=== PATIENT | male | born 1985 | race Caucasian/White ===

== ENCOUNTER 2020-09-27 18:47 | Inpatient (IN) | payer SELFPAY ==
[2020-09-27 20:27] LABS: Basophils % 1.1 % (0-1.3); Hematocrit 35.6 % (39.6-49.0); Lymphocytes % 20.5 % (15.3-44.8); MPV 8.9 fL (7.6-11.3); RBC Red Blood Cell Count 3.31 M/uL (4.33-5.43)
[2020-09-27] MEDS ORDERED: FAMOTIDINE 20 MG/2 ML VIAL IV ONE (20:37)
[2020-09-27] MEDS ORDERED: ONDANSETRON 4 MG/2 ML VIAL ONE (20:37)
[2020-09-27] MEDS ORDERED: MORPHINE 4 MG/ML SYR ONE ×2 (20:37→23:11)
[2020-09-27 20:45] LABS: Barbiturates NEGATIVE (NEGATIVE); Benzodiazepines NEGATIVE (NEGATIVE); Cocaine NEGATIVE (NEGATIVE); METHAMPHETAM NEGATIVE (NEGATIVE); Methadone NEGATIVE (NEGATIVE); Opiates NEGATIVE (NEGATIVE); Phencyclidine NEGATIVE (NEGATIVE); THC Cannibis NEGATIVE (NEGATIVE)
[2020-09-27 20:46] LABS: ALT/SGPT 56 U/L (12-78); AST/SGOT 255 U/L (15-37); Albumin 2.8 g/dL (3.4-5.0); Alkaline Phosphatase 163 U/L (45-117); BUN Blood Urea Nitrogen 3 mg/dL (7-18); Bicarbonate 25 mmol/L (21-32); Bilirubin Direct 1.2 mg/dL (0-0.2); Bilirubin Total 1.9 mg/dL (0.2-1.0); Glucose Level 93 mg/dL (74-106); Lipase 1320 U/L (73-393); Potassium 3.7 mmol/L (3.5-5.1); Protein, Total 8.4 g/dL (6.4-8.2); Sodium Level 136 mmol/L (136-145)
[2020-09-27 20:48] LABS: Urine Glucose NEGATIVE (NEG); Urine Specific Gravity 1.015 (1.005-1.030)
[2020-09-27 20:49] LABS: Urine Blood NEGATIVE (NEG); Urine Protein NEGATIVE (NEG)
[2020-09-27 21:00] LABS: Protime INR 1.17
[2020-09-27 22:44] LABS: Blood Morphology Comment NOTED (NOT SEEN); Macrocytosis 1+; Platelet Estimate DECR; Target Cells 2+; White Blood Cell Scan OK (OK)
--- NOTE | 2020-09-27 23:15 | EDPHYS ---
Physician Documentation [facility] Name: Jean Kamara Age: 35 yrs Sex: Male : 1985 Arrival Date: 09/27/2020 Time: 18:50 Bed 18 Private MD: ED Physician Darren Watkins HPI: 09/27 20:25 This 35 yrs old Male presents to ER via Ambulatory with complaints of mh7 Abdominal Pain, Back Pain. 20:25 The patient presents with abdominal distention that is diffuse. Onset: The mh7 symptoms/episode began/occurred 1 month(s) ago. The symptoms do not radiate. Associated signs and symptoms: Pertinent positives: nausea, vomiting, and diarrhea, Pertinent negatives: anorexia, blood in stools, chest pain, constipation, dysuria, fever, headache, hematuria, palpitations, shortness of breath, testicular pain, vomiting blood. The symptoms are described as intermittent, sharp, waxing/waning. Modifying factors: The symptoms are alleviated by nothing, the symptoms are aggravated by nothing. Severity of pain: At its worst the pain was moderate 21 day(s) ago, in the emergency department the pain has improved moderately. Historical: - Allergies: 19:04 No Known Allergies; ca1 - Home Meds: 19:04 None [Active]; ca1 - PMHx: 19:04 None; ca1 - PSHx: 19:04 None; ca1 - Immunization history:: Flu vaccine is not up to date. - Social history:: Smoking status: Patient reports the use of cigarette tobacco products, smokes one pack cigarettes per day. Patient uses alcohol, everyday, all day", pt states. ROS: 20:25 Constitutional: Negative for fever, chills, and weight loss, Eyes: Negative for injury, mh7 pain, redness, and discharge, ENT: Negative for injury, pain, and discharge, Neck: Negative for injury, pain, and swelling, Cardiovascular: Negative for chest pain, palpitations, and edema, Respiratory: Negative for shortness of breath, cough, wheezing, and pleuritic chest pain, : Negative for injury, bleeding, discharge, and swelling, MS/Extremity: Negative for injury and deformity, Skin: Negative for injury, rash, and discoloration, Neuro: Negative for headache, weakness, numbness, tingling, and seizure, Psych: Negative for depression, anxiety, suicide ideation, homicidal ideation, and hallucinations, Allergy/Immunology: Negative for hives, rash, and allergies, Endocrine: Negative for neck swelling, polydipsia, polyuria, polyphagia, and marked weight changes, Hematologic/Lymphatic: Negative for swollen nodes, abnormal bleeding, and unusual bruising. Exam: 20:25 Constitutional: This is a well developed, well nourished patient who is awake, alert, mh7 and in no acute distress. Head/Face: Normocephalic, atraumatic. Eyes: Pupils equal round and reactive to light, extra-ocular motions intact. Lids and lashes normal. Conjunctiva and sclera are non-icteric and not injected. Cornea within normal limits. Periorbital areas with no swelling, redness, or edema. Neck: Trachea midline, no thyromegaly or masses palpated, and no cervical lymphadenopathy. Supple, full range of motion without nuchal rigidity, or vertebral point tenderness. No Meningismus. Chest/axilla: Normal chest wall appearance and motion. Nontender with no deformity. No lesions are appreciated. 20:25 Respiratory: Lungs have equal breath sounds bilaterally, clear to auscultation and percussion. No rales, rhonchi or wheezes noted. No increased work of breathing, no retractions or nasal flaring. 20:25 Back: No spinal tenderness. No costovertebral tenderness. Full range of motion. Skin: Warm, dry with normal turgor. Normal color with no rashes, no lesions, and no evidence of cellulitis. MS/ Extremity: Pulses equal, no cyanosis. Neurovascular intact. Full, normal range of motion. Neuro: Awake and alert, GCS 15, oriented to person, place, time, and situation. Cranial nerves II-XII grossly intact. Motor strength 5/5 in all extremities. Sensory grossly intact. Cerebellar exam normal. Normal gait. Psych: Awake, alert, with orientation to person, place and time. Behavior, mood, and affect are within normal limits. 20:25 Cardiovascular: Rate: tachycardic, Rhythm: regular, Pulses: no pulse deficits are appreciated, Heart sounds: normal, normal S1and S2, Edema: is not appreciated, JVD: is not appreciated. 20:25 Abdomen/GI: Inspection: distension, that is moderate, Bowel sounds: normal, in all quadrants, Palpation: mild abdominal tenderness, in the epigastric area, right upper quadrant and left upper quadrant, Rectal exam: the exam is deferred, because of patient request, Indicators: McBurney's point is not tender, Mckeon's sign is negative, Rovsing's sign is negative, Obturator sign is negative, Psoas sign is negative, Liver: is enlarged, Hernia: not appreciated. Vital Signs: 18:58 BP 149 / 110; Pulse 113; Resp 17 S; Temp 98.6(TE); Pulse Ox 100% on R/A; Weight 63.5 kg ca1 (R); Height 5 ft. 8 in. (172.72 cm) (R); Pain 10/; 21:15 BP 131 / 84; Pulse 103; Resp 16; Pulse Ox 99% ; rv 22:00 BP 142 / 90; Pulse 101; Resp 18; Pulse Ox 96% on R/A; rv 23:00 BP 128 / 90; Pulse 104; Resp 15; Pulse Ox 95% on R/A; rv 09/28 00:00 BP 119 / 86; Pulse 101; Resp 20; Temp 98.4(O); Pulse Ox 95% ; rv 09/27 18:58 Body Mass Index 21.29 (63.50 kg, 172.72 cm) ca1 MDM: 09/27 23:11 Differential diagnosis: appendicitis, bowel obstruction, cholecystitis, Cholelithiasis, 7 diverticulitis, gastritis, gastroesophageal reflux disease, Hepatitis, non-specific abd pain, pancreatitis, Peptic Ulcer Disease, Perf. Duodenal Ulcer, Pyelonephritis, urinary tract infection. Data reviewed: vital signs, nurses notes, lab test result(s), CBC, electrolytes, urinalysis, urine drug screen, EKG, radiologic studies, CT scan. Data interpreted: Pulse oximetry: on room air is 99 %. Interpretation: normal. Counseling: I had a detailed discussion with the patient and/or guardian regarding: the historical points, exam findings, and any diagnostic results supporting the discharge/admit diagnosis, lab results, radiology results, the need for further work-up and treatment in the hospital. Response to treatment: the patient's symptoms have mildly improved after treatment. 23:14 Patient medically screened. [facility] 09/27 20:05 Order name: Basic Metabolic Panel; Complete Time: 20:51 [facility] 09/27 20:05 Order name: CBC with Diff; Complete Time: 23:11 [facility] 09/27 20:05 Order name: Hepatic Function; Complete Time: 20:51 [facility] 09/27 20:05 Order name: Lipase; Complete Time: 20:51 [facility] 09/27 20:05 Order name: UDS; Complete Time: 20:51 [facility] 09/27 20:05 Order name: ETOH Level; Complete Time: 20:51 [facility] 09/27 20:05 Order name: Protime (+inr); Complete Time: 21:05 [facility] 09/27 20:05 Order name: Ptt, Activated; Complete Time: 21:05 [facility] 09/27 20:31 Order name: Urine Dipstick--Ancillary (enter results); Complete Time: 20:[address] [facility] 09/27 20:33 Order name: CBC Smear Scan; Complete Time: 23:11 [facility] 09/27 22:14 Order name: Lipid Profile; Complete Time: 22:37 [facility] 09/28 00:03 Order name: SARS-COV-2 RT PCR [facility] 09/28 05:31 Order name: CBC with Automated Diff [facility] 09/27 20:05 Order name: IV Saline Lock; Complete Time: 20:20 [facility] 09/27 20:05 Order name: Labs collected and sent; Complete Time: 20:20 [facility] 09/27 20:05 Order name: Urine Dipstick-Ancillary (obtain specimen); Complete Time: 20:20 [facility] 09/27 20:15 Order name: CT Abd/Pelvis - IV Contrast Only [facility] 09/28 05:49 Order name: Protime (+INR) [facility] 09/28 06:01 Order name: Comprehensive Metabolic Panel [facility] 09/28 06:01 Order name: Phosphorus [facility] 09/28 06:01 Order name: Magnesium [facility] 09/28 08:49 Order name: US [facility] 09/28 09:41 Order name: RAD [facility] 09/27 20:05 Order name: EKG - Nurse/Tech; Complete Time: 20:41 [facility] 09/27 23:28 Order name: NPO; Complete Time: 23:34 la1 Administered Medications: 20:30 Drug: Zofran (Ondansetron) 4 mg Route: IVP; Site: right forearm; rv 09/28 01:07 Follow up: Response: No adverse reaction rv 09/27 20:30 Drug: Pepcid 20 mg Route: IVP; Site: right forearm; rv 09/28 01:07 Follow up: Response: No adverse reaction rv 09/27 20:30 Drug: morphine 4 mg Route: IVP; Site: right forearm; rv 09/28 01:07 Follow up: Response: No adverse reaction rv 09/27 22:59 Drug: morphine 4 mg Route: IVP; Site: right forearm; rv 09/28 01:07 Follow up: Response: No adverse reaction; Marked relief of symptoms; Pain is decreased; rv RASS: Alert and Calm (0) 09/27 23:33 Drug: Ativan 1 mg Route: IVP; Site: right forearm; ea 09/28 01:07 Follow up: Response: No adverse reaction rv 09/27 23:33 Drug: NS 0.9% 1000 ml Route: IV; Rate: 150 ml/hr; Site: right forearm; ea 09/28 01:07 Follow up: IV Status: Infusion continued upon admission rv Disposition: 09/27/20 23:14 Hospitalization ordered by Rajeev Tolbert for Inpatient Admission. Preliminary diagnosis are Acute pancreatitis, Hepatitis. - Bed requested for Telemetry/MedSurg (Inpatient). - Status is Inpatient Admission. ph - Condition is Stable. - Problem is new. - Symptoms have improved. Signatures: Dispatcher [employer] EDMS Nilesh Dang, RECEIVING LEAD-C RECEIVING LEAD-Cla1 Brisa Cano RN RN ph Garcia, Cindy, RN RN Macy Khoury RN RN ea Aguilar, Jose, RN RN Bryan Timmons RN Farzana Anna RN Darren Garcia MD MD 7 Corrections: (The following items were deleted from the chart) 09/27 23:06 22:44 CORONAVIRUS+MR.LAB.BRZ ordered. [facility] EDCT 23:56 23:14 Hospitalization Ordered by Rajeev Tolbert MD for Inpatient Admission. Preliminary cg diagnosis is Acute pancreatitis; Hepatitis. Bed requested for Telemetry/MedSurg (Inpatient). Status is Inpatient Admission. Condition is Stable. Problem is new. Symptoms have improved. mh7 09/28 10:06 09/27 23:56 09/27/2020 23:14 Hospitalization Ordered by Rajeev Tolbert MD for Inpatient ja1 Admission. Preliminary diagnosis is Acute pancreatitis; Hepatitis. Bed requested for [facility] ER HOLD. Status is Inpatient Admission. Condition is Stable. Problem is new. Symptoms have improved. cg 09/28 10:37 10:06 09/27/2020 23:14 Hospitalization Ordered by Rajeev Tolbert MD for Inpatient ph Admission. Preliminary diagnosis is Acute pancreatitis; Hepatitis. Bed requested for Telemetry/MedSurg (Inpatient). Status is Inpatient Admission. Condition is Stable. Problem is new. Symptoms have improved. ja1
--- NOTE | 2020-09-27 23:15 | ER ---
Nurse's Notes [facility] Name: Jean Kamara Age: 35 yrs Sex: Male : 1985 Arrival Date: 09/27/2020 Time: 18:50 Bed 18 Private MD: Diagnosis: Acute pancreatitis;Hepatitis Presentation: 09/27 18:58 Chief complaint: Patient states: Abdominal distention and bloating since 3 weeks ago. I ca1 am an alcoholic and I have pain all over my belly, sometimes it goes to the back, sometimes on the R side, sometimes on the L. Reports N/V/D. Denies fever. Coronavirus screen: Client denies travel out of the [place] in the last 14 days. diarrhea, nausea, vomiting. Client presents with at least one sign or symptom that may indicate coronavirus-19. Standard/surgical mask placed on the client. Provider contacted for isolation considerations. Ebola Screen: Patient negative for fever greater than or equal to 101.5 degrees Fahrenheit, and additional compatible Ebola Virus Disease symptoms Patient denies exposure to infectious person. Patient denies travel to an Ebola-affected area in the 21 days before illness onset. No symptoms or risks identified at this time. Initial Sepsis Screen: Does the patient meet any 2 criteria? No. Patient's initial sepsis screen is negative. Does the patient have a suspected source of infection? No. Patient's initial sepsis screen is negative. Risk Assessment: Do you want to hurt yourself or someone else? Patient reports no desire to harm self or others. Onset of symptoms was September 27, 2020. 18:58 Method Of Arrival: Ambulatory ca1 18:58 Acuity: GREGORY 3 ca1 Historical: - Allergies: 19:04 No Known Allergies; ca1 - Home Meds: 19:04 None [Active]; ca1 - PMHx: 19:04 None; ca1 - PSHx: 19:04 None; ca1 - Immunization history:: Flu vaccine is not up to date. - Social history:: Smoking status: Patient reports the use of cigarette tobacco products, smokes one pack cigarettes per day. Patient uses alcohol, everyday, all day", pt states. Screenin:00 Abuse screen: Denies threats or abuse. Denies injuries from another. rv 20:00 Nutritional screening: No deficits noted. Tuberculosis screening: No symptoms or risk rv factors identified. Fall Risk None identified. Assessment: 20:00 General: Appears comfortable, Behavior is calm, cooperative. rv 20:00 Pain: Complains of pain in abdomen. Neuro: Level of Consciousness is awake, alert, rv obeys commands, Oriented to person, place, time, situation. Cardiovascular: Patient's skin is warm and dry. Cardiovascular: Rhythm is sinus tachycardia. Respiratory: Airway is patent Respiratory effort is even, unlabored. GI: Abdomen is round distended, Bowel sounds present X 4 quads. Derm: Skin is jaundiced. 21:25 Reassessment: contact number: Silviano [phone], Gissell [phone], Jasmin [phone]. rv Vital Signs: 18:58 BP 149 / 110; Pulse 113; Resp 17 S; Temp 98.6(TE); Pulse Ox 100% on R/A; Weight 63.5 kg ca1 (R); Height 5 ft. 8 in. (172.72 cm) (R); Pain 10/10; 21:15 BP 131 / 84; Pulse 103; Resp 16; Pulse Ox 99% ; rv 22:00 BP 142 / 90; Pulse 101; Resp 18; Pulse Ox 96% on R/A; rv 23:00 BP 128 / 90; Pulse 104; Resp 15; Pulse Ox 95% on R/A; rv 09/28 00:00 BP 119 / 86; Pulse 101; Resp 20; Temp 98.4(O); Pulse Ox 95% ; rv 09/27 18:58 Body Mass Index 21.29 (63.50 kg, 172.72 cm) ca1 ED Course: 09/27 18:50 Patient arrived in ED. ag5 19:02 Triage completed. ca1 19:04 Arm band placed on right wrist. ca1 19:44 Darren Watkins MD is Attending Physician. mh7 20:00 Patient has correct armband on for positive identification. quality assurance monitor chassis on. Pulse rv ox on. NIBP on. 20:19 Bryan Marrero, YENNIFER is Primary Nurse. rv 20:29 Initial lab(s) drawn, by ok, sent to lab. Inserted saline lock: 20 gauge in right rv forearm, using aseptic technique. Blood collected. 22:08 CT Abd/Pelvis - IV Contrast Only In Process Unspecified. EDMS 23:12 Rajeev Tolbert MD is Hospitalizing Provider. [facility] 09/28 01:06 No provider procedures requiring assistance completed. IV is patent, with fluids rv infusing freely, Patient admitted, IV remains in place. Administered Medications: 09/27 20:30 Drug: Zofran (Ondansetron) 4 mg Route: IVP; Site: right forearm; rv 09/28 01:07 Follow up: Response: No adverse reaction rv 09/27 20:30 Drug: Pepcid 20 mg Route: IVP; Site: right forearm; rv 09/28 01:07 Follow up: Response: No adverse reaction rv 09/27 20:30 Drug: morphine 4 mg Route: IVP; Site: right forearm; rv 09/28 01:07 Follow up: Response: No adverse reaction rv 09/27 22:59 Drug: morphine 4 mg Route: IVP; Site: right forearm; rv 09/28 01:07 Follow up: Response: No adverse reaction; Marked relief of symptoms; Pain is decreased; rv RASS: Alert and Calm (0) 09/27 23:33 Drug: Ativan 1 mg Route: IVP; Site: right forearm; ea 09/28 01:07 Follow up: Response: No adverse reaction rv 09/27 23:33 Drug: NS 0.9% 1000 ml Route: IV; Rate: 150 ml/hr; Site: right forearm; ea 09/28 01:07 Follow up: IV Status: Infusion continued upon admission rv Outcome: 09/27 23:14 Decision to Hospitalize by Provider. [facility] 09/28 01:06 Admitted to ER Hold. Please see [facility] for further documentation. rv Condition: good Instructed on the need for admit. 10:37 Patient left the ED. ph Signatures: Dispatcher [employer] EDID Brisa Cano RN RN ph Antunez, Elena, RN RN ea Vicente, Ronaldo, RN RN rv Acob, Cheryl RN Yariel [facility] Darren Watkins MD MD [facility]
[2020-09-27] MEDS ORDERED: NA CHLORIDE 0.9% 1,000 ML ONE (23:42)
[2020-09-27] MEDS ORDERED: LORazepam 2 MG/ML VIAL ONE (23:42)
--- NOTE | 2020-09-27 23:49 | P.HP ---
Certification for Inpatient Patient admitted to: Inpatient With expected LOS: >2 Midnights Patient will require the following post-hospital care: None Practitioner: I am a practitioner with admitting privileges, knowledge of patient current condition, hospital course, and medical plan of care. Services: Services provided to patient in accordance with Admission requirements found in Title 42 Section 412.3 of the Code of Federal Regulations Patient History Date of Service: 09/27/20 Primary Care Provider: none Reason for admission: Alcoholic pancreatitis History of Present Illness: 35-year-old male with history of alcoholic liver disease presents to the emergency department for abdominal pain. Patient reports that he has been having the pain for the last few days epigastric, radiating to the back in addition to some generalized abdominal pain. Patient had been noted to be swollen, reports that his belly has been swollen for around 2-3 months. Patient admits to drinking From when he wakes up to when he goes to sleep. Patient prefers beer, reports he has been drinking since he was 17 years old, father p assed away from cirrhosis of the liver. Patient's workup in the emergency department significant for T bili 1.9 d bili 1.2, AST 255 alk-phos 163 lipase 1320, triglycerides 172 hemoglobin 12.2 hematocrit 35.6 MCV 107.4. Platelet count 88, INR 1.17. CT demonstrates fatty liver infiltration with hepatitis pattern in addition to a mild ileus and small amount of ascites. Patient reports his last drink was 1900 on 09/27/2020 and he is already developing some tremors. Patient reports that he attempted to stop drinking 1 time previously and may but did not last long. - Past Medical/Surgical History -: Alcohol abuse and dependence -: Alcoholic Cirrhosis of the liver -: none Psychosocial/ Personal History: Patient is unemployed and currently lives alone - Family History Father -: Liver disease - Social History Smoking Status: Current every day smoker Counseled patient to stop smoking for: less than 10 minutes Smoking therapy provided: Yes Alcohol use: Yes CD- Drugs: Yes Caffeine use: Yes Place of Residence: Home Review of Systems General: Weakness, Malaise Gastrointestinal: Nausea, Abdominal Pain, Distention Physical Examination - Physical Exam General: Alert, In no apparent distress, Oriented x3, Other (Mildly tremulous) HEENT: Atraumatic, Normocephalic Neck: Supple Respiratory: Clear to auscultation bilaterally, Normal air movement Cardiovascular: No edema, Irregular heart rate/rhythm (Sinus tachycardia rate 110) Capillary refill: <2 Seconds Gastrointestinal: Normal bowel sounds, No rebound, No guarding, Tenderness (Mild diffuse abdominal tenderness) Musculoskeletal: No contractures, No erythema, No tenderness Integumentary: No significant lesion, No tenderness/swelling, No erythema Neurological: Normal speech, Normal strength at 5/5 x4 extr, Normal tone, Sensation intact - Studies Laboratory Data (last 24 hrs) 09/27/20 20:15: Triglycerides 172 H, Cholesterol 143, HDL Cholesterol 15 L, Cholesterol/HDL Ratio 9.53 09/27/20 20:15: PT 13.8 H, INR 1.17, APTT 31.3 09/27/20 20:15: WBC 10.0, Hgb 12.2 L, Hct 35.6 L, Plt Count 88 L 09/27/20 20:15: Sodium 136, Potassium 3.7, BUN 3 L, Creatinine 0.67, Glucose 93, Total Bilirubin 1.9 H, AST 255 H, ALT 56, Alkaline Phosphatase 163 H, Lipase 1320 H Assessment and Plan - Plan Assessment Acute pancreatitis complicated with mild ileus Suspected cirrhosis of the liver related to alcohol abuse Alcohol abuse and dependence Thrombocytopenia Plan Acute pancreatitis complicated with mild ileus: NPO, p.r.n. pain and nausea medications, IV fluids overnight. Abdominal x-ray in the morning. Monitor on telemetry. DVT prophylaxis with SCDs due to low platelet count.. Suspected cirrhosis of the liver related to alcohol abuse: Hepatitis panel and liver ultrasound ordered, patient reports drinking daily since 17 years old, father from cirrhosis of the liver. Patient's alcohol level on admission around 300. Alcohol abuse and dependence: Last drink 1900 on 09/27/2020, patient high risk for withdrawal and DTs, DT prophylaxis medications ordered. Will need to monitor patient closely. Thrombocytopenia: Likely related to liver function, continue to monitor. Continue SCDs. Discharge Plan: Home Plan to discharge in: Greater than 2 days - Advance Directives Does patient have a Living Will: No Does patient have a Durable POA for Healthcare: No - Code Status/Comfort Care Code Status Assessed: Yes (Full code) Critical Care: No Time Spent Managing Pts Care (In Minutes): 55
[2020-09-28 00:57] VITALS: BMI 23.8
[2020-09-28] MEDS ORDERED: ONDANSETRON 4 MG/2 ML VIAL IV PRN (02:44)
[2020-09-28] MEDS ORDERED: FLUMAZENIL 0.1 MG/ML (5 mL VIAL) IV PRN (02:44)
[2020-09-28] MEDS: MORPHINE 2 MG/ML SYR IV PRN ×5 (03:00→22:13)
[2020-09-28] MEDS: LORazepam 2 MG/ML VIAL IV SCH ×6 (03:00→22:37)
[2020-09-28] MEDS: NICOTINE 21 MG/PAT TD SCH (03:00)
[2020-09-28] MEDS ORDERED: NICOTINE 21 MG/PAT TD ONE (03:25)
[2020-09-28] MEDS ORDERED: MORPHINE 2 MG/ML SYR ONE ×2 (03:27→09:20)
[2020-09-28] MEDS ORDERED: LORazepam 2 MG/ML VIAL ONE ×4 (03:29→09:20)
[2020-09-28] MEDS ORDERED: ACETAMINOPHEN 650MG/RECT SUPP PR PRN (04:45)
[2020-09-28] MEDS: LORazepam 2 MG/ML VIAL IV PRN ×2 (05:15→09:30)
[2020-09-28 05:20] LABS: Absolute Lymphocytes (CBC) 1.8 K/uL (0.7-4.9); Basophils % 1.4 % (0-1.3); Hematocrit 33.7 % (39.6-49.0); Lymphocytes % 27.5 % (15.3-44.8); MPV 9.2 fL (7.6-11.3); RBC Red Blood Cell Count 3.08 M/uL (4.33-5.43)
[2020-09-28 05:31] LABS: Protime INR 1.2
[2020-09-28 05:47] LABS: ALT/SGPT 53 U/L (12-78); Albumin 2.6 g/dL (3.4-5.0); Alkaline Phosphatase 144 U/L (45-117); BUN Blood Urea Nitrogen 4 mg/dL (7-18); Bicarbonate 26 mmol/L (21-32); Bilirubin Total 1.5 mg/dL (0.2-1.0); Glucose Level 70 mg/dL (74-106); Protein, Total 7.5 g/dL (6.4-8.2); Sodium Level 137 mmol/L (136-145)
[2020-09-28 06:00] LABS: AST/SGOT 229 U/L (15-37); Magnesium 2.1 mg/dL (1.8-2.4); Potassium 4.5 mmol/L (3.5-5.1)
--- NOTE | 2020-09-28 08:48 | RAD REPORT ---
EXAM DESCRIPTION: US - Liver Only - 09/28/2020 7:43 am CLINICAL HISTORY: Abdominal pain COMPARISON: CT abdomen September 27, 2020 FINDINGS: The liver has an increased and heterogeneous echotexture. Hepatopetal flow. A lesion is no t visualized. The liver is enlarged. Suboptimal evaluation of portal vein. Multiple small gallstones. Gallbladder is mildly distended. Gallbladder wall is not thickened. Biliary tree is normal caliber Small amount of ascites IMPRESSION: Increased hepatic echotexture consistent with fatty infiltration. Hepatomegaly Cholelithiasis. Mild gallbladder distention
[2020-09-28] MEDS: FOLIC ACID 1 MG, MULTIVITAMINS INJ 10 ML, THIAMINE HCL 100 MG in NA CHLORIDE 0.9% 1,000 ML IV SCH (09:00)
--- NOTE | 2020-09-28 09:39 | RAD REPORT ---
EXAM DESCRIPTION: RAD - Abdomen 1 View (KUB) - 09/28/2020 8:28 am CLINICAL HISTORY: Abdomen pain. FINDINGS: Mildly dilated loops of jejunum unchanged from September 27, 2020 cat scan. Air is present w ithin nondilated ileum. This has the appearance of a mild ileus Contrast is present within the bladder
--- NOTE | 2020-09-28 11:28 | EKG ---
Test Date: 2020-09-27 Test Time: 20:36:45 Lap Grinder: JUMA MEASUREMENT RESULTS: Intervals: Rate: 93 NV: 126 QRSD: 102 QT: 388 QTc: 482 Hardin: P: 66 NV: 126 QRS: 29 T: 39 INTERPRETIVE STATEMENTS: Normal sinus rhythm Prolonged QT Abnormal ECG No previous ECG available for comparison Electronically Signed On 09-28-20 11:27:15 [employer] by Vaughn Baird
--- NOTE | 2020-09-28 12:36 | RAD REPORT ---
EXAM DESCRIPTION: CT - Abdomen Pelvis W Contrast - 09/28/2020 8:58 am CLINICAL HISTORY: 35 years Male ABDOMINAL DISTENTION TECHNIQUE: Contiguous axial images obtained through the abdomen and pelvis following intravenous con trast administration. Coronal and sagittal reformatted images provided. This CT exam was performed according to our departmental dose-optimization program, which includes on e or more of the following dose reduction techniques: automated exposure control, adjustment of the m A and/or kV according to patient size, and/or use of iterative reconstruction technique. COMPARISON: No prior exams provided for comparison. FINDINGS: The lung bases are clear. There is diffuse fatty infiltration of the liver, which is moderately enlarged without focal lesion. There is a small amount of upper abdominal ascites, right greater than left. There are mildly enlarge d periportal lymph nodes. The biliary tree, gallbladder, pancreas, spleen, adrenal glands, kidneys, and urinary bladder are nor mal. Mild ileus without transition point. The appearance of mild distal duodenal and distal colonic wall t hickening are nonspecific in the setting of ascites. There is no bowel obstruction, pneumatosis, or f ree intraperitoneal air. Sigmoid diverticulosis without diverticulitis. Duplicated IVC. No abdominal aortic aneurysm. No acute osseous abnormality. IMPRESSION: Diffuse fatty infiltration of the liver, which is moderately enlarged. Small amount of a bdominal ascites, particularly adjacent to the liver. Enlarged periportal lymph nodes. Acute hepatiti s should be excluded clinically. Mild ileus without transition point. The appearance of mild distal duodenal and distal colonic wall t hickening are nonspecific in the setting of ascites. Correlate clinically for bowel inflammation. No bowel obstruction or perforation. Electronically signed by: Marya Mc MD 09/27/2020 10:48 PM C 13 CATAPULT OPERATOR Due to temporary technical issues with the PACS/Fluency reporting system, reports are being signed by the in house radiologists without review as a courtesy to insure prompt reporting. The interpreting radiologist is fully responsible for the content of the report.
[2020-09-28] MEDS ORDERED: NA CHLORIDE 0.9% 500 ML IV ONE (14:27)
[2020-09-28] MEDS: METOPROLOL TARTRATE 5 MG/5 ML INJ IV SCH ×3 (14:38→14:56)
[2020-09-28] MEDS ORDERED: NA CHLORIDE 0.9% 1,000 ML ONE (14:49)
[2020-09-28] MEDS ORDERED: METOPROLOL TAR 50 MG TAB PO ONE (18:56)
[2020-09-28] MEDS: chlordiazePOXIDE HCl 5 MG CAP PO SCH (22:51)
[2020-09-29] MEDS: NICOTINE 21 MG/PAT TD SCH (00:07)
[2020-09-29] MEDS: LORazepam 2 MG/ML VIAL IV SCH ×7 (02:32→23:10)
[2020-09-29 05:45] LABS: Absolute Lymphocytes (CBC) 1.4 K/uL (0.7-4.9); Basophils % 1.1 % (0-1.3); Hematocrit 32.1 % (39.6-49.0); MPV 9.1 fL (7.6-11.3); RBC Red Blood Cell Count 2.96 M/uL (4.33-5.43)
[2020-09-29] MEDS: METOPROLOL TAR 25 MG TAB PO SCH ×2 (05:46→17:23)
[2020-09-29] MEDS: chlordiazePOXIDE HCl 5 MG CAP PO SCH (05:46)
[2020-09-29 05:56] LABS: ALT/SGPT 42 U/L (12-78); AST/SGOT 162 U/L (15-37); Albumin 2.7 g/dL (3.4-5.0); Alkaline Phosphatase 135 U/L (45-117); BUN Blood Urea Nitrogen 9 mg/dL (7-18); Bicarbonate 26 mmol/L (21-32); Bilirubin Total 3.3 mg/dL (0.2-1.0); Glucose Level 75 mg/dL (74-106); Lipase 475 U/L (73-393); Magnesium 1.9 mg/dL (1.8-2.4); NT PRO-BNP 550 pg/mL (<125); Phosphorus 3.8 mg/dL (2.5-4.9); Potassium 3.7 mmol/L (3.5-5.1); Protein, Total 7.6 g/dL (6.4-8.2); Sodium Level 136 mmol/L (136-145)
[2020-09-29 06:16] LABS: Protime INR 1.23
[2020-09-29] MEDS ORDERED: POTASSIUM CL SA 10 MEQ TAB PO ONE (08:00)
[2020-09-29 08:38] LABS: Blood Morphology Comment NOTED (NOT SEEN); Macrocytosis 1+; Platelet Estimate DECR; Target Cells 1+
[2020-09-29] MEDS: LORazepam 2 MG/ML VIAL IV PRN ×2 (09:15→11:32)
[2020-09-29] MEDS: MORPHINE 2 MG/ML SYR IV PRN (09:19)
--- NOTE | 2020-09-29 09:56 | P.PN ---
Subjective Date of Service: 09/28/20 Patient still having some pain. Patient went into an SVT rhythm and converted back with a beta-kemar therapy. Continue oral beta-kemar therapy. Start him on clear liquids in the morning. Physical Examination - Vital Signs Temperature: 98.9 F Blood Pressure: 161/88 Pulse: 87 Respirations: 20 Pulse Ox (%): 96 Assessment & Plan - Advance Directives Does patient have a Living Will: No Does patient have a Durable POA for Healthcare: No
[2020-09-29] MEDS: FOLIC ACID 1 MG, MULTIVITAMINS INJ 10 ML, THIAMINE HCL 100 MG in NA CHLORIDE 0.9% 1,000 ML IV SCH (10:07)
[2020-09-29] MEDS: chlordiazePOXIDE HCl 25 MG CAP PO SCH ×3 (11:42→23:10)
[2020-09-29 15:50] LABS: ALT/SGPT 42 U/L (12-78); AST/SGOT 152 U/L (15-37); Albumin 2.6 g/dL (3.4-5.0); Alkaline Phosphatase 125 U/L (45-117); BUN Blood Urea Nitrogen 11 mg/dL (7-18); Bicarbonate 27 mmol/L (21-32); Bilirubin Total 3.6 mg/dL (0.2-1.0); Glucose Level 71 mg/dL (74-106); Lipase 472 U/L (73-393); Potassium 3.9 mmol/L (3.5-5.1); Protein, Total 7.5 g/dL (6.4-8.2); Sodium Level 138 mmol/L (136-145)
[2020-09-29] MEDS ORDERED: HYDROMORPHONE HCL 1 MG/ML INJ IV ONE (16:00)
[2020-09-29] MEDS ORDERED: chlordiazePOXIDE HCl 5 MG CAP PO SCH (19:30)
[2020-09-30] MEDS: NICOTINE 21 MG/PAT TD SCH (00:04)
[2020-09-30 04:51] LABS: Absolute Lymphocytes (CBC) 1.3 K/uL (0.7-4.9); Hematocrit 33.1 % (39.6-49.0); Lymphocytes % 21.7 % (15.3-44.8); Phosphorus 4.2 mg/dL (2.5-4.9); RBC Red Blood Cell Count 2.97 M/uL (4.33-5.43)
[2020-09-30 05:21] LABS: Protime INR 1.23
[2020-09-30] MEDS: LORazepam 2 MG/ML VIAL IV SCH ×5 (06:00→23:12)
[2020-09-30] MEDS: METOPROLOL TAR 25 MG TAB PO SCH ×2 (06:00→17:24)
[2020-09-30] MEDS: chlordiazePOXIDE HCl 25 MG CAP PO SCH ×4 (06:00→23:11)
--- NOTE | 2020-09-30 06:13 | EKG ---
Test Date: 2020-09-28 Test Time: 15:02:48 Drafter Electronic: JAIMIE MEASUREMENT RESULTS: Intervals: Rate: 100 SC: 124 QRSD: 98 QT: 362 QTc: 466 [place]: P: 51 SC: 124 QRS: 26 T: 9 INTERPRETIVE STATEMENTS: Normal sinus rhythm Normal ECG Compared to ECG 09/27/2020 20:36:45 Prolonged QT interval no longer present Electronically Signed On 09-30-20 06:09:20 LABORATORY DEVELOPMENT TECHNICIAN by Vaughn Baird
--- NOTE | 2020-09-30 08:35 | ECHO ---
HEIGHT: 5 ft 8 in WEIGHT: 156 lb 15.506 oz DATE OF STUDY: 09/29/[address]: Rajeev Tolbert MD 2-DIMENSIONAL: YES M.MODE: YES DOPPLER: YES COLOR FLOW: YES TDS: NO PORTABLE: NO DEFINITY: NO BUBBLE STUDY: NO DIAGNOSIS: SUPRAVENTRICULAR TACHYCARDIA CARDIAC HISTORY: CATHERIZATION: NO SURGERY: NO PROSTHETIC VALVE: NO PACEMAKER: NO MEASUREMENTS (cm) DIASTOLIC (NORMALS) SYSTOLIC (NORMALS) IVSd 1.0 (0.6-1.2) LA Diam 3.0 (1.9-4.0) LVEF 74% LVIDd 4.1 (3.5-5.7) LVIDs 2.4 (2.0-3.5) %FS 42% LVPWd 1.1 (0.6-1.2) Ao Diam 2.8 (2.0-3.7) 2 DIMENSIONAL ASSESSMENT: RIGHT ATRIUM: NORMAL LEFT ATRIUM: NORMAL RIGHT VENTRICLE: NORMAL LEFT VENTRICLE: NORMAL TRICUSPID VALVE: NORMAL MITRAL VALVE: NORMAL PULMONIC VALVE: NORMAL AORTIC VALVE: NORMAL PERICARDIAL EFFUSION: NONE AORTIC ROOT: NORMAL LEFT VENTRICULAR WALL MOTION: NORMAL DOPPLER/COLOR FLOW: NORMAL COMMENTS: NORMAL 2D ECHOCARDIOGRAM WITH DOPPLER. NO WALL MOTION ABNORMALITY. NO MITRAL VALVE PROLAPSE. TECHNOLOGIST: Jim MACARIO
[2020-09-30] MEDS: LORazepam 2 MG/ML VIAL IV PRN (09:15)
--- NOTE | 2020-09-30 09:43 | P.PN ---
Subjective Date of Service: 09/29/20 Delirium tremens worsening. Heart rate stable. Patient more confused and agitated. Increase Librium dosing. Continue with Ativan per protocol. Continue with hydration. Review of Systems 10-point ROS is otherwise unremarkable Physical Examination - Vital Signs Temperature: 97.3 F Blood Pressure: 138/84 Pulse: 81 Respirations: 20 Pulse Ox (%): 96 - Physical Exam General: Alert, In no apparent distress, Oriented x3 Respiratory: Clear to auscultation bilaterally, Normal air movement Cardiovascular: Regular rate/rhythm, Normal S1 S2, No murmurs Gastrointestinal: Normal bowel sounds, Soft and benign, Non-distended, No tenderness Musculoskeletal: No clubbing, No swelling, No tenderness Neurological: Sensation intact, Cranial nerves 3-12 intact - Studies Medications List Reviewed: Yes Assessment & Plan - Problems (Diagnosis) (1) Alcoholic pancreatitis Current Visit: Yes Status: Acute (2) Delirium tremens Current Visit: Yes Status: Acute - Plan Plan: 1. Continue with IV fluids 2. Pain control 3. Delirium tremens prevention 4. Monitor labs 5. GI and DVT prophylaxis - Advance Directives Does patient have a Living Will: No Does patient have a Durable POA for Healthcare: No
[2020-09-30] MEDS: FOLIC ACID 1 MG, MULTIVITAMINS INJ 10 ML, THIAMINE HCL 100 MG in NA CHLORIDE 0.9% 1,000 ML IV SCH (11:00)
[2020-09-30 11:12] LABS: Absolute Lymphocytes (CBC) 1.1 K/uL (0.7-4.9); Basophils % 1.1 % (0-1.3); Hematocrit 33.8 % (39.6-49.0); Lymphocytes % 21.7 % (15.3-44.8); MPV 9.5 fL (7.6-11.3); RBC Red Blood Cell Count 3.04 M/uL (4.33-5.43)
[2020-09-30 11:35] LABS: ALT/SGPT 38 U/L (12-78); AST/SGOT 137 U/L (15-37); Albumin 2.4 g/dL (3.4-5.0); Alkaline Phosphatase 118 U/L (45-117); BUN Blood Urea Nitrogen 11 mg/dL (7-18); Bicarbonate 27 mmol/L (21-32); Bilirubin Total 3.4 mg/dL (0.2-1.0); Glucose Level 84 mg/dL (74-106); Lipase 696 U/L (73-393); Magnesium 1.9 mg/dL (1.8-2.4); Phosphorus 3.7 mg/dL (2.5-4.9); Potassium 3.4 mmol/L (3.5-5.1); Protein, Total 7.3 g/dL (6.4-8.2); Sodium Level 136 mmol/L (136-145)
[2020-09-30] MEDS ORDERED: POTASSIUM CL SA 10 MEQ TAB PO ONE (12:00)
[2020-09-30] MEDS ORDERED: NA CHLORIDE 0.9% 500 ML IV ONE (12:01)
[2020-09-30] MEDS: MORPHINE 2 MG/ML SYR IV PRN ×2 (13:13→20:31)
[2020-09-30 14:59] LABS: Folic Acid, (Folate) 13.4 ng/mL (3.1-17.5)
[2020-10-01] MEDS: chlordiazePOXIDE HCl 25 MG CAP PO SCH ×2 (05:26→12:52)
[2020-10-01] MEDS: LORazepam 2 MG/ML VIAL IV SCH (05:26)
[2020-10-01] MEDS: METOPROLOL TAR 25 MG TAB PO SCH (05:26)
[2020-10-01 05:58] LABS: BUN Blood Urea Nitrogen 8 mg/dL (7-18); Bicarbonate 28 mmol/L (21-32); Glucose Level 80 mg/dL (74-106); Potassium 3.6 mmol/L (3.5-5.1); Sodium Level 136 mmol/L (136-145)
[2020-10-01] MEDS: NICOTINE 21 MG/PAT TD SCH (08:45)
[2020-10-01] MEDS ORDERED: POTASSIUM CL SA 10 MEQ TAB PO ONE (09:00)
[2020-10-01 09:54] VITALS: O2SAT 94
[2020-10-01] MEDS: FOLIC ACID 1 MG, MULTIVITAMINS INJ 10 ML, THIAMINE HCL 100 MG in NA CHLORIDE 0.9% 1,000 ML IV SCH (09:59)
[2020-10-01 11:24] LABS: Basophils % 0.5 % (0-1.3); Hematocrit 32.6 % (39.6-49.0); Lymphocytes % 13.6 % (15.3-44.8); MPV 9.4 fL (7.6-11.3); RBC Red Blood Cell Count 2.95 M/uL (4.33-5.43)
[2020-10-01 11:43] LABS: ALT/SGPT 41 U/L (12-78); AST/SGOT 157 U/L (15-37); Albumin 2.4 g/dL (3.4-5.0); Alkaline Phosphatase 121 U/L (45-117); BUN Blood Urea Nitrogen 8 mg/dL (7-18); Bicarbonate 28 mmol/L (21-32); Bilirubin Total 2.4 mg/dL (0.2-1.0); Glucose Level 85 mg/dL (74-106); Lipase 1627 U/L (73-393); Magnesium 1.9 mg/dL (1.8-2.4); Potassium 3.8 mmol/L (3.5-5.1); Protein, Total 7.2 g/dL (6.4-8.2); Sodium Level 138 mmol/L (136-145)
[2020-10-01 12:25] VITALS: BP 127/67; TEMP 98.5
--- NOTE | 2020-10-01 13:50 | P.PN ---
Subjective Date of Service: 09/30/20 PATIENT STATES HE IS FEELING BETTER. HE LOOKS MUCH MORE RELAXED. HE DOES NOT SEEM AGITATED. HE IS FOLLOWING COMMANDS AND HE IS TOLERATING HIS DIET. HE SAYS HIS PAIN IS VERY MINIMAL. HE IS WILLING TO GO HOME. I WANT TO MONITOR HIM AND MAKE SURE HE IS CONTINUING TO IMPROVE PRIOR TO DISCHARGE. Review of Systems 10-point ROS is otherwise unremarkable Physical Examination - Vital Signs Temperature: 98.5 F Blood Pressure: 127/67 Pulse: 84 Respirations: 17 Pulse Ox (%): 97 - Physical Exam General: Alert, In no apparent distress, Oriented x3 Respiratory: Clear to auscultation bilaterally, Normal air movement Cardiovascular: Regular rate/rhythm, Normal S1 S2, No murmurs Gastrointestinal: Normal bowel sounds, Soft and benign, Non-distended, No tenderness, No rebound, No guarding Musculoskeletal: No clubbing, No swelling, No tenderness Integumentary: No rashes Neurological: Sensation intact, Cranial nerves 3-12 intact - Studies Medications List Reviewed: Yes Assessment & Plan - Problems (Diagnosis) (1) Alcoholic pancreatitis Current Visit: Yes Status: Acute (2) Delirium tremens Current Visit: Yes Status: Acute - Plan Plan: 1. Continue with IV fluids 2. Pain control 3. Delirium tremens prevention 4. Monitor labs 5. GI and DVT prophylaxis Discharge Plan: Home Plan to discharge in: Greater than 2 days - Advance Directives Does patient have a Living Will: No Does patient have a Durable POA for Healthcare: No - Code Status/Comfort Care Code Status Assessed: Yes Code Status: Full Code Critical Care: No Time Spent Managing PTS Care (In Minutes): 35
--- NOTE | 2020-10-01 13:51 | P.DS ---
Discharge Date: 10/01/20 Primary Care Provider: ronnell Disposition: ROUTINE DISCHARGE Discharge Condition: GOOD Reason for Admission: Alcoholic pancreatitis - Problems (1) Alcoholic pancreatitis Status: Acute (2) Delirium tremens Status: Acute Brief History of Present Illness: Patient is a 35-year-old gentleman who came into the hospital with shortness of breath. Patient has had abdominal and pain in the pubic region for the last 3 weeks. Patient's symptoms are gradually worsening so patient came into the hospital for further evaluation. Hospital Course: Patient was diuresed effectively. Clinically patient is doing much better. At this time, patient is stable for discharge home. Vital Signs/Physical Exam: Temp Pulse Resp BP Pulse Ox 98.5 F 84 17 127/67 97 10/01/20 13:50 10/01/20 13:50 10/01/20 13:50 10/01/20 13:50 10/01/20 13:50 General: Alert, In no apparent distress, Oriented x3, Oriented x2 HEENT: Atraumatic, Normocephalic Neck: Supple, 2+ carotid pulse no bruit, JVD not distended Laboratory Data at Discharge: WBC 7.3 K/uL (4.3-10.9) D 10/01/20 11:00 Hgb 11.2 g/dL (13.6-17.9) L 10/01/20 11:00 Hct 32.6 % (39.6-49.0) L 10/01/20 11:00 Plt Count 101 K/uL (152-406) L D 10/01/20 11:00 PT 14.5 SECONDS (9.5-12.5) H 09/30/20 03:54 INR 1.23 09/30/20 03:54 APTT 31.3 SECONDS (24.3-36.9) 09/27/20 20:15 Sodium 138 mmol/L (136-145) 10/01/20 11:00 Potassium 3.8 mmol/L (3.5-5.1) 10/01/20 11:00 BUN 8 mg/dL (7-18) 10/01/20 11:00 Creatinine 0.78 mg/dL (0.55-1.3) 10/01/20 11:00 Glucose 85 mg/dL (74-106) 10/01/20 11:00 Phosphorus 3.7 mg/dL (2.5-4.9) 09/30/20 11:03 Magnesium 1.9 mg/dL (1.8-2.4) 10/01/20 11:00 Total Bilirubin 2.4 mg/dL (0.2-1.0) H 10/01/20 11:00 AST 157 U/L (15-37) H 10/01/20 11:00 ALT 41 U/L (12-78) 10/01/20 11:00 Alkaline Phosphatase 121 U/L (45-117) H 10/01/20 11:00 Triglycerides 172 mg/dL (<150) H 09/27/20 20:15 Cholesterol 143 mg/dL (<200) 09/27/20 20:15 HDL Cholesterol 15 mg/dL (40-60) L 09/27/20 20:15 Cholesterol/HDL Ratio 9.53 09/27/20 20:15 Lipase 1627 U/L (73-393) H 10/01/20 11:00 Home Medications: Chlordiazepoxide HCl [Librium] 10 mg PO DAILY PRN #10 capsule 10/01/20 Metoprolol Tartrate [Lopressor*] 25 mg PO BID 6AM 6PM #60 tab 10/01/20 Ondansetron HCl [Zofran] 4 mg PO Q6HP PRN #30 tablet 10/01/20 chlordiazePOXIDE HCl [Librium] 25 mg PO Q8HP PRN #50 cap 10/01/20 New Medications: Chlordiazepoxide HCl [Librium] 10 mg PO DAILY PRN #10 capsule PRN Reason: WITHDRAWALS/TREMORS chlordiazePOXIDE HCl [Librium] 25 mg PO Q8HP PRN #50 cap PRN Reason: Agitation Metoprolol Tartrate [Lopressor*] 25 mg PO BID 6AM 6PM #60 tab Ondansetron HCl [Zofran] 4 mg PO Q6HP PRN #30 tablet PRN Reason: NAUSEA AND VOMITING Diet: Low-fat di Activity: Fall precautions Followup: Unknown,U [Primary Care Provider] -
[2020-10-02 20:09] LABS: HBsAG Nonreactive (Nonreactive)
[2020-10-04 11:33] LABS: Hep C Virus RNA (PCR)log 5.88 log IU/mL
== END 2020-10-01 14:17 | disposition home or self-care (01) | DRG 439 ==
LOC: ER 18:47 → ERHOLD 23:23 → 2ND 09-28 10:31
PROVIDERS: ADMIT Hospitalist; ATTEND Hospitalist
DX: K85.20 Alcohol induced acute pancreatitis without necrosis or infection (principal); R18.8 Other ascites; K56.7 Ileus, unspecified; F10.231 Alcohol dependence with withdrawal delirium; D69.6 Thrombocytopenia, unspecified; F17.210 Nicotine dependence, cigarettes, uncomplicated; K70.0 Alcoholic fatty liver; Z56.0 Unemployment, unspecified; Z79.899 Other long term (current) drug therapy; Z20.822 Contact with and (suspected) exposure to COVID-19
CPT/HCPCS: 36415; 74018; 74177; 76705; 80048; 80053; 80061; 80074; 80076; 80307; 80320; 81003; 82607; 82746; 83690; 83735; 83880; 84100; 85025; 85610; 85730; 87522; 93005; 93306; 96361; 96374; 96375; 99285; J1170; J2270; J2405; J3411; J7030; J7040; Q9967; U0003

== ENCOUNTER 2020-10-12 05:43 | Emergency (ER) | payer SELFPAY ==
[2020-10-12 06:30] LABS: Absolute Lymphocytes (CBC) 1.9 K/uL (0.7-4.9); Basophils % 2.1 % (0-1.3); Hematocrit 41.3 % (39.6-49.0); Lymphocytes % 22.5 % (15.3-44.8); RBC Red Blood Cell Count 3.68 M/uL (4.33-5.43)
[2020-10-12] MEDS ORDERED: MORPHINE 4 MG/ML SYR ONE (06:54)
[2020-10-12] MEDS ORDERED: NA CHLORIDE 0.9% 500 ML ONE (06:54)
[2020-10-12] MEDS ORDERED: ONDANSETRON 4 MG/2 ML VIAL ONE (06:54)
[2020-10-12 06:58] LABS: Blood Morphology Comment NOTED (NOT SEEN); Macrocytosis 2+; Platelet Estimate ADEQ; Platelets, Giant FEW
[2020-10-12 07:12] LABS: Barbiturates NEGATIVE (NEGATIVE); Benzodiazepines POSITIVE (NEGATIVE); Cocaine NEGATIVE (NEGATIVE); METHAMPHETAM NEGATIVE (NEGATIVE); Methadone NEGATIVE (NEGATIVE); Opiates NEGATIVE (NEGATIVE); Phencyclidine NEGATIVE (NEGATIVE); THC Cannibis POSITIVE (NEGATIVE)
[2020-10-12 07:38] LABS: Urine Blood NEGATIVE (NEG); Urine Glucose NEGATIVE (NEG); Urine Protein NEGATIVE (NEG); Urine Specific Gravity 1.025 (1.005-1.030)
[2020-10-12 07:41] LABS: ALT/SGPT 58 U/L (12-78); AST/SGOT 117 U/L (15-37); Albumin 2.8 g/dL (3.4-5.0); Alkaline Phosphatase 91 U/L (45-117); Bicarbonate 29 mmol/L (21-32); Bilirubin Direct 0.4 mg/dL (0-0.2); Bilirubin Total 0.6 mg/dL (0.2-1.0); Lipase 1256 U/L (73-393); Potassium 4.2 mmol/L (3.5-5.1); Protein, Total 7.7 g/dL (6.4-8.2); Sodium Level 140 mmol/L (136-145)
[2020-10-12 07:45] LABS: BUN Blood Urea Nitrogen 8 mg/dL (7-18); Glucose Level 82 mg/dL (74-106)
--- NOTE | 2020-10-12 08:25 | RAD REPORT ---
EXAM DESCRIPTION: CTAbdomen Pelvis W Contrast - 10/12/2020 8:16 am CLINICAL HISTORY: Abdominal pain. ABD PAIN COMPARISON: Abdomen Pelvis W Contrast dated 09/27/2020 TECHNIQUE: Biphasic CT imaging of the abdomen and pelvis was performed with 100 ml non-ionic IV cont rast. All CT scans are performed using dose optimization technique as appropriate and may include automated exposure control or mA/KV adjustment according to patient size. FINDINGS: Mild linear subsegmental atelectasis is seen in both lung bases posteriorly. The liver is enlarged with diffuse fatty infiltration. Small amount of fluid is seen along the right hepatic edge. The spleen, pancreas, adrenal glands kidneys are within normal limits. No bowel obstruction, free air or abscess. Moderate stool is present throughout the colon. The append ix is normal. Moderate fat containing umbilical hernia is seen. Sigmoid diverticulosis without divert iculitis. No evidence of significant lymphadenopathy. No suspicious bony findings. IMPRESSION: The liver appears enlarged with diffuse fatty liver infiltration. Small amount of fluid along the hepatic edge is present. Underlying hepatic chronic inflammation may be present. Moderate fat containing umbilical hernia.
--- NOTE | 2020-10-12 09:05 | EDPHYS ---
[facility] Name: Jean Kamara Age: 35 yrs Sex: Male : 1985 Arrival Date: 10/12/2020 Time: 05:52 Bed 4 Private MD: BRIAN BROWN ED Physician Gunner Lee HPI: 10/12 07:06 This 35 yrs old Male presents to ER via Ambulatory with complaints of mh7 Abdominal Pain. 07:06 The patient presents with abdominal pain in the upper abdomen. Onset: The mh7 symptoms/episode began/occurred last night. The symptoms do not radiate. Associated signs and symptoms: Pertinent negatives: nausea, vomiting, and diarrhea, nausea and vomiting, anorexia, blood in stools, chest pain, constipation, diarrhea, dysuria, fever, headache, hematuria, palpitations, shortness of breath, testicular pain, vomiting, vomiting blood. The symptoms are described as intermittent, vague, waxing/waning. Modifying factors: The symptoms are alleviated by nothing, the symptoms are aggravated by nothing. Severity of pain: At its worst the pain was moderate last night, in the emergency department the pain is unchanged. Historical: - Allergies: 06:04 No Known Allergies; rr5 - Home Meds: 06:04 None [Active]; rr5 - PMHx: 06:04 Pancreatitis; rr5 - PSHx: 06:04 None; rr5 - Immunization history:: Adult Immunizations up to date. - Social history:: Smoking status: Patient reports the use of cigarette tobacco products, smokes one pack cigarettes per day. Patient uses alcohol, on a daily basis. street drugs, marijuana. ROS: 07:06 Constitutional: Negative for fever, chills, and weight loss, Eyes: Negative for injury, mh7 pain, redness, and discharge, ENT: Negative for injury, pain, and discharge, Neck: Negative for injury, pain, and swelling, Cardiovascular: Negative for chest pain, palpitations, and edema, Respiratory: Negative for shortness of breath, cough, wheezing, and pleuritic chest pain, Back: Negative for injury and pain, : Negative for injury, bleeding, discharge, and swelling, MS/Extremity: Negative for injury and deformity, Skin: Negative for injury, rash, and discoloration, Neuro: Negative for headache, weakness, numbness, tingling, and seizure, Psych: Negative for depression, anxiety, suicide ideation, homicidal ideation, and hallucinations, Allergy/Immunology: Negative for hives, rash, and allergies, Endocrine: Negative for neck swelling, polydipsia, polyuria, polyphagia, and marked weight changes, Hematologic/Lymphatic: Negative for swollen nodes, abnormal bleeding, and unusual bruising. Exam: 07:06 Constitutional: This is a well developed, well nourished patient who is awake, alert, mh7 and in no acute distress. Head/Face: Normocephalic, atraumatic. Eyes: Pupils equal round and reactive to light, extra-ocular motions intact. Lids and lashes normal. Conjunctiva and sclera are non-icteric and not injected. Cornea within normal limits. Periorbital areas with no swelling, redness, or edema. Neck: Trachea midline, no thyromegaly or masses palpated, and no cervical lymphadenopathy. Supple, full range of motion without nuchal rigidity, or vertebral point tenderness. No Meningismus. Chest/axilla: Normal chest wall appearance and motion. Nontender with no deformity. No lesions are appreciated. Cardiovascular: Regular rate and rhythm with a normal S1 and S2. No gallops, murmurs, or rubs. Normal PMI, no JVD. No pulse deficits. Respiratory: Lungs have equal breath sounds bilaterally, clear to auscultation and percussion. No rales, rhonchi or wheezes noted. No increased work of breathing, no retractions or nasal flaring. 07:06 Back: No spinal tenderness. No costovertebral tenderness. Full range of motion. Skin: Warm, dry with normal turgor. Normal color with no rashes, no lesions, and no evidence of cellulitis. MS/ Extremity: Pulses equal, no cyanosis. Neurovascular intact. Full, normal range of motion. Neuro: Awake and alert, GCS 15, oriented to person, place, time, and situation. Cranial nerves II-XII grossly intact. Motor strength 5/5 in all extremities. Sensory grossly intact. Cerebellar exam normal. Normal gait. Psych: Awake, alert, with orientation to person, place and time. Behavior, mood, and affect are within normal limits. 07:06 Abdomen/GI: Inspection: distension, that is mild, Bowel sounds: normal, in all quadrants, Palpation: moderate abdominal tenderness, in the epigastric area, right upper quadrant and left upper quadrant, Rectal exam: the exam is deferred, because of patient request, Indicators: McBurney's point is not tender, Mckeon's sign is negative, Rovsing's sign is negative, Obturator sign is negative, Psoas sign is negative, Liver: no appreciated palpable abnormalities, Hernia: not appreciated. Vital Signs: 06:01 BP 142 / 95; Pulse 84; Resp 17; Temp 98.2; Pulse Ox 99% ; Weight 63.5 kg; Height 5 ft. rr5 8 in. (172.72 cm); Pain 10/10; 06:56 BP 140 / 84; Pulse 77; Resp 19; Pulse Ox 99% ; rr5 07:30 BP 138 / 84; Pulse 70; Resp 16; Pulse Ox 100% on R/A; sv 08:23 BP 146 / 92; Pulse 70; Resp 21; Pulse Ox 100% on R/A; sv 09:19 BP 140 / 91; Pulse 72; Resp 16; Pulse Ox 99% ; sv 06:01 Body Mass Index 21.29 (63.50 kg, 172.72 cm) rr5 MDM: 07:08 Patient medically screened. rn 07:09 Transition of care:. [facility] 09:02 Differential diagnosis: gastritis, gastroesophageal reflux disease, non-specific abd rn pain, pancreatitis, Peptic Ulcer Disease. Data reviewed: vital signs, nurses notes, old medical records, lab test result(s), radiologic studies, CT scan, and as a result, I will discharge patient. Counseling: I had a detailed discussion with the patient and/or guardian regarding: the historical points, exam findings, and any diagnostic results supporting the discharge/admit diagnosis, lab results, radiology results, the need for outpatient follow up, to return to the emergency department if symptoms worsen or persist or if there are any questions or concerns that arise at home. Response to treatment: the patient's symptoms have markedly improved after treatment, and as a result, I will discharge patient. Special discussion: Based on the patient's Hx, exam, and Dx evaluation, there is no indication for emergent surgery or inpatient Tx. It is understood by the patient/guardian that if the Sx's persist or worsen they need to return immediately for re-evaluation. I discussed with the patient/guardian in detail that at this point there is no indication for admission to the hospital. It is understood, however, that if the symptoms persist or worsen the patient needs to return immediately for re-evaluation. Based on the history and exam findings, there is no indication for further emergent testing or inpatient evaluation. I discussed with the patient/guardian the need to see the etl informatica developer for further evaluation of the symptoms. ED course: Pt still with mild pancreatitis, feels much better, wasn't sent home on pain meds from recent hospitalization for pancreatitis, will dc home with pain meds, prn zofran, and return precautions. States stopped drinking since last admission and doing well without signs of withdrawal. . 10/12 06:07 Order name: Basic Metabolic Panel [facility] 10/12 06:07 Order name: CBC with Diff [facility] 10/12 06:07 Order name: Hepatic Function 10/12 06:07 Order name: Lipase [facility] 10/12 06:29 Order name: UDS [facility] 10/12 06:31 Order name: ETOH Level [facility] 10/12 06:33 Order name: CBC with Automated Diff; Complete Time: 07:18 [facility] 10/12 06:54 Order name: Urine Dipstick--Ancillary (enter results) 3 10/12 06:58 Order name: Manual Differential; Complete Time: 07:18 [facility] 10/12 07:12 Order name: Urine Drug Screen; Complete Time: 07:18 [facility] 10/12 07:39 Order name: Urine Dipstick-Ancillary; Complete Time: 08:58 [facility] 10/12 07:45 Order name: Alcohol Serum/Plasma; Complete Time: 08:58 [facility] 10/12 07:46 Order name: Basic Metabolic Panel; Complete Time: 08:58 10/12 07:46 Order name: Liver (Hepatic) Function; Complete Time: 08:58 [facility] 10/12 06:07 Order name: IV Saline Lock; Complete Time: 06:17 [facility] 10/12 06:07 Order name: Labs collected and sent; Complete Time: 06:17 10/12 06:29 Order name: Urine Dipstick-Ancillary (obtain specimen); Complete Time: 06:55 [facility] 10/12 06:31 Order name: EKG - Nurse/Tech; Complete Time: 06:55 [facility] 10/12 06:48 Order name: CT Abd/Pelvis - IV Contrast Only [facility] 10/12 07:46 Order name: Lipase; Complete Time: 08:58 [facility] 10/12 08:26 Order name: CT; Complete Time: 08:58 EDMS Administered Medications: 06:45 Drug: NS 0.9% 500 ml Route: IV; Rate: bolus; Site: left forearm; rr5 07:30 Follow up: Response: No adverse reaction; IV Status: Completed infusion; IV Intake: sv 500ml 06:45 Drug: Zofran (Ondansetron) 4 mg Route: IVP; Site: left forearm; rr5 07:20 Follow up: Response: No adverse reaction sv 06:47 Drug: morphine 4 mg {Note: rass 0.} Route: IVP; Site: left forearm; rr5 07:20 Follow up: Response: No adverse reaction; Pain is decreased; RASS: Restless (+1) sv 09:15 Drug: [place] 10 mg-325 mg 1 tabs {Note: rass1.} Route: PO; sv 09:19 Follow up: Response: No adverse reaction; Medication administered at discharge.; RASS: sv Alert and Calm (0) Disposition: 10/12/20 09:04 Discharged to Home. Impression: Acute pancreatitis, unspecified. - Condition is Stable. - Discharge Instructions: Acute Pancreatitis. - Prescriptions for Zofran ODT 4 mg Oral tablet,disintegrating - place 1 tablet by TRANSLINGUAL route every 8 hours As needed; 20 tablet. Tramadol 50 mg Oral Tablet - take 1 tablet by ORAL route every 8 hours as needed; 20 tablet. - Medication Reconciliation Form, Thank You Letter, Antibiotic Education, Prescription Opioid Use form. - Follow up: Private Physician; When: As needed; Reason: Recheck today's complaints, Re-evaluation by your physician. - Problem is an ongoing problem. - Symptoms have improved. Signatures: Dispatcher [employer] EDMS Saritha Almodovar RN RN Gunner Street MD MD rn Leal, Jahala, RN RN [id number] Cody Eubanks RN RN rr5 Darren Watkins MD MD 7 Corrections: (The following items were deleted from the chart) 09:35 09:04 10/12/2020 09:04 Discharged to Home. Impression: Acute pancreatitis, unspecified. jl7 Condition is Stable. Forms are Medication Reconciliation Form, Thank You Letter, Antibiotic Education, Prescription Opioid Use. Follow up: Private Physician; When: As needed; Reason: Recheck today's complaints, Re-evaluation by your physician. Problem is an ongoing problem. Symptoms have improved. rn
--- NOTE | 2020-10-12 09:05 | ER ---
Nurse's Notes [facility] Name: Jean Kamara Age: 35 yrs Sex: Male : 1985 Arrival Date: 10/12/2020 Time: 05:52 Bed 4 Private MD: BRIAN BROWN Diagnosis: Acute pancreatitis, unspecified Presentation: 10/12 06:01 Chief complaint: Patient states: I woke up today around 0430H with severe abdominal rr5 pain. no nausea , vomiting or fever. last Monday i went here got admitted anddiagnosed with pancreatitis. Coronavirus screen: Client denies travel out of the [place] in the last 14 days. At this time, the client does not indicate any symptoms associated with coronavirus-19. The client reports previous COVID testing was negative. results are located within the EHR/EMR. Ebola Screen: Patient negative for fever greater than or equal to 101.5 degrees Fahrenheit, and additional compatible Ebola Virus Disease symptoms Patient denies exposure to infectious person. Patient denies travel to an Ebola-affected area in the 21 days before illness onset. Initial Sepsis Screen: Does the patient meet any 2 criteria? No. Patient's initial sepsis screen is negative. Does the patient have a suspected source of infection? No. Patient's initial sepsis screen is negative. Risk Assessment: Do you want to hurt yourself or someone else? Patient reports no desire to harm self or others. Onset of symptoms was October 12, 2020. 06:01 Method Of Arrival: Ambulatory rr5 06:01 Acuity: GREGORY 3 rr5 Historical: - Allergies: 06:04 No Known Allergies; rr5 - Home Meds: 06:04 None [Active]; rr5 - PMHx: 06:04 Pancreatitis; rr5 - PSHx: 06:04 None; rr5 - Immunization history:: Adult Immunizations up to date. - Social history:: Smoking status: Patient reports the use of cigarette tobacco products, smokes one pack cigarettes per day. Patient uses alcohol, on a daily basis. street drugs, marijuana. Screenin:06 Abuse screen: Denies threats or abuse. Denies injuries from another. Nutritional rr5 screening: No deficits noted. Tuberculosis screening: No symptoms or risk factors identified. Fall Risk IV access (20 points). Mental Status- Oriented to own ability (0 pts). Total Madrid Fall Scale indicates No Risk (0-24 pts). Assessment: 06:04 General: Appears in no apparent distress. uncomfortable, Behavior is calm, cooperative, rr5 appropriate for age, mild tremors noted. Pain: Complains of pain in abdomen Pain radiates to back Pain currently is 10 out of 10 on a pain scale. Quality of pain is described as aching, Pain began suddenly, Is intermittent. Neuro: Level of Consciousness is awake, alert, obeys commands, Oriented to person, place, time, situation. Cardiovascular: Capillary refill < 3 seconds Patient's skin is warm and dry. Respiratory: Airway is patent Respiratory effort is even, unlabored, Respiratory pattern is regular, symmetrical. GI: Abdomen is round distended, Abdomen is tender to palpation X 4 quads. Reports lower abdominal pain, upper abdominal pain. : Reports burning with urination. EENT: No signs and/or symptoms were reported regarding the EENT system. Derm: Skin is intact, is healthy with good turgor, Skin temperature is warm. Musculoskeletal: Circulation, motion, and sensation intact. Capillary refill < 3 seconds. 06:50 Reassessment: blood hemolyze laboratory staff informed. rr5 07:30 Reassessment: Patient appears in no apparent distress at this time. Patient and/or sv family updated on plan of care and expected duration. Pain level reassessed. Patient is alert, oriented x 3, equal unlabored respirations, skin warm/dry/pink. 08:26 Reassessment: Patient appears in no apparent distress at this time. Patient and/or sv family updated on plan of care and expected duration. Pain level reassessed. Patient is alert, oriented x 3, equal unlabored respirations, skin warm/dry/pink. 09:18 Reassessment: Patient appears in no apparent distress at this time. Patient and/or sv family updated on plan of care and expected duration. Pain level reassessed. Patient is alert, oriented x 3, equal unlabored respirations, skin warm/dry/pink. Vital Signs: 06:01 BP 142 / 95; Pulse 84; Resp 17; Temp 98.2; Pulse Ox 99% ; Weight 63.5 kg; Height 5 ft. rr5 8 in. (172.72 cm); Pain 10/10; 06:56 BP 140 / 84; Pulse 77; Resp 19; Pulse Ox 99% ; rr5 07:30 BP 138 / 84; Pulse 70; Resp 16; Pulse Ox 100% on R/A; sv 08:23 BP 146 / 92; Pulse 70; Resp 21; Pulse Ox 100% on R/A; sv 09:19 BP 140 / 91; Pulse 72; Resp 16; Pulse Ox 99% ; sv 06:01 Body Mass Index 21.29 (63.50 kg, 172.72 cm) rr5 ED Course: 05:52 Patient arrived in ED. am2 05:53 Cody Eubanks, RN is Primary Nurse. rr5 05:53 BRIAN BROWN is Private Physician. am2 06:02 Darren Watkins MD is Attending Physician. 7 06:04 Triage completed. rr5 06:04 Arm band placed on right wrist. rr5 06:18 Patient has correct armband on for positive identification. Placed in gown. Bed in low rr5 position. Call light in reach. Pulse ox on. NIBP on. 06:18 Inserted saline lock: 20 gauge in left forearm, using aseptic technique. Blood rr5 collected. 06:50 EKG done, by ED staff, reviewed by Darren Watkins MD. rr5 06:55 Urine collected: clean catch specimen, clear. rr5 07:00 Lab(s) recollected, by rn labor delivery, sent to lab. rr5 07:08 Attending Physician role handed off by Darren Watkins MD rn 07:08 Gunner Lee MD is Attending Physician. rn 08:17 Urine Dipstick--Ancillary (enter results) Sent. sv 08:17 ETOH Level Sent. sv 08:17 Basic Metabolic Panel Sent. sv 08:17 CBC with Diff Sent. sv 08:17 Hepatic Function Sent. sv 08:17 Lipase Sent. sv 08:17 UDS Sent. sv 08:18 Primary Nurse role handed off by Cody Eubanks RN sv 08:18 Saritha Almodovar RN is Primary Nurse. sv 08:23 CT Abd/Pelvis - IV Contrast Only Sent. sv 09:18 No provider procedures requiring assistance completed. IV discontinued, intact, sv bleeding controlled, No redness/swelling at site. Pressure dressing applied. Administered Medications: 06:45 Drug: NS 0.9% 500 ml Route: IV; Rate: bolus; Site: left forearm; rr5 07:30 Follow up: Response: No adverse reaction; IV Status: Completed infusion; IV Intake: sv 500ml 06:45 Drug: Zofran (Ondansetron) 4 mg Route: IVP; Site: left forearm; rr5 07:20 Follow up: Response: No adverse reaction sv 06:47 Drug: morphine 4 mg {Note: rass 0.} Route: IVP; Site: left forearm; rr5 07:20 Follow up: Response: No adverse reaction; Pain is decreased; RASS: Restless (+1) sv 09:15 Drug: [place] 10 mg-325 mg 1 tabs {Note: rass1.} Route: PO; sv 09:19 Follow up: Response: No adverse reaction; Medication administered at discharge.; RASS: sv Alert and Calm (0) Intake: 07:30 IV: 500ml; Total: 500ml. sv Outcome: 09:04 Discharge ordered by . rn 09:19 Discharged to home ambulatory, pt has someone coming to get him sv 09:19 Condition: stable 09:19 Discharge instructions given to patient, Instructed on discharge instructions, follow up and referral plans. no drinking with medication, no driving heavy equipment, medication usage, Demonstrated understanding of instructions, follow-up care, medications, Prescriptions given X 2. 09:35 Patient left the ED. jl7 Signatures: Saritha Almodovar, RN Gunner Nevarez MD MD rn Leal, Jahala, RN RN jl7 Alejandra Eric Raymond, RN RN rr5 Darren Watkins MD MD 7 Corrections: (The following items were deleted from the chart) 07:02 06:04 General: Appears in no apparent distress. uncomfortable, Behavior is calm, rr5 cooperative, appropriate for age, rr5
[2020-10-12] MEDS ORDERED: HYDROCODONE/APAP 10/325 TAB ONE (09:24)
[2020-10-12 09:39] VITALS: TEMP 98.2
[2020-10-12 09:44] VITALS: BP 140/91; O2SAT 99
== END 2020-10-12 09:35 | disposition home or self-care (01) ==
LOC: ER 05:43
DX: K85.90 Acute pancreatitis without necrosis or infection, unspecified (principal); F17.210 Nicotine dependence, cigarettes, uncomplicated
CPT/HCPCS: 36415; 74177; 80048; 80076; 80307; 80320; 81003; 83690; 85025; 93005; 96361; 96374; 96375; 99284; J2405; J7040; Q9967

== ENCOUNTER 2021-03-17 02:49 | Emergency (ER) | payer SELFPAY ==
--- OUTSIDE RECORDS SUMMARY | 2021-03-17 02:52 | XMS REPORT | Continuity of Care Document ---
:1985 Author Organization [facility] t Address [address] [place] [address] Care Team Providers Name Role Phone Gretel Cardenas Attending Clinician Problems This patient has no known problems. Allergies, Adverse Reactions, Alerts This patient has no known allergies or adverse reactions. Medications This patient has no known medications. Procedures This patient has no known procedures. Encounters Start End Encounter Admission Attending Care Care Encounter Source Date/Time Date/Time Type Type Clinicians Facility Department ID 2021-03-13 2021-03-14 Emergency SATHYA Ivey [id number] 23:10:00 00:39:00 Jam Lindsay [id number] [place] [id number] [place] [id number] Results This patient has no known results.
[2021-03-17] MEDS ORDERED: NA CHLORIDE 0.9% 1,000 ML ONE (03:33)
[2021-03-17] MEDS ORDERED: ONDANSETRON 4 MG/2 ML VIAL ONE (03:33)
[2021-03-17] MEDS ORDERED: FAMOTIDINE 20 MG/2 ML VIAL IV ONE (03:34)
[2021-03-17 04:06] LABS: Absolute Lymphocytes (CBC) 1.9 K/uL (0.7-4.9); Basophils % 0.8 % (0-1.3); Hematocrit 32.2 % (39.6-49.0); Lymphocytes % 21.5 % (15.3-44.8); MPV 9.3 fL (7.6-11.3); RBC Red Blood Cell Count 2.94 M/uL (4.33-5.43)
[2021-03-17 04:17] LABS: ALT/SGPT 74 U/L (12-78); AST/SGOT 188 U/L (15-37); Albumin 2.5 g/dL (3.4-5.0); Alkaline Phosphatase 109 U/L (45-117); BUN Blood Urea Nitrogen 3 mg/dL (7-18); Bicarbonate 25 mmol/L (21-32); Bilirubin Direct 2.5 mg/dL (0-0.2); Bilirubin Total 3.5 mg/dL (0.2-1.0); Glucose Level 107 mg/dL (74-106); Lipase 1132 U/L (73-393); Potassium 3.4 mmol/L (3.5-5.1); Protein, Total 8.4 g/dL (6.4-8.2); Sodium Level 138 mmol/L (136-145)
[2021-03-17 04:53] LABS: Blood Morphology Comment NOTED (NOT SEEN); Macrocytosis 1+; Platelet Estimate DECR; Target Cells 2+
[2021-03-17] MEDS ORDERED: HYDROMORPHONE HCL 0.5 MG/0.5 ML INJ ONE (05:38)
[2021-03-17] MEDS ORDERED: CEFTRIAXONE/SWI 1gm 1 GM/10 ML SYR ONE (06:11)
[2021-03-17] MEDS ORDERED: METRONIDAZOLE 500mg IVPB 500 MG/100 ML BAG IV ONE (06:11)
--- NOTE | 2021-03-17 07:02 | ER ---
Nurse's Notes [facility] Name: Jean Kamara Age: 35 yrs Sex: Male : 1985 Arrival Date: 03/17/2021 Time: 02:54 Bed 15 Private MD: Diagnosis: Other chronic pancreatitis Presentation: 03/17 03:03 Chief complaint: Patient states: Pt reports generalized abd pain, n/v. States daily ad5 ETOH, "four 25 oz beers a day". Also reports darby ear pain and pain with swallowing. Last BM yesterday. Denies urinary c/o. Coronavirus screen: Client presents with at least one sign or symptom that may indicate coronavirus-19. Standard/surgical mask placed on the client. Ebola Screen: No symptoms or risks identified at this time. Initial Sepsis Screen: Does the patient meet any 2 criteria? HR > 90 bpm. Does the patient have a suspected source of infection? No. Patient's initial sepsis screen is negative. Risk Assessment: Do you want to hurt yourself or someone else? Patient reports no desire to harm self or others. Onset of symptoms is unknown. 03:03 Method Of Arrival: Ambulatory ad5 03:03 Acuity: GREGORY 3 ad5 Triage Assessment: 03:06 General: Appears uncomfortable, Behavior is cooperative, appropriate for age, anxious. ad5 Pain: Complains of pain in abdomen, darby ear, throat. EENT: Reports pain in darby ear and throat. Cardiovascular: No deficits noted. Heart tones present Capillary refill < 3 seconds Patient's skin is warm and dry. Rhythm is regular. Respiratory: No deficits noted. Airway is patent Respiratory effort is even, unlabored, Respiratory pattern is regular, symmetrical, Breath sounds are clear bilaterally. GI: Abdomen is round Bowel sounds present X 4 quads. Reports lower abdominal pain, upper abdominal pain, bloating, nausea, vomiting. : No deficits noted. No signs and/or symptoms were reported regarding the genitourinary system. Derm: Skin is pink, warm \\T\\ dry. Historical: - Allergies: 03:05 No Known Allergies; ad5 - PMHx: 03:05 Pancreatitis; ad5 - Immunization history:: Adult Immunizations unknown. - Social history:: Smoking status: Patient reports the use of cigarette tobacco products, smokes one-half pack cigarettes per day, Patient uses alcohol. - Family history:: not pertinent. Screenin:10 Abuse screen: Denies threats or abuse. Denies injuries from another. Nutritional ad5 screening: No deficits noted. Tuberculosis screening: No symptoms or risk factors identified. Fall Risk None identified. Assessment: 03:10 Reassessment: See title agentshank turner for initial assessment. ad5 05:02 Reassessment: Pt reports continued pain, provider aware. Awaiting further orders. ad5 05:15 Reassessment: Dr. Manley notified of pt pain, received VO for 1 mg dilaudid IVP x 1. em 06:01 Reassessment: Patient appears in no apparent distress at this time. Patient is alert, ad5 oriented x 3, equal unlabored respirations, skin warm/dry/pink. Patient states feeling better. 06:43 Reassessment: Patient appears in no apparent distress at this time. No changes from ad5 previously documented assessment. Patient and/or family updated on plan of care and expected duration. Pain level reassessed. Vital Signs: 03:03 BP 149 / 94; Pulse 114; Resp 18; Temp 98.7(O); Pulse Ox 99% on R/A; Weight 63.5 kg; ad5 Height 5 ft. 8 in. (172.72 cm); Pain 6/10; 05:01 BP 123 / 73; Pulse 99; Resp 18 S; Pulse Ox 98% on R/A; ad5 06:01 BP 124 / 71; Pulse 92; Resp 16 S; Pulse Ox 96% on R/A; ad5 06:43 BP 122 / 68; Pulse 104; Resp 18 S; Pulse Ox 94% on R/A; ad5 03:03 Body Mass Index 21.29 (63.50 kg, 172.72 cm) ad5 ED Course: 02:54 Patient arrived in ED. es 03:00 Rajeev Manley MD is Attending Physician. ma2 03:03 Alexander Giron is Primary Nurse. ad5 03:05 Triage completed. ad5 03:10 Arm band placed on. ad5 03:10 Patient has correct armband on for positive identification. Bed in low position. Call ad5 light in reach. Side rails up X 1. nurse monitoring on. Pulse ox on. NIBP on. Door closed. Noise minimized. Warm blanket given. Head of bed lowered. 03:33 Initial lab(s) drawn, by me, sent to lab. Inserted saline lock: 20 gauge in left tt3 antecubital area, using aseptic technique. Blood collected. Missed attempt(s): 20 gauge in right antecubital area. 03:58 Inserted saline lock: 22 gauge in right antecubital area, using aseptic technique. IV ad5 discontinued, intact, bleeding controlled, No redness/swelling at site. Pressure dressing applied, pt reports pain to L AC IV site, removed at this time. 03:59 Lab(s) recollected, by me, sent to lab. ad5 04:39 CT Abd/Pelvis - IV Contrast Only In Process Unspecified. EDMS 04:54 COVID swab sent to lab. em 07:02 Ricci Manzanares MD is Referral Physician. ma2 07:15 No provider procedures requiring assistance completed. IV discontinued, intact, ad5 bleeding controlled, No redness/swelling at site. Pressure dressing applied. Administered Medications: 03:58 Drug: NS 0.9% 1000 ml Route: IV; Rate: 1 bolus; Site: right antecubital; ad5 06:43 Follow up: IV Status: Completed infusion; IV Intake: 1000ml ad5 03:58 Drug: Zofran (Ondansetron) 4 mg Route: IVP; Site: right antecubital; ad5 05:00 Follow up: Response: No adverse reaction ad5 03:58 Drug: Pepcid (famotidine) 20 mg Route: IVP; Site: right antecubital; ad5 04:59 Follow up: Response: No adverse reaction ad5 05:22 Drug: Dilaudid (HYDROmorphone) 0.5 mg Route: IVP; Site: right antecubital; em 05:57 Follow up: Response: No adverse reaction; Pain is decreased; RASS: Alert and Calm (0) ad5 05:57 Drug: Rocephin (cefTRIAXone) 1 grams Route: IV; Rate: calculated rate; Site: right ad5 antecubital; 06:18 Follow up: Response: No adverse reaction; IV Status: Completed infusion ad5 05:57 Drug: Flagyl (metroNIDAZOLE) 500 mg Volume: 100 ml; Route: IVPB; Rate: 200 ml/hr; ad5 Infused Over: 30 mins; Site: right antecubital; 06:43 Follow up: IV Status: Completed infusion; IV Intake: 100ml ad5 07:15 Not Given (pt d/c'd homee): Dilaudid (HYDROmorphone) 0.5 mg IVP once; RASS on ADMIN: ad5 Combtv4, Very Agttd3, Agttd2, Rstlss1, AlertClm0, Drwsy-1, Lt Sdtn-2, Mod Sdtn-3, Dp Sdtn-4, UnArsble-5 Intake: 06:43 IV: 100ml; Total: 100ml. ad5 06:43 IV: 1000ml; Total: 1100ml. ad5 Outcome: 07:02 Discharge ordered by MD. deng 07:15 Discharged to home ambulatory. ad5 07:15 Condition: stable 07:15 Discharge instructions given to patient, Instructed on discharge instructions, follow up and referral plans. no drinking with medication, medication usage, Demonstrated understanding of instructions, follow-up care, medications, Prescriptions given X 2. 07:16 Patient left the ED. ad5 Signatures: Dispatcher [employer] Haydee Rogers Edgar, RN RN em Alzahri, Mohammad, MD MD ma2 Edward Salazar3 Alexander Giron ad5
--- NOTE | 2021-03-17 07:03 | EDPHYS ---
Physician Documentation [facility] Name: Jean Kamara Age: 35 yrs Sex: Male : 1985 Arrival Date: 03/17/2021 Time: 02:54 Bed 15 Private MD: ED Physician Rajeev Manley HPI: 03/17 03:07 This 35 yrs old Male presents to ER via Ambulatory with complaints of ma2 Abdominal Pain, Sore Throat, Ear Pain, Abdominal Swelling. 03:07 Onset: The symptoms/episode began/occurred gradually, 2 day(s) ago. Associated signs ma2 and symptoms: Pertinent positives: nausea, Pertinent negatives cough, earache, fever, headache, nausea. 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 Historical: - Allergies: 03:05 No Known Allergies; ad5 - PMHx: 03:05 Pancreatitis; ad5 - Immunization history:: Adult Immunizations unknown. - Social history:: Smoking status: Patient reports the use of cigarette tobacco products, smokes one-half pack cigarettes per day, Patient uses alcohol. - Family history:: not pertinent. ROS: 03:07 Constitutional: Negative for fever, chills, and weight loss. ma2 03:07 All other systems are negative. Exam: 03:07 Constitutional: This is a well developed, well nourished patient who is awake, alert, ma2 and in no acute distress. Head/Face: Normocephalic, atraumatic. Eyes: Pupils equal round and reactive to light, extra-ocular motions intact. Lids and lashes normal. Conjunctiva and sclera are non-icteric and not injected. Cornea within normal limits. Periorbital areas with no swelling, redness, or edema. ENT: Nares patent. No nasal discharge, no septal abnormalities noted. Tympanic membranes are normal and external auditory canals are clear. Oropharynx with no redness, swelling, or masses, exudates, or evidence of obstruction, uvula midline. Mucous membranes moist. Neck: Trachea midline, no thyromegaly or masses palpated, and no cervical lymphadenopathy. Supple, full range of motion without nuchal rigidity, or vertebral point tenderness. No Meningismus. Chest/axilla: Normal chest wall appearance and motion. Nontender with no deformity. No lesions are appreciated. Cardiovascular: Regular rate and rhythm with a normal S1 and S2. No gallops, murmurs, or rubs. Normal PMI, no JVD. No pulse deficits. Respiratory: Lungs have equal breath sounds bilaterally, clear to auscultation and percussion. No rales, rhonchi or wheezes noted. No increased work of breathing, no retractions or nasal flaring. Abdomen/GI: Soft, non-tender, with normal bowel sounds. No distension or tympany. No guarding or rebound. No evidence of tenderness throughout. Skin: Warm, dry with normal turgor. Normal color with no rashes, no lesions, and no evidence of cellulitis. MS/ Extremity: Pulses equal, no cyanosis. Neurovascular intact. Full, normal range of motion. Neuro: Awake and alert, GCS 15, oriented to person, place, time, and situation. Cranial nerves II-XII grossly intact. Motor strength 5/5 in all extremities. Sensory grossly intact. Cerebellar exam normal. Normal gait. Vital Signs: 03:03 BP 149 / 94; Pulse 114; Resp 18; Temp 98.7(O); Pulse Ox 99% on R/A; Weight 63.5 kg; ad5 Height 5 ft. 8 in. (172.72 cm); Pain 6/10; 05:01 BP 123 / 73; Pulse 99; Resp 18 S; Pulse Ox 98% on R/A; ad5 06:01 BP 124 / 71; Pulse 92; Resp 16 S; Pulse Ox 96% on R/A; ad5 06:43 BP 122 / 68; Pulse 104; Resp 18 S; Pulse Ox 94% on R/A; ad5 03:03 Body Mass Index 21.29 (63.50 kg, 172.72 cm) ad5 MDM: 03:00 Patient medically screened. ma2 03:07 Differential diagnosis: gastroesophageal reflux disease, tonsillitis, upper respiratory ma2 infection, viral syndrome. 07:01 Data reviewed: vital signs, nurses notes. Counseling: I had a detailed discussion with ma2 the patient and/or guardian regarding: the historical points, exam findings, and any diagnostic results supporting the discharge/admit diagnosis, the presence of at least one elevated blood pressure reading (>120/80) during this emergency department visit, the need for outpatient follow up. Response to treatment: the patient's symptoms have markedly improved after treatment. 03/17 03:07 Order name: Basic Metabolic Panel; Complete Time: 04:21 nm2 03/17 03:07 Order name: CBC with Diff; Complete Time: 05:22 ma2 03/17 03:07 Order name: Hepatic Function; Complete Time: 04:21 ma2 03/17 03:07 Order name: Lipase; Complete Time: 04:21 nm2 03/17 04:17 Order name: Manual Differential; Complete Time: 05:22 EDMS 03/17 03:07 Order name: CT Abd/Pelvis - IV Contrast Only nm2 03/17 05:58 Order name: SARS-COV-2 RT PCR; Complete Time: 06:12 EDMS 03/17 03:07 Order name: IV Saline Lock; Complete Time: 03:58 ma2 03/17 03:07 Order name: Labs collected and sent; Complete Time: 03:58 ma2 Administered Medications: 03:58 Drug: NS 0.9% 1000 ml Route: IV; Rate: 1 bolus; Site: right antecubital; ad5 06:43 Follow up: IV Status: Completed infusion; IV Intake: 1000ml ad5 03:58 Drug: Zofran (Ondansetron) 4 mg Route: IVP; Site: right antecubital; ad5 05:00 Follow up: Response: No adverse reaction ad5 03:58 Drug: Pepcid (famotidine) 20 mg Route: IVP; Site: right antecubital; ad5 04:59 Follow up: Response: No adverse reaction ad5 05:22 Drug: Dilaudid (HYDROmorphone) 0.5 mg Route: IVP; Site: right antecubital; em 05:57 Follow up: Response: No adverse reaction; Pain is decreased; RASS: Alert and Calm (0) ad5 05:57 Drug: Rocephin (cefTRIAXone) 1 grams Route: IV; Rate: calculated rate; Site: right ad5 antecubital; 06:18 Follow up: Response: No adverse reaction; IV Status: Completed infusion ad5 05:57 Drug: Flagyl (metroNIDAZOLE) 500 mg Volume: 100 ml; Route: IVPB; Rate: 200 ml/hr; ad5 Infused Over: 30 mins; Site: right antecubital; 06:43 Follow up: IV Status: Completed infusion; IV Intake: 100ml ad5 07:15 Not Given (pt d/c'd homee): Dilaudid (HYDROmorphone) 0.5 mg IVP once; RASS on ADMIN: ad5 Combtv4, Very Agttd3, Agttd2, Rstlss1, AlertClm0, Drwsy-1, Lt Sdtn-2, Mod Sdtn-3, Dp Sdtn-4, UnArsble-5 Disposition Summary: 03/17/21 07:02 Discharge Ordered Location: Home nm2 Condition: Stable ma2 Diagnosis - Other chronic pancreatitis nm2 Followup: ma2 - With: Ricci Manzanares MD - When: Tomorrow - Reason: If symptoms return, Continuance of care Discharge Instructions: - Discharge Summary Sheet ma2 - Chronic Pancreatitis ma2 Forms: - Medication Reconciliation Form nm2 - Thank You Letter ma2 - Antibiotic Education nm2 - Prescription Opioid Use nm2 Prescriptions: - Zofran 4 mg Oral Tablet - take 1 tablet by ORAL route every 12 hours As needed; 20 tablet; Refills: 0, ma2 Product Selection Permitted - Diclofenac Sodium 75 mg Oral Tablet Sustained Release - take 1 tablet by ORAL route 2 times per day; 30 tablet; Refills: 0, Product nm2 Selection Permitted Signatures: Dispatcher [employer] Charly Mendez, RN RN Rajeev Manley MD MD ma2 Alexander Giron ad5 Corrections: (The following items were deleted from the chart) 04:49 04:31 CORONAVIRUS+ ordered. EDMS EDMS
[2021-03-17 07:29] VITALS: TEMP 98.7
[2021-03-17 07:35] VITALS: BP 122/68; O2SAT 94
--- NOTE | 2021-03-17 13:49 | RAD REPORT ---
EXAM DESCRIPTION: CT - Abdomen Pelvis W Contrast - 03/17/2021 6:30 am CLINICAL HISTORY: The patient is 35 years old and is Male; ABD PAIN TECHNIQUE: Axial computed tomography images of the abdomen and pelvis with intravenous contrast. S agittal and coronal reformatted images were created and reviewed. This CT exam was performed using one or more of the following dose reduction techniques: automated exposure control, adjustment of t he mA and/or kV according to patient size, and/or use of iterative reconstruction technique. COMPARISON: CT abdomen and pelvis October 12, 2020. FINDINGS: Lung bases: Unremarkable. No mass. No consolidation. ABDOMEN: Liver: Hepatomegaly with diffuse hepatic steatosis. Gallbladder and bile ducts: Unremarkable. No calcified stones. No ductal dilation. Pancreas: Scattered areas of mesenteric edema, some of which are peripancreatic. No ductal dilation. Spleen: Unremarkable. No splenomegaly. Adrenals: Unremarkable. No mass. Kidneys and ureters: Unremarkable. No solid mass. No hydronephrosis. Stomach and bowel: Prominent small bowel with the suggestion of wall thickening. There is the suggestion of colonic wall thickening most prominent proximally, though the colo n is relatively nondistended limiting evaluation. Scattered colonic diverticula. PELVIS: Appendix: No findings to suggest acute appendicitis. Bladder: Unremarkable. No mass. Reproductive: Unremarkable as visualized. ABDOMEN and PELVIS: Intraperitoneal space: Small amount of ascites most prominent around the liver. No free air. Bones/joints: No acute fracture. No dislocation. Soft tissues: See below. Vasculature: Umbilical vein is opacified with contrast. There are umbilical vein varices extendin g through a small ventral hernia. No abdominal aortic aneurysm. Lymph nodes: Unremarkable. No enlarged lymph nodes. Other findings: Focal fatty infiltration around the gallbladder fossa. IMPRESSION: 1. Hepatomegaly with diffuse hepatic steatosis. 2. Small amount of ascites most prominent around the liver. 3. Scattered areas of mesenteric edema, some of which are peripancreatic. Correlate with any conc samy for pancreatitis. 4. Prominent small bowel with the suggestion of wall thickening. Findings can be seen with genera lized edema as well as enteritis. 5. There is the suggestion of colonic wall thickening most prominent proximally, though the colon i s relatively nondistended limiting evaluation. Findings can be seen with generalized edema and coli tis. Electronically signed by: Patrick Antoine MD 03/17/2021 5:05 AM CDT Due to temporary technical issues with the PACS/Fluency reporting system, reports are being signed by the in house radiologists without review as a courtesy to insure prompt reporting. The interpreting radiologist is fully responsible for the content of the report.
== END 2021-03-17 07:16 | disposition home or self-care (01) ==
LOC: ER 02:49
DX: K86.1 Other chronic pancreatitis (principal); F17.210 Nicotine dependence, cigarettes, uncomplicated
CPT/HCPCS: 36415; 74177; 80048; 80076; 83690; 85025; J0696; J1170; J2405; J7030; Q9967; U0003

== ENCOUNTER 2021-04-22 20:28 | Emergency (ER) | payer SELFPAY ==
--- OUTSIDE RECORDS SUMMARY | 2021-04-22 20:31 | XMS REPORT | Continuity of Care Document ---
:1985 Author Organization [facility] t Address [address] [place] [address] [address] [place] [address] Care Team Providers Name Role Phone Darci DE OLIVEIRA, E Attending Clinician Mumtaz ARORA Attending Clinician Fidelina LORD, O Attending Clinician Shayla LORD K Attending Clinician Loni THMOPSON B Attending Clinician Shayla LORD K Admitting Clinician Problems This patient has no known problems. Allergies, Adverse Reactions, Alerts This patient has no known allergies or adverse reactions. Medications This patient has no known medications. Procedures This patient has no known procedures. Encounters Start End Encounter Admission Attending Care Care Encounter Source Date/Time Date/Time Type Type Clinicians Facility Department ID 2021-04-20 2021-04-20 Patient DarciJasmin Gustavo [id number] 00:00:00 00:00:00 Outreach E Sood [id number] [place] [id number] 2021-03-30 2021-03-30 Patient Jasmin Bejarano Gustavo [id number] 00:00:00 00:00:00 Outreach E Sood [id number] [place] [id number] 2021-03-26 2021-03-26 Transition Gustavo Pandya [id number] 00:00:00 00:00:00 of Care Inna Sood [id number] [place] [id number] 2021-03-26 2021-03-26 Transition Gustavo Pandya [id number] 00:00:00 00:00:00 of Care Inna Sood [id number] [place] [id number] 2021-03-22 2021-03-25 [facility] Morrical, Endy Lopez [id number] 12:39:00 16:09:00 Encounter Maegan Mcguire [id number] [facility] [id number] 2021-03-13 2021-03-14 Emergency [place], [facility] [id number] 23:10:00 00:39:00 Jam Lindsay [id number] [place] [id number] [place] [phone] [id number] Results This patient has no known results.
--- NOTE | 2021-04-22 23:50 | ER ---
Nurse's Notes [facility] Name: Jean Kamara Age: 35 yrs Sex: Male : 1985 Arrival Date: 04/22/2021 Time: 20:29 Bed 2 Private MD: Diagnosis: Presentation: 04/22 20:30 Chief complaint: Patient states: Abdominal pain and distention, N/V everyday, worse ca1 today. HX of Hep C, Pancreatitis and Hernia. Paracentesis last performed a month ago. Coronavirus screen: Client denies travel out of the [place] in the last 14 days. nausea, vomiting. Client presents with at least one sign or symptom that may indicate coronavirus-19. Standard/surgical mask placed on the client. Provider contacted for isolation considerations. Ebola Screen: Patient negative for fever greater than or equal to 101.5 degrees Fahrenheit, and additional compatible Ebola Virus Disease symptoms Patient denies exposure to infectious person. Patient denies travel to an Ebola-affected area in the 21 days before illness onset. No symptoms or risks identified at this time. Initial Sepsis Screen: Does the patient meet any 2 criteria? No. Patient's initial sepsis screen is negative. Does the patient have a suspected source of infection? No. Patient's initial sepsis screen is negative. Risk Assessment: Do you want to hurt yourself or someone else? Patient reports no desire to harm self or others. Onset of symptoms was April 22, 2021. 20:30 Method Of Arrival: EMS: [facility] ca1 20:30 Acuity: GREGORY 3 ca1 Historical: - Allergies: 20:32 No Known Allergies; ca1 - Home Meds: 20:32 Furosemide Oral [Active]; Spironolactone Oral [Active]; Folic Acid Oral [Active]; ca1 Thiamine Oral [Active]; - PMHx: 20:32 Pancreatitis; hepatitis C; hernia; ca1 - Immunization history:: Client reports having NOT received the Covid vaccine. - Social history:: Smoking status: Patient reports the use of cigarette tobacco products, smokes one-half pack cigarettes per day. Vital Signs: 20:33 BP 122 / 84; Pulse 100; Resp 18 S; Temp 98.8; Pulse Ox 100% ; Weight 63.5 kg (M); ca1 Height 5 ft. 8 in. (172.72 cm) (R); Pain 10/10; 20:33 Body Mass Index 21.29 (63.50 kg, 172.72 cm) ca1 ED Course: 20:29 Patient arrived in ED. ca1 20:32 Triage completed. ca1 20:32 Arm band placed on right wrist. ca1 23:43 Virgilio Brand PA is PHCP. cp 23:43 Darren Watkins MD is Attending Physician. cp Administered Medications: No medications were administered Outcome: 23:49 Patient left the ED. bb Signatures: Carmen Molina, RN RN bb Virgilio Brand PA PA cp Farzana Bobo RN RN ca1
[2021-04-23 00:33] VITALS: BP 122/84; TEMP 98.8; O2SAT 100
== END 2021-04-22 23:49 | disposition left against medical advice (07) ==
LOC: ER 20:28
DX: Z53.21 Procedure and treatment not carried out due to patient leaving prior to being seen by health care provider (principal)
CPT/HCPCS: 99282

== ENCOUNTER 2021-08-22 22:25 | Emergency (ER) | payer SELFPAY ==
--- OUTSIDE RECORDS SUMMARY | 2021-08-22 22:31 | XMS REPORT | Continuity of Care Document ---
:1985 Author Organization [facility] t Address [address] [place] [address] Care Team Providers Name Role Phone Pcp, Does Not Have A Primary Care Physician Jered LORD Attending Clinician Darci RN, E Attending Clinician Mumtaz DUNHAMN Attending Clinician Fidelina LORD O Attending Clinician Brie Mcguire MD Attending Clinician Gretel Cardenas Attending Clinician Gretel HARPER Attending Clinician Unavailable Brie Mcguire MD Admitting Clinician Problems Condition Condition Condition Status Onset Resolution Last Treating Co mments Source Name Details Category Date Date Treatment Clinician Date 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: [facility] s cirrhosis cirrhosis [facility] Allergies, Adverse Reactions, Alerts Allergy Allergy Status Severity Reaction(s) Onset Inactive Treating Comm ents Source Name Type Date Date Clinician NO KNOWN Drug Active Univers ALLERGIE Class ity of S [facility] Social History Social Habit Start Date Stop Date Quantity Comments Source History of tobacco 1999-09-18 Cigarette Smoker University of use 00:00:00 [facility] History [facility] University o f Alcohol Frequency [facility] edical Branch History [facility] University o f Alcohol Std Drinks [place] [facility] [place] History [facility] University o f Alcohol Binge [facility] al [place] Exposure to Not sure University SARS-CoV-2 (event) [facility] Alcohol intake 2021-06-18 2021-06-18 4 /d University of 00:00:00 00:00:00 [facility] Cigarettes smoked 2021-03-22 2021-03-22 Univers ity of current (pack per 00:00:00 00:00:00 ) - Reported [place] Cigarette 2021-03-22 2021-03-22 University of pack-years 00:00:00 00:00:00 [facility] Tobacco use and 2021-03-22 2021-03-22 Never used Universit y of exposure 00:00:00 00:00:00 [facility] Alcohol Comment 2021-03-22 2021-03-22 24 oz beers Universi ty of 00:00:00 00:00:00 [facility] Sex [birth year] Universit y of 00:00:00 00:00:00 [facility] Smoking Status Start Date Stop Date Source Unknown if ever smoked Universit y of [facility] Current every day smoker 2021-03-22 00:00:00 Uni versity of [facility] Medications Ordered Filled Start Stop Current Ordering Indication Dosage Frequency Signature Comments Components Source Medication Medication Date Date Medication? Clinician (SIG) Name Name iopamidol 2020-09- No [id number] 100mL 100 mL, Univers (ISOVUE 06-18 Intravenou ity o f 370-500 mL) 21:44: 21:44 s, ONCE, 1 [place] injection 00 :00 dose, On Medica l 100 mL Mon [place] 06/18/21 at 1700, Routine FENTanyl PF 2020-09- No 100ug 100 mcg, Univers (SUBLIMAZE 006-18 Slow IV ity o f (PF)) 21:00: 20:12 Push, [place] injection 00 :00 ONCE, 1 Medical 100 mcg dose, On Branch Mon06/18/21 at 1600, Routine ondansetron 2020-09- No 4mg 4 mg, Slow Univers (ZOFRAN 006-18 IV Push, ity of (PF)) 21:00: 20:12 ONCE, 1 [place] injection 4 00 :00 dose, On Medi birgit mg Fri Branch 06/18/21 at 1600, JAMEL ciprofloxac 2020-09 Yes [id number] 500mg Take 1 Univers in HCl 500 0-01 tablet by ity of mg tablet 00:00: mouth 2 [place] 00 (two) Medical times Branch daily. metroNIDAZO 2020-09 Yes [id number] 500mg Take 1 Univers LE 500 mg 0-01 tablet by ity o f tablet 00:00: mouth [place] 00 every 8 Medical (eight) Branch hours. ondansetron 2020-09 Yes [id number] 4mg Take 1 Univers 4 mg 0-01 tablet by ity of disintegrat 00:00: mouth [place] ing tablet 00 every 4 Medica l (four) Branch hours as needed for Nausea and Vomiting (N/V). HYDROcodone 2020-09- Yes [id number] 1{tbl} Take 1 U nivers -acetaminop 0-01 10-09 tablet by it y of hen 5-325 00:00: 04:59 mouth [place] mg tablet 00 :00 every 4 Medical (four) Branch hours as needed for Pain (scale 4-6) for up to 7 days. Indication s: acute pain foLIC acid Yes [id number] 1mg Take 1 Univers 1 mg tablet 7-09 tablet by ity of 00:00: mouth [place] 00 daily. Medical Branch spironolact Yes [id number] 50mg Take 1 Univers one 50 mg 7-09 tablet by ity o f tablet 00:00: mouth [place] 00 daily. Medical Branch thiamine Yes [id number] 100mg Take 1 U nivers 100 mg 7-09 tablet by ity of tablet 00:00: mouth [place] 00 daily. Medical Branch furosemide Yes [id number] 20mg Take 1 Univers 20 mg 7-09 tablet by ity of tablet 00:00: mouth [place] 00 daily. Medical Branch foLIC acid Yes [id number] 1mg Take 1 Univers 1 mg tablet 7-09 tablet by ity of 00:00: mouth [place] 00 daily. Medical Branch spironolact Yes [id number] 50mg Take 1 Univers one 50 mg 7-09 tablet by ity o f tablet 00:00: mouth [place] 00 daily. Medical Branch thiamine Yes [id number] 100mg Take 1 U nivers 100 mg 7-09 tablet by ity of tablet 00:00: mouth [place] 00 daily. Medical Branch furosemide 2020-0 Yes [id number] 20mg Take 1 Univers 20 mg 7-09 tablet by ity of tablet 00:00: mouth [place] 00 daily. Medical Branch foLIC acid 2020-0 Yes [id number] 1mg Take 1 Univers 1 mg tablet 7-09 tablet by ity of 00:00: mouth [place] 00 daily. Medical Branch spironolact 2020-0 Yes [id number] 50mg Take 1 Univers one 50 mg 7-09 tablet by ity o f tablet 00:00: mouth [place] 00 daily. Medical Branch thiamine 2020-0 Yes [id number] 100mg Take 1 U nivers 100 mg 7-09 tablet by ity of tablet 00:00: mouth [place] 00 daily. Medical Branch furosemide 2020-0 Yes [id number] 20mg Take 1 Univers 20 mg 7-09 tablet by ity of tablet 00:00: mouth [place] 00 daily. Medical Branch foLIC acid 2020-0 Yes [id number] 1mg Take 1 Univers 1 mg tablet 7-09 tablet by ity of 00:00: mouth [place] 00 daily. Medical Branch spironolact 2020-0 Yes [id number] 50mg Take 1 Univers one 50 mg 7-09 tablet by ity o f tablet 00:00: mouth [place] 00 daily. Medical Branch thiamine 2020-0 Yes [id number] 100mg Take 1 U nivers 100 mg 7-09 tablet by ity of tablet 00:00: mouth [place] 00 daily. Medical Branch furosemide 2020-0 Yes [id number] 20mg Take 1 Univers 20 mg 7-09 tablet by ity of tablet 00:00: mouth [place] 00 daily. Medical Branch foLIC acid 2020-0 Yes [id number] 1mg Take 1 Univers 1 mg tablet 7-09 tablet by ity of 00:00: mouth [place] 00 daily. Medical Branch spironolact 2020-0 Yes [id number] 50mg Take 1 Univers one 50 mg 7-09 tablet by ity o f tablet 00:00: mouth [place] 00 daily. Medical Branch thiamine 2020-0 Yes [id number] 100mg Take 1 U nivers 100 mg 7-09 tablet by ity of tablet 00:00: mouth [place] 00 daily. Medical Branch furosemide 2020-0 Yes [id number] 20mg Take 1 Univers 20 mg 7-09 tablet by ity of tablet 00:00: mouth [place] 00 daily. Medical Branch foLIC acid 2020-0 Yes [id number] 1mg Take 1 Univers 1 mg tablet 7-09 tablet by ity of 00:00: mouth [place] 00 daily. Medical Branch spironolact 2020-0 Yes [id number] 50mg Take 1 Univers one 50 mg 7-09 tablet by ity o f tablet 00:00: mouth [place] 00 daily. Medical Branch thiamine 2020-0 Yes [id number] 100mg Take 1 U nivers 100 mg 7-09 tablet by ity of tablet 00:00: mouth [place] 00 daily. Medical Branch furosemide 2020-0 Yes [id number] 20mg Take 1 Univers 20 mg 7-09 tablet by ity of tablet 00:00: mouth [place] 00 daily. Medical Branch foLIC acid 2020-0 Yes [id number] 1mg Take 1 Univers 1 mg tablet 7-09 tablet by ity of 00:00: mouth [place] 00 daily. Medical Branch spironolact 2020-0 Yes [id number] 50mg Take 1 Univers one 50 mg 7-09 tablet by ity o f tablet 00:00: mouth [place] 00 daily. Medical Branch thiamine 2020-0 Yes [id number] 100mg Take 1 U nivers 100 mg 7-09 tablet by ity of tablet 00:00: mouth [place] 00 daily. Medical Branch furosemide 2020-0 Yes [id number] 20mg Take 1 Univers 20 mg 7-09 tablet by ity of tablet 00:00: mouth [place] 00 daily. Medical Branch lactulose 0 2020- No [id number] 15mL Take 15 mL Univers 10 gram/15 03-26- by mouth ity of mL solution 00:00: 04:59 daily for [place] 00 :00 30 days. Medical Branch lactulose 0 2020- No [id number] 15mL Take 15 mL Univers 10 gram/15 03-26- by mouth ity of mL solution 00:00: 04:59 daily for [place] 00 :00 30 days. [facility] Branch lactulose 0 2020- No [id number] 15mL Take 15 mL Univers 10 gram/15 03-26- by mouth ity of mL solution 00:00: 04:59 daily for [place] 00 :00 30 days. Medical Branch lactulose 2020- No [id number] 15mL Take 15 mL Univers 10 gram/15 03-26 by mouth ity of mL solution 00:00: 04:59 daily for [place] 00 :00 30 days. Medical Branch lactulose 2020- No [id number] 15mL Take 15 mL Univers 10 gram/15 03-26 by mouth ity of mL solution 00:00: 04:59 daily for [place] 00 :00 30 days. Medical Branch lactulose 2020- No [id number] 15mL Take 15 mL Univers 10 gram/15 03-26 by mouth ity of mL solution 00:00: 04:59 daily for [place] 00 :00 30 days. Medical Branch ondansetron 2020- No 4mg Take 4 mg Univers 4 mg tablet 03-25 by mouth ity of 16:44: 00:00 every 8 [place] 01 :00 (eight) Medical hours as Branch needed. Melatonin 5 2020- No Take by U nivers mg tablet 03-25 mouth. ity of 16:44: 00:00 [place] 01 :00 Medical Branch lactulose Yes 15mL 15 mL, Univer s (CEPHULAC) 03-25 Oral, ity of solution 15 14:00: DAILY, [place] mL 00 First dose Medical on [facility] 03/25/21 at 0900, Until Discontinu ed, Routine morpHINE No 2mg 2 mg, Slow Un esa injection 2 03-25 IV Push, ity of mg 09:00: 08:06 ONCE, 1 [place] 00 :00 dose, [facility] 03/25/21 at Branch 0400, Routine hydrOXYzine 2020- No [id number] 10mg Take 1 Univers 10 mg 03-25 tablet by ity of tablet 00:00: 04:59 mouth [place] 00 :00 every 6 Medical (six) Branch hours as needed for Itching for up to 14 days. hydrOXYzine 2020- No [id number] 10mg Take 1 Univers 10 mg 03-25 tablet by ity of tablet 00:00: 04:59 mouth [place] 00 :00 every 6 Medical (six) Branch hours as needed for Itching for up to 14 days. hydrOXYzine 2020- No [id number] 10mg Take 1 Univers 10 mg 03-25 tablet by ity of tablet 00:00: 04:59 mouth [place] 00 :00 every 6 Medical (six) Branch hours as needed for Itching for up to 14 days. hydrOXYzine 2020- No [id number] 10mg Take 1 Univers 10 mg 03-25 tablet by ity of tablet 00:00: 04:59 mouth [place] 00 :00 every 6 Medical (six) Branch hours as needed for Itching for up to 14 days. hydrOXYzine Yes 10mg 10 mg, Univ ers (ATARAX) 03-24 Oral, ity of tablet 10 14:57: Q6HPRN, [place] mg 20 Starting Medical Mon03/24/21 Branch at 0957, Until Discontinu ed, Routine, Itching morpHINE 2020- No 4mg 4 mg, Slow Un esa injection 4 03-24 IV Push, ity of mg 01:00: 01:00 Q6HPRN, [place] 00 :00 Starting Medical Mon03/23/21 Branch at 2000, Until Mon03/24/21 at 1999, Routine, breakthrou gh pain lidocaine 2020- No 10mL 10 mL, Unive rs 1% (PF) 03-23 Infiltrati ity o f (XYLOCAINE) 16:45: 19:12 on, ONCE, [place] injection 00 :00 1 dose, Medical 10 mL Mon03/23/21 Branch at 1145, Routine spironolact Yes 50mg 50 mg, Univ ers one 03-23 Oral, ity of (ALDACTONE) 14:00: DAILY, [place] tablet 50 00 First dose Medi birgit mg on Mon03/23/21 at 0900, Until Discontinu ed, Routine furosemide Yes 20mg 20 mg, Unive rs (LASIX) 03-23 Oral, ity of tablet 20 14:00: DAILY, [place] mg 00 First dose Medical on Mon Branch 03/23/21 at 0900, Until Discontinu ed, Routine pantoprazol Yes 40mg 40 mg, Univ ers e 03-23 Oral, ity of (PROTONIX) 14:00: DAILY, [place] EC tablet 00 First dose Medi birgit 40 mg on Mon [place] 03/23/21 at 0900, Until Discontinu ed, Routine foLIC acid Yes 1mg 1 mg, Univer s (FOLATE) 03-23 Oral, ity of tablet 1 mg 14:00: DAILY, [place] 00 First dose Medical on Mon03/23/21 at 0900, Until Discontinu ed, Routine thiamine Yes 100mg 100 [facility] ([facility] 03-23 Oral, ity of B1) tablet 14:00: DAILY, [place] 100 mg 00 First dose Medical on [facility] 03/23/21 at 0900, Until Discontinu ed, Routine nicotine Yes 1{patch 1 Patch, Un esa (NICODERM) 03-23 } Topical, ity o f 14 mg/24 hr 01:23: Administer [place] patch 1 00 over 24 Medical Patch Hours, Branch Q24H, First dose on Mon03/22/21 at 2030, Until Discontinu ed, Routine heparin Yes 5000U 5,000 Univers (porcine) 03-23 Units, ity of injection 01:00: [place] 5,000 Units 00 us, Q12H, Med ical First dose Branch on Mon03/22/21 at 2000, Until Discontinu ed, Routine lidocaine 2020- No 30mL 30 mL, [facility]% 03-22 07-05 Infiltrati ity of (XYLOCAINE) 22:15: 22:15 on, ONCE, [place] 20 mg/mL (2 00 :00 1 dose, Medic al %) Mon03/22/21 Branch injection at 1715, 30 mL Routine oxazepam Yes 15mg 15 mg, Univers (SERAX) 03-22 Oral, ity of capsule 15 21:01: Q4HPRN, [place] mg 27 Starting Medical Mon03/22/21 Branch at 1601, Until Discontinu ed, Routine, Only while awake for DBP equal to or greater than 100, HR equal to or greater than 100. ondansetron Yes 4mg 4 mg, Slow Univers (ZOFRAN 03-22 IV Push, ity of (PF)) 20:56: Q6HPRN, [place] injection 4 45 Starting Medi birgit mg 03/22/21 Branch at 1556, Until Discontinu ed, Routine, Nausea and Vomiting (N/V) morpHINE 2020- No 2mg 2 mg, Slow Un esa injection 2 03-22 IV Push, ity of mg 20:54: 20:53 Q6HPRN, [place] 55 :55 Starting Medical 03/22/21 Branch at 1554, Until 03/23/21 at 1553, Routine, Pain (scale 7-10) acetaminoph 2020- No 1{tbl} 1 tablet, Univers en-codeine 03-22 Oral, ity of (TYLENOL 20:54: 20:53 Q6HPRN, [place] #3) 300-30 49 :49 Starting Medic al mg tablet 1 Mon 03/22/21 Br anch tablet at 1554, Until 03/24/21 at 1553, Routine, Pain (scale 4-6) acetaminoph Yes 650mg 650 mg, Un esa en 03-22 Oral, ity of (TYLENOL) 20:54: Q6HPRN, [place] tablet 650 40 Starting Medic al mg [facility] 03/22/21 Branch at 1554, Until Discontinu ed, Routine, Pain (scale 1-3) iopamidol 2020- No [id number] 100mL 100 mL, Univers (ISOVUE 03-22 Intravenou ity o f 370-500 mL) 20:00: 19:40 s, ONCE, 1 [place] injection 00 :00 dose, Mon Medic al 100 mL 03/22/21 at Branch 1500, Routine morpHINE 2020- No 4mg 4 mg, Slow Un esa injection 4 03-22 IV Push, ity of mg 19:15: 18:06 ONCE, 1 [place] 00 :00 dose, Mon Medical 03/22/21 at Branch 1415, STAT ondansetron 2020- No 4mg 4 mg, Slow Univers (ZOFRAN 03-22 IV Push, ity of (PF)) 18:01: 18:06 PRN, 1 [place] injection 4 43 :00 dose, Medical mg Starting Branch 03/22/21 at 1301, Until Mon03/22/21 at 1306, JAMEL, Nausea and Vomiting (N/V) Immunizations Ordered Filled Immunization Date Status Comments [facility] e Immunization Name Name Pneumococcal 2021-03-25 Completed [place] o f Polysaccharide, 00:00:00 [place] Med ical PPSV23 (PNEUMOVAX) Branch Pneumococcal 2021-03-25 Completed [place] o f Polysaccharide, 00:00:00 [place] Med ical PPSV23 (PNEUMOVAX) Branch Pneumococcal 2021-03-25 Completed [place] o f Polysaccharide, 00:00:00 [place] Med ical PPSV23 (PNEUMOVAX) Branch Pneumococcal 2021-03-25 Completed [place] o f Polysaccharide, 00:00:00 [place] Med ical PPSV23 (PNEUMOVAX) Branch Pneumococcal 2021-03-25 Completed [place] o f Polysaccharide, 00:00:00 [place] Med ical PPSV23 (PNEUMOVAX) Branch Pneumococcal 2021-03-25 Completed [place] o f Polysaccharide, 00:00:00 [place] Med ical PPSV23 (PNEUMOVAX) Branch Pneumococcal 2021-03-25 Completed [place] o f Polysaccharide, 00:00:00 [place] Med ical PPSV23 (PNEUMOVAX) Branch Vital Signs Vital Name Observation Time Observation Value Comments Source Systolic blood 2021-06-18 22:00:00 128 mm[Hg] Univer sity of pressure [facility] Diastolic blood 2021-06-18 22:00:00 75 mm[Hg] Unive [facility] Heart rate 2021-06-18 22:00:00 75 /min [facility] Respiratory rate 2021-06-18 22:00:00 19 /min [facility] Oxygen saturation in 2021-06-18 22:00:00 100 /min [facility] Arterial blood by [facility] Pulse oximetry Branch Body temperature 2021-06-18 19:17:00 37.56 Sabi [facility] Body height 2021-06-18 19:17:00 172.7 cm [facility] Body weight 2021-06-18 19:17:00 70.308 kg [facility] BMI 2021-06-18 19:17:00 23.57 kg/m2 Universi ty of [place] [facility] Systolic blood 2021-03-25 17:30:00 134 mm[Hg] Univer sity of pressure [place] [facility] Diastolic blood 2021-03-25 17:30:00 79 mm[Hg] Unive rsity of pressure [place] [facility] Heart rate 2021-03-25 17:30:00 94 /min Universi ty of [place] [facility] Body temperature 2021-03-25 17:30:00 36.67 Sabi Univ ersity of [place] [facility] Respiratory rate 2021-03-25 17:30:00 18 /min Univ ersity of [place] [facility] Oxygen saturation in 2021-03-25 17:30:00 97 /min University of Arterial blood by [place] [facility] Pulse oximetry Branch Body weight 2021-03-23 21:00:00 73.199 kg 161# 6oz Universi ty of [place] [facility] BMI 2021-03-23 21:00:00 24.54 kg/m2 Universi ty of [place] [facility] Body height 2021-03-23 01:21:00 172.7 cm Universi ty of [place] [facility] Systolic blood 2021-03-25 17:30:00 134 mm[Hg] Univer sity of pressure [place] [facility] Diastolic blood 2021-03-25 17:30:00 79 mm[Hg] Unive rsity of pressure [place] [facility] Heart rate 2021-03-25 17:30:00 94 /min Universi ty of [place] [facility] Body temperature 2021-03-25 17:30:00 36.67 Sabi Univ ersity of [place] [facility] Respiratory rate 2021-03-25 17:30:00 18 /min Univ ersity of [place] [facility] Oxygen saturation in 2021-03-25 17:30:00 97 /min University of Arterial blood by [place] [facility] Pulse oximetry Branch Body weight 2021-03-23 21:00:00 73.199 kg 161# 6oz Universi ty of [place] [facility] BMI 2021-03-23 21:00:00 24.54 kg/m2 Universi ty of [place] [facility] Body height 2021-03-23 01:21:00 172.7 cm Universi ty of [place] [facility] Systolic blood 2021-03-14 04:07:00 150 mm[Hg] Univer sity of pressure [place] [facility] Diastolic blood 2021-03-14 04:07:00 79 mm[Hg] Unive rsity of pressure [facility] Heart rate 2021-03-14 04:07:00 122 /min Universi ty of [facility] Branch Body temperature 2021-03-14 04:07:00 36.72 Sabi Univ ersity of [facility] Respiratory rate 2021-03-14 04:07:00 18 /min Univ ersity of [facility] Body height 2021-03-14 04:07:00 172.7 cm Universi ty of [place] [facility] Body weight 2021-03-14 04:07:00 68.04 kg Universi ty of [place] [facility] BMI 2021-03-14 04:07:00 22.81 kg/m2 Universi ty of [facility] Oxygen saturation in 2021-03-14 04:07:00 95 /min University of Arterial blood by [facility] Pulse oximetry Branch Systolic blood 2021-03-14 04:07:00 150 mm[Hg] Univer sity of pressure [facility] Diastolic blood 2021-03-14 04:07:00 79 mm[Hg] Unive rsity of pressure [facility] Heart rate 2021-03-14 04:07:00 122 /min Universi ty of [facility] Branch Body temperature 2021-03-14 04:07:00 36.72 Sabi [facility] Respiratory rate 2021-03-14 04:07:00 18 /min Univ ersity of [facility] Body height 2021-03-14 04:07:00 172.7 cm Universi ty of [place] [facility] [place] Body weight 2021-03-14 04:07:00 68.04 kg Universi ty of [place] [facility] BMI 2021-03-14 04:07:00 22.81 kg/m2 Universi ty of [facility] Oxygen saturation in 2021-03-14 04:07:00 95 /min University of Arterial blood by [facility] Pulse oximetry Branch Procedures Procedure Date / Time Performing Clinician Source Performed CT ABDOMEN PELVIS W 2021-06-18 21:48:55 Rasheed Lawton [facility] ty of [place] CONTRAST [facility] LACTIC ACID WHOLE BLOOD 2021-06-18 20:08:00 Rasheed Lawton [facility] ersity of [place] [facility] LIPASE 2021-06-18 20:06:00 Rasheed Lawton [facility] TROPONIN I 2021-06-18 20:06:00 Jered Rasheed [facility] COMP. METABOLIC PANEL 2021-06-18 20:06:00 Rasheed Lawton [facility] ([id number]) [facility] CBC WITH DIFF 2021-06-18 20:06:00 Rasheed Lawton [facility] PROTHROMBIN TIME / INR 2021-06-18 20:06:00 Rasheed Lawton [facility] ACTIVATED PARTIAL 2021-06-18 20:06[facility] URINALYSIS 2021-06-18 20:06:00 Jered [facility] N-TERMINAL PRO-BNP 2021-06-18 20:06:00 Rasheed Lawton [facility] COVID-19 (ID NOW RAPID 2021-06-18 20:06:00 Rasheed Lawton [facility] TESTING) [facility] Branch CONSENT/REFUSAL FOR 2021-06-18 19:11:17 Doctor Unassigned, [facility] DIAGNOSIS AND TREATMENT [place] [facility] [place] COMP. METABOLIC PANEL 2021-03-25 09:12:00 Slim Schmitz [facility] ([id number]) [facility] EXTRA TUBE SST 2021-03-25 09:12:00 Maegan [facility] EXTRA TUBE RED 2021-03-25 09:12:00 Maegan [facility] CBC WITH DIFF 2021-03-25 08:00:00 Slim Schmitz [facility] PROTHROMBIN TIME / INR 2021-03-25 08:00:00 [facility] EXTRA TUBE SST 2021-03-24 08:35:00 Maegan [facility] EXTRA TUBE LT. GREEN 2021-03-24 08:35:00 Maegan [facility] BASIC METABOLIC PANEL 2021-03-24 08:34:00 Slim Schmitz [facility] (NA, K, CL, CO2, GLUCOSE, Medica l Branch BUN, CREATININE, CA) CBC WITH DIFF 2021-03-24 06:51:00 Slim Schmitz [facility] PROTHROMBIN TIME / INR 2021-03-24 06:51:00 Ainsley Lsim [facility] RHEUMATOID FACTOR 2021-03-23 08:25:00 Becky Alejandro [facility] [place] [facility] C4 COMPLEMENT 2021-03-23 08:25:00 Becky Alejandro [facility] COMP. METABOLIC PANEL 2021-03-23 08:25:00 Alejandro Pena [facility] ([id number]) [facility] CBC WITH DIFF 2021-03-23 08:25:00 Becky Alejandro [facility] PROTHROMBIN TIME / INR 2021-03-23 08:25:00 Alejandro Pena [facility] BLOOD CULTURE SCREEN 2021-03-22 22:45:00 Alejandro Pena [facility] PROTHROMBIN TIME / INR 2021-03-22 22:45:00 Alejandro Pena [facility] ALBUMIN BODY FLUID 2021-03-22 22:30:00 Alejandro Pena [facility] T.PROTEIN BODY FLUID 2021-03-22 22:30:00 Alejandro Pena [facility] BODY FLUID DIRECT COUNT 2021-03-22 22:30:00 Alejandro Pena [facility] BODY FLUID (BACTEC 2021-03-22 22:30:00 Maegan [facility]ire [facility]BDOM[facility] FL[facility] 2021-03-22 22:30:00 Alejandro Pena [facility] XR CHEST 2 VW 2021-03-22 21:47:40 Alejandro Pena [facility] CT ABDOMEN PELVIS W 2021-03-22 19:44:31 Endy Kitchen [facility] CONTRAST [facility] LIPASE 2021-03-22 18:03:00 Endy Kitchen [facility] VITAMIN B12, LEVEL 2021-03-22 18:03:00 Alejandro Pena [facility] FOLATE 2021-03-22 18:03:00 Becky Alejandro [facility] HEPATIC FUNCTION PANEL 2021-03-22 18:03:00 Endy Kitchen [facility] ([id number]) (ALB,T.PRO,BILI Medical Branch T,BU/BC,ALT,AST,ALK PHOS) BASIC METABOLIC PANEL 2021-03-22 18:03:00 Endy Kitchen [facility] (NA, K, CL, CO2, GLUCOSE, Medica l Branch BUN, CREATININE, CA) ETHANOL 2021-03-22 18:03:00 Endy Kitchen [facility] CBC WITH DIFF 2021-03-22 18:03:00 Endy Kitchen [facility] PROTHROMBIN TIME / INR 2021-03-22 18:03:00 Endy Kitcehn [facility] FIBRINOGEN 2021-03-22 18:03:00 Becky [facility] HEPATITIS B SURFACE 2021-03-22 18:03:00 Becky Alejandro [facility] ANTIGEN [facility] HCV ANTIBODY 2021-03-22 18:03:00 Becky Alejandro [facility] HIV 1/2 AG-AB WITH REFLEX 2021-03-22 18:03:00 Alejandro Pena [facility] [facility] (ID NOW RAPID 2021-03-22 18:03:00 Endy Kitchen [facility] TESTING) [facility] ONLY COVID 2021-03-22 18:03:00 Endy Kitchen [facility] INTERPRETATION [facility] URINALYSIS 2021-03-22 17:56:00 Endy Kitchen [facility] EXTRA TUBE URINE CULTURE 2021-03-22 17:56:00 Endy Kitchen [facility] CONSENT/REFUSAL FOR 2021-03-22 17:39:41 Doctor Unajoana, [facility] DIAGNOSIS AND TREATMENT [facility] NOTICE OF PRIVACY 2021-03-14 04:30:12 Doctor Unassigned, [facility] PRACT[facility] Encounters Start End Encounter Admission Attending Care Care Encounter Source Date/Time Date/Time Type Type Clinicians Facility Department ID 2021-06-18 2021-06-18 Emergency Jered [facility] [id number] Univers 14:19:00 17:31:00 Rasheed Lindsay 350.1.13.10 [place] [phone] [facility] [address] 2021-06-18 2021-06-18 Emergency X [facility] ERT [id number] Univers 14:12:00 14:12:00 ity of [facility] 2021-04-23 2021-04-23 Patient Jasmin Bejarano Gustavo 1.2.840.114 [id number] [facility] 00:00:00 00:00:00 Outreach E Sood 350.1.13.10 [phone] [address] 2021-04-20 2021-04-20 Patient Jasmin Bejarano Gustavo 1.2.840.114 [id number] 00:00:00 00:00:00 Outreach E Sood 350.1.13.10 [place] 4.2.7.2.686 [phone] [facility] 2021-04-20 2021-04-20 Patient Jasmin Bejarano Gustavo 1.2.840.114 [id number] Univers 00:00:00 00:00:00 Outreach E S[place] 350.1.13.10 [place] [phone] [address] 2021-03-30 2021-03-30 Patient Darci Jasmin Chen 1.2.840.114 [id number] 00:00:00 00:00:00 Outreach E Sood 350.1.13.10 [place] 4.2.7.2.686 [phone] [facility] 2021-03-30 2021-03-30 Patient Darci Jasmin Chen 1.2.840.114 [id number] [facility] 00:00:00 00:00:00 Outreach E S[place] 350.1.13.10 [phone] [address] 2021-03-26 2021-03-26 Transition Gustavo Pandya 1.2.840.114 [id number] 00:00:00 00:00:00 of Care Inna Sood 350.1.13.10 [place] 4.2.7.2.686 [id number] [id number] 2021-03-26 2021-03-26 Transition Pandya Matthieublair 1.2.840.114 [id number] 00:00:00 00:00:00 of Care Inna Sood 350.1.13.10 [place] 4.2.7.2.686 [phone] 403 2021-03-26 2021-03-26 Transition Gustavo Pandya 1.2.840.114 [id number] [facility] 00:00:00 00:00:00 of Care Inna Sood 350.1.13.10 [place] [phone] [facility] [address] 2021-03-26 2021-03-26 Transition Gustavo Pandya 1.2.840.114 [id number] [facility] 00:00:00 00:00:00 of Care Inna Sood 350.1.13.10 [place] [phone] [facility] [address] 2021-03-22 2021-03-25 [facility]8 40.114 [id number] 12:39:00 16:09:00 Encounter Maegan Mcguire 350.1.13 .10 [facility] 4.2.7.2.686 [phone] [facility] 2021-03-22 2021-03-25 [facility] 1.2.8 40.114 [id number] [facility] 12:39:00 16:09:00 Encounter Maegan Mcguire 350.1.13 .10 ity of [facility] 4.2.7.2.686 [place] [phone] [facility] [address] 2021-03-22 2021-03-22 Emergency X [facility] ERT [id number] Univers 12:35:00 12:35:00 ity of [facility] 2021-03-13 2021-03-14 [facility] 1.2.840.114 [id number] Univers 23:10:00 00:39:00 Jamnickolas Lindsay 350.1.13.10 i ty of [place] 4.2.7.2.686 [facility] [phone] [facility] [address] 2021-03-13 2021-03-14 Emergency [facility] [place] 1.2.840.114 [id number] 23:10:00 00:39:00 Jamnickolas Lindsay 350.1.13.10 [place] 4.2.7.2.686 [place] [phone] 084 2021-03-13 2021-03-13 Emergency X [facility] ERT [id number] Univers 23:10:00 23:10:00 JAM ity [facility] Results Test Description Test Time Test Comments Results Result Comments Source COMP. METABOLIC PANEL (27442) 2021-06-18 21:22:14 Test Item Value Reference Range Interpretation Comme nts NA (test code = 9273777938) 134 mmol/L 135-145 L K (test code = 4293942075) 3.7 mmol/L 3.5-5.0 CL (test code = 9170518778) 105 mmol/L 98-108 CO2 TOTAL (test code = 4927087908) 21 mmol/L 23-31 L AGAP (test code = 9638007095) 2-16 BUN (test code = 6212388426) 6 mg/dL 7-23 L GLUCOSE (test code = 4615446703) 124 mg/dL 70-110 H CREATININE (test code = 0.66 mg/dL 0.60-1.25 2518628738) TOTAL BILI (test code = 3.8 mg/dL 0.1-1.1 H 6002195651) CALCIUM (test code = 3525444319) 8.5 mg/dL 8.6-10.6 L T PROTEIN (test code = 9963524753) 9.0 g/dL 6.3-8.2 H ALBUMIN (test code = 8492822450) 3.4 g/dL 3.5-5.0 L ALK PHOS (test code = 2493665811) 89 U/L 34-122 ALTv (test code = 1742-6) 38 U/L 5-50 AST(SGOT) (test code = 8563689483) 90 U/L 13-40 H eGFR (test code = 4402765097) mL/min/1.73m2 NICHOLAS (test code = NICHOLAS) Association of Glomerular Filtration Rate (GFR) and Staging of Kidney Disease* + +-------- + ------+| GFR (mL/min/1.73 m2) ?| With Kidney Damage ?| ?Without Kidney Damage+ +-- + +| ?>90 ?| ?Stage one ?| ? Normal ?+ +------- + -------+| ?60-89 ?| ?Stage two ?| ? Decreased GFR ? + +-------- + ------+| ?30-59 ?| ?Stage three ?| ? Stage three ? + +-------- + ------+| ?15-29 ?| ?Stage four ? | ? Stage four ?+ +------- + -------+| ?<15 (or dialysis) ? ?| ?Stage five ? | ? Stage five ?+ +------- + -------+ *Each stage assumes the associated GFR level has been in effect for at least three months. ?Stages 1 to 5, with or without kidney disease, indicate chronic kidney disease. Notes: Determination of stages one and two (with eGFR >59mL/min/1.73 m2) requires estimation of kidney damage for at least three months as defined by structural or functional abnormalities of the kidney, manifested by either:Pathological abnormalities or Markers of kidney damage (including abnormalities in the composition of the blood or urine or abnormalities in imaging tests). Lab Interpretation (test code = Abnormal 64158-2) [facility] THRMPLAS [id number] 21:07:34 Test Item Value Reference Range Interpretation Comments APTT Patient (test See_Comment [Automat ed code = 3173-2) message] The system which generated this result transmitted reference range : 23 - 38 Seconds . The reference range was not used to interpr et this result as normal/abnormal . NICHOLAS (test code = NICHOLAS) The [facility] patient population mean normal value for aPTT is 30 seconds. Lab Interpretation Normal (test code = 25389-3) [facility] WITH [id number] 21:07:14 Test Item Value Reference Range Interpretation Comments WBC (test code = See_Comment [Automated 6690-2) message] The sy stem which generated this result transmitted reference range : 4.20 - 10.70 10*3/?L. The reference range was not used to interpret this result as normal/abnormal . RBC (test code = See_Comment L [Automated 789-8) message] The sy stem which generated this result transmitted reference range : 4.26 - 5.52 10*6/?L. The reference range was not used to interpret this result as normal/abnormal . HGB (test code = 11.6 g/dL 12.2-16.4 L 718-7) HCT (test code = 33.4 % 38.4-49.3 L 4544-3) MCV (test code = 100.0 fL 81.7-95.6 H 787-2) MCH (test code = 34.7 pg 26.1-32.7 H 785-6) MCHC (test code = 34.7 g/dL 31.2-35.0 786-4) RDW-SD (test code = 52.4 fL 38.5-51.6 H 45921-6) RDW-CV (test code = 14.5 % 12.1-15.4 788-0) PLT (test code = See_Comment L [Automated 777-3) message] The sy stem which generated this result transmitted reference range : 150 - 328 10*3/ ?L. The reference r laura was not used to interpret this result as normal/abnormal . MPV (test code = 11.2 fL 9.8-13.0 71558-0) IPF % (test code = 2.9 % 1.2-10.7 Platelet count 6117420975) measured by fluorescence method. NRBC/100 WBC (test See_Comment [Automat ed code = 5251587664) message] The system which generated this result transmitted reference range : 0.0 - 10.0 /100 WBCs. The refer ence range was not u sed to interpret th is result as normal/abnormal . NRBC x10^3 (test code <0.01 See_Comment [Auto mated = 3404070038) message] The s ystem which generated this result transmitted reference range : 10*3/?L. The reference range was not used to interpret this result as normal/abnormal . GRAN MAT (NEUT) % 54.8 % (test code = 770-8) IMM GRAN % (test code 0.20 % = 1772607238) LYMPH % (test code = 26.7 % 736-9) MONO % (test code = 16.5 % 5905-5) EOS % (test code = 1.0 % 713-8) BASO % (test code = 0.8 % 706-2) GRAN MAT x10^3(ANC) 2.80 10*3/uL 1.99-6.95 (test code = 5369321721) IMM GRAN x10^3 (test <0.03 0.00-0.06 code = 7007389661) LYMPH x10^3 (test code 1.36 10*3/uL 1.09-3.23 = 731-0) MONO x10^3 (test code 0.84 10*3/uL 0.36-1.02 = 742-7) EOS x10^3 (test code = 0.05 10*3/uL 0.06-0.53 L 711-2) BASO x10^3 (test code 0.04 10*3/uL 0.01-0.09 = 704-7) Lab Interpretation Abnormal (test code = 00705-1) [facility] / [id number] 21:04:54 Test Item Value Reference Range Interpretation Comments PROTIME PATIENT (test See_Comment H [Auto mated message] code = 5964-2) The system ich generated this result transmitted ref erence range: 12.0 - 1 4.7 Seconds. The reference range was not used to int erpret this result as normal/abnormal . INR (test code = 6301-6) Nor mal INR <1.1; Warfarin Therap eutic range 2.0 to 3. 0 or 2.5 to 3.5, dep ending upon the indica tions. Lab Interpretation (test Abnormal code = 75975-3) [facility]TR[facility] [id number] 21:04:33 Test Item Value Reference Interpretation Comments Range TROPONIN I (test 0.004 ng/mL See_Comment [Automated code = 0831403108) message] The system which generated this result transmitted reference range : <=0.034. The reference range was not used to interpret this result as normal/abnormal . NICHOLAS (test code = Reference (Normal) NICHOLAS) Range (defined by the 99th percentile reference limit): <= 0.034 ng/mL Note: Cardiac troponin begins to rise 3-4 hours after the onset of ischemia. Repeat in 4-6 hours if the sample was drawn within 3-4 hours of the onset of the symptom and found normal. Diagnosis of myocardial injury is made with acute changes in cTn concentrations with at least one serial sample above the 99th percentile upper reference limit (URL), taken together with the patient's clinical presentation. Biotin has been reported to cause a negative bias, interpret results relative to patient's use of biotin. Lab Interpretation Normal (test code = 44068-1) [facility] CampusN-TERMINAL [id number] 21:01:11 Test Item Value Reference Range Interpretation Comments NT-proBNP (test code 369 pg/mL See_Comment H [Autom ated = 2531933841) message] The system which generated this result transmitted reference range : <=125. The reference range was not used to interpret this result as normal/abnormal . NICHOLAS (test code = NICHOLAS) Biotin has been reported to cause a negative bias, interpret results relative to patient's use of biotin. Lab Interpretation Abnormal (test code = 77769-1) [facility] CampusLIPASE2021-10-01 20:52:07 Test Item Value Reference Range Interpretation Comments LIPASE (test code = 8374781002) 489 U/L 0-220 H Lab Interpretation (test code = Abnormal 03742-6) [facility] CampusCOMP. METABOLIC PANEL (40308)2021-03-25 09:52:29 Test Item Value Reference Range Interpretation Comments NA (test code = 131 mmol/L 135-145 L 7535695359) K (test code = 4.1 mmol/L 3.5-5.0 7987355376) CL (test code = 101 mmol/L 98-108 5706620701) CO2 TOTAL (test code = 27 mmol/L 23-31 7106385386) AGAP (test code = 2-16 8693036365) BUN (test code = 7 mg/dL 7-23 8896887541) GLUCOSE (test code = 85 mg/dL 70-110 1645945176) CREATININE (test code = 0.63 mg/dL 0.60-1.25 1606420928) TOTAL BILI (test code = 5.6 mg/dL 0.1-1.1 H 2352433228) CALCIUM (test code = 8.1 mg/dL 8.6-10.6 L 7885678585) T PROTEIN (test code = 7.7 g/dL 6.3-8.2 9861323691) ALBUMIN (test code = 3.0 g/dL 3.5-5.0 L 3929621934) ALK PHOS (test code = 81 U/L 34-122 7758750150) ALTv (test code = 51 U/L 5-50 H 1742-6) AST(SGOT) (test code = 145 U/L 13-40 H 7314346361) eGFR (test code = mL/min/1.73m2 2027548818) NICHOLAS (test code = NICHOLAS) Association of Glomerular Filtration Rate (GFR) and Staging of Kidney Disease* + --+ --+ ------+| GFR (mL/min/1.73 m2) ?| With Kidney Damage ?| ?Without Kidney Damage+ --------+ --------+ +| ?>90 ?| ?Stage one ?| ? Normal ?+ ---+ ---+ -------+| ?60-89 ?| ?Stage two ?| ? Decreased GFR ? + --+ --+ ------+| ?30-59 ?| ?Stage three ?| ? Stage three ? + --+ --+ ------+| ?15-29 ?| ?Stage four ? | ? Stage four ?+ ---+ ---+ -------+| ?<15 (or dialysis) ? ?| ?Stage five ? | ? Stage five ?+ ---+ ---+ -------+ *Each stage assumes the associated GFR level has been in effect for at least three months. ?Stages 1 to 5, with or without kidney disease, indicate chronic kidney disease. Notes: Determination of stages one and two (with eGFR >59mL/min/1.73 m2) requires estimation of kidney damage for at least three months as defined by structural or functional abnormalities of the kidney, manifested by either:Pathological abnormalities or Markers of kidney damage (including abnormalities in the composition of the blood or urine or abnormalities in imaging tests). Lab Interpretation Abnormal (test code = 41489-0) [facility] CampusPROTHROMBIN TIME / [id number] 08:11:23 Test Item Value Reference Range Interpretation Comments PROTIME PATIENT (test See_Comment H [Auto mated message] code = 5964-2) The system wh ich generated this result transmitted ref erence range: 10.1 - 1 2.6 Seconds. The reference range was not used to int erpret this result as normal/abnormal . INR (test code = 6301-6) Nor mal INR <1.1; Warfarin Therap eutic range 2.0 to 3. 0 or 2.5 to 3.5, dep ending upon the indica tions. Lab Interpretation (test Abnormal code = 52094-1) [facility] CampusCB WITH [id number] 08:07:00 Test Item Value Reference Range Interpretation Comments WBC (test code = See_Comment [Automated 6690-2) message] The sy stem which generated this result transmitted reference range : 4.20 - 10.70 10*3/?L. The reference range was not used to interpret this result as normal/abnormal . RBC (test code = See_Comment L [Automated 789-8) message] The sy stem which generated this result transmitted reference range : 4.26 - 5.52 10*6/?L. The reference range was not used to interpret this result as normal/abnormal . HGB (test code = 10.9 g/dL 12.2-16.4 L 718-7) HCT (test code = 30.7 % 38.4-49.3 L 4544-3) MCV (test code = 104.8 fL 81.7-95.6 H 787-2) MCH (test code = 37.2 pg 26.1-32.7 H 785-6) MCHC (test code = 35.5 g/dL 31.2-35.0 H 786-4) RDW-SD (test code = 57.2 fL 38.5-51.6 H 77463-9) RDW-CV (test code = 14.8 % 12.1-15.4 788-0) PLT (test code = See_Comment L [Automated 777-3) message] The sy stem which generated this result transmitted reference range : 150 - 328 10*3/ ?L. The reference r laura was not used to interpret this result as normal/abnormal . MPV (test code = 12.1 fL 9.8-13.0 03757-0) NRBC/100 WBC (test See_Comment [Automat ed code = 5605342811) message] The system which generated this result transmitted reference range : 0.0 - 10.0 /100 WBCs. The refer ence range was not u sed to interpret th is result as normal/abnormal . NRBC x10^3 (test code <0.01 See_Comment [Auto mated = 3753007545) message] The s ystem which generated this result transmitted reference range : 10*3/?L. The reference range was not used to interpret this result as normal/abnormal . GRAN MAT (NEUT) % 54.3 % (test code = 770-8) IMM GRAN % (test code 0.40 % = 7467474372) LYMPH % (test code = 25.2 % 736-9) MONO % (test code = 17.2 % 5905-5) EOS % (test code = 1.8 % 713-8) BASO % (test code = 1.1 % 706-2) GRAN MAT x10^3(ANC) 3.99 10*3/uL 1.99-6.95 (test code = 4236636596) IMM GRAN x10^3 (test 0.03 10*3/uL 0.00-0.06 code = 0109538982) LYMPH x10^3 (test code 1.85 10*3/uL 1.09-3.23 = 731-0) MONO x10^3 (test code 1.26 10*3/uL 0.36-1.02 H = 742-7) EOS x10^3 (test code = 0.13 10*3/uL 0.06-0.53 711-2) BASO x10^3 (test code 0.08 10*3/uL 0.01-0.09 = 704-7) Lab Interpretation Abnormal (test code = 51299-9) [facility] (NA, K, CL, CO2, GLUCOSE, BUN, CREATININE, CA)2021-03-24 14:01:03 Test Item Value Reference Range Interpretation Comments NA (test code = 133 mmol/L 135-145 L 2622942146) K (test code = Hemolyzed 2236277041) Specimen CL (test code = 103 mmol/L 98-108 9353900539) CO2 TOTAL (test code 26 mmol/L 23-31 = 7122940148) AGAP (test code = 2-16 2262644191) BUN (test code = Hemolyzed 5445174938) Specimen GLUCOSE (test code = 83 mg/dL 70-110 1182704057) CREATININE (test code 0.53 mg/dL 0.60-1.25 L = 4974074318) CALCIUM (test code = 7.8 mg/dL 8.6-10.6 L 8521570177) eGFR (test code = mL/min/1.73m2 5224758045) NICHOLAS (test code = NICHOLAS) Association of Glomerular Filtration Rate (GFR) and Staging of Kidney Disease* + -----+ --------+ +| GFR (mL/min/1.73 m2) ?| With Kidney Damage ?| ?Without Kidney Damage+ +------- +---- --+| ?>90 ?| ?Stage one ?| ? Normal ?+ ------+ ---------+--------- +| ?60-89 ?| ?Stage two ?| ? Decreased GFR ? + -----+ --------+ +| ?30-59 ?| ?Stage three ?| ? Stage three ? + -----+ --------+ +| ?15-29 ?| ?Stage four ? | ? Stage four ?+ ------+ ---------+--------- +| ?<15 (or dialysis) ? ?| ?Stage five ? | ? Stage five ?+ ------+ ---------+--------- + *Each stage assumes the associated GFR level has been in effect for at least three months. ?Stages 1 to 5, with or without kidney disease, indicate chronic kidney disease. Notes: Determination of stages one and two (with eGFR >59mL/min/1.73 m2) requires estimation of kidney damage for at least three months as defined by structural or functional abnormalities of the kidney, manifested by either:Pathological abnormalities or Markers of kidney damage (including abnormalities in the composition of the blood or urine or abnormalities in imaging tests). Lab Interpretation Abnormal (test code = 64727-2) [facility] WITH [id number] 08:13:01 Test Item Value Reference Range Interpretation Comments WBC (test code = See_Comment [Automated 6690-2) message] The sy stem which generated this result transmitted reference range : 4.20 - 10.70 10*3/?L. The reference range was not used to interpret this result as normal/abnormal . RBC (test code = See_Comment L [Automated 789-8) message] The sy stem which generated this result transmitted reference range : 4.26 - 5.52 10*6/?L. The reference range was not used to interpret this result as normal/abnormal . HGB (test code = 10.5 g/dL 12.2-16.4 L 718-7) HCT (test code = 29.7 % 38.4-49.3 L 4544-3) MCV (test code = 105.3 fL 81.7-95.6 H 787-2) MCH (test code = 37.2 pg 26.1-32.7 H 785-6) MCHC (test code = 35.4 g/dL 31.2-35.0 H 786-4) RDW-SD (test code = 58.4 fL 38.5-51.6 H 95527-5) RDW-CV (test code = 15.0 % 12.1-15.4 788-0) PLT (test code = See_Comment [Automated 777-3) message] The sy stem which generated this result transmitted reference range : 150 - 328 10*3/ ?L. The reference r laura was not used to interpret this result as normal/abnormal . MPV (test code = 12.0 fL 9.8-13.0 14344-9) NRBC/100 WBC (test See_Comment [Automat ed code = 3396518798) message] The system which generated this result transmitted reference range : 0.0 - 10.0 /100 WBCs. The refer ence range was not u sed to interpret th is result as normal/abnormal . NRBC x10^3 (test code <0.01 See_Comment [Auto mated = 1851506427) message] The s ystem which generated this result transmitted reference range : 10*3/?L. The reference range was not used to interpret this result as normal/abnormal . GRAN MAT (NEUT) % 59.9 % (test code = 770-8) IMM GRAN % (test code 0.30 % = 8948122665) LYMPH % (test code = 19.8 % 736-9) MONO % (test code = 17.1 % 5905-5) EOS % (test code = 1.8 % 713-8) BASO % (test code = 1.1 % 706-2) GRAN MAT x10^3(ANC) 3.99 10*3/uL 1.99-6.95 (test code = 9217504052) IMM GRAN x10^3 (test <0.03 0.00-0.06 code = 5758133537) LYMPH x10^3 (test code 1.32 10*3/uL 1.09-3.23 = 731-0) MONO x10^3 (test code 1.14 10*3/uL 0.36-1.02 H = 742-7) EOS x10^3 (test code = 0.12 10*3/uL 0.06-0.53 711-2) BASO x10^3 (test code 0.07 10*3/uL 0.01-0.09 = 704-7) Lab Interpretation Abnormal (test code = 56254-8) [facility] / [id number] 07:39:33 Test Item Value Reference Range Interpretation Comments PROTIME PATIENT (test See_Comment H [Auto mated message] code = 5964-2) The system wh ich generated this result transmitted ref erence range: 10.1 - 1 2.6 Seconds. The reference range was not used to int erpret this result as normal/abnormal . INR (test code = 6301-6) Nor mal INR <1.1; Warfarin Therap eutic range 2.0 to 3. 0 or 2.5 to 3.5, dep ending upon the indica tions. Lab Interpretation (test Abnormal code = 56248-2) [facility] CampusCYTO ABDOMINAL [id number] 21:12:26 Test Item Value Reference Range Interpretation Comments Case Report (test code Non-Gynecologic = 2334367479) Cytology ?Case: [id number] ?Authorizing Provider: ?Maegan Mcguire MD ? ?Collected: ? 03/22/2021 1730 ?Ordering Location: ? ? -Emergency Department ? ?Received: ?03/23/2021 0926 ?Pathologist: ? Camille Magana MD ? Specimen: ? ?ABDOMEN ? Final Diagnosis (test z1qemYSuMTIlh5nnPYCqrQ code = 7406705130) FuZzEwMzNcZnRuYmpcdWMx IHtccnRmMVxlcGljOTQwM1 zzsrTaYDRlnWPsR6Rlpkrb CJyxCN7hRQ8vwLmrzMOphG MnOCWpHnJjm9rhe567nKQb y0hhQZNSzinxuHm4xMckO5 2yh7W9TxpyP28ebEXeZUB3 CSRjALGpzOXwLXDnAMQ9ZT EmsYPjU6jsDWIgMS0kezco NPriXJrlRRBywMO0CVOcsH RdU2YgBTNoGYidVUIndxn7 WbXhGw7rkBFluQheQMztIY JkXHBsYWluXGJcZnMyMCBB GJ4rUSICGH3VOE45CFOPJq TWYH8PHFQEAjDGNPVSIUfv jQKtRIHsIH8qFKKhJh4mMF NUNLqLKV3YMQNCAWnEUVyT KR7YWEBBONDhXAzrWGHiR8 OCPVWJRC4WGfZuYVUdmosq PTO1l1ibpVPgLFZgbTOwOo VsUWWpUWFui7vdFDSqjWLf ZzEwMzNcZnRuYmpcdWMxXG TuEdMvz0nwi593dHCpl1ks VUXdArW2sUDsSMFigNmzbz y2fDdgEyByJOQfx6nisfXl ZmNoYXJzZXQwIEFyaWFsO3 06UDSrZZgdx2mjh1RpUSQf lWBsj2Q5FLGXYZsmIpSwN5 86l1cwr0luijGceQI3CBBv OIF3BBcfvpBiceP1UOozjP UiFbV8TEjswlCbJAejtnCj exWbUny9OLSzN190SWR0uM xep4ooZYR8FWEdDCZkEshk Qh6pjWYlC832KARoDNPIGI YblQs0NDFlyvQoykNhbOKI n471G958n4anADLfssVxmE gLrrwqv5usT387IEBptXEo ycFdAuJyBZMcoZZryXL8GH NcYV7lhkzlQXnvUIiiHEEk pbA5JIJqkDWcB6CnCWQfWX 3bsuimIIW6UQhqGYRlXSU9 GlYiNVTeo5Wvppu8KxHnxr 3mgw90FQJ8w8XwkPxuTZZ1 ZYO3CzGsOz3rkZGsNXFuON 4lXvGgnQXrFSEdho97tOnq QIaaoyTndF5zUtPrXXHjmX HqNGUiTG7ifDRgYJQefI3t cmxjXHBnYnJkcmhlYWRccG aqcsReEl6cjGnxPCG7RQol E4xzbZ6cOtN3YSkaG5tdfX 0nTGl9WQhjpBD2UHLojE0w LP4jstnjz0deKBhuRSrxWJ LqnzL8joZ6GRCplZLeD5Tl xL2nWOEmJT8ngigzv9eeWS P6BOqrQIYpXUX9UfDwAPLv n0Xulpn5NdYyv1HrgWWlHH ozK89hm591WBElaqJrE1gq bGFpblxwbGFpblxmMFxmcz L9NBFoLIOsXMlmDFLcKSSc MjBcbGFuZzEwMzNcaGljaF xoKYarBzHfKFZnWMlaW3oh QdRkX9KzHKKmMuLumORoMF zsbMO8ERDiSRKqe29uvNt7 IMFuyzgfp0HuSGSlqZYzfJ DgjO6bheHeu3ddDHDxLYNz LCZlF2QdJYF5bHGkPGGzmR TagLH6ZH3nhnNdGX1nTGQa YnkgcmVzaWRlbnRzLCBmZW igb6nuUH2fJGXhcQcanX5j xFG1TSQef7uopJBxkYUys4 zrx3UkucOmUQxyFUVzLUwb IMUdIVScFZ6eVNChlHDpdq Dmv8U1UeipzAJjukfzCuki ltS5KUcnfashAWYtZBmhM6 cmJuJaNJJywZvyWgepf9Mv XGYyXGZzMjhccGFyfX0= Final Diagnosis Comment w6xuxOAoZYYaxOK7WQCoPU (test code = [id number] [id number]) aRDejqWild87gLB2xY65QE 1oTDZfGkL1UDCrjcW6Gpj0 FELgAJOnwJMzB111m0puj8 diiwVfySE0mXajCOZkogrb ZsS3YCtiEIBvfytiYNe7UB saQQIrqOX5QGKzbVIgU3Lh BKCpVM9jukd4JHC1WQgiML SqXcE9BWGylTLcQAIkcScy HGygp656WOX6FiGuRMPzfy CabQfoyY0jEqBxMEQYcYXx yaHnm2uzpnJwKFXjtZq2XV BtZXNvdGhlbGlhbCBjZWxs asVozfVtIPPqY7adjr97aw Fgb3NylRdyvBweNRbzl9Pw e0H6gMqfSFyoMeysuL1lzG oldt5tVg5zeNAbmKydXS60 SMRisRtfMOqqVC95cPViBS QuXHBhclxwYXJ9 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 8019092390) Gross Description (test d8hmqPJmNOOtnPF0VDRjIU code = 0990546245) Tiw6zpn0NhfHLvmSOoMFth nIHofpRusj28bPT3qJ68BI 8rMPJfEtK1DHDkozR1Wmc3 JZYlJNSiiJZfC045b9bns6 oguhJcsVD9lArtVEUnicck NnP4ZFqtFSHearvdDEz9AW slCGQicLQ5NKHkdEEuF0Ax ZKGeSA5tgrn6PKX4KJxsAT LpZqU9LBYxmZQqZQQblReb LXove390WOH6RcXbNQJzvf K1BJopTRTrC2HrX7OnICzw RPB1JQBzNBQiJRHwEBZcNN VdBAougoV2c4kuGRZutHIt HVD5LMwkwCOhNJAzXOYhFH ulMdUHKaLzXaJxWjA2OCV4 DqF0EAg8HCUOOdMpGsGpAT E8MRl8NXGwBIg3CKm3DPsO EfPiFtHbNtgaCEL1AIB1Jr AwIFxcdCAyIFxcZmwgXFxm IEFyaWFsIFxcZnMgMTAgXF zkR84bqTufyD5tZbPiHQzs DPIjAxKhCxAHLV4iZVXGGY 6OYZ83PLXLUsJJYA6YUDZO UyBGTFVJRFxwYXIgUmVjZW d4IXXiKyVde4asnDWoZJUo E2GfgrXvMcP5RCbqx6xhYq e1tSAeGKXdjgixRGTHfbFs YXJlZCAyIHNsaWRlcyAoMS ZIMDQxfhops1mdq3KmT1l8 t2XggW9kXQXsMAYyQVLweC Zhu3yah3mqE9w0s1BivN7o zOVudWCrPKYtp17tFVbxSS YyH7RnF3OhpdI4r5jykGmv z2OodFOkYQ5apFQmfJ== Disclaimer (test code = e7kioNXxZAYlc7dzFJMkaY 8424898706) FuZzEwMzNcZnRuYmpcdWMx QNjhulKxJIyif4DoV4NhLp AwMFxhbnNpXGRlZmxhbmcx IDPfANS7tuRvUGSmJLbfBA DhRFocYk8frPEulYlfXcCe WAYud3eecwHMHIfpPxDbE3 36RSPpNJcsu1iju2RiKJMs uSZgt5L1RADPaqrszQy9jQ diE31mz2J8HxfoP2kdZKTu AJAaZ7MhGN0tBGXnWmg4QU A5LVZ3XPGyOFSgV8YoSY9m FBZvwCUjFAb2m1nrcQjsJF RmMZE6d3rsWGdpsmTcHY8i rf9ucXw8g2aexuZeTGOpCB VffIWVGWQhN7DdfXsiQk0e mLx2lNrrFhnuQAV2Mut4ZE 1kzh13rdm4pEvpJUXeqitj AuE6JXgxCMHwoxoeFKu3WZ lvBBEqjEX1GIRliGZnM6Vz TKFzHC1plym3QAR2NZmnSQ BiBlS5TPCdeVOrWJXbpXqi VXsmk143YXJ7QhPhWU2uN7 Yhh2Z5kM6bjYWkIXDcyGJa KvXaFDRklg0noYRmZLtjz5 IyWKD4tbK8gYVwnYBgBSFl VE69Xuxph4SuNrfed9GvU8 3mhRC0LZstf8bqDT6wCbY4 evRgZSwgl9lvsL7zKsX0OG xoNP5vQF2rAADrsY7rdoju XHBnYnJkcmhlYWRccGdicm McPw1sxHqhZIE7RUezK9bp lS7eEnZ2NHgcW9szhD0rFZ m2YAbdgIC8ZMAqfX6kEJ6e yhcud8rjVUdwCKsyGGRums O4aaT8LUZkvYCgH1ZjiZ6t WDKwJL5ltrarb5thLHF7IT wfWZFjCIX1RpSjFOYsh3Hm vhp8SrJjz2IwjVRxXKfyB4 6rv711OMNccnCvH3tkqNEx kkbatONllnsaTHgzopE4AA WqnkLzb9QzGTArCVG0LKru FYdeqPWmSCDwfXoca0fqM5 RscGFyXHBsYWluXGYxXGZz MjBcbGFuZzEwMzNcaGljaF exNAwoRbXhBWQlGZprH0wq CuAxU1MiRTDuHnZgjZIsL6 ggVGhpcyByZXBvcnQgbWF5 OQsmH5c5QFSywrVuuEt3cy AqMzPqDSZhJAR1WWghxWAw STQsa5KonbhplQVqIa8wpT WaBFOgmP2sINIfXJVaGMtf CC9utDi4NOTIaFLemIJxBs WGFPQfIK91iaRoPLZEqeof w6E8XHrjGXDsl2KjnAYmX5 pyc0QyTKMod73iHL1wy7O5 b4zyWFS0EA4mv6ZeXOCtbQ OkdWLnDXQkj4Yhcdqry5Xd JCKrftBdw4ScKNNhmmJlcU JmBRPnvfTpoj0eqcKcJXHz VZThA0VdeymviOgupaAnSS Vafx4zbcQwIAF0BZESLVAn BGPbu6EywG7xbMYRQGM2tR Xuno3xehWPvKZoDJKlml77 LVFtVR1wZ1jhURLmLOMviy QweEOvd9EtLHJikAV7tMFl HR2OJjMMt79jWRIqMNFXfb HnNZKqgKyqjQN6pjF7wD0a IChGREEpLlx+IFRoZSBGRE ZwTP5apfQfy5XovfDhaFkz YXJdwUBbe1FcnQZtf3GuuO aza9ErkDThhBLzER3fZPHa clxwYXIgVVRNQiBMYWJvcm Z8o8CcRSVaIIXoJRB8fJof iny5MSSlmW4vEHEuJ0aieb wrXLiiIPUvi4IrpL2bjIKX fCSyx8YnjRWppMEYcLDcWP 8szwPpOYpUZKbVOEU0geXv PVDkx0EiNRftL4xpY89dhX wzcNx3dMX9PKS6rQ5pKgv+ IFxwYXJccGFyIEFwcHJvcH ZpPVCjvGahvrFxP0AcceSf kM3kaKHqllArET3eSF3xK2 M0dLBeHLZvzgTkw7efZVpm dmUgYmVlbiByZXZpZXdlZC Oxw5SdPTwuTZV5NNjrffFw bmNsdWRpbmcgSCZFLCBTcG WolBAcENG7FVgagnPvrjJd EB2lpP4uiJhdaA7dfYNodQ L0khqgOHQaWZAgzHjqCUUg GC2ovVJdQRNgqaYGtTqomF EjeR1jT4JpVJGtSTVwcx6m UBAknE7wIGrap2DwemcwQF QuWUZmPZDkigTkqd0iEWKi bFIQHT0ZRXdkgGGyd9Zscp EdS7lJKRP3HEPnSjSwKdbx FCKgzOMxeHDpTPZqol59SH UinT4eeOztECRubC3toY6m sWbelB6uBeYaKsSdJMamKI 7fIDWvC1ildBQzSKNhNMOj A4ndAfMcyU5ehXnmSCljUg VgJnIeJMmbSXA6qR== Embedded Images (test code = 5385389132) [facility] CampusRHEUMATOID [id number] 17:37:21 Test Item Value Reference Range Interpretation Comments RF (test code = See_Comment H [Automated [id number]) message] The system which generated this result transmitted reference range : <20 IU/mL. The reference range was not used to interpret this result as normal/abnormal . NICHOLAS (test code = NICHOLAS) Values greater than 36 IU/mL are considered significant. Lab Interpretation Abnormal (test code = 30684-1) [facility] CampusC3 [id number] 17:36:02 Test Item Value Reference Range Interpretation Comments C3 (test code = 6256909934) 40 mg/dL 86-184 L Lab Interpretation (test code = Abnormal 32681-7) [facility]C4 [id number] 17:36:02 Test Item Value Reference Range Interpretation Comments C4 (test code = 5689679507) 4 mg/dL 20-59 L Lab Interpretation (test code = Abnormal 45308-3) [facility] CampusALBUMIN BODY [id number] 17:18:00 Test Item Value Reference Range Interpretation Comments ALBUMIN BF (test code 447.0 mg/dL = 7120482420) NICHOLAS (test code = NICHOLAS) Result interpreted relative to the serum concentration. ? [facility] [id number] 09:13:45 Test Item Value Reference Range Interpretation Comments WBC (test code = See_Comment [Automated 6690-2) message] The sy stem which generated this result transmitted reference range : 4.20 - 10.70 10*3/?L. The reference range was not used to interpret this result as normal/abnormal . RBC (test code = See_Comment L [Automated 789-8) message] The sy stem which generated this result transmitted reference range : 4.26 - 5.52 10*6/?L. The reference range was not used to interpret this result as normal/abnormal . HGB (test code = 10.3 g/dL 12.2-16.4 L 718-7) HCT (test code = 29.5 % 38.4-49.3 L 4544-3) MCV (test code = 105.7 fL 81.7-95.6 H 787-2) MCH (test code = 36.9 pg 26.1-32.7 H 785-6) MCHC (test code = 34.9 g/dL 31.2-35.0 786-4) RDW-SD (test code = 59.0 fL 38.5-51.6 H 91799-4) RDW-CV (test code = 15.1 % 12.1-15.4 788-0) PLT (test code = See_Comment L [Automated 777-3) message] The sy stem which generated this result transmitted reference range : 150 - 328 10*3/ ?L. The reference r laura was not used to interpret this result as normal/abnormal . MPV (test code = 11.1 fL 9.8-13.0 59636-8) IPF % (test code = 6.8 % 1.2-10.7 Platelet count 6247525722) measured by fluorescence method. NRBC/100 WBC (test See_Comment [Automat ed code = 5150668207) message] The system which generated this result transmitted reference range : 0.0 - 10.0 /100 WBCs. The refer ence range was not u sed to interpret th is result as normal/abnormal . NRBC x10^3 (test code <0.01 See_Comment [Auto mated = 2461145427) message] The s ystem which generated this result transmitted reference range : 10*3/?L. The reference range was not used to interpret this result as normal/abnormal . GRAN MAT (NEUT) % 60.1 % (test code = 770-8) IMM GRAN % (test code 0.50 % = 6315219073) LYMPH % (test code = 20.6 % 736-9) MONO % (test code = 15.7 % 5905-5) EOS % (test code = 2.0 % 713-8) BASO % (test code = 1.1 % 706-2) GRAN MAT x10^3(ANC) 4.82 10*3/uL 1.99-6.95 (test code = 4549376121) IMM GRAN x10^3 (test 0.04 10*3/uL 0.00-0.06 code = 4744864016) LYMPH x10^3 (test code 1.65 10*3/uL 1.09-3.23 = 731-0) MONO x10^3 (test code 1.26 10*3/uL 0.36-1.02 H = 742-7) EOS x10^3 (test code = 0.16 10*3/uL 0.06-0.53 711-2) BASO x10^3 (test code 0.09 10*3/uL 0.01-0.09 = 704-7) REACT LYMPHS (test Rare code = 7832097863) Lab Interpretation Abnormal (test code = 55124-8) [facility]. METABOLIC PANEL (42289)2021-03-23 09:03:11 Test Item Value Reference Range Interpretation Comments NA (test code = 138 mmol/L 135-145 3443761927) K (test code = 4.2 mmol/L 3.5-5.0 3520420369) CL (test code = 110 mmol/L 98-108 H 1035565842) CO2 TOTAL (test code = 19 mmol/L 23-31 L 3258189899) AGAP (test code = 2-16 4704658984) BUN (test code = 4 mg/dL 7-23 L 4007248194) GLUCOSE (test code = 84 mg/dL 70-110 6885781457) CREATININE (test code = 0.61 mg/dL 0.60-1.25 4140755110) TOTAL BILI (test code = 4.3 mg/dL 0.1-1.1 H 8998215494) CALCIUM (test code = 7.6 mg/dL 8.6-10.6 L 1873967906) T PROTEIN (test code = 7.6 g/dL 6.3-8.2 7440896494) ALBUMIN (test code = 2.9 g/dL 3.5-5.0 L 7182174604) ALK PHOS (test code = 79 U/L 34-122 8566762736) ALTv (test code = 59 U/L 5-50 H 1742-6) AST(SGOT) (test code = 199 U/L 13-40 H 8377349211) eGFR (test code = mL/min/1.73m2 8214764026) NICHOLAS (test code = NICHOLAS) Association of Glomerular Filtration Rate (GFR) and Staging of Kidney Disease* + --+ --+ ------+| GFR (mL/min/1.73 m2) ?| With Kidney Damage ?| ?Without Kidney Damage+ --------+ --------+ +| ?>90 ?| ?Stage one ?| ? Normal ?+ ---+ ---+ -------+| ?60-89 ?| ?Stage two ?| ? Decreased GFR ? + --+ --+ ------+| ?30-59 ?| ?Stage three ?| ? Stage three ? + --+ --+ ------+| ?15-29 ?| ?Stage four ? | ? Stage four ?+ ---+ ---+ -------+| ?<15 (or dialysis) ? ?| ?Stage five ? | ? Stage five ?+ ---+ ---+ -------+ *Each stage assumes the associated GFR level has been in effect for at least three months. ?Stages 1 to 5, with or without kidney disease, indicate chronic kidney disease. Notes: Determination of stages one and two (with eGFR >59mL/min/1.73 m2) requires estimation of kidney damage for at least three months as defined by structural or functional abnormalities of the kidney, manifested by either:Pathological abnormalities or Markers of kidney damage (including abnormalities in the composition of the blood or urine or abnormalities in imaging tests). Lab Interpretation Abnormal (test code = 85470-6) [facility] CampusPROTHROMBIN TIME / [id number] 08:43:50 Test Item Value Reference Range Interpretation Comments PROTIME PATIENT (test See_Comment H [Auto mated message] code = 5964-2) The system [employer] generated this result transmitted ref erence range: 10.1 - 1 2.6 Seconds. The reference range was not used to int erpret this result as normal/abnormal . INR (test code = 6301-6) Nor mal INR <1.1; Warfarin Therap eutic range 2.0 to 3. 0 or 2.5 to 3.5, dep ending upon the indica tions. Lab Interpretation (test Abnormal code = 88937-0) [facility] CampusBODY FLUID DIRECT [id number] 00:16:59 Test Item Value Reference Range Interpretation Comments BF COLOR Yellow (test code = 9141448381) BF WBC Count See_Comment [Automated (test code = message] The sy stem 3207507775) which generated this result transmitted reference range : /?L. The refere nce range was not u sed to interpret th is result as normal/abnormal . BF RBC Count <3000 See_Comment [Automated (test code = message] The sy stem 2614362716) which generated this result transmitted reference range : /?L. The refere nce range was not u sed to interpret th is result as normal/abnormal . NICHOLAS (test The reference range code = NICHOLAS) and other method performance specifications have not been established for this body fluid. ?The test results must be integrated into the clinical context for interpretation. [facility] CampusBODY FLUID MANUAL [id number] 00:16:59 Test Item Value Reference Range Interpretation Comments BF SEGS (test code = 7244408561) 1 % BF LYMPHS (test code = 9808307510) 10 % MACROPHAGE (test code = 1311768311) 84 % MESOS (test code = 7400830801) 5 % #CELS CNTD (test code = 1899869927) [facility] CampusT.PROTEIN BODY [id number] 00:14:13 Test Item Value Reference Range Interpretation Comments T.PROT BF (test 1467.0 mg/dL code = 8954670827) UNSPUN BODY FLUID Yellow COLOR (test code = 6198707224) UNSPUN BODY FLUID Clear CLARITY (test code = 7046576569) SPUN BODY FLUID Yellow COLOR (test code = 4772922278) SPUN BODY FLUID Clear CLARITY (test code = 2560982049) Sediment (test code No sediment. = 8700594166) NICHOLAS (test code = Test developed and NICHOLAS) characteristics determined by [facility] Laboratory Services. [facility] CampusHCV [id number] 23:54:52 Test Item Value Reference Range Interpretation Comments HCV Ab (test code = Positive 98287-0) HCV Semi-Quantitative (test code = 76328-3) APRI (test code = 0143713832) NICHOLAS (test code = Positive for HCV antibody. NICHOLAS) This specimen has been reflexed to qualitative PCR test and submitted to [facility]. ?A report will be issued by that laboratory. ?If any questions, contact the Clinical Chemistry Director computer numerical control machinist at [phone].APRI score < 0.5: Suggestive of little to no fibrosisAPRI score > 1.5: Suggestive of moderate to severe fibrosisAPRI score > 2.0: Highly suggestive of cirrhosis. [facility] CampusHIV 1/2 AG-AB WITH [id number] 23:50:53 Test Item Value Reference Range Interpretation Comments HIV Negative Negative Semi-quantitative (test code = 11752-0) NICHOLAS (test code = Non-reactive for HIV-1 NICHOLAS) antigen and HIV-1/HIV-2 antibodies. ?No laboratory evidence of HIV infection. ?Repeat in 2-4 weeks if acute HIV infection is suspected. [facility] CampusPROTHROMBIN TIME / [id number] 23:04:48 Test Item Value Reference Range Interpretation Comments PROTIME PATIENT (test See_Comment H [Auto mated message] code = 5964-2) The system [employer] generated this result transmitted ref erence range: 10.1 - 1 2.6 Seconds. The reference range was not used to int erpret this result as normal/abnormal . INR (test code = 6301-6) Nor mal INR <1.1; Warfarin Therap eutic range 2.0 to 3. 0 or 2.5 to 3.5, dep ending upon the indica tions. Lab Interpretation (test Abnormal code = 57187-8) [facility] CampusLAB ONLY COVID [id number] 22:44:25COVID DMT InterpretationInterpretation/Recommendations:Molecular NAAT Tests for Active Infection with the SARS-CoV-2 Virus:The patient has currently tested negative for the SARS-CoV-2 virus that causesCOVID-19 illness. This most likely indicates that the patient does not have an active infection withthe SARS-CoV-2 virus. However, infection is not completely ruled out as the false negative rate for molecular NAAT testing using a nasopharyngeal sample can be up to 30%, mostly dependent on the timingof sample collection in relation to illness onset and any deficiencies in sampling techniques. If the patient has symptoms concerning for COVID-19 illness, a repeat NAAT test (PCR, Rapid ID Now, etc.) should be performed, at which time the SARS-CoV-2 virus - if present - may have reached a detectable viral load (usually peaking by the end of the first week of symptoms). Tests for IgM and/or IgG Antibodies to the SARS-CoV-2 Virus:If the patient develops COVID-19 illness in the future, testing for IgMand IgG antibodies approximately 3 weeks after illness onset will likely indicate if the patient hasproduced antibodies to the SARS-CoV-2 virus. However, some patients may take longer to develop detectable antibodies, while some patients who were infected with SARS-CoV-2 may never develop antibodies.While antibodies to SARS-CoV-2 may provide some degree of immunity, at this time the strength and duration of the antibody response is unknown. Interpretation Result Comments:These interpretation comments are based upon all COVID-19 testing the patient has had at [facility], including molecular NAAT testing (more commonly known as PCR testing and Rapid ID Now testing) and antibody testing. It does not take into account any testing that a patient has had outside of the [facility] medical record. [facility] LABORATORY SERVICESCOVID ResultsSARS- CoV-2 Rapid ID NOW (no units) ? ? Date ? Value ? 03/22/2021 ? Not Detected ? [facility] LABORATORY SERVICES [facility] CampusXR CHEST 2 [id number] 22:40:05 No acute cardiopulmonary abnormality. Preliminary Report Dictated by Resident: Rosalino Edhayan I, Peeyush ?Blake, MD., have reviewed this study and agree with theabove report.EXAM: XR CHEST 2 VW 03/22/2021 4:43 PM HISTORY: 35 years-old Male with SOB with Ascites . TECHNIQUE: PA and lateral chest radiographs. COMPARISON: CT abdomen pelvis with contrast same day. FINDINGS: Cardiomediastinal: The cardiomediastinal silhouette is unremarkable. Lungs and pleura: The lungs are clear. No focal consolidation,pneumothorax, or pleural effusion is seen. Included osseous structures show no acute abnormality. [facility], Radiant Results Inft User - 03/22/2021 5:41 PM CDTFormatting of this note might be different fr om the original.EXAM: XR CHEST 2 VW 03/22/2021 4:43 PMHISTORY: 35 years-old Male with SOB with Ascites.TECHNIQUE: PA and lateral chest radiographs.COMPARISON: CT abdomen pelvis with contrast same day.FINDINGS:Cardiomediastinal: The cardiomediastinal silhouette is unremarkable.Lungs and pleura: The lungs are clear. No focal consolidation,pneumothorax, or pleural effusion is seen. Included osseous structures show no acute abnormality.IMPRESSIONNo acute cardiopulmonary abnormality.Preliminary Report Dictated by Resident: Hannah Palma MD., have reviewed this study and agree with th alissave report.[facility] CampusFOLATE2021-07-05 22:40:03 Test Item Value Reference Range Interpretation Comments FOLATE SER (test code = 0473397093) 9.8 ng/mL 3.0-20.0 Lab Interpretation (test code = Normal 63598-3) [facility] CampusVITAMIN B12, [id number] 22:27:23 Test Item Value Reference Range Interpretation Comments VIT B12 (test code = 962 pg/mL 240-930 H 4456231068) NICHOLAS (test code = NICHOLAS) Biotin has been reported to cause a positive bias, interpret results relative to patient's use of biotin. Lab Interpretation (test Abnormal code = 42939-9) [facility] CampusHEPATITIS B SURFACE [id number] 22:05:37 Test Item Value Reference Range Interpretation Comments HBsAg Semi-Quantitative (test code = Negative Negative 5195-3) [facility] CampusFIBRINOGEN2021-07-05 21:42:14 Test Item Value Reference Range Interpretation Comments Fibrinogen (test code = 2991965602) 142 mg/dL 167-453 L Lab Interpretation (test code = Abnormal 47830-1) [facility] CampusCT ABDOMEN PELVIS W [id number] 20:43:32 1. ?No CT evidence of acute pancreatitis. No abscess or fluid collection isseen about the pancreas.Of note, pancreatitis can occur without CTchanges. 2. ?Cirrhotic morphology liver with recannulization of the umbilical veinand moderate volume ascites suggestive of portal hypertension. Irregularhypodensities are seen within the hepatic parenchyma, recommend furtherevaluation with triple phase CT or MRI on a nonemergent basis. 3. ?Hydropic gallbladder without evidence of acute cholecystitis.Diverticulosis of the sigmoid colon without CT evidence of diverticulitis. Preliminary Report Dictated by Resident: Hannah Ruiz ?MD Blake., have reviewed this study and agree with theabove report.EXAM: CT ABDOMEN PELVIS W CONTRAST 03/22/2021 2:36 PM HISTORY: 35 years-old Male with Pancreatitis, persistent new onset advancedliver disease, elevated lipase . COMPARISON: None. TECHNIQUE AND FINDINGS: Contiguous axial imaging from the level of the lungbases through the pubic symphysis was performed after the administration ofintravenous nonionic iodinated contrast. Abdomen was scanned in venousphase. Corresponding coronal and sagittal MPR reconstructions wereobtained. ?Auto mA and/or iterative r econstruction were used to reduceradiation dose. FINDINGS: LOWER THORAX: Trace right lung base pleural effusion. LIVER: The liver has a nodular contour with irregular hypoattenuation.Irregular hypodensities are seen along the gallbladder fossa and in thecaudate lobe. The portal veins appear patent. Recannulization of theumbilical vein is seen. GALLBLADDER AND BILIARY TREE: The gallbladder is hydropic. There is nointra or extrahepatic biliary ductal dilation. SPLEEN: Unremarkable. PANCREAS: Unremarkable. ADRENAL GLANDS: No adrenal nodules. KIDNEYS: The kidneys enhance normally. No nephrolithiasis or hydronephrosisis seen. No masses. PERITONEUM AND RETROPERITONEUM: Diffuse moderate volume ascites in all 4quadrants. LYMPH NODES: Reactive appearing retroperitoneal and mesenteric lymph nodes. GI TRACT: Diverticulosis of the sigmoid colon without CT evidence ofdiverticulitis. The appendix appears unremarkable. PELVIS/BLADDER: The urinary bladder wall is slightly thickened. VESSELS: Duplicated infrarenal IVC. BONES AND SOFT TISSUES: No suspicious lytic or sclerotic bony lesions. Asmall umbilical hernia is seen with peritoneal fat contents, ascitic fluid,and the umbilical vein within. A small supraumbilical left paramedianfat-containing hernia is seen. [facility], Radiant Results Inft User - 03/22/2021 3:44 PM CDT EXAM: CT ABDOMEN PELVIS W CONTRAST 03/22/2021 2:36 PMHISTORY: 35 years-old Male with Pancreatitis, persistent new onset advancedliver disease, elevated lipase .COMPARISON: None.TECHNIQUE AND FINDINGS: Contiguous axial imaging fromthe level of the lungbases through the pubic symphysis was performed after the administration ofintravenous nonionic iodinated contrast. Abdomen was scanned in venousphase. Corresponding coronal and sagittal MPR reconstructions wereobtained. Auto mA and/or iterative reconstruction were used to reduceradiation dose.FINDINGS:LOWER THORAX: Trace right lung base pleural effusion. LIVER: The liver has a nodular contour with irregular hypoattenuation.Irregular hypodensities are seen along the gallbladderfossa and in thecaudate lobe. The portal veins appear patent. Recannulization of theumbilical vein is seen.GALLBLADDER AND BILIARY TREE: The gallbladder is hydropic. There is nointra or extrahepatic biliary ductal dilation.SPLEEN: Unremarkable.PANCREAS: Unremarkable.ADRENAL GLANDS: No adrenal nodules.KIDNEYS: The kidneys enhance normally. No nephrolithiasis or hydronephrosisis seen. No masses. PERITONEUM AND RETROPERITONEUM: Diffuse moderate volume ascites in all 4quadrants.LYMPH NODES: Reactive appearing retroperitoneal and mesenteric lymph nodes.GI TRACT: Diverticulosis of the sigmoid colon without CT evidence ofdiverticulitis. The appendix appears unremarkable.PELVIS/BLADDER: The urinary bladder wall is slightly thickened. VESSELS: Duplicated infrarenal IVC.BONES AND SOFT TISSUES: No suspicious lytic or sclerotic bony lesions. Asmall umbilical hernia is seen with peritoneal fat contents, ascitic fluid,and the umbilical vein within. A small supraumbilical left paramedianfat-containing hernia is seen.IMPRESSION1. No CT evidence of acute pancreatitis. No abscess or fluid collection isseen about the pancreas. Of note, pancreatitis can occur without CTchanges.2. Cirrhotic morphology liver with recannulization of the umbilical veinand moderate volume ascites suggestive of portal hypertension.Irregularhypodensities are seen within the hepatic parenchyma, recommend furtherevaluation with triple phase CT or MRI on a nonemergent basis.3. Hydropic gallbladder without evidence of acute cholecyst itis.Diverticulosis of the sigmoid colon without CT evidence of diverticulitis.Preliminary Report Dictated by Resident: Hannah Palma MD., have reviewed this study and agree with theabove report. [facility] WITH [id number] 18:46:06 Test Item Value Reference Range Interpretation Comments WBC (test code = See_Comment H [Automated 6690-2) message] The sy stem which generated this result transmitted reference range : 4.20 - 10.70 10*3/?L. The reference range was not used to interpret this result as normal/abnormal . RBC (test code = See_Comment L [Automated 789-8) message] The sy stem which generated this result transmitted reference range : 4.26 - 5.52 10*6/?L. The reference range was not used to interpret this result as normal/abnormal . HGB (test code = 12.1 g/dL 12.2-16.4 L 718-7) HCT (test code = 34.0 % 38.4-49.3 L 4544-3) MCV (test code = 106.6 fL 81.7-95.6 H 787-2) MCH (test code = 37.9 pg 26.1-32.7 H 785-6) MCHC (test code = 35.6 g/dL 31.2-35.0 H 786-4) RDW-SD (test code = 60.0 fL 38.5-51.6 H 56757-2) RDW-CV (test code = 15.2 % 12.1-15.4 788-0) PLT (test code = See_Comment L [Automated 777-3) message] The sy stem which generated this result transmitted reference range : 150 - 328 10*3/ ?L. The reference r laura was not used to interpret this result as normal/abnormal . MPV (test code = 10.8 fL 9.8-13.0 55577-9) NRBC/100 WBC (test See_Comment [Automat ed code = 8365360531) message] The system which generated this result transmitted reference range : 0.0 - 10.0 /100 WBCs. The refer ence range was not u sed to interpret th is result as normal/abnormal . NRBC x10^3 (test code <0.01 See_Comment [Auto mated = 4901834975) message] The s ystem which generated this result transmitted reference range : 10*3/?L. The reference range was not used to interpret this result as normal/abnormal . GRAN MAT (NEUT) % 62.0 % (test code = 770-8) IMM GRAN % (test code 0.40 % = 4705897274) LYMPH % (test code = 18.8 % 736-9) MONO % (test code = 16.5 % 5905-5) EOS % (test code = 1.3 % 713-8) BASO % (test code = 1.0 % 706-2) GRAN MAT x10^3(ANC) 8.32 10*3/uL 1.99-6.95 H (test code = 3275409057) IMM GRAN x10^3 (test 0.05 10*3/uL 0.00-0.06 code = 9999513993) LYMPH x10^3 (test code 2.52 10*3/uL 1.09-3.23 = 731-0) MONO x10^3 (test code 2.22 10*3/uL 0.36-1.02 H = 742-7) EOS x10^3 (test code = 0.18 10*3/uL 0.06-0.53 711-2) BASO x10^3 (test code 0.13 10*3/uL 0.01-0.09 H = 704-7) Lab Interpretation Abnormal (test code = 18655-7) [facility] 18:38:40 Test Item Value Reference Range Interpretation Comments APPEARANCE (test code = Clear Clear 3382418052) COLOR (test code = Christie Yellow A 0818829345) PH (test code = 4.8-8.0 6482008022) SP GRAVITY (test code = 1.003-1.030 2501181185) GLU U QUAL (test code = Normal Normal 2193832394) BLOOD (test code = Negative Negative 7465363317) KETONES (test code = Negative Negative 1397760314) PROTEIN (test code = 30 mg/dL Negative A 2887-8) UROBILIN (test code = 4.0 mg/dL Normal A 6646502802) BILIRUBIN (test code = Negative Negative 0578559336) NITRITE (test code = Negative Negative 3618684620) LEUK ADOLFO (test code = Negative Negative 3181358590) RBC/HPF (test code = See_Comment [Autom ated message] 9094080327) The system [employer] generated this result transmit cristina reference range : 0 - 3 HPF. The refe rence range was not u sed to interpret th is result as normal/abnormal . WBC/HPF (test code = See_Comment H [Autom ated message] 9884143288) The system [employer] generated this result transmit cristina reference range : 0 - 5 HPF. The refe rence range was not u sed to interpret th is result as normal/abnormal . BACTERIA (test code = Few Negative A 0020946660) MUCOUS (test code = Moderate Negative LPF A 4353081612) SQ EPITH (test code = <1 See_Comment [Auto mated message] 5946987829) The system [employer] generated this result transmit cristina reference range : <=2 HPF. The refere nce range was not u sed to interpret th is result as normal/abnormal . Ictotest (test code = Negative 6816057173) Lab Interpretation (test Abnormal code = 01235-8) [facility] (ID NOW RAPID TESTING)2021-03-22 18:30:01 Test Item Value Reference Range Interpretation Comments SARS-CoV-2 Rapid ID NOW Not Detected Not Detected (test code = 51197-5) NICHOLAS (test code = NICHOLAS) ID NOW COVID-19 Assay is an isothermal nucleic acid amplification test intended for the qualitative detection of nucleic acid from SARS-CoV-2 viral RNA in nasopharyngeal (LEAD GENERATOR) specimens. It is used under Emergency Use Authorization (EUA) by FDA. The limit of detection (LOD) of the assay is 125 Genome Equivalents/mL. A positive result is indicative of the presence of SARS-CoV-2 RNA. ?Clinical correlation with patient history and other diagnostic information is necessary to determine patient infection status. A negative (Not Detected) result does not preclude SARS-CoV-2 infection. In patients with clinical symptoms and other tests that are consistent with SARS-CoV-2 infection, negative results should be treated as presumptive negative and a new specimen should be tested with alternative PCR molecular test. Invalid: Please collect a new specimen for repeat patient testing if clinically indicated. Lab Interpretation Normal (test code = 56639-5) [facility]ETHANOL2021-07-05 18:26:02 Test Item Value Reference Range Interpretation Comments ALCOHOL (test code = 268 mg/dL 5309078778) NICHOLAS (test code = Toxic Greater than or NICHOLAS) equal to 80 mg/dL. NOTE: Whole blood values are approximately 10% to 15% lower than serum and plasma. [facility]HEPAT[facility] FUNCTION PANEL (06766) (ALB,T.PRO,BILI T,BU/BC,ALT,AST,ALK PHOS)2021-03-22 18:26:01 Test Item Value Reference Range Interpretation Comments TOTAL BILI (test code = 9803283375) 4.8 mg/dL 0.1-1.1 H BILI UNCON (test code = 9519831976) 1.9 mg/dL 0.1-1.1 H BILI CONJ (test code = 5324858685) 0.8 mg/dL 0.0-0.3 H T PROTEIN (test code = 8299595466) 9.0 g/dL 6.3-8.2 H ALBUMIN (test code = 4121020171) 3.7 g/dL 3.5-5.0 ALK PHOS (test code = 0860289968) 119 U/L 34-122 ALTv (test code = 1742-6) 63 U/L 5-50 H AST(SGOT) (test code = 8508952913) 209 U/L 13-40 H Lab Interpretation (test code = Abnormal 23629-5) [facility]OLIC PAN[facility] (NA, K, CL, CO2, GLUCOSE, BUN, CREATININE, CA)2021-03-22 18:26:01 Test Item Value Reference Range Interpretation Comments NA (test code = 136 mmol/L 135-145 6259501137) K (test code = 4.1 mmol/L 3.5-5.0 4621846527) CL (test code = 105 mmol/L 98-108 8821332712) CO2 TOTAL (test code = 20 mmol/L 23-31 L 3250124407) AGAP (test code = 2-16 9118952671) BUN (test code = 6 mg/dL 7-23 L 5352511009) GLUCOSE (test code = 115 mg/dL 70-110 H 7143420911) CREATININE (test code = 0.70 mg/dL 0.60-1.25 4900776312) CALCIUM (test code = 7.7 mg/dL 8.6-10.6 L 3477785459) eGFR (test code = mL/min/1.73m2 6405798533) NICHOLAS (test code = NICHOLAS) Association of Glomerular Filtration Rate (GFR) and Staging of Kidney Disease* + --+ --+ ------+| GFR (mL/min/1.73 m2) ?| With Kidney Damage ?| ?Without Kidney Damage+ --------+ --------+ +| ?>90 ?| ?Stage one ?| ? Normal ?+ ---+ ---+ -------+| ?60-89 ?| ?Stage two ?| ? Decreased GFR ? + --+ --+ ------+| ?30-59 ?| ?Stage three ?| ? Stage three ? + --+ --+ ------+| ?15-29 ?| ?Stage four ? | ? Stage four ?+ ---+ ---+ -------+| ?<15 (or dialysis) ? ?| ?Stage five ? | ? Stage five ?+ ---+ ---+ -------+ *Each stage assumes the associated GFR level has been in effect for at least three months. ?Stages 1 to 5, with or without kidney disease, indicate chronic kidney disease. Notes: Determination of stages one and two (with eGFR >59mL/min/1.73 m2) requires estimation of kidney damage for at least three months as defined by structural or functional abnormalities of the kidney, manifested by either:Pathological abnormalities or Markers of kidney damage (including abnormalities in the composition of the blood or urine or abnormalities in imaging tests). Lab Interpretation Abnormal (test code = 75218-3) [facility]IP[facility]2021-[facility] 18:26:01 Test Item Value Reference Range Interpretation Comments LIPASE (test code = 9574257667) 1308 U/L 0-220 H Lab Interpretation (test code = Abnormal 60389-2) [facility] CampusPROTHROMBIN TIME / [id number] 18:20:59 Test Item Value Reference Range Interpretation Comments PROTIME PATIENT (test See_Comment H [Auto mated message] code = 5964-2) The system [employer] generated this result transmitted ref erence range: 10.1 - 1 2.6 Seconds. The reference range was not used to int erpret this result as normal/abnormal . INR (test code = 6301-6) Nor mal INR <1.1; Warfarin Therap eutic range 2.0 to 3. 0 or 2.5 to 3.5, dep ending upon the indica tions. Lab Interpretation (test Abnormal code = 82620-5) [facility]"
[2021-08-22] MEDS ORDERED: NA CHLORIDE 0.9% 500 ML ONE (23:32)
[2021-08-22 23:48] LABS: Absolute Lymphocytes (CBC) 2.2 K/uL (0.7-4.9); Basophils % 1.3 % (0-1.3); Hematocrit 32.6 % (39.6-49.0); Lymphocytes % 31.4 % (15.3-44.8); MPV 7.8 fL (7.6-11.3); RBC Red Blood Cell Count 3.19 M/uL (4.33-5.43)
[2021-08-23 00:19] LABS: ALT/SGPT 56 U/L (12-78); Albumin 2.1 g/dL (3.4-5.0); Alkaline Phosphatase 134 U/L (45-117); BUN Blood Urea Nitrogen 10 mg/dL (7-18); Bicarbonate 23 mmol/L (21-32); Bilirubin Direct 1.4 mg/dL (0-0.2); Bilirubin Total 2.5 mg/dL (0.2-1.0); Glucose Level 79 mg/dL (74-106); Lipase 625 U/L (73-393); Protein, Total 8.3 g/dL (6.4-8.2); Sodium Level 138 mmol/L (136-145)
[2021-08-23 00:21] LABS: AST/SGOT 83 U/L (15-37); Potassium 3.6 mmol/L (3.5-5.1)
[2021-08-23 00:25] LABS: Blood Morphology Comment NOT SEEN (NOT SEEN); Platelet Estimate ADEQ
[2021-08-23] MEDS ORDERED: MORPHINE 4 MG/ML SYR ONE (00:40)
[2021-08-23] MEDS ORDERED: ONDANSETRON 4 MG/2 ML VIAL ONE (00:40)
--- NOTE | 2021-08-23 02:09 | EDPHYS ---
Physician Documentation [facility] Name: Jean Kamara Age: 35 yrs Sex: Male : 1985 Arrival Date: 08/22/2021 Time: 22:29 Bed 6 Private MD: ED Physician Darren Watikns HPI: 08/22 23:33 This 35 yrs old Male presents to ER via Ambulatory with complaints of Abdominal Pain, pm1 Pedal Edema - Bilaterally. 23:33 The patient presents with abdominal pain that is diffuse. Onset: The symptoms/episode pm1 began/occurred Ongoing for years. The symptoms do not radiate. Associated signs and symptoms: Pertinent negatives: nausea, vomiting, and diarrhea, chest pain, constipation, dysuria, fever, shortness of breath. The symptoms are described as constant, tightness. Modifying factors: The symptoms are alleviated by nothing, the symptoms are aggravated by alcohol. Severity of pain: in the emergency department the pain is actually worse. The patient has experienced similar episodes in the past, chronically. The patient has not recently seen a physician. Medications taken in March. Patient prescribed Lasix and lactulose. - Immunization history:: Client reports receiving the 2nd dose of the Covid vaccine. - Social history:: Smoking status: Patient reports the use of cigarette tobacco products, smokes one-half pack cigarettes per day, Patient uses alcohol, on a daily basis. 4 beers today. ROS: 23:33 Constitutional: Negative for fever, chills, and weight loss, Respiratory: Negative for pm1 shortness of breath, cough, wheezing, and pleuritic chest pain. 23:33 Back: Negative for injury and pain, MS/Extremity: Negative for injury and deformity, Skin: Negative for injury, rash, and discoloration, Neuro: Negative for headache, weakness, numbness, tingling, and seizure. 23:33 Cardiovascular: Positive for edema, bilateral lower extermities. 23:33 Abdomen/GI: Positive for abdominal distension, Negative for nausea, vomiting, and diarrhea. 23:33 All other systems are negative. Exam: 23:33 Constitutional: This is a well developed, well nourished patient who is awake, alert, pm1 and in no acute distress. Head/Face: Normocephalic, atraumatic. 23:33 Back: No spinal tenderness. No costovertebral tenderness. Full range of motion. Skin: Warm, dry with normal turgor. Normal color with no rashes, no lesions, and no evidence of cellulitis. MS/ Extremity: Pulses equal, no cyanosis. Neurovascular intact. Full, normal range of motion. 23:33 Eyes: Exam is negative for acute changes, Periorbital structures: appear normal, no acute changes, Conjunctiva: no acute changes, Sclera: no acute changes. 23:33 Cardiovascular: Exam negative for acute changes, Rate: normal, Rhythm: regular, Pulses: no pulse deficits are appreciated, Edema: is not appreciated. 23:33 Respiratory: Exam negative for acute changes, respiratory distress, shortness of breath, Breath sounds: are clear throughout. 23:33 Abdomen/GI: Inspection: distension, that is moderate, Palpation: abdomen is soft and non-tender, in all quadrants, Hernia: noted in the umbilical area, incarceration, is not appreciated, tenderness, is not appreciated. 23:33 Neuro: Exam negative for acute changes, Orientation: is normal, Mentation: is normal, Motor: is normal, moves all fours. Vital Signs: 23:26 BP 138 / 78 LA; Pulse 103; Resp 20; Temp 98.7(TE); Pulse Ox 100% on R/A; cs8 23:33 BP 129 / 73; Pulse 106; Resp 14; Pulse Ox 100% on R/A; tw5 12/06 00:47 BP 124 / 78; Pulse 97; Resp 18; Pulse Ox 100% ; Pain 10/10; tw5 02:13 Pain 6/10; tw5 02:14 BP 124 / 73; Pulse 97; Resp 14; Pulse Ox 100% on R/A; Pain 6/10; tw5 02:38 BP 115 / 74; Pulse 109; Resp 18; Pulse Ox 100% ; tw5 MDM: 12 23:21 Patient medically screened. pm1 23:29 Data reviewed: vital signs. Data interpreted: Pulse oximetry: on room air is 100 %. pm1 Interpretation: normal. 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 02:49 ED course: [place] reviewed. pm1 08/22 23:30 Order name: Basic Metabolic Panel; Complete Time: 00:24 pm1 08/22 23:30 Order name: CBC with Diff; Complete Time: 00:29 pm1 08/22 23:30 Order name: Hepatic Function; Complete Time: 00:24 pm1 08/22 23:30 Order name: Lipase; Complete Time: 00:24 pm1 08/22 23:30 Order name: ETOH Level; Complete Time: 00:24 pm1 08/22 23:49 Order name: Manual Differential; Complete Time: 00:29 EDMS 08/22 23:30 Order name: IV Saline Lock; Complete Time: 23:37 pm1 08/22 23:30 Order name: Labs collected and sent; Complete Time: 23:37 pm1 08/22 23:30 Order name: CT Abd/Pelvis - IV Contrast Only pm1 Administered Medications: 08/22 23:37 Drug: NS 0.9% 500 ml Route: IV; Rate: bolus; Site: right antecubital; tw5 08/23 00:50 Follow up: Response: No adverse reaction; IV Status: Completed infusion tw5 00:49 Drug: morphine 4 mg Route: IVP; Site: right antecubital; tw5 02:13 Follow up: Pain 6/10 Adult; Response: No adverse reaction; Pain is decreased; RASS: tw5 Alert and Calm (0) 00:49 Drug: Zofran (Ondansetron) 4 mg Route: IVP; Site: right antecubital; tw5 02:13 Follow up: Response: No adverse reaction tw5 02:13 Drug: Lasix (furosemide) 40 mg Route: IVP; Site: right antecubital; tw5 02:41 Follow up: Response: No adverse reaction tw5 Disposition: 04:38 Co-signature as Attending Physician, Darren Watkins MD. [email or web address] Disposition Summary: 08/23/21 02:08 Discharge Ordered Location: Home pm1 Problem: new pm1 Symptoms: have improved pm1 Condition: Stable pm1 Diagnosis - Other chronic pancreatitis pm1 - Alcohol abuse pm1 - Ascites pm1 Followup: pm1 - With: Emergency Department - When: As needed - Reason: Worsening of condition Followup: pm1 - With: Private Physician - When: 2 - 3 days - Reason: Recheck today's complaints, Continuance of care, Re-evaluation by your physician Discharge Instructions: - Discharge Summary Sheet pm1 - Ascites pm1 - Alcohol Abuse and Nutrition pm1 - Chronic Pancreatitis pm1 - Alcohol Abuse and Dependence Information, Adult pm1 Forms: - Medication Reconciliation Form pm1 - Thank You Letter pm1 - Antibiotic Education pm1 - Prescription Opioid Use pm1 Prescriptions: - Tramadol 50 mg Oral Tablet - take 1 tablet by ORAL route every 8 hours as needed; 12 tablet; Refills: 0, pm1 Product Selection Permitted Signatures: Dispatcher [employer] EDPernell Cox, TIFFANIE SALES SERVICE REP pm1 Darren Watkins MD MD 7 Isaura Marina 5
--- NOTE | 2021-08-23 02:09 | ER ---
Nurse's Notes [facility] Name: Jean Kamara Age: 35 yrs Sex: Male : 1985 Arrival Date: 08/22/2021 Time: 22:29 Bed 6 Private MD: Diagnosis: Other chronic pancreatitis;Alcohol abuse;Ascites Presentation: 08/22 23:30 Chief complaint: Patient states: " The pain the discomfort, and when I use the bowls it tw5 is painful, and the swelling in my legs are getting bad.". Coronavirus screen: Vaccine status: Patient reports receiving the 2nd dose of the covid vaccine. Ebola Screen: Patient negative for fever greater than or equal to 101.5 degrees Fahrenheit, and additional compatible Ebola Virus Disease symptoms Patient denies exposure to infectious person. Patient denies travel to an Ebola-affected area in the 21 days before illness onset. Initial Sepsis Screen: Does the patient meet any 2 criteria? HR > 90 bpm. Does the patient have a suspected source of infection? Yes: Acute abdominal pain. Risk Assessment: Do you want to hurt yourself or someone else? Patient reports no desire to harm self or others. Onset of symptoms is unknown. 23:30 Method Of Arrival: Ambulatory tw5 23:30 Acuity: GREGORY 3 tw5 Triage Assessment: 23:33 General: Appears ill, unkempt, Behavior is calm, cooperative, appropriate for age, tw5 anxious. Pain: Complains of pain in abdomen Pain currently is 10 out of 10 on a pain scale. GI: Abdomen is noted to have ascites. - Immunization history:: Client reports receiving the 2nd dose of the Covid vaccine. - Social history:: Smoking status: Patient reports the use of cigarette tobacco products, smokes one-half pack cigarettes per day, Patient uses alcohol, on a daily basis. 4 beers today. Screenin:34 Abuse screen: Denies threats or abuse. Denies injuries from another. Nutritional tw5 screening: No deficits noted. Tuberculosis screening: No symptoms or risk factors identified. Fall Risk No fall in past 12 months (0 pts). Secondary diagnosis (15 points) IV access (20 points). Assessment: 23:34 General: Reports. Pain: Pain currently is 10 out of 10 on a pain scale. Respiratory: tw5 Airway is patent Trachea midline Respiratory effort is even, unlabored. GI: Abdomen is noted to have ascites, Mass noted in umbilical area. 08/23 00:47 Reassessment: Patient appears in no apparent distress at this time. No changes from tw5 previously documented assessment. Patient and/or family updated on plan of care and expected duration. Pain level reassessed. 02:14 Reassessment: Patient states feeling better. Patient states symptoms have improved. tw5 General: Behavior is cooperative, appropriate for age. Pain: Pain currently is 6 out of 10 on a pain scale. 02:38 Reassessment: Patient appears in no apparent distress at this time. tw5 Vital Signs: 08/22 23:26 BP 138 / 78 LA; Pulse 103; Resp 20; Temp 98.7(TE); Pulse Ox 100% on R/A; cs8 23:33 BP 129 / 73; Pulse 106; Resp 14; Pulse Ox 100% on R/A; tw5 12 00:47 BP 124 / 78; Pulse 97; Resp 18; Pulse Ox 100% ; Pain 10/10; tw5 02:13 Pain 6/10; tw5 02:14 BP 124 / 73; Pulse 97; Resp 14; Pulse Ox 100% on R/A; Pain 6/10; tw5 02:38 BP 115 / 74; Pulse 109; Resp 18; Pulse Ox 100% ; tw5 ED Course: 08/22 22:29 Patient arrived in ED. wm 23:21 Pernell Patterson NP is PHCP. pm1 23:21 Darren Watkins MD is Attending Physician. pm1 23:21 Yasmani Butler RN is Primary Nurse. as6 23:30 Primary Nurse role handed off by Yasmani Butler RN tw5 23:30 Isaura Marina is Primary Nurse. tw5 23:31 Triage completed. tw5 23:33 Arm band placed on right wrist. Patient placed on a stretcher. tw5 23:34 Awaiting lab results. tw5 23:34 Patient has correct armband on for positive identification. Placed in gown. Bed in low tw5 position. Call light in reach. Side rails up X 1. Pulse ox on. NIBP on. Door closed. Moved to private room. Warm blanket given. Verbal reassurance given. 23:34 Initial lab(s) drawn, by ED staff, sent to lab. Inserted saline lock: 20 gauge in right tw5 antecubital area, using aseptic technique. Blood collected. 23:37 ETOH Level Sent. tw 23:37 CBC with Diff Sent. tw5 23:37 Basic Metabolic Panel Sent. tw5 23:37 Hepatic Function Sent. tw 23:37 Lipase Sent. tw08/23 00:52 CT Abd/Pelvis - IV Contrast Only In Process Unspecified. EDMS 02:38 No provider procedures requiring assistance completed. IV discontinued, intact, tw5 bleeding controlled, No redness/swelling at site. Pressure dressing applied. Administered Medications: 08/22 23:37 Drug: NS 0.9% 500 ml Route: IV; Rate: bolus; Site: right antecubital; tw5 12 00:50 Follow up: Response: No adverse reaction; IV Status: Completed infusion tw5 00:49 Drug: morphine 4 mg Route: IVP; Site: right antecubital; tw5 02:13 Follow up: Pain 6/10 Adult; Response: No adverse reaction; Pain is decreased; RASS: 5 Alert and Calm (0) 00:49 Drug: Zofran (Ondansetron) 4 mg Route: IVP; Site: right antecubital; tw5 02:13 Follow up: Response: No adverse reaction tw 02:13 Drug: Lasix (furosemide) 40 mg Route: IVP; Site: right antecubital; tw5 02:41 Follow up: Response: No adverse reaction tw Outcome: 02:08 Discharge ordered by . pm1 02:44 Patient left the ED. Signatures: Dispatcher [employer] EDKS Pernell Patterson, TIFFANIE BATTERY CHARGER TESTER pm1 Mayra Sherman [address] Justin Tiffany tw5 Yasmani Butler, RN RN as6
[2021-08-23] MEDS ORDERED: FUROSEMIDE 40 MG/4 ML VIAL ONE (02:10)
[2021-08-23 03:08] VITALS: TEMP 98.7; O2SAT 100
[2021-08-23 03:16] VITALS: BP 115/74
--- NOTE | 2021-08-23 11:00 | RAD REPORT ---
EXAM DESCRIPTION: CT ABDOMEN PELVIS WITH IV CONTRAST Exam date: August 23, 2021 COMPARISON: CT abdomen pelvis September 27, 2020 CLINICAL HISTORY: Abdominal pain TECHNIQUE: Multiple helical axial images were obtained through the abdomen and pelvis using intraven ous contrast. Coronal and sagittal reformatted images were obtained. All CT scans at this facility use dose modulation, iterative reconstruction, and/or weight-based dosi ng when appropriate to reduce radiation dose to as low as reasonably achievable. FINDINGS: Lung bases: Small left pleural effusion is present with mild adjacent atelectasis. Liver: There is a slightly nodular contour suggesting cirrhotic changes. Gallbladder/biliary: Small calcified stones in the gallbladder are present. Gallbladder appears contr acted. No significant biliary duct dilatation. Pancreas: Unremarkable. No evidence of ductal enlargement. Spleen: Appears unremarkable. No splenomegaly. Adrenals: Unremarkable. Kidneys and ureters: No evidence of hydronephrosis. There is a small area of diminished enhancement w ithin the medial right kidney (series 501, image 28). Bladder: Unremarkable. Pelvic organs: Unremarkable. Bowel: Colon appears mildly diffusely thickened. Multiple small bowel loops appear thickened. Colonic diverticula are present. No evidence of bowel obstruction. Stomach appears moderately distended. Alon endix appears unremarkable. Vasculature: Recanalization of the umbilical vein noted. Several small varices in the upper abdomen n oted. Duplicated IVC noted. Peritoneum: No free air. There is a large amount of ascites. Lymph nodes: Unremarkable. Soft tissues: There is a small umbilical hernia containing fat, fluid, and a varix. There is a small fat-containing ventral midline abdominal wall hernia above the umbilicus. Bones: No acute findings. Small posterior disc herniation at L4-5 noted. IMPRESSION: 1. Large amount of ascites. 2. Thickened appearance of multiple small bowel loops and colon which may be related to edema versu s enteritis/colitis. 3. Small area of diminished enhancement in the medial right kidney which could be related to pyelon ephritis, artifact, or infarct. 4. Slightly nodular contour of the liver suggesting cirrhosis with findings suggestive of portal hy pertension. 5. Cholelithiasis. 6. Small left pleural effusion. 7. Duplicated IVC. 8. Small umbilical hernia containing fat, fluid, and varix. Electronically signed by: Luis Lemos MD 08/23/2021 1:27 AM BRUSH OR BROOM CUTTER Due to temporary technical issues with the PACS/Fluency reporting system, reports are being signed by the in house radiologist without review as a courtesy to ensure prompt reporting. The interpreting r adiologist is fully responsible for the content of the report.
== END 2021-08-23 02:44 | disposition home or self-care (01) ==
LOC: ER 22:25
DX: K86.1 Other chronic pancreatitis (principal); R18.8 Other ascites; F10.10 Alcohol abuse, uncomplicated; F17.210 Nicotine dependence, cigarettes, uncomplicated
CPT/HCPCS: 36415; 74177; 80048; 80076; 80320; 83690; 85025; 96361; 96374; 96375; 99284; J1940; J2405; J7040; Q9967

== ENCOUNTER 2021-08-27 17:24 | Emergency (ER) | payer SELFPAY ==
--- OUTSIDE RECORDS SUMMARY | 2021-08-27 17:29 | XMS REPORT | Continuity of Care Document ---
:1985 Author Organization [facility] t Address [address] [place] [address] Care Team Providers Name Role Phone Pcp, [...] to 03-22 ity of alcoholic alcoholic 00:00: [facility] s cirrhosis cirrhosis [facility] Allergies, Adverse Reactions, Alerts Allergy Allergy Status Severity Reaction(s) Onset Inactive Treating Comm ents Source Name Type Date Date Clinician NO KNOWN Drug Active Univers ALLERGIE Class ity of S [facility] Social History Social Habit Start Date Stop Date Quantity Comments Source History of tobacco 1999-09-18 Cigarette Smoker University of use 00:00:00 [facility] History [facility] University o f Alcohol Frequency [facility] edical Branch History [facility] University o f Alcohol Std Drinks [facility] History [facility] University o f Alcohol Binge [facility] Exposure to Not sure University SARS-CoV-2 (event) [facility] Alcohol intake 2021-06-18 2021-06-18 4 /d University of 00:00:00 00:00:00 [facility] Cigarettes smoked 2021-03-22 2021-03-22 Univers ity of current (pack per 00:00:00 00:00:00 ) - Reported [facility] Cigarette 2021-03-22 2021-03-22 University of pack-years 00:00:00 00:00:00 [facility] Tobacco use and 2021-03-22 2021-03-22 Never used Universit y of exposure 00:00:00 00:00:00 [facility] Alcohol Comment 2021-03-22 2021-03-22 24 oz beers Universi ty of 00:00:00 00:00:00 [facility] Sex Ass[birth year] At [birth year] Universit y of 00:00:00 00:00:00 [facility] Smoking Status Start Date Stop Date Source Unknown if ever smoked Universit y of [facility] Current every day smoker 2021-03-22 00:00:00 Uni versity of [facility] Medications Ordered Filled Start Stop Current Ordering Indication Dosage Frequency Signature Comments Components Source Medication Medication Date Date Medication? Clinician (SIG) Name Name iopamidol 2020-09- No [id number] 100mL 100 mL, Univers (ISOVUE 06-18 Intravenou ity o f 370-500 mL) 21:44: 21:44 s, ONCE, 1 [place] injection 00 :00 dose, On Medica l 100 mL Mon [facility] 06/18/21 at 1700, Routine FENTanyl PF 2020-09- [...] 06/18/21 at 1600, JAMEL ciprofloxac 2020-09 Yes [id number] 500mg Take 1 Univers in HCl 500 0-01 tablet by ity of mg tablet 00:00: mouth 2 [place] 00 (two) Medical times Branch daily. metroNIDAZO 2020-09 Yes [id number] 500mg Take 1 Univers LE 500 mg 0-01 tablet by ity o f tablet 00:00: mouth [place] 00 every 8 Medical (eight) Branch hours. ondansetron 2020-09 Yes [id number] 4mg Take 1 Univers 4 mg 0-01 [...] Indication s: acute pain foLIC acid Yes [id number] 1mg Take 1 Univers 1 mg tablet 7-09 tablet by ity of 00:00: mouth [place] 00 daily. Medical Branch spironolact Yes [id number] 50mg Take 1 Univers one 50 mg 7-09 tablet by ity o f tablet 00:00: mouth [place] 00 daily. Medical Branch thiamine Yes [id number] 100mg Take 1 U nivers 100 mg 7-09 tablet by ity of tablet 00:00: mouth [place] 00 daily. Medical Branch furosemide Yes [id number] 20mg Take 1 Univers 20 mg 7-09 tablet by ity of tablet 00:00: mouth [place] 00 daily. Medical Branch foLIC acid Yes [id number] 1mg Take 1 Univers 1 mg tablet 7-09 tablet by ity of 00:00: mouth [place] 00 daily. Medical Branch spironolact Yes [id number] 50mg Take 1 Univers one 50 mg 7-09 tablet by ity o f tablet 00:00: mouth [place] 00 daily. Medical Branch thiamine Yes [id number] 100mg Take 1 U nivers 100 mg 7-09 tablet by ity of tablet 00:00: mouth [place] 00 daily. Medical Branch furosemide 2020-0 Yes [id number] 20mg Take 1 Univers 20 mg 7-09 tablet by ity of tablet 00:00: mouth [place] 00 daily. Medical Branch foLIC acid 2020-0 Yes [id number] 1mg Take 1 Univers 1 mg tablet 7-09 tablet by ity of 00:00: mouth [place] 00 daily. Medical Branch spironolact 2020-0 Yes [id number] 50mg Take 1 Univers one 50 mg 7-09 tablet by ity o f tablet 00:00: mouth [place] 00 daily. Medical Branch thiamine 2020-0 Yes [id number] 100mg Take 1 U nivers 100 mg 7-09 tablet by ity of tablet 00:00: mouth [place] 00 daily. Medical Branch furosemide 2020-0 Yes [id number] 20mg Take 1 Univers 20 mg 7-09 tablet by ity of tablet 00:00: mouth [place] 00 daily. Medical Branch foLIC acid 2020-0 Yes [id number] 1mg Take 1 Univers 1 mg tablet 7-09 tablet by ity of 00:00: mouth [place] 00 daily. Medical Branch spironolact 2020-0 Yes [id number] 50mg Take 1 Univers one 50 mg 7-09 tablet by ity o f tablet 00:00: mouth [place] 00 daily. Medical Branch thiamine 2020-0 Yes [id number] 100mg Take 1 U nivers 100 mg 7-09 tablet by ity of tablet 00:00: mouth [place] 00 daily. Medical Branch furosemide 2020-0 Yes [id number] 20mg Take 1 Univers 20 mg 7-09 tablet by ity of tablet 00:00: mouth [place] 00 daily. Medical Branch foLIC acid 2020-0 Yes [id number] 1mg Take 1 Univers 1 mg tablet 7-09 tablet by ity of 00:00: mouth [place] 00 daily. Medical Branch spironolact 2020-0 Yes [id number] 50mg Take 1 Univers one 50 mg 7-09 tablet by ity o f tablet 00:00: mouth [place] 00 daily. Medical Branch thiamine 2020-0 Yes [id number] 100mg Take 1 U nivers 100 mg 7-09 tablet by ity of tablet 00:00: mouth [place] 00 daily. Medical Branch furosemide 2020-0 Yes [id number] 20mg Take 1 Univers 20 mg 7-09 tablet by ity of tablet 00:00: mouth [place] 00 daily. Medical Branch foLIC acid 2020-0 Yes [id number] 1mg Take 1 Univers 1 mg tablet 7-09 tablet by ity of 00:00: mouth [place] 00 daily. Medical Branch spironolact 2020-0 Yes [id number] 50mg Take 1 Univers one 50 mg 7-09 tablet by ity o f tablet 00:00: mouth [place] 00 daily. Medical Branch thiamine 2020-0 Yes [id number] 100mg Take 1 U nivers 100 mg 7-09 tablet by ity of tablet 00:00: mouth [place] 00 daily. Medical Branch furosemide 2020-0 Yes [id number] 20mg Take 1 Univers 20 mg 7-09 tablet by ity of tablet 00:00: mouth [place] 00 daily. Medical Branch foLIC acid 2020-0 Yes [id number] 1mg Take 1 Univers 1 mg tablet 7-09 tablet by ity of 00:00: mouth [place] 00 daily. Medical Branch spironolact 2020-0 Yes [id number] 50mg Take 1 Univers one 50 mg 7-09 tablet by ity o f tablet 00:00: mouth [place] 00 daily. Medical Branch thiamine 2020-0 Yes [id number] 100mg Take 1 U nivers 100 mg 7-09 tablet by ity of tablet 00:00: mouth [place] 00 daily. Medical Branch furosemide 2020-0 Yes [id number] 20mg Take 1 Univers 20 mg 7-09 tablet by ity of tablet 00:00: mouth [place] 00 daily. Medical Branch lactulose 0 2020- No [id number] 15mL Take 15 mL Univers 10 gram/15 03-26- by mouth ity of mL solution 00:00: 04:59 daily for [place] 00 :00 30 days. Medical Branch lactulose 0 2020- No [id number] 15mL Take 15 mL Univers 10 gram/15 03-26- by mouth ity of mL solution 00:00: 04:59 daily for [place] 00 :00 30 days. [facility] Branch lactulose 0 2020- No [id number] 15mL Take 15 mL Univers 10 gram/15 03-26- by mouth ity of mL solution 00:00: 04:59 daily for [place] 00 :00 30 days. Medical Branch lactulose 2020- No [id number] 15mL Take 15 mL Univers 10 gram/15 03-26 by mouth ity of mL solution 00:00: 04:59 daily for [place] 00 :00 30 days. Medical Branch lactulose 2020- No [id number] 15mL Take 15 mL Univers 10 gram/15 03-26 by mouth ity of mL solution 00:00: 04:59 daily for [place] 00 :00 30 days. Medical Branch lactulose 2020- No [id number] 15mL Take 15 mL Univers 10 gram/15 03-26 by mouth ity of mL solution 00:00: 04:59 daily for [place] 00 :00 30 days. Medical Branch ondansetron 2020- No 4mg Take 4 mg Univers 4 mg tablet 03-25 by mouth ity of 16:44: 00:00 every 8 [place] 01 :00 (eight) Medical hours as Branch needed. Melatonin 5 2020- No Take by U nivers mg tablet 03-25 mouth. ity of 16:44: 00:00 [place] 01 :00 Medical Branch lactulose Yes 15mL 15 mL, Univer s (CEPHULAC) 03-25 Oral, ity of solution 15 14:00: DAILY, [place] mL 00 First dose Medical on [facility] 03/25/21 at 0900, Until Discontinu ed, Routine morpHINE No 2mg 2 mg, Slow Un esa injection 2 03-25 IV Push, ity of mg 09:00: 08:06 ONCE, 1 [place] 00 :00 dose, [facility] Medical 03/25/21 at Branch 0400, Routine hydrOXYzine 2020- No [id number] 10mg Take 1 Univers 10 mg 03-25 tablet by ity of tablet 00:00: 04:59 mouth [place] 00 :00 every 6 Medical (six) Branch hours as needed for Itching for up to 14 days. hydrOXYzine 2020- No [id number] 10mg Take 1 Univers 10 mg 03-25 tablet by ity of tablet 00:00: 04:59 mouth [place] 00 :00 every 6 Medical (six) Branch hours as needed for Itching for up to 14 days. hydrOXYzine 2020- No [id number] 10mg Take 1 Univers 10 mg 03-25 tablet by ity of tablet 00:00: 04:59 mouth [place] 00 :00 every 6 Medical (six) Branch hours as needed for Itching for up to 14 days. hydrOXYzine 2020- No [id number] 10mg Take 1 Univers 10 mg 03-25 [...] 03-23 Oral, ity of (PROTONIX) 14:00: DAILY, [place] EC tablet 00 First dose Medi birgit 40 mg on Mon [facility] 03/23/21 at 0900, Until Discontinu ed, Routine [...] 100 mg 00 First dose Medical on [facility] 03/23/21 at 0900, Until Discontinu ed, Routine nicotine Yes 1{patch 1 Patch, Un esa (NICODERM) 03-23 } Topical, ity o f 14 mg/24 hr 01:23: Administer [place] patch 1 00 over 24 Medical Patch [...] ity of (XYLOCAINE) 22:15: 22:15 on, ONCE, [place] 20 mg/mL (2 00 :00 1 dose, [...] IV Push, ity of (PF)) 20:56: Q6HPRN, [place] injection 4 45 Starting Medi birgit mg [...] Oral, ity of (TYLENOL 20:54: 20:53 Q6HPRN, [place] #3) 300-30 49 :49 Starting Medic al mg tablet 1 Mon 03/22/21 Br anch tablet at 1554, Until 03/24/21 at 1553, Routine, Pain (scale 4-6) acetaminoph Yes 650mg 650 mg, Un esa en 03-22 Oral, ity of (TYLENOL) 20:54: Q6HPRN, [place] tablet 650 40 Starting Medic al mg [facility] 03/22/21 Branch at 1554, Until Discontinu ed, Routine, Pain (scale 1-3) iopamidol 2020- No [id number] 100mL 100 mL, Univers (ISOVUE 03-22 Intravenou [...] Immunizations Ordered Filled Immunization Date Status Comments [facility] e Immunization Name Name Pneumococcal 2021-03-25 Completed [place] o f Polysaccharide, 00:00:00 [place] Med ical PPSV23 (PNEUMOVAX) Branch Pneumococcal 2021-03-25 Completed [place] o f Polysaccharide, 00:00:00 [place] Med ical PPSV23 (PNEUMOVAX) Branch Pneumococcal 2021-03-25 Completed [place] o f Polysaccharide, 00:00:00 [place] Med ical PPSV23 (PNEUMOVAX) Branch Pneumococcal 2021-03-25 Completed [place] o f Polysaccharide, 00:00:00 [place] Med ical PPSV23 (PNEUMOVAX) Branch Pneumococcal 2021-03-25 Completed [place] o f Polysaccharide, 00:00:00 [place] Med ical PPSV23 (PNEUMOVAX) Branch Pneumococcal 2021-03-25 Completed [place] o f Polysaccharide, 00:00:00 [place] Med ical PPSV23 (PNEUMOVAX) Branch Pneumococcal 2021-03-25 Completed [place] o f Polysaccharide, 00:00:00 [place] Med ical PPSV23 (PNEUMOVAX) Branch Vital Signs Vital Name Observation Time Observation Value Comments Source Systolic blood 2021-06-18 22:00:00 128 mm[Hg] Univer sity of pressure [facility] Diastolic blood 2021-06-18 22:00:00 75 mm[Hg] Unive [facility] Heart rate 2021-06-18 22:00:00 75 /min [facility] Respiratory rate 2021-06-18 22:00:00 19 /min [facility] Oxygen saturation in 2021-06-18 22:00:00 100 /min [facility] Arterial blood by [facility] Pulse oximetry Branch Body temperature 2021-06-18 19:17:00 37.56 Sabi [facility] Body height 2021-06-18 19:17:[address] [facility] Body weight 2021-06-18 19:17:[address] [facility] BMI 2021-06-18 19:17:00 23.57 kg/m2 Universi ty of [place] [facility] Systolic blood 2021-03-25 17:30:00 134 mm[Hg] Univer sity of pressure [place] [facility] Diastolic blood 2021-03-25 17:30:00 79 mm[Hg] Unive rsity of pressure [place] [facility] Heart rate 2021-03-25 17:30:00 94 /min Universi ty of [place] [facility] Body temperature 2021-03-25 17:30:00 36.67 Sabi Univ ersity of [place] [facility] Respiratory rate 2021-03-25 17:30:00 18 /min Univ ersity of [place] [facility] Oxygen saturation in 2021-03-25 17:30:00 97 /min University of Arterial blood by [place] [employer] birgit Pulse oximetry Branch Body weight 2021-03-23 21:00:00 73.199 kg 161# 6oz Universi ty of [place] [facility] BMI 2021-03-23 21:00:00 24.54 kg/m2 Universi ty of [place] [facility] Body height 2021-03-23 01:21:00 172.7 cm Universi ty of [place] [facility] Systolic blood 2021-03-25 17:30:00 134 mm[Hg] Univer sity of pressure [place] [facility] Diastolic blood 2021-03-25 17:30:00 79 mm[Hg] Unive rsity of pressure [place] [facility] Heart rate 2021-03-25 17:30:00 94 /min Universi ty of [place] [facility] Body temperature 2021-03-25 17:30:00 36.67 Sabi Univ ersity of [place] [facility] Respiratory rate 2021-03-25 17:30:00 18 /min Univ ersity of [place] [facility] Oxygen saturation in 2021-03-25 17:30:00 97 /min University of Arterial blood by [place] [employer] [facility]git Pulse oximetry Branch Body weight 2021-03-23 21:00:00 73.199 kg 161# 6oz Universi ty of [place] [facility] BMI 2021-03-23 21:00:00 24.54 kg/m2 Universi ty of [place] [facility] Body height 2021-03-23 01:21:00 172.7 cm Universi ty of [place] [facility] Systolic blood 2021-03-14 04:07:00 150 mm[Hg] Univer sity of pressure [place] [facility] Diastolic blood 2021-03-14 04:07:00 79 mm[Hg] Unive rsity of pressure [facility] Heart rate 2021-03-14 04:07:00 122 /min Universi ty of [facility] Branch Body temperature 2021-03-14 04:07:00 36.72 Sabi Univ ersity of [facility] Branch Respiratory rate 2021-03-14 04:07:00 18 /min Univ ersity of [facility] Branch Body height 2021-03-14 04:07:00 172.7 cm Universi ty of [place] [facility] Body weight 2021-03-14 04:07:00 68.04 kg Universi ty of [place] [facility] BMI 2021-03-14 04:07:00 22.81 kg/m2 Universi ty of [facility] Branch Oxygen saturation in 2021-03-14 04:07:00 95 /min University of Arterial blood by [facility] Pulse oximetry Branch Systolic blood 2021-03-14 04:07:00 150 mm[Hg] Univer sity of pressure [facility] Diastolic blood 2021-03-14 04:07:00 79 mm[Hg] Unive rsity of pressure [facility] Heart rate 2021-03-14 04:07:00 122 /min Universi ty of [facility] Branch Body temperature 2021-03-14 04:07:00 36.72 Sabi [facility] Respiratory rate 2021-03-14 04:07:00 18 /min Univ ersity of [facility] Body height 2021-03-14 04:07:00 172.7 cm Universi ty of [place] [facility] Body weight 2021-03-14 04:07:00 68.04 kg Universi ty of [place] [facility] BMI 2021-03-14 04:07:00 22.81 kg/m2 Universi ty of [facility] Branch Oxygen saturation in 2021-03-14 04:07:00 95 /min University of Arterial blood by [facility] Pulse oximetry Branch Procedures Procedure Date / Time Performing Clinician Source Performed CT ABDOMEN PELVIS W 2021-06-18 21:48:55 Rasheed Lawton [facility] ty of [place] CONTRAST [facility] LACTIC ACID WHOLE BLOOD 2021-06-18 20:08:00 Rasheed Lawton [facility] ersity of [place] [facility] LIPASE 2021-06-18 20:06:00 Rasheed Lawton [facility] TROPONIN I 2021-06-18 20:06:00 Jered Rasheed [facility] COMP. METABOLIC PANEL 2021-06-18 20:06:00 Rasheed Lawton [facility] ([id number]) [facility] CBC WITH DIFF 2021-06-18 20:06:00 Rasheed Lawton [facility] PROTHROMBIN TIME / INR 2021-06-18 20:06:00 Rasheed Lawton [facility] ACTIVATED PARTIAL 2021-06-18 20:06[facility]00 [facility] URINALYSIS 2021-06-18 20:06:00 Jered [facility] N-TERMINAL PRO-BNP 2021-06-18 20:06:00 Rasheed Lawton [facility] COVID-19 (ID NOW RAPID 2021-06-18 20:06:00 Rasheed Lawton [facility] TESTING) [facility] Branch CONSENT/REFUSAL FOR 2021-06-18 19:11:17 Doctor Unassigned, [facility] DIAGNOSIS AND TREATMENT [place] [facility] COMP. METABOLIC PANEL 2021-03-25 09:12:00 Slim Schmitz [facility] ([id number]) [facility] EXTRA TUBE SST 2021-03-25 09:12:[address] [facility] EXTRA TUBE RED 2021-03-25 09:12:[address] [facility] CBC WITH DIFF 2021-03-25 08:00:00 Slim Schmitz [facility] PROTHROMBIN TIME / INR 2021-03-25 08:00:00 [facility] EXTRA TUBE SST 2021-03-24 08:35:[address] [facility] EXTRA TUBE LT. GREEN 2021-03-24 08:35:00 Maegan Mcguire [facility] BASIC METABOLIC PANEL 2021-03-24 08:34:00 Slim Schmitz [facility] (NA, K, CL, CO2, GLUCOSE, Medica l Branch BUN, CREATININE, CA) CBC WITH DIFF 2021-03-24 06:51:00 Slim Schmitz [facility] PROTHROMBIN TIME / INR 2021-03-24 06:51:00 Ainsley Slim [facility] RHEUMATOID FACTOR 2021-03-23 08:25:00 Becky Alejandro [facility] C4 COMPLEMENT 2021-03-23 08:25:00 Becky Alejandro [facility] COMP. METABOLIC PANEL 2021-03-23 08:25:00 Alejandro Pena [facility] ([id number]) [facility] CBC WITH DIFF 2021-03-23 08:25:00 Becky Alejandro [facility] PROTHROMBIN TIME / INR 2021-03-23 08:25:00 Alejandro Pena [facility] BLOOD CULTURE SCREEN 2021-03-22 22:45:00 Alejandro Pena [facility] PROTHROMBIN TIME / INR 2021-03-22 22:45:00 Alejandro Pena [facility] ALBUMIN BODY FLUID 2021-03-22 22:30:00 Alejandro Pena [facility] T.PROTEIN BODY FLUID 2021-03-22 22:30:00 Alejandro Pena [facility] BODY FLUID DIRECT COUNT 2021-03-22 22:30:00 Alejandro Pena [facility] BODY FLUID (BACTEC 2021-03-22 22:30:00 Maegan Mcguire [facility] ABDOMINAL FLUID 2021-03-22 22:30:00 Alejandro Pena [facility] XR CHEST 2 VW 2021-03-22 21:47:40 Alejandro Pena [facility] CT ABDOMEN PELVIS W 2021-03-22 19:44:31 Endy Kitchen [facility] CONTRAST [facility] LIPASE 2021-03-22 18:03:[address] [facility] VITAMIN B12, LEVEL 2021-03-22 18:03:00 Alejandro Pena [facility] FOLATE 2021-03-22 18:03:00 Becky Alejandro [facility] HEPATIC FUNCTION PANEL 2021-03-22 18:03:00 Endy Kitchen [facility] ([id number]) (ALB,T.PRO,BILI Medical Branch T,BU/BC,ALT,AST,ALK PHOS) BASIC METABOLIC PANEL 2021-03-22 18:03:00 Endy Kitchen [facility] (NA, K, CL, CO2, GLUCOSE, Medica l Branch BUN, CREATININE, CA) ETHANOL 2021-03-22 18:03:[address] [facility] CBC WITH DIFF 2021-03-22 18:03:[address] [facility] PROTHROMBIN TIME / INR 2021-03-22 18:03:00 Endy Kitchen [facility] FIBRINOGEN 2021-03-22 18:03:00 Becky [facility] HEPATITIS B SURFACE 2021-03-22 18:03:00 Becky Alejandro [facility] ANTIGEN [facility] HCV ANTIBODY 2021-03-22 18:03:00 Becky Alejandro [facility] HIV 1/2 AG-AB WITH REFLEX 2021-03-22 18:03:00 Alejandro Pena [facility] COVID-19 (ID NOW RAPID 2021-03-22 18:03:00 Endy Kitchen [facility] TESTING) [facility] LAB ONLY COVID 2021-03-22 18:03:00 Endy Kitchen [facility] INTERPRETATION [facility] URINALYSIS 2021-03-22 17:56:[address] [facility] EXTRA TUBE URINE CULTURE 2021-03-22 17:56:00 Endy Kitchen [facility] CONSENT/REFUSAL FOR 2021-03-22 17:39:41 Doctor Unajoana, [facility] DIAGNOSIS AND TREATMENT [place] [place] [facility] NOTICE OF PRIVACY 2021-03-14 04:30:12 Doctor Unassigned, [facility] PRACTICES [place] [facility] Encounters Start End Encounter Admission Attending Care Care Encounter Source Date/Time Date/Time Type Type Clinicians Facility Department ID 2021-06-18 2021-06-18 Emergency Jered [facility] [id number] Univers 14:19:00 17:31:00 Rasheed Lindsay [id number] i ty [place] [id number] [facility] 084 Branch 2021-06-18 2021-06-18 Emergency X [facility] ERT [id number] Univers 14:12:00 14:12:00 ity of [facility] 2021-04-23 2021-04-23 Patient Jasmin Bejarano Gustavo [id number] [facility] 00:00:00 00:00:00 Outreach E Sood [id number] i ty [place] [id number] [address] 2021-04-20 2021-04-20 Patient Jasmin Bejarano Gustavo [id number] 00:00:00 00:00:00 Outreach E Sood [id number] [place] [id number] [id number] [facility] 2021-04-20 2021-04-20 Patient Jasmin Bejarano [place] [id number] Univers 00:00:00 00:00:00 Outreach E Sood [id number] i ty [place] [id number] [address] 2021-03-30 2021-03-30 Patient Darci Jasmin Chen [id number] 00:00:00 00:00:00 Outreach E Sood [id number] [place] [id number] [id number] [facility] 2021-03-30 2021-03-30 Patient Darci Jasmin Chen [id number] Univers 00:00:00 00:00:00 Outreach E [place] [id number] i ty [place] 4[place] [id number] [address] 2021-03-26 2021-03-26 Transition Gustavo Pandya [id number] 00:00:00 00:00:00 of Care Inna Sood [id number] [place] 4.2.7.2.686 [id number] 2021-03-26 2021-03-26 Transition Pandya Matthieublair [id number] 00:00:00 00:00:00 of Care Inna Sood [id number] [place] [id number] [id number] 2021-03-26 2021-03-26 Transition Gustavo Pandya [id number] Univers 00:00:00 00:00:00 of Care Inna Sood [id number] ity [place] 4[place] [id number] [facility] 403 Branch 2021-03-26 2021-03-26 Transition Gustavo Pandya [id number] Univers 00:00:00 00:00:00 of Care Inna Sood [id number] ity [place] 4[place] [id number] [facility] 403 Branch 2021-03-22 2021-03-25 [facility]8 [id number] [id number] 12:39:00 16:09:00 Encounter Maegan Mcguire 350.1.13 .10 [facility] [id number] [id number] [facility] 2021-03-22 2021-03-25 [facility] 1.2.8 40.114 [id number] [facility] 12:39:00 16:09:00 Encounter Maegan Mcguire 350.1.13 .10 ity of [facility] 4.2.7.2.686 [place] as [id number] [facility] 095 Branch 2021-03-22 2021-03-22 Emergency X [facility] ERT [id number] Univers 12:35:00 12:35:00 ity of [facility] 2021-03-13 2021-03-14 [facility] [id number] Univers 23:10:00 00:39:00 Jamnickolas Lindsay [id number] i ty of [place] 4.2.7.2.686 [facility] [id number] [facility] 084 Branch 2021-03-13 2021-03-14 Emergency [facility] [id number] 23:10:00 00:39:00 Jamnickolas Lindsay 350.1.13.10 [place] 4.2.7.2.686 [place] [id number] 2021-03-13 2021-03-13 Emergency X [facility] ERT [id number] [employer] 23:10:00 23:10:00 JAM ity [facility] Results Test Description Test Time Test Comments Results Result Comments Source COMP. METABOLIC PANEL (07055) 2021-06-18 21:22:14 Test Item Value Reference Range Interpretation Comme nts NA (test code = 2568461377) 134 mmol/L 135-145 L K (test code = 4052172540) 3.7 mmol/L 3.5-5.0 CL (test code = 0507518795) 105 mmol/L 98-108 CO2 TOTAL (test code = 3467928450) 21 mmol/L 23-31 L AGAP (test code = 3716304466) 2-16 BUN (test code = 7316554324) 6 mg/dL 7-23 L GLUCOSE (test code = 3981325940) 124 mg/dL 70-110 H CREATININE (test code = 0.66 mg/dL 0.60-1.25 0474192838) TOTAL BILI (test code = 3.8 mg/dL 0.1-1.1 H 1804202073) CALCIUM (test code = 3479826661) 8.5 mg/dL 8.6-10.6 L T PROTEIN (test code = 9945220538) 9.0 g/dL 6.3-8.2 H ALBUMIN (test code = 7692787180) 3.4 g/dL 3.5-5.0 L ALK PHOS (test code = 6148942861) 89 U/L 34-122 ALTv (test code = 1742-6) 38 U/L 5-50 AST(SGOT) (test code = 9741258756) 90 U/L 13-40 H eGFR (test code = 0324942164) mL/min/1.73m2 NICHOLAS (test code = NICHOLAS) Association [...] tests). Lab Interpretation (test code = Abnormal 90182-9) [facility] [id number] 21:07:34 Test Item Value Reference Range Interpretation Comments APTT Patient (test See_Comment [Automat ed code = 3173-2) message] The system which generated this result transmitted reference range : 23 - 38 Seconds . The reference range was not used to interpr et this result as normal/abnormal . NICHOLAS (test code = NICHOLAS) The [facility] patient population mean normal value for aPTT is 30 seconds. Lab Interpretation Normal (test code = 67878-5) [facility] WITH [id number] 21:07:14 Test Item Value Reference Range Interpretation [...] (test code = 52.4 fL 38.5-51.6 H 39271-6) RDW-CV (test code = 14.5 % 12.1-15.4 788-0) PLT (test code = See_Comment L [Automated 777-3) message] The sy stem which generated this result transmitted reference range : 150 - 328 10*3/ ?L. The reference r laura was not used to interpret this result as normal/abnormal . MPV (test code = 11.2 fL 9.8-13.0 45276-0) IPF % (test code = 2.9 % 1.2-10.7 Platelet count 0651903176) measured by fluorescence method. NRBC/100 WBC (test See_Comment [Automat ed code = 9144620608) message] The system which generated this result transmitted reference range : 0.0 - 10.0 /100 WBCs. The refer ence range was not u sed to interpret th is result as normal/abnormal . NRBC x10^3 (test code <0.01 See_Comment [Auto mated = 1071717086) message] The s ystem which generated this result transmitted reference range : 10*3/?L. The reference range was not used to interpret this result as normal/abnormal . GRAN MAT (NEUT) % 54.8 % (test code = 770-8) IMM GRAN % (test code 0.20 % = 8406854979) LYMPH % (test code = 26.7 % 736-9) MONO % (test code = 16.5 % 5905-5) EOS % (test code = 1.0 % 713-8) BASO % (test code = 0.8 % 706-2) GRAN MAT x10^3(ANC) 2.80 10*3/uL 1.99-6.95 (test code = 1197755161) IMM GRAN x10^3 (test <0.03 0.00-0.06 code = 4101177896) LYMPH x10^3 (test code 1.36 10*3/uL 1.09-3.23 = 731-0) MONO x10^3 (test code 0.84 10*3/uL 0.36-1.02 = 742-7) EOS x10^3 (test code = 0.05 10*3/uL 0.06-0.53 L 711-2) BASO x10^3 (test code 0.04 10*3/uL 0.01-0.09 = 704-7) Lab Interpretation Abnormal (test code = 52330-3) [facility] / [id number] 21:04:54 Test Item Value Reference Range Interpretation [...] tions. Lab Interpretation (test Abnormal code = 38360-0) [facility] HospitalTROP[facility] [id number] 21:04:33 Test Item Value Reference Interpretation Comments Range TROPONIN I (test 0.004 ng/mL See_Comment [Automated code = 2051715616) message] The system which generated this result [...] biotin. Lab Interpretation Normal (test code = 37595-6) [facility] HospitalN-TERMINAL [id number] 21:01:11 Test Item Value Reference Range Interpretation Comments NT-proBNP (test code 369 pg/mL See_Comment H [Autom ated = 0553104656) message] The system which generated this result transmitted reference range : <=125. The reference range was not used to interpret this result as normal/abnormal . NICHOLAS (test code = NICHOLAS) Biotin has been reported to cause a negative bias, interpret results relative to patient's use of biotin. Lab Interpretation Abnormal (test code = 09927-0) [facility] HospitalLIPASE2021-[facility] 20:52:07 Test Item Value Reference Range Interpretation Comments LIPASE (test code = 9580068998) 489 U/L 0-220 H Lab Interpretation (test code = Abnormal 83334-7) [facility] HospitalCOMP. METABOLIC PANEL (81838)2021-03-25 09:52:29 Test Item Value Reference Range Interpretation Comments NA (test code = 131 mmol/L 135-145 L 2418069167) K (test code = 4.1 mmol/L 3.5-5.0 3427576981) CL (test code = 101 mmol/L 98-108 8558634312) CO2 TOTAL (test code = 27 mmol/L 23-31 7455291618) AGAP (test code = 2-16 1188528186) BUN (test code = 7 mg/dL 7-23 2676884917) GLUCOSE (test code = 85 mg/dL 70-110 3889657774) CREATININE (test code = 0.63 mg/dL 0.60-1.25 0573048949) TOTAL BILI (test code = 5.6 mg/dL 0.1-1.1 H 5408262794) CALCIUM (test code = 8.1 mg/dL 8.6-10.6 L 7157502695) T PROTEIN (test code = 7.7 g/dL 6.3-8.2 5702122301) ALBUMIN (test code = 3.0 g/dL 3.5-5.0 L 4747998979) ALK PHOS (test code = 81 U/L 34-122 7257625623) ALTv (test code = 51 U/L 5-50 H 1742-6) AST(SGOT) (test code = 145 U/L 13-40 H 9620680909) eGFR (test code = mL/min/1.73m2 4355109556) NICHOLAS (test code = NICHOLAS) Association of [...] tests). Lab Interpretation Abnormal (test code = 72705-3) [facility]PROTHR[facility] / [id number] 08:11:23 Test Item Value Reference Range Interpretation [...] tions. Lab Interpretation (test Abnormal code = 17826-8) [facility] HospitalCB WITH [id number] 08:07:00 Test Item Value Reference Range Interpretation [...] (test code = 57.2 fL 38.5-51.6 H 09511-7) RDW-CV (test code = 14.8 % 12.1-15.4 788-0) PLT (test code = See_Comment L [Automated 777-3) message] The sy stem which generated this result transmitted reference range : 150 - 328 10*3/ ?L. The reference r laura was not used to interpret this result as normal/abnormal . MPV (test code = 12.1 fL 9.8-13.0 46453-1) NRBC/100 WBC (test See_Comment [Automat ed code = 9275709688) message] The system which generated this result transmitted reference range : 0.0 - 10.0 /100 WBCs. The refer ence range was not u sed to interpret th is result as normal/abnormal . NRBC x10^3 (test code <0.01 See_Comment [Auto mated = 7153862255) message] The s ystem which generated this result transmitted reference range : 10*3/?L. The reference range was not used to interpret this result as normal/abnormal . GRAN MAT (NEUT) % 54.3 % (test code = 770-8) IMM GRAN % (test code 0.40 % = 2837307909) LYMPH % (test code = 25.2 % 736-9) MONO % (test code = 17.2 % 5905-5) EOS % (test code = 1.8 % 713-8) BASO % (test code = 1.1 % 706-2) GRAN MAT x10^3(ANC) 3.99 10*3/uL 1.99-6.95 (test code = 4685385963) IMM GRAN x10^3 (test 0.03 10*3/uL 0.00-0.06 code = 9192029161) LYMPH x10^3 (test code 1.85 10*3/uL 1.09-3.23 = 731-0) MONO x10^3 (test code 1.26 10*3/uL 0.36-1.02 H = 742-7) EOS x10^3 (test code = 0.13 10*3/uL 0.06-0.53 711-2) BASO x10^3 (test code 0.08 10*3/uL 0.01-0.09 = 704-7) Lab Interpretation Abnormal (test code = 65528-7) [facility] (NA, K, CL, CO2, GLUCOSE, BUN, CREATININE, CA)2021-03-24 14:01:03 Test Item Value Reference Range Interpretation Comments NA (test code = 133 mmol/L 135-145 L 4285608579) K (test code = Hemolyzed 4967032802) Specimen CL (test code = 103 mmol/L 98-108 5709326395) CO2 TOTAL (test code 26 mmol/L 23-31 = 9114566984) AGAP (test code = 2-16 3389786428) BUN (test code = Hemolyzed 1899577963) Specimen GLUCOSE (test code = 83 mg/dL 70-110 7353674903) CREATININE (test code 0.53 mg/dL 0.60-1.25 L = 5080524740) CALCIUM (test code = 7.8 mg/dL 8.6-10.6 L 6310252771) eGFR (test code = mL/min/1.73m2 5763899395) NICHOLAS (test code = NICHOLAS) Association of [...] tests). Lab Interpretation Abnormal (test code = 89960-9) [facility] WITH [id number] 08:13:01 Test Item Value Reference Range Interpretation [...] (test code = 58.4 fL 38.5-51.6 H 51543-2) RDW-CV (test code = 15.0 % 12.1-15.4 788-0) PLT (test code = See_Comment [Automated 777-3) message] The sy stem which generated this result transmitted reference range : 150 - 328 10*3/ ?L. The reference r laura was not used to interpret this result as normal/abnormal . MPV (test code = 12.0 fL 9.8-13.0 93793-4) NRBC/100 WBC (test See_Comment [Automat ed code = 9487522896) message] The system which generated this result transmitted reference range : 0.0 - 10.0 /100 WBCs. The refer ence range was not u sed to interpret th is result as normal/abnormal . NRBC x10^3 (test code <0.01 See_Comment [Auto mated = 0164242561) message] The s ystem which generated this result transmitted reference range : 10*3/?L. The reference range was not used to interpret this result as normal/abnormal . GRAN MAT (NEUT) % 59.9 % (test code = 770-8) IMM GRAN % (test code 0.30 % = 5625843296) LYMPH % (test code = 19.8 % 736-9) MONO % (test code = 17.1 % 5905-5) EOS % (test code = 1.8 % 713-8) BASO % (test code = 1.1 % 706-2) GRAN MAT x10^3(ANC) 3.99 10*3/uL 1.99-6.95 (test code = 9971020865) IMM GRAN x10^3 (test <0.03 0.00-0.06 code = 0020011907) LYMPH x10^3 (test code 1.32 10*3/uL 1.09-3.23 = 731-0) MONO x10^3 (test code 1.14 10*3/uL 0.36-1.02 H = 742-7) EOS x10^3 (test code = 0.12 10*3/uL 0.06-0.53 711-2) BASO x10^3 (test code 0.07 10*3/uL 0.01-0.09 = 704-7) Lab Interpretation Abnormal (test code = 07039-5) [facility]PROTHROMBIN [facility] / [id number] 07:39:33 Test Item Value Reference Range Interpretation [...] tions. Lab Interpretation (test Abnormal code = 00374-0) [facility] HospitalCYTO ABDOMINAL [id number] 21:12:26 Test Item Value Reference Range Interpretation Comments Case Report (test code Non-Gynecologic = 6693751197) Cytology ?Case: [id number] ?Authorizing Provider: ?Maegan Mcguire MD ? ?Collected: ? 03/22/2021 1730 ?Ordering Location: ? ? -Emergency Department ? ?Received: ?03/23/2021 0926 ?Pathologist: ? Camille Magana MD ? Specimen: ? ?ABDOMEN ? Final Diagnosis (test d7ilzXXhCXAof4alKXKabY code = 8757205252) FuZzEwMzNcZnRuYmpcdWMx IHtccnRmMVxlcGljOTQwM1 rlwlYiQMTvzWPgM2Szctkj FDkwFM7gDC2bsDrtsVGhiC JlRCZmEzItn9cjg408vSMy j5gnYUZXqwvmxGx8zIrcJ4 8lr0F1WfsmX75fgIRhQPT8 GRGaJLZlrOCqOBFoDJZ2PM ZyaIYmL4poIIXcLG4elfsi NFiwIVnnQNIgeVU6LAHckB HtP7OgPDViRJsgROEzcrt9 HdWqTe3ppGSjyXdnMSfnDO JkXHBsYWluXGJcZnMyMCBB GF4cJUFGYQ3DLJ40EZHWKh VOUA1ADJQUYxFRMUMNHNgf sGLxBTUzUK3tOAXjWf9aIY QPXXtGCA8UISUTTJiKXBxF PY7IAXIXNRNgRXfaVILnV3 DROFOKTS8MCvErZLNghwyq SXJ4r7gliGJnUHMenMHeGo LaVPHmMRPwd0loOHFxhKBx ZzEwMzNcZnRuYmpcdWMxXG UtOhJkp8jyr161iORyd9ts SPSbVcH5gYGfMSPevIcfad a0rLgpKjEvLNCuz6yeoyKu ZmNoYXJzZXQwIEFyaWFsO3 67TWHqUUdeb4rrx6UdSZGz dMDwl3U7GNYABJmdGfCyF7 16f5wpi3gccnElpIS2LUBq WXY5VSgdvrWqnlP8NBbchN BpDpN9PVwbydOrZHsoydRh bvHzZtj5BLTqH207HDO6fE qrh5vvBHV5PHFoHUSdHxzx Qy7glSAoZ320XRSpGITKFB KfpEt3JZYddpLmbkYfsFNG k218E497e4fjHIYanbUldS cAqovxi7mvC119LDBszQMe rvXbGcFqCWUpeYTyaUJ6XF MqWB5bawqaQFyfUGnfLDCl quJ9EQFavSMpJ8UaNKDwII 5fsjmnRUG8CGraYBPpZYQ9 ReDdDACaz3Eyazf0NpRlth 6bvy38WEG6g7SaoBjrGJV7 JLZ4XhBeLk7laGEdEEMvGN 7mTkYqyISkGQMpzl12fXas VMungaFupF4bNkClOLQzyU UdQGBuFU2zgXFlUXQorG1v cmxjXHBnYnJkcmhlYWRccG egafCeJv9duWglEFY6LAlv Q2efiU8aWdK2IPomJ2zkwL 7yWRa5AVislIC1LAYikP6q KS8dcsrbd3cfVDoeFOxaYK NpalR5dgU4TVJanDVcT2Ca pW7oOFXbLC8pmdgbf2wnNV I0MJlcJFVhYYE3KaPdDMMu d0Txbvf4PdHcu1AggRYhVV zlB06ll438KNAgwwQjZ2uc bGFpblxwbGFpblxmMFxmcz S1OSJvJIXpWPnfXQEkTILa MjBcbGFuZzEwMzNcaGljaF eiZXtiKkRkLGFdYWvrF6tn WaUlL5MgIZSvLeYzuACbFB jslRD9VJEbUXOvi27zlIx1 BUWiqbeqo0QfZQHmaUEgvI VdwI5nkvRkw9paFXCgCAVp RMBnF4FsSDD7yPYgUVVxzS NwwJS4YN6whzKdXZ7fCLEg YnkgcmVzaWRlbnRzLCBmZW wqr3iqXM9kGCQxsYbpxC3f zXZ5EOEgv9wohPMlpIFmh6 eix1DkrzJhCZitYFHsRXuq QHUhPYUkIU0dKIOhxMLgav Mul7F4HpvqnOBtikbaVbax agC3RLuqazihEJVjBDjpS2 lyMeXnJLRobHhnGgjgv4Mn XGYyXGZzMjhccGFyfX0= Final Diagnosis Comment y1bcoUEjDFIneEW3LTVqWQ (test code = Qew9hii0OmiOLunRJnGUqj 2170448337) gMMhynPnwc16xCY4vH82BH 0gPMJfHiX6BMGzpxX3Auy3 BMSzWHTztAFzQ901x8dxm4 fmwbBnaOJ9sKnzCUWzyhsh NtM1XTujUZOcfbvqYOd1HU vbKJXunGH6AVWzfCUzG6Co QCTjQM3ryvb5AZE5RGavGB PbPnN3BTPhoLRiMAQygCpu EJxzn223ZDL6OcCbLTJqbl PgjFemvG8qKgMiVYRPzFJm qhYtm5btjlEyVGNlsXm0MB BtZXNvdGhlbGlhbCBjZWxs lfOvvnVlZHCpQ2pnuv95wf Nwm3EtkBunkVdkZYydc1Zi x2A3lFucOQftFgppqC7nfV xmdz6mKm0wqVUgjHzxGO72 OSXyeYbmENrwGO50vEEdFO QuXHBhclxwYXJ9 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 2419226596) Gross Description (test z5nrdJIkLAGljXI0FMAiXU code = 0579824572) Evr2lmj4NhlJRayHWePMan xXDucnZmzy62mZS5jO25XS 7aHUWhSbT1SRFojmA4Unk7 OTIeFBRuuESpT248g6fub5 tiqsVgkGI3zMinLNVogwlx KeU8PUrvPKZcpvsaBFl1DG fuOSBvkTJ7XTLelXFuS2Dz NDMaXL2uvih0YDU5FYnnJL GaXmA2GYSrhIQqKTXbfIhz WNcqk048HVA4KbEgPSEdyq D8HJxpXLHzA4HjF7XcQZpl DWI9GSRnKJDsMWJeCKQtNC UvICeoktH4j5eiUPUtzHTp UMK5ATszhMPqFDWnWXSlNB qzIxMQUiDhRbRkGvQ1PZT5 HiP7DXe4MXOWJrJjAdKaFQ A7UWw8AIPnCQw8RXe7DZrU FcIwHqPxNkryOSE0GCZ1Tn AwIFxcdCAyIFxcZmwgXFxm IEFyaWFsIFxcZnMgMTAgXF wlS23gdBcjgK9eHlWpEXkp QLOaKdVwDaPPGQ2fOETGFL 3PVI47FXZLAvMLVL8FGOYN UyBGTFVJRFxwYXIgUmVjZW g3HRIeWvErl2mlbXYkIDUc R0FjsjItRaA3PQkgu4qxQm q3iZZiDZOxkdnaLIUGtfIs YXJlZCAyIHNsaWRlcyAoMS TOMPKnozitp1efz1CoY7t0 r1YcnT6iMJDkVITeGRGktV Wdw1kew6zfJ0d5h1QmzI3k eLOnaKWvMOOds25xYQaqJK YkZ4KfY5OzdsU1i7hujKhx b3AqpENqNV7aeKYdwM== Disclaimer (test code = z3egmELdUKSam2ouCXYyxZ 1866206166) FuZzEwMzNcZnRuYmpcdWMx DTzfehCrRYdvx0PfH3UhQp AwMFxhbnNpXGRlZmxhbmcx TGLgTMR3vmUxBUVdWThaCV UjOPcuPf1vuHLpkGddHoPp NUOst6xyclPQJVmdHlTtH0 09KULqZMycw6egx6EgFPWg sKTuc1J1ONJUqapmaGf0qZ beG39yb6X1FdxjF2mpBADm YAXzQ6JwUM2vMYAeKtb6TI E9QAY1EVTmZUSrS9ZtAI8t PUFqwCSrBJi0y3kulCrsXY QkYZH7m4ueGUeebtFhSG7r iv7qlIk1z2qtciYkPQDoTW AbnSJGWSYeP9IgqIwmBy0i pOr8eDkwDkfaQIF8Gap1VP 6hzz79rsy8uIlmUPIzmyab CvF0JEjfUMQssldrMXn7SF wzTWBzuPF0KQRecBRvP3Fx WPXnUA0rzbi4UDF0EYpoWX IgJkD4XOProYNdOBJnjHqj MYqcp585ULM1JjBpZV3fD2 Jkr2K9zA9apMUdQYTfwJPu FvZqBNGkej5qlRMcXQnvs9 EcSVA0zrM4aGHycMTeLHEl ZM71Aztgw2FcUodpr5HmI6 7jeTM1BCdha3fzIP1kIaG2 xaKoDQlst0bxpK0pObP9TI iaNG5wDW9oZUCdvU5aidiv XHBnYnJkcmhlYWRccGdicm SoZx7zmExzEAY5ZFgiP2rs fV6wKnP2JHwmA2irmT3iVM m3BDionPZ5DDCbmT1pZQ0p npmfw8etCFjtSCjlTLJobs F8vmW1LRYiwHIdP9RrfM3d QKMqHR1rfobtb0prJLS2VF nfTVNpDAD0ZlWiRQRhd4Tr lrw0MlTez2MkqPMlEGqmL1 6ku799HXHxakKnU3cfbSDy qnxvxKKbbyipHSugnmU9WT EwtnExs5OuTCMeRNV7RFrw RNkuiCHmUCTiuLmmm1jpU1 RscGFyXHBsYWluXGYxXGZz MjBcbGFuZzEwMzNcaGljaF qiAFmgIvApDHSpXJdcY0ky OcZjU6SjUPBhPeCqsKZxL9 ggVGhpcyByZXBvcnQgbWF5 IQwyJ7b4LFTernZyaLu0sl MkDkLkGRYuYLR0WCfnfCIc UWQwi3GlxcmgaTVuTl5ssV TtFRBmaK2sBFBuWEXxIVxm RV4fpDh8RNEFjLBlsEBpYw HDUJIsIR61eaFwQFMAkaqa a4S0PGxrNNUjo9SoeCFvA3 cwg4RaKFLzu26wQW9ze4D8 g1nbYCP7YI2xj7CdHAEmzN YroJHnSILvk2Ywsrean7Qb MAYdxtDhc9UcWDOqltLilN ZmQFJhqxGjbf5nltMjKJAu DKSjD9UcktrzrOmovwFvTW Vdsf9omkQyBAI1LIUXHDZs SSMha9FniZ3uxTPGNFR3tG Yzwb4ztaGIpLEoDNGlhp04 ROPnZF3bD7htXEQxDIVumq GdvKZqh2SqJKGyxOD2jVSn OF3GXhLDl62mQMQaJMIMoi RbRBErqFbcoSP2cmP7iP0p IChGREEpLlx+IFRoZSBGRE JfMG0ujwYlx2RzvoPejKex ZFRfrKIhb4ZqjPTph9CsrQ tlf0KztJFdnOTnXT4gWLKp clxwYXIgVVRNQiBMYWJvcm Y1k9SuJXNkEVGrSGB2eThc aqd8HUXcpM7mJHUjO4oieh zwDTrfYMIap0NogV5ooXNX jDHrt3ZwaXOgwHZGjSRpTM 4cyuLxEPwGWWbHQZQ9xdTj UXAev2TdJZngE6uvX46iyU iqvYq2wHM0NFP2uC3dKai+ IFxwYXJccGFyIEFwcHJvcH PrHYMznPrcfmLoI1QoimBq pI4dgZOskxYkBH7sWX3tM5 C7mXDpDTXfvvGiy0tdXAjx dmUgYmVlbiByZXZpZXdlZC Bsg4YjIYlkPIY7WGlfpkAw bmNsdWRpbmcgSCZFLCBTcG SkiNNcLFX5GMxfvgKtvvQm ZV4tlY9zzKhrvS0ppDGtbR L0aksjDAHmZBYsxLruIJUz YW8goPVfKQJejjSNqByhwK VwmN9nH0YzVIQwXPIauk6d JSMhbR9sAAnvy9MdvlniLP QhSZOcKDDquxKdkl5jZSGc wKXSXK3FUNhxnYMie6Cqxf FaG2wECZP6OOJhTiAdJlfp WCAeoRWlwSJcQBQpsz63LD WpcC3pdOzzWRPexB6zoW4o bQozeY4zYcBcNiEtXStnIB 0iHJRhS8nsgGFsBIDyHZVu G7zeKvBraD5rsNeqUJnkDg RuLdKmBFbkKBB8lL== Embedded Images (test code = 2805703085) [facility]HE[facility] [id number] 17:37:21 Test Item Value Reference Range Interpretation Comments RF (test code = See_Comment H [Automated [id number]) message] The system which generated this result transmitted reference range : <20 IU/mL. The reference range was not used to interpret this result as normal/abnormal . NICHOLAS (test code = NICHOLAS) Values greater than 36 IU/mL are considered significant. Lab Interpretation Abnormal (test code = 07001-2) [facility] [id number] 17:36:02 Test Item Value Reference Range Interpretation Comments C3 (test code = 9136496937) 40 mg/dL 86-184 L Lab Interpretation (test code = Abnormal 43267-3) [facility] [id number] 17:36:02 Test Item Value Reference Range Interpretation Comments C4 (test code = 5237996904) 4 mg/dL 20-59 L Lab Interpretation (test code = Abnormal 70800-6) [facility] HospitalALBUMIN BODY [id number] 17:18:00 Test Item Value Reference Range Interpretation Comments ALBUMIN BF (test code 447.0 mg/dL = 3584855443) NICHOLAS (test code = NICHOLAS) Result interpreted relative to the serum concentration. ? [id number] 09:13:45 Test Item Value Reference Range Interpretation [...] (test code = 59.0 fL 38.5-51.6 H 54970-1) RDW-CV (test code = 15.1 % 12.1-15.4 788-0) PLT (test code = See_Comment L [Automated 777-3) message] The sy stem which generated this result transmitted reference range : 150 - 328 10*3/ ?L. The reference r laura was not used to interpret this result as normal/abnormal . MPV (test code = 11.1 fL 9.8-13.0 97485-8) IPF % (test code = 6.8 % 1.2-10.7 Platelet count 3236328774) measured by fluorescence method. NRBC/100 WBC (test See_Comment [Automat ed code = 7865770771) message] The system which generated this result transmitted reference range : 0.0 - 10.0 /100 WBCs. The refer ence range was not u sed to interpret th is result as normal/abnormal . NRBC x10^3 (test code <0.01 See_Comment [Auto mated = 0203639659) message] The s ystem which generated this result transmitted reference range : 10*3/?L. The reference range was not used to interpret this result as normal/abnormal . GRAN MAT (NEUT) % 60.1 % (test code = 770-8) IMM GRAN % (test code 0.50 % = 4423712699) LYMPH % (test code = 20.6 % 736-9) MONO % (test code = 15.7 % 5905-5) EOS % (test code = 2.0 % 713-8) BASO % (test code = 1.1 % 706-2) GRAN MAT x10^3(ANC) 4.82 10*3/uL 1.99-6.95 (test code = 8604209537) IMM GRAN x10^3 (test 0.04 10*3/uL 0.00-0.06 code = 1946270261) LYMPH x10^3 (test code 1.65 10*3/uL 1.09-3.23 = 731-0) MONO x10^3 (test code 1.26 10*3/uL 0.36-1.02 H = 742-7) EOS x10^3 (test code = 0.16 10*3/uL 0.06-0.53 711-2) BASO x10^3 (test code 0.09 10*3/uL 0.01-0.09 = 704-7) REACT LYMPHS (test Rare code = 5801797105) Lab Interpretation Abnormal (test code = 06469-8) [facility]. METABOLIC PANEL (40804)2021-03-23 09:03:11 Test Item Value Reference Range Interpretation Comments NA (test code = 138 mmol/L 135-145 9160376310) K (test code = 4.2 mmol/L 3.5-5.0 8494769372) CL (test code = 110 mmol/L 98-108 H 4304032891) CO2 TOTAL (test code = 19 mmol/L 23-31 L 3089434745) AGAP (test code = 2-16 6592144158) BUN (test code = 4 mg/dL 7-23 L 7693084795) GLUCOSE (test code = 84 mg/dL 70-110 3615873311) CREATININE (test code = 0.61 mg/dL 0.60-1.25 4827763956) TOTAL BILI (test code = 4.3 mg/dL 0.1-1.1 H 1169214070) CALCIUM (test code = 7.6 mg/dL 8.6-10.6 L 3682721092) T PROTEIN (test code = 7.6 g/dL 6.3-8.2 1460757919) ALBUMIN (test code = 2.9 g/dL 3.5-5.0 L 2172565497) ALK PHOS (test code = 79 U/L 34-122 0507255866) ALTv (test code = 59 U/L 5-50 H 1742-6) AST(SGOT) (test code = 199 U/L 13-40 H 5543331442) eGFR (test code = mL/min/1.73m2 8557068328) NICHOLAS (test code = NICHOLAS) Association of [...] tests). Lab Interpretation Abnormal (test code = 32384-0) [facility] [id number] 08:43:50 Test Item Value Reference Range Interpretation Comments PROTIME PATIENT (test See_Comment H [Auto mated message] code = 5964-2) The system [employer] generated this result transmitted ref erence range: 10.1 - 1 2.6 Seconds. The reference range was not used to int erpret this result as normal/abnormal . INR (test code = 6301-6) Nor mal INR <1.1; Warfarin Therap eutic range 2.0 to 3. 0 or 2.5 to 3.5, dep ending upon the indica tions. Lab Interpretation (test Abnormal code = 60703-0) [facility] [id number] 00:16:59 Test Item Value Reference Range Interpretation Comments BF COLOR Yellow (test code = 0957636244) BF WBC Count See_Comment [Automated (test code = message] The sy stem 4747797697) which generated this result transmitted reference range : /?L. The refere nce range was not u sed to interpret th is result as normal/abnormal . BF RBC Count <3000 See_Comment [Automated (test code = message] The sy stem 7582546461) which generated this result transmitted reference range : /?L. The refere nce range was not u sed to interpret th is result as normal/abnormal . NICHOLAS (test The reference range code = NICHOLAS) and other method performance specifications have not been established for this body fluid. ?The test results must be integrated into the clinical context for interpretation. [facility] MANUAL [id number] 00:16:59 Test Item Value Reference Range Interpretation Comments BF SEGS (test code = 9439257867) 1 % BF LYMPHS (test code = 5246284885) 10 % MACROPHAGE (test code = 1910509080) 84 % MESOS (test code = 6567488876) 5 % #CELS CNTD (test code = 1442576759) [facility] HospitalT.PROTEIN BODY [id number] 00:14:13 Test Item Value Reference Range Interpretation Comments T.PROT BF (test 1467.0 mg/dL code = 0783171723) UNSPUN BODY FLUID Yellow COLOR (test code = 2979986472) UNSPUN BODY FLUID Clear CLARITY (test code = 5465451200) SPUN BODY FLUID Yellow COLOR (test code = 3816227302) SPUN BODY FLUID Clear CLARITY (test code = 3600502092) Sediment (test code No sediment. = 3017313309) NICHOLAS (test code = Test developed and NICHOLAS) characteristics determined by [facility]. [facility] HospitalHCV [id number] 23:54:52 Test Item Value Reference Range Interpretation Comments HCV Ab (test code = Positive 98755-1) HCV Semi-Quantitative (test code = 46663-7) APRI (test code = 0038114895) NICHOLAS (test code = Positive for HCV antibody. NIHCOLAS) This specimen has been reflexed to qualitative PCR test and submitted to [facility]. ?A report will be issued by that laboratory. ?If any questions, contact the Clinical Chemistry Director cardiopulmonary technologist at [phone].APRI score < 0.5: Suggestive of little to no fibrosisAPRI score > 1.5: Suggestive of moderate to severe fibrosisAPRI score > 2.0: Highly suggestive of cirrhosis. [facility] HospitalHIV [facility]/2 AG-AB WITH [id number] 23:50:53 Test Item Value Reference Range Interpretation Comments HIV Negative Negative Semi-quantitative (test code = 14951-8) NICHOLAS (test code = Non-reactive for HIV-1 NICHOLAS) antigen and HIV-1/HIV-2 antibodies. ?No laboratory evidence of HIV infection. ?Repeat in 2-4 weeks if acute HIV infection is suspected. [facility] / [id number] 23:04:48 Test Item Value Reference Range Interpretation Comments PROTIME PATIENT (test See_Comment H [Auto mated message] code = 5964-2) The system [employer] generated this result transmitted ref erence range: 10.1 - 1 2.6 Seconds. The reference range was not used to int erpret this result as normal/abnormal . INR (test code = 6301-6) Nor mal INR <1.1; Warfarin Therap eutic range 2.0 to 3. 0 or 2.5 to 3.5, dep ending upon the indica tions. Lab Interpretation (test Abnormal code = 21997-4) [facility] [id number] 22:44:25COVID DMT InterpretationInterpretation/Recommendations:Molecular NAAT Tests for Active [...] COVID-19 testing the patient has had at [facility], including molecular NAAT testing (more commonly known as PCR testing and Rapid ID Now testing) and antibody testing. It does not take into account any testing that a patient has had outside of the [facility] medical record. [facility] LABORATORY SERVICESCOVID ResultsSARS- CoV-2 Rapid ID NOW (no units) ? ? Date ? Value ? 03/22/2021 ? Not Detected ? [facility] 2 [id number] 22:40:05 No acute cardiopulmonary abnormality. Preliminary Report [...] this study and agree with th alissave report.[facility]OL[facility]2021-[facility] 22:40:03 Test Item Value Reference Range Interpretation Comments FOLATE SER (test code = 7704412284) 9.8 ng/mL 3.0-20.0 Lab Interpretation (test code = Normal 25687-2) [facility]IT[facility]IN B12, [id number] 22:27:23 Test Item Value Reference Range Interpretation Comments VIT B12 (test code = 962 pg/mL 240-930 H 8303930611) NICHOLAS (test code = NICHOLAS) Biotin has been reported to cause a positive bias, interpret results relative to patient's use of biotin. Lab Interpretation (test Abnormal code = 13443-2) [facility]AT[facility] B SURFACE [id number] 22:05:37 Test Item Value Reference Range Interpretation Comments HBsAg Semi-Quantitative (test code = Negative Negative 5195-3) [facility]IB[facility]INOGEN2021-07-05 21:42:14 Test Item Value Reference Range Interpretation Comments Fibrinogen (test code = 2306247360) 142 mg/dL 167-453 L Lab Interpretation (test code = Abnormal 71392-3) [facility]CT ABDOMEN PELVIS W [id number] 20:43:32 1. ?No CT evidence of acute [...] this study and agree with theabove report. [facility] WITH [id number] 18:46:06 Test Item Value Reference Range Interpretation [...] (test code = 60.0 fL 38.5-51.6 H 90639-1) RDW-CV (test code = 15.2 % 12.1-15.4 788-0) PLT (test code = See_Comment L [Automated 777-3) message] The sy stem which generated this result transmitted reference range : 150 - 328 10*3/ ?L. The reference r laura was not used to interpret this result as normal/abnormal . MPV (test code = 10.8 fL 9.8-13.0 94822-5) NRBC/100 WBC (test See_Comment [Automat ed code = 2136539457) message] The system which generated this result transmitted reference range : 0.0 - 10.0 /100 WBCs. The refer ence range was not u sed to interpret th is result as normal/abnormal . NRBC x10^3 (test code <0.01 See_Comment [Auto mated = 2256358969) message] The s ystem which generated this result transmitted reference range : 10*3/?L. The reference range was not used to interpret this result as normal/abnormal . GRAN MAT (NEUT) % 62.0 % (test code = 770-8) IMM GRAN % (test code 0.40 % = 8594737409) LYMPH % (test code = 18.8 % 736-9) MONO % (test code = 16.5 % 5905-5) EOS % (test code = 1.3 % 713-8) BASO % (test code = 1.0 % 706-2) GRAN MAT x10^3(ANC) 8.32 10*3/uL 1.99-6.95 H (test code = 4753210083) IMM GRAN x10^3 (test 0.05 10*3/uL 0.00-0.06 code = 5244586555) LYMPH x10^3 (test code 2.52 10*3/uL 1.09-3.23 = 731-0) MONO x10^3 (test code 2.22 10*3/uL 0.36-1.02 H = 742-7) EOS x10^3 (test code = 0.18 10*3/uL 0.06-0.53 711-2) BASO x10^3 (test code 0.13 10*3/uL 0.01-0.09 H = 704-7) Lab Interpretation Abnormal (test code = 34769-9) [facility]URINAL[facility]IS2021-[facility]-05 18:38:40 Test Item Value Reference Range Interpretation Comments APPEARANCE (test code = Clear Clear 0377206934) COLOR (test code = Christie Yellow A 6409160970) PH (test code = 4.8-8.0 1776264778) SP GRAVITY (test code = 1.003-1.030 2446491744) GLU U QUAL (test code = Normal Normal 2752016496) BLOOD (test code = Negative Negative 6462677971) KETONES (test code = Negative Negative 9857115323) PROTEIN (test code = 30 mg/dL Negative A 2887-8) UROBILIN (test code = 4.0 mg/dL Normal A 4826242684) BILIRUBIN (test code = Negative Negative 2333532962) NITRITE (test code = Negative Negative 6163141668) LEUK ADOLFO (test code = Negative Negative 5337181410) RBC/HPF (test code = See_Comment [Autom ated message] 6628434202) The system [employer] generated this result transmit cristina reference range : 0 - 3 HPF. The refe rence range was not u sed to interpret th is result as normal/abnormal . WBC/HPF (test code = See_Comment H [Autom ated message] 0793889999) The system [employer] generated this result transmit cristina reference range : 0 - 5 HPF. The refe rence range was not u sed to interpret th is result as normal/abnormal . BACTERIA (test code = Few Negative A 5241632055) MUCOUS (test code = Moderate Negative LPF A 4871608005) SQ EPITH (test code = <1 See_Comment [Auto mated message] 3161024596) The system [employer] generated this result transmit cristina reference range : <=2 HPF. The refere nce range was not u sed to interpret th is result as normal/abnormal . Ictotest (test code = Negative 4614826411) Lab Interpretation (test Abnormal code = 77704-2) [facility]COVID-[facility] (ID NOW RAPID TESTING)2021-03-22 18:30:01 Test Item Value Reference Range Interpretation Comments SARS-CoV-2 Rapid ID NOW Not Detected Not Detected (test code = 20244-1) NICHOLAS (test code = NICHOLAS) ID NOW COVID-19 Assay is an isothermal nucleic acid amplification test intended for the qualitative detection of nucleic acid from SARS-CoV-2 viral RNA in nasopharyngeal (STATION [employer]ECTIVE) specimens. It is used under Emergency Use [...] indicated. Lab Interpretation Normal (test code = 48797-6) [facility] HospitalETHANOL2021-07-05 18:26:02 Test Item Value Reference Range Interpretation Comments ALCOHOL (test code = 268 mg/dL 1125528584) NICHOLAS (test code = Toxic Greater than or NICHOLAS) equal to 80 mg/dL. NOTE: Whole blood values are approximately 10% to 15% lower than serum and plasma. [facility]HEPATIC FUNCTION PANEL (26431) (ALB,T.PRO,BILI T,BU/BC,ALT,AST,ALK PHOS)2021-03-22 18:26:01 Test Item Value Reference Range Interpretation Comments TOTAL BILI (test code = 2138123019) 4.8 mg/dL 0.1-1.1 H BILI UNCON (test code = 8831387789) 1.9 mg/dL 0.1-1.1 H BILI CONJ (test code = 2873671735) 0.8 mg/dL 0.0-0.3 H T PROTEIN (test code = 9897653660) 9.0 g/dL 6.3-8.2 H ALBUMIN (test code = 3559181724) 3.7 g/dL 3.5-5.0 ALK PHOS (test code = 6325419332) 119 U/L 34-122 ALTv (test code = 1742-6) 63 U/L 5-50 H AST(SGOT) (test code = 0123697923) 209 U/L 13-40 H Lab Interpretation (test code = Abnormal 34431-8) [facility]BASIC METABOLIC PANEL (NA, K, CL, CO2, GLUCOSE, BUN, CREATININE, CA)2021-03-22 18:26:01 Test Item Value Reference Range Interpretation Comments NA (test code = 136 mmol/L 135-145 3361879827) K (test code = 4.1 mmol/L 3.5-5.0 6111872273) CL (test code = 105 mmol/L 98-108 7588744227) CO2 TOTAL (test code = 20 mmol/L 23-31 L 5169218793) AGAP (test code = 2-16 3112188519) BUN (test code = 6 mg/dL 7-23 L 4388496115) GLUCOSE (test code = 115 mg/dL 70-110 H 8677480787) CREATININE (test code = 0.70 mg/dL 0.60-1.25 6253534160) CALCIUM (test code = 7.7 mg/dL 8.6-10.6 L 9592014795) eGFR (test code = mL/min/1.73m2 9701513509) NICHOLAS (test code = NICHOLAS) Association of [...] tests). Lab Interpretation Abnormal (test code = 18564-6) [facility] HospitalLIPASE2021-07-05 18:26:01 Test Item Value Reference Range Interpretation Comments LIPASE (test code = 4493563364) 1308 U/L 0-220 H Lab Interpretation (test code = Abnormal 15806-6) [facility] HospitalPROTHROMBIN TIME / [id number] 18:20:59 Test Item Value Reference Range Interpretation Comments PROTIME PATIENT (test See_Comment H [Auto mated message] code = 5964-2) The system [employer] generated this result transmitted ref erence range: 10.1 - 1 2.6 Seconds. The reference range was not used to int erpret this result as normal/abnormal . INR (test code = 6301-6) Nor mal INR <1.1; Warfarin Therap eutic range 2.0 to 3. 0 or 2.5 to 3.5, dep ending upon the indica tions. Lab Interpretation (test Abnormal code = 40069-9) [facility]"
[2021-08-27] MEDS ORDERED: ONDANSETRON 4 MG/2 ML VIAL ONE (18:03)
[2021-08-27] MEDS ORDERED: FENTANYL CITR 100 MCG/2 ML ONE ×2 (18:03→22:58)
--- NOTE | 2021-08-27 18:32 | RAD REPORT ---
EXAM DESCRIPTION: RAD - Chest Single View - 08/27/2021 6:18 pm CLINICAL HISTORY: ABDOMINAL DISTENTION COMPARISON: Abdomen 1 View (KUB) dated 09/28/2020; Abdomen Pelvis W Contrast dated 08/23/2021 FINDINGS: Lines: None. Lungs: Mild opacities at the left lung base. Pleural: Small left effusion. Cardiac: The heart size is within normal limits. Bones: No acute fractures. Other: IMPRESSION: Left basilar opacities likely a combination of small pleural effusion and atelectasis.
[2021-08-27 18:56] LABS: Absolute Lymphocytes (CBC) 1.4 K/uL (0.7-4.9); Basophils % 0.8 % (0-1.3); Hematocrit 27.4 % (39.6-49.0); MPV 7.4 fL (7.6-11.3)
[2021-08-27 18:58] LABS: Protime INR 1.69
[2021-08-27 19:09] LABS: ALT/SGPT 44 U/L (12-78); AST/SGOT 66 U/L (15-37); Albumin 1.8 g/dL (3.4-5.0); Alkaline Phosphatase 108 U/L (45-117); BUN Blood Urea Nitrogen 11 mg/dL (7-18); Bicarbonate 25 mmol/L (21-32); Bilirubin Direct 1.7 mg/dL (0-0.2); Bilirubin Total 3.5 mg/dL (0.2-1.0); Glucose Level 111 mg/dL (74-106); Lipase 480 U/L (73-393); Potassium 3.4 mmol/L (3.5-5.1); Protein, Total 7.4 g/dL (6.4-8.2); Sodium Level 138 mmol/L (136-145)
[2021-08-27 19:12] LABS: NT PRO-BNP 110 pg/mL (<125); Troponin (Emerg Dept Use Only) < 0.02 ng/mL (0.0-0.045)
[2021-08-27 20:07] LABS: Blood Morphology Comment NOT SEEN (NOT SEEN); Platelet Estimate DECR; White Blood Cell Scan OK (OK)
[2021-08-27] MEDS ORDERED: CEFTRIAXONE 1000 MG/VIAL ONE (23:31)
[2021-08-27] MEDS ORDERED: NA CHLORIDE 0.9% 100 ML ONE (23:31)
[2021-08-27] MEDS ORDERED: FUROSEMIDE 40 MG/4 ML VIAL ONE (23:59)
--- NOTE | 2021-08-28 00:37 | ER ---
Nurse's Notes [facility] Name: Jean Kamara Age: 35 yrs Sex: Male : 1985 Arrival Date: 08/27/2021 Time: 17:28 Bed 20 Private MD: Diagnosis: Unspecified cirrhosis of liver;Other ascites Presentation: 08/27 17:29 Chief complaint: EMS states: pt has hx of cirrhosis, cannot afford meds, needs iw paracentesis, c/o RUQ pain, nausea , and leg swelling, EMs gave 12.5 Phenergan IVP, and 100 mL NS, pain and nausea has improved. Coronavirus screen: At this time, the client does not indicate any symptoms associated with coronavirus-19. Ebola Screen: Patient negative for fever greater than or equal to 101.5 degrees Fahrenheit, and additional compatible Ebola Virus Disease symptoms Patient denies exposure to infectious person. Patient denies travel to an Ebola-affected area in the 21 days before illness onset. No symptoms or risks identified at this time. Initial Sepsis Screen: Does the patient meet any 2 criteria? No. Patient's initial sepsis screen is negative. Does the patient have a suspected source of infection? No. Patient's initial sepsis screen is negative. Risk Assessment: Do you want to hurt yourself or someone else? Patient reports no desire to harm self or others. Onset of symptoms was August 27, 2021. 17:29 Method Of Arrival: EMS: [facility] iw 17:29 Acuity: GREGORY 3 iw 18:13 Care prior to arrival: Medication(s) given: Normal saline infusion, zofran IV initiated.jl7 Historical: - Allergies: 17:30 No Known Allergies; iw - PMHx: 17:30 Hepatitis C; Hernia; Pancreatitis; iw - Immunization history:: Adult Immunizations unknown. - Social history:: Smoking status: unknown. Screenin:13 Abuse screen: Denies threats or abuse. Denies injuries from another. Nutritional jl7 screening: No deficits noted. Tuberculosis screening: No symptoms or risk factors identified. Fall Risk IV access (20 points). Total Madrid Fall Scale indicates No Risk (0-24 pts). Assessment: 18:15 General: Appears in no apparent distress. uncomfortable, Behavior is calm, cooperative, ll3 anxious. Pain: Complains of pain in abdomen, back Pain currently is 10 out of 10 on a pain scale. Pain began 4 hours ago. Is continuous. Neuro: Level of Consciousness is awake, alert, confused, Oriented to person, place, time, situation, Speech is normal, Facial symmetry appears normal. Cardiovascular: Patient's skin is warm and dry. Respiratory: Airway is patent Respiratory effort is even, unlabored, Respiratory pattern is regular, symmetrical. GI: Bowel sounds present X 4 quads. Abd is soft and non tender X 4 quads. Derm: Skin is pink, warm \\T\\ dry. Musculoskeletal: Range of motion: intact in all extremities, Swelling absent. 18:59 General: Appears in no apparent distress. Behavior is calm, cooperative. Neuro: Level 5 of Consciousness is awake, alert, Oriented to person, place, time, situation. Cardiovascular: Capillary refill < 3 seconds Patient's skin is warm and dry. Respiratory: Airway is patent Trachea midline Respiratory effort is even, unlabored, Respiratory pattern is. GI: Abdomen is distended. 19:00 Reassessment: No changes from previously documented assessment. Patient and/or family 5 updated on plan of care and expected duration. Pain level reassessed. 20:00 Reassessment: No changes from previously documented assessment. sm5 21:00 Reassessment: No changes from previously documented assessment. sm5 22:00 Reassessment: No changes from previously documented assessment. sm5 23:00 Reassessment: No changes from previously documented assessment. 5 08/28 00:00 Reassessment: No changes from previously documented assessment. sm5 01:00 Reassessment: No changes from previously documented assessment. 5 02:00 Reassessment: No changes from previously documented assessment. 5 Vital Signs: 08/27 18:18 BP 132 / 78; Pulse 94; Resp 20; Temp 98.7; Pulse Ox 99% on R/A; ll3 19:00 BP 120 / 69; Pulse 94; Resp 19; Pulse Ox 98% on R/A; sm5 20:00 BP 128 / 72; Pulse 90; Resp 18; Pulse Ox 99% ; sm5 21:00 BP 120 / 73; Pulse 90; Resp 20; Pulse Ox 100% ; sm5 22:00 BP 121 / 76; Pulse 96; Resp 18; Pulse Ox 100% ; sm5 23:00 BP 111 / 64; Pulse 92; Resp 17; Pulse Ox 99% ; 5 11 00:00 BP 127 / 97; Pulse 95; Resp 19; Pulse Ox 99% ; sm5 01:00 BP 126 / 74; Pulse 80; Resp 16; Pulse Ox 100% on R/A; sm5 02:00 BP 118 / 71; Pulse 86; Resp 17; Pulse Ox 100% on R/A; sm5 03:19 BP 120 / 67; Pulse 81; Resp 19; Pulse Ox 99% ; 5 ED Course: 08/27 17:28 Patient arrived in ED. ss 17:30 Triage completed. iw 17:30 Arm band placed on. iw 17:42 Virgilio Brand PA is PHCP. cp 17:42 Madi Suero MD is Attending Physician. cp 18:12 EKG done, by ED staff, reviewed by Virgilio HARO. jl7 18:13 Patient has correct armband on for positive identification. Bed in low position. Call jl7 light in reach. Side rails up X 1. backbreaker on. Pulse ox on. NIBP on. Warm blanket given. 18:15 Inserted saline lock: 20 gauge in right antecubital area, using aseptic technique. ll3 18:20 XRAY Chest (1 view) In Process Unspecified. EDMS 18:34 Geoff Lemus, YENNIFER is Primary Nurse. ll3 22:08 CT Abd/Pelvis - IV Contrast Only In Process Unspecified. EDMS 23:20 Blood Culture Adult (2) Sent. sm5 23:21 Procalcitonin Sent. sm5 23:21 Lactate Sent. sm5 23:21 AMMONIA Sent. 5 23:37 Attending Physician role handed off by Madi Suero MD cp 23:37 Virgilio Givens MD is Attending Physician. cp 08/28 00:50 COVID-19 SARS RT PCR (Document "Date of Onset" if Symptomatic) Sent. 5 03:17 No provider procedures requiring assistance completed. Patient transferred, IV remains [address] Administered Medications: 08/27 18:10 Drug: Zofran (Ondansetron) 4 mg Route: IVP; Site: right antecubital; ll3 18:47 Follow up: Response: No adverse reaction; Marked relief of symptoms ll3 18:14 Drug: fentaNYL (PF) 25 mcg Route: IVP; Site: right antecubital; ll3 18:47 Follow up: Response: No adverse reaction; Pain is decreased ll3 23:05 Drug: fentaNYL (PF) 25 mcg Route: IVP; Site: right antecubital; 5 08/28 02:45 Follow up: Response: Pain is decreased 5 08/27 23:40 Drug: Rocephin - (cefTRIAXone) 2 grams Route: IVPB; Infused Over: 30 mins; Site: right sm5 antecubital; 08/28 00:10 Follow up: IV Intake: 100ml 5 00:21 Drug: Lasix (furosemide) 40 mg Route: IVP; Site: right antecubital; 5 02:44 Follow up: Response: Other; Other: pt urinated 1400ml 5 02:02 Drug: Albumin 25 grams Volume: 100 ml; Route: IVPB; Site: right antecubital; 5 02:30 Follow up: IV Int[facility]: [facility]ml [facility] 02:44 Drug: Nicotine Patch 21 mg/24 hr 1 patches Route: Transdermal; Site: affected area; [facility] 03:19 Follow up: Response: Marked relief of symptoms [facility] Intake: 00:10 IV: 100ml; Total: 100ml. 5 02:30 IV: 100ml; Total: 200ml. [facility] Outcome: 00:36 ER care complete, transfer ordered by MD. silver 03:18 Transferred by ground EMS to [facility], [facility]: . 03:18 Condition: stable 03:18 Instructed on the need for transfer. 03:20 Patient left the ED. [facility] Signatures: Dispatcher [employer] Lidia Hanna RN Ariella Chung RN RN Virgilio Talamantes PA PA cp Leal, Jahala RN RN [email or web address] Geoff Lemus RN RN ll3 Mariam Metz RN RN 5
--- NOTE | 2021-08-28 00:38 | EDPHYS ---
Physician Documentation [facility] Name: Jean Kamara Age: 35 yrs Sex: Male : 1985 Arrival Date: 08/27/2021 Time: 17:28 Bed 20 Private MD: ED Physician Virgilio Givens HPI: 08/27 17:55 This 35 yrs old Male presents to ER via EMS with complaints of Abdominal Swelling, cp Nausea, Abdominal Pain. 17:55 The patient presents with abdominal pain that is diffuse, abdominal distention that is cp diffuse. 17:55 Onset: The symptoms/episode began/occurred chronically. The symptoms do not radiate. cp Associated signs and symptoms: Pertinent positives: nausea and vomiting, anorexia, Pertinent negatives: blood in stools, chest pain, constipation, diarrhea, fever, vomiting blood. The symptoms are described as constant. Modifying factors: the symptoms are aggravated by movement, pressure. Severity of pain: in the emergency department the pain is unchanged despite home interventions. Historical: - Allergies: 17:30 No Known Allergies; iw - PMHx: 17:30 Hepatitis C; Hernia; Pancreatitis; iw - Immunization history:: Adult Immunizations unknown. - Social history:: Smoking status: unknown. ROS: 18:00 Constitutional: Positive for chills, Negative for fever, poor PO intake. cp 18:00 Eyes: Negative for injury, pain, redness, and discharge. cp 18:00 Cardiovascular: Positive for edema, Negative for chest pain, palpitations. cp 18:00 Respiratory: Positive for shortness of breath. cp 18:00 Abdomen/GI: Positive for abdominal pain, nausea and vomiting, abdominal distension, Negative for diarrhea, constipation, hematemesis, black/tarry stool, rectal bleeding. 18:00 Back: Negative for injury or acute deformity, decreased range of motion. 18:00 : Negative for urinary symptoms, testicular pain 18:00 Neuro: Negative for altered mental status, headache, weakness. 18:00 All other systems are negative. Exam: 18:05 Constitutional: The patient appears in no acute distress, alert, awake, cp non-diaphoretic, non-toxic, well developed, well nourished, uncomfortable. 18:05 Head/Face: Normocephalic, atraumatic. cp 18:05 Eyes: Periorbital structures: appear normal, Conjunctiva: normal, no exudate, no injection, Sclera: no appreciated abnormality, Lids and lashes: appear normal, bilaterally. 18:05 ENT: External ear(s): are unremarkable, Nose: is normal, Mouth: Lips: moist, Oral mucosa: moist, Posterior pharynx: Airway: no evidence of obstruction, patent. 18:05 Neck: ROM/movement: is normal, is supple, without pain, no range of motions limitations, no meningismus, no nuchal rigidity. 18:05 Chest/axilla: Inspection: normal, Palpation: is normal, no crepitus, no tenderness. 18:05 Cardiovascular: Rate: normal, Rhythm: regular, JVD: is not appreciated. 18:05 Respiratory: the patient does not display signs of respiratory distress, Respirations: normal, no use of accessory muscles, no retractions, labored breathing, is not present, Breath sounds: are clear throughout, no decreased breath sounds, no stridor, no wheezing. 18:05 Abdomen/GI: Inspection: distension, that is severe, Bowel sounds: active, all quadrants, Palpation: soft, in all quadrants, moderate abdominal tenderness, in all quadrants, rebound tenderness, is not appreciated, voluntary guarding, is not appreciated, Hernia: noted in the umbilical area, incarceration, is not appreciated, tenderness, is not appreciated. 18:05 Back: CVA tenderness, is absent. 18:05 Skin: cellulitis, is not appreciated, no rash present. 18:05 Neuro: Orientation: to person, place \\T\\ time. Mentation: is normal, Motor: moves all fours, strength is normal, Sensation: is normal. 18:15 ECG was reviewed by the Attending Physician. cp Vital Signs: 18:18 BP 132 / 78; Pulse 94; Resp 20; Temp 98.7; Pulse Ox 99% on R/A; ll3 19:00 BP 120 / 69; Pulse 94; Resp 19; Pulse Ox 98% on R/A; sm5 20:00 BP 128 / 72; Pulse 90; Resp 18; Pulse Ox 99% ; sm5 21:00 BP 120 / 73; Pulse 90; Resp 20; Pulse Ox 100% ; sm5 22:00 BP 121 / 76; Pulse 96; Resp 18; Pulse Ox 100% ; sm5 23:00 BP 111 / 64; Pulse 92; Resp 17; Pulse Ox 99% ; [facility] 08/28 00:00 BP 127 / 97; Pulse 95; Resp 19; Pulse Ox 99% ; [facility] 01:00 BP 126 / 74; Pulse 80; Resp 16; Pulse Ox 100% on R/A; [facility] 02:00 BP 118 / 71; Pulse 86; Resp 17; Pulse Ox 100% on R/A; [facility] 03:19 BP 120 / 67; Pulse 81; Resp 19; Pulse Ox 99% ; [facility] MDM: 08/27 17:48 Patient medically screened. 08/28 00:30 Data reviewed: vital signs, nurses notes, lab test result(s), EKG, radiologic studies, cp CT scan, plain films. 00:30 Differential diagnosis: bowel obstruction, diverticulitis, pancreatitis, sepsis. Test cp interpretation: by ED physician or midlevel provider: ECG, plain radiologic studies. Response to treatment: the patient's symptoms have mildly improved after treatment. 00:30 Physician consultation: was contacted at 00:30, regarding regarding transfer, to [facility]. patient's condition, accepting physician will be DR Fay. 08/27 17:52 Order name: Basic Metabolic Panel; Complete Time: 20:27 08/27 17:52 Order name: CBC with Diff; Complete Time: 20:27 08/27 20:27 Interpretation: Normal except: WBC 5.80; RBC 2.70; HGB 9.4; HCT 27.4; MCV 101.3; PLT cp 130; MPV 7.4; MN% 17.8. 08/27 17:52 Order name: LFT's; Complete Time: 20:27 08/27 17:52 Order name: Magnesium; Complete Time: 20:27 08/27 17:52 Order name: NT PRO-BNP; Complete Time: 20:27 08/27 17:52 Order name: PT-INR; Complete Time: 20:27 08/27 21:38 Interpretation: Abnormal: PT 19.5. 08/27 17:52 Order name: Troponin (emerg Dept Use Only); Complete Time: 20:27 08/27 17:52 Order name: Lipase; Complete Time: 20:27 08/27 17:52 Order name: Ptt, Activated; Complete Time: 20:27 08/27 20:07 Order name: CBC Smear Scan; Complete Time: 20:27 EDMS 08/27 22:52 Order name: Blood Culture Adult (2) cp 08/27 22:52 Order name: Lactate; Complete Time: 00:18 cp 08/27 22:52 Order name: Procalcitonin; Complete Time: 00:18 cp 08/27 22:52 Order name: AMMONIA; Complete Time: 23:58 cp 08/27 17:52 Order name: XRAY Chest (1 view); Complete Time: 20:27 cp 08/27 17:52 Order name: EKG; Complete Time: 17:53 cp 08/27 17:52 Order name: Cardiac monitoring; Complete Time: 18:12 cp 08/27 17:52 Order name: EKG - Nurse/Tech; Complete Time: 18:12 cp 08/27 17:52 Order name: IV Saline Lock; Complete Time: 18:34 cp 08/27 17:52 Order name: Labs collected and sent; Complete Time: 18:46 cp 08/27 17:52 Order name: O2 Per Protocol; Complete Time: 18:12 cp 08/27 20:28 Order name: CT Abd/Pelvis - IV Contrast Only cp 08/28 00:20 Order name: COVID-19 SARS RT PCR (Document "Date of Onset" if Symptomatic) cs9 08/27 17:52 Order name: O2 Sat Monitoring; Complete Time: 18:12 cp EC/10 18:15 Rate is 94 beats/min. Rhythm is regular. IL interval is normal. QRS interval is cp prolonged at 104 msec. QT interval is normal. T waves are Inverted in lead aVR. Interpreted by me. Reviewed by me. Administered Medications: 18:10 Drug: Zofran (Ondansetron) 4 mg Route: IVP; Site: right antecubital; ll3 18:47 Follow up: Response: No adverse reaction; Marked relief of symptoms ll3 18:14 Drug: fentaNYL (PF) 25 mcg Route: IVP; Site: right antecubital; ll3 18:47 Follow up: Response: No adverse reaction; Pain is decreased ll3 23:05 Drug: fentaNYL (PF) 25 mcg Route: IVP; Site: right antecubital; sm5 08/28 02:45 Follow up: Response: Pain is decreased 5 08/27 23:40 Drug: Rocephin - (cefTRIAXone) 2 grams Route: IVPB; Infused Over: 30 mins; Site: right sm5 antecubital; 08/28 00:10 Follow up: IV Intake: 100ml sm5 00:21 Drug: Lasix (furosemide) 40 mg Route: IVP; Site: right antecubital; 5 02:44 Follow up: Response: Other; Other: pt urinated 1400ml sm5 02:02 Drug: Albumin 25 grams Volume: 100 ml; Route: IVPB; Site: right antecubital; 5 02:30 Follow up: IV Intake: 100ml sm5 02:44 Drug: Nicotine Patch 21 mg/24 hr 1 patches Route: Transdermal; Site: affected area; 5 03:19 Follow up: Response: Marked relief of symptoms 5 Disposition Summary: 08/28/21 00:36 Transfer Ordered Transfer Location: [facility] cp Reason: Higher level of care cp Condition: Stable cp Problem: an ongoing problem cp Symptoms: have improved cp Accepting Physician: DR Fay(08/28/21 03:20) 5 Diagnosis - Unspecified cirrhosis of liver cp - Other ascites cp Forms: - Medication Reconciliation Form cp - SBAR form cp Addendum: 08/30/2021 11:15 Co-signature as Attending Physician, Virgilio Givens MD I agree with the assessment and [place] plan of care. Signatures: Dispatcher [employer] Virgilio Mejia MD MD cha Williams, Irene, RN RN iw Nilesh Dang, DEPUTY BAILIFF-C DEPUTY BAILIFF-Cla1 Virgilio Brand, PA PA cp Alessandra Washington RN RN jl7 Geoff Lemus RN RN ll3 Mariam Metz RN RN sm5 Corrections: (The following items were deleted from the chart) 08/28 01:25 00:36 Doctor cp cp 03:20 01:25 DR Fay cp 5
[2021-08-28] MEDS ORDERED: ALBUMIN HUMAN 25% 50 ML IV ONE ×2 (01:31→01:53)
[2021-08-28] MEDS ORDERED: NICOTINE 21 MG/PAT TD ONE (02:37)
[2021-08-28 03:38] VITALS: TEMP 98.7
[2021-08-28 03:53] VITALS: BP 120/67; O2SAT 99
--- NOTE | 2021-08-28 17:13 | RAD REPORT ---
EXAM DESCRIPTION: CT - Abdomen Pelvis W Contrast - 08/28/2021 6:23 am CLINICAL HISTORY: Abdominal distention;Abd pain COMPARISON: 08/23/2021. TECHNIQUE: CT ABDOMEN PELVIS WITH IV CONTRAST on 08/27/2021 8:28 PM COUNSELOR AIDE This exam was performed according to our departmental dose-optimization program, which includes autom ated exposure control, adjustment of the mA and/or kV according to patient size and/or use of iterati ve reconstruction technique. FINDINGS: There is a moderate left pleural effusion. There is a trace right pleural effusion. Abdomen: Liver is cirrhotic in morphology. There is no biliary dilatation. There are multiple small g allstones in the gallbladder. There is large amount of ascites throughout the abdomen. The pancreas a nd spleen are normal in appearance. The adrenal glands and kidneys are unremarkable. Abdominal aorta is normal in course and caliber without aneurysm. There is no free air. There is no r etroperitoneal adenopathy. Pelvis: There is mild diffuse thickening of small bowel without distention. There is extensive thicke vasquez of essentially the entire colon. Urinary bladder is unremarkable. There is large amount of free pelvic fluid. Appendix is normal. There is a small ascites containing ventral hernia. Skeleton: There are no acute osseous findings. No suspicious bony lesions. IMPRESSION: Relatively little change since recent prior study. Extensive ascites with hepatic cirrho sis. Diffuse colitis. Electronically signed by: Justo Ordonez MD 08/27/2021 10:39 PM COUNSELOR AIDE Due to temporary technical issues with the PACS/Fluency reporting system, reports are being signed by the in house radiologists without review as a courtesy To insure prompt reporting. The interpreting radiologist is fully responsible for the content of the report.
== END 2021-08-28 03:20 | disposition short-term general hospital (02) ==
LOC: ER 17:24
DX: R18.8 Other ascites (principal); K74.60 Unspecified cirrhosis of liver; Z20.822 Contact with and (suspected) exposure to COVID-19
CPT/HCPCS: 36415; 71045; 74177; 80048; 80076; 82140; 83605; 83690; 83735; 83880; 84145; 84484; 85025; 85610; 85730; 87040; 93005; 96374; 96375; 99285; J1940; J2405; J3010; P9047; Q9967; U0003

== ENCOUNTER 2021-09-16 02:09 | Emergency (ER) | payer SELFPAY ==
--- OUTSIDE RECORDS SUMMARY | 2021-09-16 02:16 | XMS REPORT | Continuity of Care Document ---
:1985 Author Organization [facility] t Address [address] [place] [place] [address] Care Team Providers Name Role Phone Pcp, Does Not Have A Primary Care Physician Brie Mcguire MD Attending Clinician NELLY PURCELL Attending Clinician Unavailable ARTURO ARMANDO Attending Clinician Unavailable Jered LORD Attending Clinician Darci RN, E Attending Clinician Mumtaz DUNHAMN Attending Clinician Fidelina LORD O Attending Clinician Leroy THOMPSON B Attending Clinician Gretel HARPER Attending Clinician Unavailable Fausto BELL Admitting Clinician Unavailable Brie Mcguire MD Admitting Clinician Problems Condition Condition Condition Status Onset Resolution Last Treating Co mments Source Name Details Category Date Date Treatment Clinician Date Ascites Ascites Disease Active Univers due to due to 05 [place] 00 [facility] [place] Allergies, Adverse Reactions, Alerts Allergy Allergy Status Severity Reaction(s) Onset Inactive Treating Comm ents Source Name Type Date Date Clinician NO KNOWN Drug Active Univers ALLERGIE Class ity of S [facility] [place] NO KNOWN Allergy Active [facility] Social History Social Habit Start Date Stop Date Quantity Comments Source History of tobacco 1999-09-18 Cigarette Smoker University of use 00:00:00 [facility] [place] History SDOH University o f Alcohol Frequency [place] [facility] History SDOH University o f Alcohol Std Drinks [facility] [place] History SDHI University o f Alcohol Binge [facility] al Branch Exposure to Not sure University of SARS-CoV-2 (event) [facility] [place] Alcohol intake 2021-06-18 2021-06-18 4 /d University of 00:00:00 00:00:00 [facility] [place] Cigarettes smoked 2021-03-22 2021-03-22 Univers ity of current (pack per 00:00:00 00:00:00 [facility] ) - Reported Branch Cigarette 2021-03-22 2021-03-22 University of pack-years 00:00:00 00:00:00 [facility] [place] Tobacco use and 2021-03-22 2021-03-22 Never used Universit y of exposure 00:00:00 00:00:00 [facility] [place] Alcohol Comment 2021-03-22 2021-03-22 24 oz beers Universi ty of 00:00:00 00:00:00 [facility] [place] Sex [birth year] At [birth year] Universit y of 00:00:00 00:00:00 [facility] [place] Smoking Status Start Date Stop Date Source Unknown if ever smoked Universit y of [facility] [place] Current every day smoker 2021-03-22 00:00:00 Uni versity of [facility] [place] Medications Ordered Filled Start Stop Current Ordering Indication Dosage Frequency Signature Comments Components Source Medication Medication Date Date Medication? Clinician (SIG) Name Name iopamidol 2020-09- No [id number] 100mL 100 mL, Univers (ISOVUE 06-18 Intravenou ity o f 370-500 mL) 21:44: 21:44 s, ONCE, 1 [place] injection 00 :00 dose, On Medica l 100 mL Fri Branch 06/18/21 at 1700, Routine FENTanyl PF 2020-09- No 100ug 100 mcg, Univers (SUBLIMAZE 06-18 Slow IV ity o f (PF)) 21:00: 20:12 Push, [place] injection 00 :00 ONCE, 1 Medical 100 mcg dose, On Branch 06/18/21 at 1600, Routine ondansetron 2020-09- No 4mg 4 mg, Slow Univers (ZOFRAN 0-01 10 IV Push, ity of (PF)) 21:00: 20:12 ONCE, 1 [place] injection 4 00 :00 dose, On Medi birgit mg Fri Branch 06/18/21 at 1600, JAMEL ciprofloxac 2020-09 Yes [id number] 500mg Take 1 Univers in HCl 500 0-01 tablet by ity of mg tablet 00:00: mouth 2 [place] 00 (two) Medical times Branch daily. metroNIDAZO 2020-09 Yes [id number] 500mg Take 1 Univers LE 500 mg 0-01 tablet by ity o f tablet 00:00: mouth [place] 00 every 8 Medical (eight) Branch hours. ondansetron 2020-09 Yes [id number] 4mg Take 1 Univers 4 mg 0-01 tablet by ity of disintegrat 00:00: mouth [place] ing tablet 00 every 4 Medica l (four) Branch hours as needed for Nausea and Vomiting (N/V). ciprofloxac 2020-09 Yes [id number] 500mg Take 1 Univers in HCl 500 0-01 tablet by ity of mg tablet 00:00: mouth 2 [place] 00 (two) Medical times Branch daily. metroNIDAZO 2020-09 Yes [id number] 500mg Take 1 Univers LE 500 mg 0-01 tablet by ity o f tablet 00:00: mouth [place] 00 every 8 Medical (eight) Branch hours. ondansetron 2020-09 Yes [id number] 4mg Take 1 Univers 4 mg 0-01 tablet by ity of disintegrat 00:00: mouth [place] ing tablet 00 every 4 Medica l (four) Branch hours as needed for Nausea and Vomiting (N/V). HYDROcodone 2020-09- Yes [id number] 1{tbl} Take 1 U nivers -acetaminop 0-01 06-26 tablet by it y of hen 5-325 00:00: 04:59 mouth [place] mg tablet 00 :00 every 4 Medical (four) Branch hours as needed for Pain (scale 4-6) for up to 7 days. Indication s: acute pain foLIC acid 0 Yes [id number] 1mg Take 1 Univers 1 mg tablet 7-09 tablet by ity of 00:00: mouth [place] 00 daily. Medical Branch spironolact 0 Yes [id number] 50mg Take 1 Univers one 50 mg 7-09 tablet by ity o f tablet 00:00: mouth [place] 00 daily. Medical Branch thiamine 0 Yes [id number] 100mg Take 1 U nivers 100 mg 7-09 tablet by ity of tablet 00:00: mouth [place] 00 daily. Medical Branch furosemide 0 Yes [id number] 20mg Take 1 Univers 20 mg 7-09 tablet by ity of tablet 00:00: mouth [place] 00 daily. [facility] Branch foLIC acid 0 Yes [id number] 1mg Take 1 Univers 1 mg tablet 7-09 tablet by ity of 00:00: mouth [place] 00 daily. [facility] Branch spironolact Yes [id number] 50mg Take 1 Univers one 50 mg 7-09 tablet by ity o f tablet 00:00: mouth [place] 00 daily. Medical Branch thiamine 0 Yes [id number] 100mg Take 1 U nivers 100 mg 7-09 tablet by ity of tablet 00:00: mouth [place] 00 daily. Medical Branch furosemide 0 Yes [id number] 20mg Take 1 Univers 20 mg 7-09 tablet by ity of tablet 00:00: mouth [place] 00 daily. [facility] Branch foLIC acid 0 Yes [id number] 1mg Take 1 Univers 1 mg tablet 7-09 tablet by ity of 00:00: mouth [place] 00 daily. [facility] Branch spironolact 0 Yes [id number] 50mg Take 1 Univers one 50 mg 7-09 tablet by ity o f tablet 00:00: mouth [place] 00 daily. [facility] Branch thiamine 2020-0 Yes [id number] 100mg Take 1 U nivers 100 mg 7-09 tablet by ity of tablet 00:00: mouth [place] 00 daily. [facility] Branch furosemide 2020-0 Yes [id number] 20mg Take 1 Univers 20 mg 7-09 tablet by ity of tablet 00:00: mouth [place] 00 daily. [facility] Branch foLIC acid 0 Yes [id number] 1mg Take 1 Univers 1 mg tablet 7-09 tablet by ity of 00:00: mouth [place] 00 daily. Medical Branch spironolact 2020-0 Yes [id number] 50mg Take 1 Univers one 50 mg 7-09 tablet by ity o f tablet 00:00: mouth [place] 00 daily. Medical Branch thiamine 2020-0 Yes [id number] 100mg Take 1 U nivers 100 mg 7-09 tablet by ity of tablet 00:00: mouth [place] 00 daily. Medical Branch furosemide 2020-0 Yes [id number] 20mg Take 1 Univers 20 mg 7-09 tablet by ity of tablet 00:00: mouth [place] 00 daily. Medical Branch foLIC acid 2020-0 Yes [id number] 1mg Take 1 Univers 1 mg tablet 7-09 tablet by ity of 00:00: mouth [place] 00 daily. Medical Branch spironolact 2020-0 Yes [id number] 50mg Take 1 Univers one 50 mg 7-09 tablet by ity o f tablet 00:00: mouth [place] 00 daily. Medical Branch thiamine 2020-0 Yes [id number] 100mg Take 1 U nivers 100 mg 7-09 tablet by ity of tablet 00:00: mouth [place] 00 daily. Medical Branch furosemide 2020-0 Yes [id number] 20mg Take 1 Univers 20 mg 7-09 tablet by ity of tablet 00:00: mouth [place] 00 daily. Medical Branch foLIC acid 2020-0 Yes [id number] 1mg Take 1 Univers 1 mg tablet 7-09 tablet by ity of 00:00: mouth [place] 00 daily. Medical Branch spironolact 2020-0 Yes [id number] 50mg Take 1 Univers one 50 mg 7-09 tablet by ity o f tablet 00:00: mouth [place] 00 daily. Medical Branch thiamine 2020-0 Yes [id number] 100mg Take 1 U nivers 100 mg 7-09 tablet by ity of tablet 00:00: mouth [place] 00 daily. Medical Branch furosemide 2020-0 Yes [id number] 20mg Take 1 Univers 20 mg 7-09 tablet by ity of tablet 00:00: mouth [place] 00 daily. Medical Branch foLIC acid 2020-0 Yes [id number] 1mg Take 1 Univers 1 mg tablet 7-09 tablet by ity of 00:00: mouth [place] 00 daily. Medical Branch spironolact 2020-0 Yes [id number] 50mg Take 1 Univers one 50 mg 7-09 tablet by ity o f tablet 00:00: mouth [place] 00 daily. Medical Branch thiamine 0 Yes [id number] 100mg Take 1 U nivers 100 mg 7-09 tablet by ity of tablet 00:00: mouth [place] 00 daily. Medical Branch furosemide 0 Yes [id number] 20mg Take 1 Univers 20 mg 7-09 tablet by ity of tablet 00:00: mouth [place] 00 daily. Medical Branch foLIC acid 0 Yes [id number] 1mg Take 1 Univers 1 mg tablet 7-09 tablet by ity of 00:00: mouth [place] 00 daily. Medical Branch spironolact Yes [id number] 50mg Take 1 Univers one 50 mg 7-09 tablet by ity o f tablet 00:00: mouth [place] 00 daily. Medical Branch thiamine Yes [id number] 100mg Take 1 U nivers 100 mg 7-09 tablet by ity of tablet 00:00: mouth [place] 00 daily. Medical Branch furosemide Yes [id number] 20mg Take 1 Univers 20 mg 7-09 tablet by ity of tablet 00:00: mouth [place] 00 daily. [facility] Branch lactulose 2020- No [id number] 15mL Take 15 mL Univers 10 gram/15 03-26- by mouth ity of mL solution 00:00: 04:59 daily for [place] 00 :00 30 days. [facility] Branch lactulose 2020- No [id number] 15mL Take 15 mL Univers 10 gram/15 03-26- by mouth ity of mL solution 00:00: 04:59 daily for [place] 00 :00 30 days. [facility] Branch lactulose 2020- No [id number] 15mL Take 15 mL Univers 10 gram/15 03-26- by mouth ity of mL solution 00:00: 04:59 daily for [place] 00 :00 30 days. [facility] Branch lactulose 2020- No [id number] 15mL Take 15 mL Univers 10 gram/15 03-26- by mouth ity of mL solution 00:00: 04:59 daily for [place] 00 :00 30 days. [facility] Branch lactulose 2020- No [id number] 15mL Take 15 mL Univers 10 gram/15 03-26 by mouth ity of mL solution 00:00: 04:59 daily for [place] 00 :00 30 days. Medical Branch lactulose 2020- No [id number] 15mL Take 15 mL Univers 10 gram/15 03-26 by mouth ity of mL solution 00:00: 04:59 daily for [place] 00 :00 30 days. Medical Branch ondansetron 2020-2020- No 4mg Take 4 mg Univers 4 mg tablet 03-25 by mouth ity of 16:44: 00:00 every 8 [place] 01 :00 (eight) Medical hours as Branch needed. Melatonin 5 2020- No Take by U nivers mg tablet 03-25 mouth. ity of 16:44: 00:00 [place] 01 :00 Medical Branch lactulose Yes 15mL 15 mL, Univer s (CEPHULAC) - Oral, ity of solution 15 14:00: DAILY, [place] mL 00 First dose Medical on [facility] Branch 03/25/21 at 0900, Until [facility] Routine morpHINE 2020- No 2mg 2 mg, Slow Un esa injection 2 03-25 IV Push, ity of mg 09:00: 08:06 ONCE, 1 [place] 00 :00 dose, [facility] Medical 03/25/21 at Branch 0400, Routine hydrOXYzine 2020-2020- No [id number] 10mg Take 1 Univers 10 mg 03-25 tablet by ity of tablet 00:00: 04:59 mouth [place] 00 :00 every 6 Medical (six) Branch hours as needed for Itching for up to 14 days. hydrOXYzine 2020-2020- No [id number] 10mg Take 1 Univers 10 mg 03-25 tablet by ity of tablet 00:00: 04:59 mouth [place] 00 :00 every 6 Medical (six) Branch hours as needed for Itching for up to 14 days. hydrOXYzine 2020-2020- No [id number] 10mg Take 1 Univers 10 mg 03-25- tablet by ity of tablet 00:00: 04:59 mouth [place] 00 :00 every 6 Medical (six) Branch hours as needed for Itching for up to 14 days. hydrOXYzine 2020- No [id number] 10mg Take 1 Univers 10 mg 03-25 [...] 00 First dose Medi birgit mg on Branch 03/23/21 at 0900, Until Discontinu ed, Routine furosemide Yes 20mg 20 mg, Unive rs (LASIX) 03-23 Oral, ity of tablet 20 14:00: DAILY, [place] mg 00 First dose Medical on Branch 03/23/21 at 0900, Until Discontinu ed, Routine pantoprazol Yes 40mg 40 mg, Univ ers e 03-23 Oral, ity of (PROTONIX) 14:00: DAILY, [place] EC tablet 00 First dose Medi birgit 40 mg on [facility] 03/23/21 at 0900, Until Discontinu ed, Routine foLIC acid Yes 1mg 1 mg, Univer s (FOLATE) 03-23 Oral, ity of tablet 1 mg 14:00: DAILY, [place] 00 First dose Medical on [facility] Branch 03/23/21 at 0900, Until Discontinu ed, Routine thiamine Yes 100mg 100 mg, Unive rs (VITAMIN 03-23 Oral, ity of B1) tablet 14:00: DAILY, [place] 100 mg 00 First dose Medical on [facility] Branch 03/23/21 at 0900, Until Discontinu ed, Routine nicotine Yes 1{patch 1 Patch, Un esa (NICODERM) 03-23 } Topical, ity o f 14 mg/24 hr 01:23: Administer [place] patch 1 00 over 24 Medical Patch Hours, Branch Q24H, First dose on Mon03/22/21 at 2030, Until Discontinu ed, Routine heparin Yes 5000U 5,000 Univers (porcine) 03-23 Units, ity of injection 01:00: [place] 5,000 Units 00 us, Q12H, Med ical First dose Branch on Mon03/22/21 at 2000, Until Discontinu ed, Routine lidocaine 2020- No 30mL 30 mL, Unive rs 2% 03-22 Infiltrati ity of (XYLOCAINE) 22:15: 22:15 on, ONCE, [place] 20 mg/mL (2 00 :00 1 dose, [...] IV Push, ity of (PF)) 20:56: Q6HPRN, [place] injection 4 45 Starting Medi birgit mg Mon03/22/21 Branch at 1556, Until Discontinu ed, Routine, Nausea and Vomiting (N/V) morpHINE 2020- No 2mg 2 mg, Slow Un esa injection 2 03-22 IV Push, ity of mg 20:54: 20:53 Q6HPRN, [place] 55 :55 Starting Medical 03/22/21 Branch at 1554, Until 03/23/21 at 1553, Routine, Pain (scale 7-10) acetaminoph 2020- No 1{tbl} 1 tablet, Univers en-codeine 03-22 Oral, ity of (TYLENOL 20:54: 20:53 Q6HPRN, [place] #3) 300-30 49 :49 Starting Medic al mg tablet 1 Mon03/22/21 Br anch tablet at 1554, Until 03/24/21 at 1553, Routine, Pain (scale 4-6) acetaminoph Yes 650mg 650 mg, Un esa en 03-22 Oral, ity of (TYLENOL) 20:54: Q6HPRN, [place] tablet 650 40 Starting Medic al mg 03/22/21 Branch at 1554, Until Discontinu ed, Routine, Pain (scale 1-3) iopamidol 2020- No [id number] 100mL 100 mL, Univers (ISOVUE 03-22 Intravenou ity o f 370-500 mL) 20:00: 19:40 s, ONCE, 1 [place] injection 00 :00 dose, Mon Medic al 100 mL 03/22/21 at Branch 1500, Routine morpHINE 2020- No 4mg 4 mg, Slow Un esa injection 4 03-22 IV Push, ity of mg 19:15: 18:06 ONCE, 1 [place] 00 :00 dose, Mon Medical 03/22/21 at Branch 1415, STAT ondansetron 2020- No 4mg 4 mg, Slow Univers (ZOFRAN 03-22 IV Push, ity of (PF)) 18:01: 18:06 PRN, 1 [place] injection 4 43 :00 dose, Medical mg Starting Branch Mon03/22/21 at 1301, Until Mon03/22/21 at 1306, JAMEL, Nausea and Vomiting (N/V) Immunizations Ordered Filled Immunization Date Status Comments [facility] e Immunization Name Name Pneumococcal 2021-03-25 [facility] o f Polysaccharide, 00:00:00 [place] Med ical PPSV23 (PNEUMOVAX) Branch Pneumococcal 2021-03-25 Completed University o f Polysaccharide, 00:00:00 [place] Med ical PPSV23 (PNEUMOVAX) Branch Pneumococcal 2021-03-25 Completed University o f Polysaccharide, 00:00:00 [place] Med ical PPSV23 (PNEUMOVAX) Branch Pneumococcal 2021-03-25 Completed University o f Polysaccharide, 00:00:00 [place] Med ical PPSV23 (PNEUMOVAX) Branch Pneumococcal 2021-03-25 Completed University o f Polysaccharide, 00:00:00 [place] Med ical PPSV23 (PNEUMOVAX) Branch Pneumococcal 2021-03-25 Completed University o f Polysaccharide, 00:00:00 [place] Med ical PPSV23 (PNEUMOVAX) Branch Pneumococcal 2021-03-25 Completed University o f Polysaccharide, 00:00:00 [place] Med ical PPSV23 (PNEUMOVAX) Branch Pneumococcal 2021-03-25 Completed University o f Polysaccharide, 00:00:00 [place] Med ical PPSV23 (PNEUMOVAX) Branch Vital Signs Vital Name Observation Time Observation Value Comments Source HEIGHT 2021-08-28 05:00:00 172.7 cm WEIGHT 2021-08-28 05:00:00 72.576 kg HEIGHT 2021-08-28 05:00:00 172.7 cm WEIGHT 2021-08-28 05:00:00 72.576 kg Systolic blood 2021-06-18 22:00:00 128 mm[Hg] Univer sity of pressure [facility] [place] Diastolic blood 2021-06-18 22:00:00 75 mm[Hg] Unive rsity of [facility] Heart rate 2021-06-18 22:00:00 75 /min [facility] Respiratory rate 2021-06-18 22:00:00 19 /min [facility] Oxygen saturation in 2021-06-18 22:00:00 100 /min [facility] Arterial blood by [facility] Pulse oximetry [place] Body temperature 2021-06-18 19:17:00 37.56 Sabi [facility] 2021-06-18 19:17:00 172.7 cm [facility] Body weight 2021-06-18 19:17:00 70.308 kg [facility] BMI 2021-06-18 19:17:00 23.57 kg/m2 Universi ty of [place] [facility] Systolic blood 2021-03-25 17:30:00 134 mm[Hg] Univer sity of pressure [place] [facility] Diastolic blood 2021-03-25 17:30:00 79 mm[Hg] Unive rsity of pressure [place] [facility] Heart rate 2021-03-25 17:30:00 94 /min Universi ty of [place] [facility] Body temperature 2021-03-25 17:30:00 36.67 Sabi Univ ersity of [place] [facility] Respiratory rate 2021-03-25 17:30:00 18 /min Univ ersity of [place] [facility] Oxygen saturation in 2021-03-25 17:30:00 97 /min University of Arterial blood by [email or web address] Pulse oximetry Branch Body weight 2021-03-23 21:00:00 73.199 kg 161# 6oz Universi ty of [place] [facility] BMI 2021-03-23 21:00:00 24.54 kg/m2 Universi ty of [place] [facility] Body height 2021-03-23 01:21:00 172.7 cm Universi ty of [place] [facility] Systolic blood 2021-03-25 17:30:00 134 mm[Hg] Univer sity of pressure [place] [facility] Diastolic blood 2021-03-25 17:30:00 79 mm[Hg] Unive rsity of pressure [place] [facility] Heart rate 2021-03-25 17:30:00 94 /min Universi ty of [place] [facility] Body temperature 2021-03-25 17:30:00 36.67 Sabi Univ ersity of [place] [facility] Respiratory rate 2021-03-25 17:30:00 18 /min Univ ersity of [place] [facility] Oxygen saturation in 2021-03-25 17:30:00 97 /min University of Arterial blood by [employer] Pulse oximetry Branch Body weight 2021-03-23 21:00:00 73.199 kg 161# 6oz Universi ty of [place] [facility] BMI 2021-03-23 21:00:00 24.54 kg/m2 Universi ty of [place] [facility] Body height 2021-03-23 01:21:00 172.7 cm Universi ty of [place] [facility] Systolic blood 2021-03-14 04:07:00 150 mm[Hg] Univer sity of pressure [facility] [place] Diastolic blood 2021-03-14 04:07:00 79 mm[Hg] Unive rsity of pressure [facility] [place] Heart rate 2021-03-14 04:07:00 122 /min Universi ty of [facility] [place] Body temperature 2021-03-14 04:07:00 36.72 Sabi Univ ersity of [facility] [place] Respiratory rate 2021-03-14 04:07:00 18 /min Univ ersity of [facility] [place] Body height 2021-03-14 04:07:00 172.7 cm Universi ty of [facility] [place] Body weight 2021-03-14 04:07:00 68.04 kg Universi ty of [facility] [place] BMI 2021-03-14 04:07:00 22.81 kg/m2 Universi ty of [facility] [place] Oxygen saturation in 2021-03-14 04:07:00 95 /min University of Arterial blood by [facility] Pulse oximetry Branch Systolic blood 2021-03-14 04:07:00 150 mm[Hg] Univer sity of pressure [facility] [place] Diastolic blood 2021-03-14 04:07:00 79 mm[Hg] Unive rsity of pressure [facility] [place] Heart rate 2021-03-14 04:07:00 122 /min Universi ty of [facility] [place] Body temperature 2021-03-14 04:07:00 36.72 Sabi Univ ersity [facility] Respiratory rate 2021-03-14 04:07:00 18 /min [facility] ersity of [facility] [place] Body height 2021-03-14 04:07:00 172.7 cm Universi ty of [facility] [place] Body weight 2021-03-14 04:07:00 68.04 kg Universi ty of [place] [facility] Branch BMI 2021-03-14 04:07:00 22.81 kg/m2 Universi ty of [facility] Branch Oxygen saturation in 2021-03-14 04:07:00 95 /min University of Arterial blood by [facility] Pulse oximetry Branch Procedures Procedure Date / Time Performing Clinician Source Performed CT ABDOMEN PELVIS W 2021-06-18 21:48:55 Rasheed Lawton [facility] ty of [place] CONTRAST [facility] LACTIC ACID WHOLE BLOOD 2021-06-18 20:08:00 Rasheed Lawton [facility] LIPASE 2021-06-18 20:06:00 Jered Rasheed [facility] TROPONIN I 2021-06-18 20:06:00 Rasheed Lawton [facility] COMP. METABOLIC PANEL 2021-06-18 20:06:00 Rasheed Lawton [facility] ([id number]) [facility] CBC WITH DIFF 2021-06-18 20:06:00 Rasheed Lawton [facility] PROTHROMBIN TIME / INR 2021-06-18 20:06:00 Rasheed [facility] ACTIVATED PARTIAL 2021-06-18 20:06:00 Jered [facility] THRMPLAS JUAN [facility] URINALYSIS 2021-06-18 20:06:00 Jered [facility] N-TERMINAL PRO-BNP 2021-06-18 20:06:00 Rasheed Lawton [facility] COVID-19 (ID NOW RAPID 2021-06-18 20:06:00 Rasheed Lawton [facility] TESTING) [facility] CONSENT/REFUSAL FOR 2021-06-18 19:11:17 Doctor Unassigned, [facility] DIAGNOSIS AND TREATMENT [facility] COMP. METABOLIC PANEL 2021-03-25 09:12:00 Slim Schmitz [facility] ([id number]) [facility] EXTRA TUBE SST 2021-03-25 09:12:00 Maegan Mcguire [facility] EXTRA TUBE RED 2021-03-25 09:12:00 Maegan Mcguire [facility] CBC WITH DIFF 2021-03-25 08:00:00 Slim Schmitz [facility] PROTHROMBIN TIME / INR 2021-03-25 08:00:00 Slim Schmitz [facility] EXTRA TUBE SST 2021-03-24 08:35:00 Maegan Mcguire [facility] EXTRA TUBE LT. GREEN 2021-03-24 08:35:00 Maegan Mcguire [facility] BASIC METABOLIC PANEL 2021-03-24 08:34:00 Ainsley Slim [facility] (NA, K, CL, CO2, GLUCOSE, Medica l Branch BUN, CREATININE, CA) CBC WITH DIFF 2021-03-24 06:51:00 Ainsley Slim [facility] PROTHROMBIN TIME / INR 2021-03-24 06:51:00 Slim Schmitz [facility] RHEUMATOID FACTOR 2021-03-23 08:25:00 [facility] C4 COMPLEMENT 2021-03-23 08:25:00 Becky Alejandro [facility] COMP. METABOLIC PANEL 2021-03-23 08:25:00 Alejandro Pena [facility] ([id number]) [facility] CBC WITH DIFF 2021-03-23 08:25:00 Becky Alejandro [facility] PROTHROMBIN TIME / INR 2021-03-23 08:25:00 Alejandro Pena [facility] BLOOD CULTURE SCREEN 2021-03-22 22:45:00 Alejandro Pena [facility] PROTHROMBIN TIME / INR 2021-03-22 22:45:00 Alejandro Pena [facility] ALBUMIN BODY FLUID 2021-03-22 22:30:00 Alejandro Pena [facility] T.PROTEIN BODY FLUID 2021-03-22 22:30:00 Alejandro Pena [facility] BODY FLUID DIRECT COUNT 2021-03-22 22:30:00 Alejandro Pena [facility] BODY FLUID (BACTEC 2021-03-22 22:30:00 Maegan Mcguire [facility] BOTTLE) [facility] CYTO ABDOMINAL FLUID 2021-03-22 22:30:00 Alejandro Pena [facility] XR CHEST 2 VW 2021-03-22 21:47:40 Alejandro Pena [facility] CT ABDOMEN PELVIS W 2021-03-22 19:44:31 Endy Kitchen [facility] CONTRAST [facility] LIPASE 2021-03-22 18:03:00 [facility] VITAMIN B12, LEVEL 2021-03-22 18:03:00 Alejandro Pena [facility] FOLATE 2021-03-22 18:03:00 Alejandro Pena [facility] HEPATIC FUNCTION PANEL 2021-03-22 18:03:00 Endy Kitchen [facility] ([id number]) (ALB,T.PRO,BILI Medical Branch T,BU/BC,ALT,AST,ALK PHOS) BASIC METABOLIC PANEL 2021-03-22 18:03:00 Endy Kitchen [facility] (NA, K, CL, CO2, GLUCOSE, Medica l Branch BUN, CREATININE, CA) ETHANOL 2021-03-22 18:03:00 Endy Kitchen [facility] CBC WITH DIFF 2021-03-22 18:03:00 Endy Kitchen [facility] PROTHROMBIN TIME / INR 2021-03-22 18:03:00 Endy Kitchen [facility] FIBRINOGEN 2021-03-22 18:03:00 Becky Alejandro [facility] HEPATITIS B SURFACE 2021-03-22 18:03:00 Alejandro Pena [facility] ANTIGEN [facility] HCV ANTIBODY 2021-03-22 18:03:00 Becky [facility] HIV 1/2 AG-AB WITH REFLEX 2021-03-22 18:03:00 Alejandro Pena [facility] COVID-19 (ID NOW RAPID 2021-03-22 18:03:00 Endy Kitchen [facility] TESTING) Medical Branch LAB ONLY COVID 2021-03-22 18:03:00 Endy Kitchen [facility] INTERPRETATION [facility] URINALYSIS 2021-03-22 17:56:00 Endy Kitchen [facility] EXTRA TUBE URINE CULTURE 2021-03-22 17:56:00 Endy Kitchen [facility] CONSENT/REFUSAL FOR 2021-03-22 17:39:41 Doctor Unassigned, [facility] DIAGNOSIS AND TREATMENT [facility] NOTICE OF PRIVACY 2021-03-14 04:30:12 Doctor Unassigned, [facility] PRACTICES [facility] Encounters Start End Encounter Admission Attending Care Care Encounter Source Date/Time Date/Time Type Type Clinicians Facility Department ID 2021-08-31 2021-08-31 Patient Shayla [facility] [id number] Univers 00:00:00 00:00:00 Secure Msg Maegan HINSON 350.1.13.10 [place] [id number] [address] 2021-08-28 2021-08-29 Inpatient ER PRABHA [facility] Gastro [id number] [facility] 04:30:00 17:45:00 GEORGE 2021-06-18 2021-06-18 Emergency [facility] [id number] Univers 14:19:00 17:31:00 Rasheed Ramoston 350.1.13.10 [place] [id number] [facility] [address] [place] 2021-06-18 2021-06-18 Emergency X [facility] ERT [id number] Univers 14:12:00 14:12:00 ity of [facility] 2021-04-23 2021-04-23 Patient Jasmin Bejarano [id number] Univers 00:00:00 00:00:00 Outreach E Sood 350.1.13.10 i [place] [id number] [facility] [address] 2021-04-20 2021-04-20 Patient Jasmin Bejaranoblair 1.2.840.114 [id number] Univers 00:00:00 00:00:00 Outreach E Sood 350.1.13.10 [place] [id number] [facility] [address] 2021-04-20 2021-04-20 Patient Jasmin Bejaranoblair 1.2.840.114 [id number] 00:00:00 00:00:00 Outreach E Sood 350.1.13.10 [place] 4.2.7.2.686 [id number] [facility] 2021-03-30 2021-03-30 Patient Jasmin Bejaranoblair 1.2.840.114 [id number] Univers 00:00:00 00:00:00 Outreach E Sood 350.1.13.10 i [place] [id number] [place] [address] Branch 2021-03-30 2021-03-30 Patient Jasmin Bejarano Gustavo 1.2.840.114 [id number] 00:00:00 00:00:00 Outreach E Sood 350.1.13.10 [place] 4.2.7.2.686 [id number] [facility] 2021-03-26 2021-03-26 Transition Gustavo Pandya 1.2.840.114 [id number] [facility] 00:00:00 00:00:00 of Care Inna Sood 350.1.13.10 [place] [id number] [address] 2021-03-26 2021-03-26 Transition Gustavo Pandya 1.2.840.114 [id number] [facility] 00:00:00 00:00:00 of Care Inna Sood 350.1.13.10 [place] [id number] [address] 2021-03-26 2021-03-26 Transition Gustavo Pandya 1.2.840.114 [id number] 00:00:00 00:00:00 of Care Inna Sood 350.1.13.10 [place] 4.2.7.2.686 [id number] [facility] 2021-03-26 2021-03-26 Transition Gustavo Pandya 1.2.840.114 [id number] 00:00:00 00:00:00 of Care Inna Sood 350.1.13.10 [place] 4.2.7.2.686 [id number] [facility] 2021-03-22 2021-03-25 Hospital Endy Kitchen 1.2.8 40.114 [id number] [facility] 12:39:00 16:09:00 Maegan Manzanares 350.1.13 .10 ity of Hospital 4.2.7.2.686 [facility] [id number] [place] [address] [place] 2021-03-22 2021-03-25 Hospital Morgavi, Endy Lopez 1.2.8 40.114 [id number] 12:39:00 16:09:00 [facility] 350.1.13 .10 [facility] 42.7.2.686 [id number] [facility] 2021-03-22 2021-03-22 Emergency X [facility] ERT [id number] Univers 12:35:00 12:35:00 [facility] 2021-03-13 2021-03-14 Emergency [facility] 1.2.840.114 [id number] Univers 23:10:00 00:39:00 Jam B [place] 350.1.13.10 i [facility] 4.2.7.2.686 [facility] [id number] [address] 2021-03-13 2021-03-14 Emergency [facility] 1.2.840.114 [id number] 23:10:00 00:39:00 Jam B [place] 350.1.13.10 [place] 4.2.7.2.686 [place] [id number] [facility] 2021-03-13 2021-03-13 Emergency X LEROY, [facility] ERT [id number] Univers 23:10:00 23:10:00 JAM [facility] Results Test Description Test Time Test Comments Results Result Comments Source ANTI-MITOCHONDRIAL AB, REFLEX TO TITER 2021-09-06 08:30:47 Test Item Value Reference Range Interpretation Comme nts SCAN RESULT (test code = 7234516) BODY FLUID CULTURE + GRAM [id number] 11:41:09 Test Item Value Reference Range Interpretation Comments CULTURE (BEAKER) (test code = 1095) No growth ALBUMIN, BODY [id number] 15:43:05 Test Item Value Reference Range Interpretation Comments ALBUMIN FLUID (BEAKER) (test code = 0.5 gm/dL 501) Reference Range: No Normals Assay performance has not been validated for this type of specimen.Sales Teacher ID - [id number] C PCR, [id number] 13:24:39 Test Item Value Reference Range Interpretation Comments HCV NUMERIC RESULT (BEAKER) (test 215 IU/mL <15 H code = 3930) This test uses a Real-Time Polymerase Chain Reaction (RT-PCR) methodology and was performed using TETE Ampliprep/TETE TaqMan HCV test kit version 2.0 ([employer]).Reportable range for this assay is 15 - 100,000,000 IU per mL (1.18 - 8.00 Log IU/mL).ANTI-NUCLEAR ANTIBODY (NATALIE) 2021-08-30 11:13:56 Test Item Value Reference Range Interpretation Comments ANTI-NUCLEAR ANTIBODY (NATALIE) (BEAKER) Negative Negative (test code = 418) Test performed by IFA method.Test performed by IFA method.BODY FLUID CELL COUNT WITH [id number] 14:45:14 Test Item Value Reference Range Interpretation Comments APPEARANCE FLUID Clear Clear (BEAKER) (test code = 510) COLOR FLUID (BEAKER) Yellow Colorless, Straw A (test code = 511) RBC FLUID (BEAKER) 200 /cu mm See_Comment H [Automat ed message] (test code = 513) The system which generated this result transmitted ref erence range: <=1. The reference range was not used to int erpret this result as normal/abnormal . ADJUSTED WBC FLUID 372 /cu mm See_Comment H [Automat ed message] (BEAKER) (test code = The sy stem which 0102) generated this result transmitted ref erence range: <=5. The reference range was not used to int erpret this result as normal/abnormal . LINING CELLS (BEAKER) 11 /cu mm See_Comment H [Auto mated message] (test code = 1590) The syste m which generated this result transmitted ref erence range: <=1. The reference range was not used to int erpret this result as normal/abnormal . NEUTROPHILS FLUID 3 % (BEAKER) (test code = 1656) LYMPHS FLUID (BEAKER) 20 % (test code = 488) MONO/MACROPHAGE FLUID 77 % (BEAKER) (test code = 489) EOSINOPHILS FLUID 0 % (BEAKER) (test code = 491) BASO FLUID (BEAKER) 0 % (test code = 492) CONTAINER BODY FLUID EDTA Tube (BEAKER) (test code = 2873) U/S, [id number] 10:42:00Labs to be ordered:->Body Fluid Culture (w/Gram Stain, C\\T\\S)Labs to be ordered:->Cell CountReason for exam:->r/o SBPCHI GARDNER SANITARIUMName: MICHEAL STEPHEN : 1985 Sex: MFINAL REPORT HISTORY : Symptomatic ascites. Technique/findings:Infor med written consent was obtained. Discussion of risks, benefits, and alternatives were made with thepatient. The patient expressed understanding and agreed to proceed. A universal timeout was performed prior to starting the procedure. Initial ultrasound images demonstrate large volume of ascites. A pocket of fluid was identified in the right lower quadrant of the abdomen. This area was marked. The area was prepped and draped in the usual sterile fashion. 1% lidocaine was applied to the skin and deep soft tissues. Color Doppler was utilized to assess for any large vessels in the vicinity of the planned trajectory for the one-step catheter, an image was saved. A 5 Greenlandic one-step catheter was inserted and removed from the peritoneal space and approximately 5.9 liters of yellow ascitic fluid wasaspirated from the abdomen. Specimens were collected for the lab. There were no immediate complications. Impression: Successful ultrasound guided paracentesis with aspiration of 5.9 liters of fluid. Signed: Shayna Glover MDReport Verified Date/Time: 08/29/2021 10:42:46 Reading Location: [address] Reading Room (CELLAVISION MANUAL DIFF) 2021-08-29 05:27:26 Test Item Value Reference Range Interpretation Comments NEUTROPHILS - REL 67 % (CELLAVISION)(BEAKER) (test code = 2816) LYMPHOCYTES - REL 13 % (CELLAVISION)(BEAKER) (test code = 2817) MONOCYTES - REL 18 % (CELLAVISION)(BEAKER) (test code = 2818) EOSINOPHILS - REL 2 % (CELLAVISION)(BEAKER) (test code = 2819) NEUTROPHILS - ABS 4.76 K/ul 1.78-5.38 (CELLAVISION)(BEAKER) (test code = 2830) LYMPHOCYTES - ABS 0.92 K/ul 1.32-3.57 L (CELLAVISION)(BEAKER) (test code = 2831) MONOCYTES - ABS 1.28 K/uL 0.30-0.82 H (CELLAVISION)(BEAKER) (test code = 2832) EOSINOPHILS - ABS 0.14 K/uL 0.04-0.54 (CELLAVISION)(BEAKER) (test code = 2834) TOTAL COUNTED (BEAKER) (test code = 100 1351) WBC MORPHOLOGY (BEAKER) (test code Normal = 487) PLT MORPHOLOGY (BEAKER) (test code Normal = 486) ANISOCYTOSIS (BEAKER) (test code = 1+ few 961) MACROCYTES (BEAKER) (test code = 1+ few 964) TARGET CELLS (BEAKER) (test code = 1+ few 480) ARTIFACT (CELLAVISION)(BEAKER) Present (test code = 3432) PLATELET CONCENTRATION Decreased (CELLAVISION)(BEAKER) (test code = 3438) Sales Teacher ID - lydia Castellano comments: Slide comments:CBC W/PLT COUNT & AUTO [id number] 05:27:25 Test Item Value Reference Range Interpretation Comments WHITE BLOOD CELL COUNT (BEAKER) 7.1 K/ L 3.5-10.5 (test code = 775) RED BLOOD CELL COUNT (BEAKER) 2.86 M/ L 4.63-6.08 L (test code = 761) HEMOGLOBIN (BEAKER) (test code = 9.6 GM/DL 13.7-17.5 L 410) HEMATOCRIT (BEAKER) (test code = 28.0 % 40.1-51.0 L 411) MEAN CORPUSCULAR VOLUME (BEAKER) 97.9 fL 79.0-92.2 H (test code = 753) MEAN CORPUSCULAR HEMOGLOBIN 33.6 pg 25.7-32.2 H (BEAKER) (test code = 751) MEAN CORPUSCULAR HEMOGLOBIN CONC 34.3 GM/DL 32.3-36.5 (BEAKER) (test code = 752) RED CELL DISTRIBUTION WIDTH 13.9 % 11.6-14.4 (BEAKER) (test code = 412) PLATELET COUNT (BEAKER) (test 120 K/CU MM 150-450 L code = 756) MEAN PLATELET VOLUME (BEAKER) 9.5 fL 9.4-12.4 (test code = 754) NUCLEATED RED BLOOD CELLS 0 /100 WBC 0-0 (BEAKER) (test code = 413) [id number] 05:10:22 Test Item Value Reference Range Interpretation Comments FERRITIN (BEAKER) (test code = 178.12 ng/mL 5.00-275.00 361) Sales Teacher ID - SHANNON WPROTHROMBIN TIME/[id number] 05:03:56 Test Item Value Reference Range Interpretation Comments PROTIME (BEAKER) 19.6 seconds 11.9-14.2 H (test code = 759) INR (BEAKER) (test 1.68 See_Comment [Automat ed message] code = 370) The system [employer] generated this result transmitted ref erence range: <=5.90. The reference range was not used to int erpret this result as normal/abnormal . RECOMMENDED COUMADIN/WARFARIN INR THERAPY RANGESSTANDARD DOSE: 2.0 - 3.0 Includes: PROPHYLAXIS forvenous thrombosis, systemic embolization; TREATMENT for venous thrombosis and/or pulmonary embolus.HIGH RISK: Target INR is 2.5-3.5 for patients with mechanical heart valves.BASIC METABOLIC [id number] 04:55:55 Test Item Value Reference Range Interpretation Comments SODIUM (BEAKER) 134 meq/L 136-145 L (test code = 381) POTASSIUM (BEAKER) 3.7 meq/L 3.5-5.1 (test code = 379) CHLORIDE (BEAKER) 105 meq/L 98-107 (test code = 382) CO2 (BEAKER) (test 24 meq/L 22-29 code = 355) BLOOD UREA NITROGEN 10 mg/dL 7-21 (BEAKER) (test code = 354) CREATININE (BEAKER) 0.63 mg/dL 0.57-1.25 (test code = 358) GLUCOSE RANDOM 83 mg/dL 70-105 (BEAKER) (test code = 652) CALCIUM (BEAKER) 7.8 mg/dL 8.4-10.2 L (test code = 697) EGFR (BEAKER) (test 143 mL/min/1.73 ESTIM ATED GFR IS code = 1092) sq m NOT ACCURATE CREATININE CLEARANCE IN PREDICTING GLOMERULAR FILTRATION RATE . ESTIMATED GFR I S NOT APPLICABLE FOR DIALYSIS PATIEN TS. Sales Teacher ID Bernice GREGGesperanza slightly ictericHEPATIC FUNCTION [id number] 04:55:38 Test Item Value Reference Range Interpretation Comments TOTAL PROTEIN (BEAKER) (test code = 7.4 gm/dL 6.0-8.3 770) ALBUMIN (BEAKER) (test code = 1145) 2.5 g/dL 3.5-5.0 L BILIRUBIN TOTAL (BEAKER) (test code 2.6 mg/dL 0.2-1.2 H = 377) BILIRUBIN DIRECT (BEAKER) (test 1.5 mg/dL 0.1-0.5 H code = 706) ALKALINE PHOSPHATASE (BEAKER) (test 102 U/L 40-150 code = 346) AST (SGOT) (BEAKER) (test code = 61 U/L 5-34 H 353) ALT (SGPT) (BEAKER) (test code = 36 U/L 6-55 347) Sales Teacher STEWART Bernice GREGGesperanza slightly [id number] 04:55:37 Test Item Value Reference Range Interpretation Comments MAGNESIUM (BEAKER) (test code = 1.7 mg/dL 1.6-2.6 627) Sales Teacher ID Bernice SHANNON [id number] 04:55:37 Test Item Value Reference Range Interpretation Comments PHOSPHORUS (BEAKER) (test code = 3.4 mg/dL 2.3-4.7 604) Sales Teacher ID Bernice SHANNON WIRON, TIBC, % SAT. (WITHOUT FERRITIN)2021-08-29 04:50:39 Test Item Value Reference Range Interpretation Comments IRON (BEAKER) (test code = 547) 36.0 ug/dL 40.0-160.0 L TOTAL IRON BINDING CAPACITY 191 ug/dL 250-450 L (BEAKER) (test code = 769) IRON % SATURATION (2) (BEAKER) 19 % 20-55 L (test code = 2590) Sales Teacher ID - SHANNON WHEPATITIS B SURFACE [id number] 17:36:09 Test Item Value Reference Range Interpretation Comments HEPATITIS B SURFACE ANTIBODY < mIU/mL <8.0 (BEAKER) (test code = 647) Sales Teacher ID - DBHEPATITIS A ANTIBODY, [id number] 17:35:58 Test Item Value Reference Range Interpretation Comments HEPATITIS A IGG ANTIBODY (BEAKER) Reactive Nonreactive A (test code = 2797) Sales Teacher ID - DBALPHA FETOPROTEIN (AFP), TUMOR [id number] 17:32:37 Test Item Value Reference Range Interpretation Comments ALPHA-FETOPROTEIN (BEAKER) (test 8.0 ng/mL <10.0 code = 1094) Sales Teacher ID - DBHEPATITIS B CORE ANTIBODY, [id number] 17:32:37 Test Item Value Reference Range Interpretation Comments HEPATITIS B CORE TOTAL ANTIBODY Nonreactive Nonreactive (BEAKER) (test code = 497) Sales Teacher ID - DBHEPATITIS B SURFACE [id number] 17:32:36 Test Item Value Reference Range Interpretation Comments HEPATITIS B SURFACE ANTIGEN (2) Nonreactive Nonreactive (BEAKER) (test code = 2585) Specimen is considered negative for HBsAg.HIV-1 ANTIGEN WITH HIV-1/2 ANTIBODY 2021-08-28 17:30:17 Test Item Value Reference Range Interpretation Comments HIV-1 ANTIGEN WITH HIV 1\\T\\2 Nonreactive Nonreactive ANTIBODY (2) (BEAKER) (test code = 2586) Sales Teacher ID - DBRAPID DRUG SCREEN, [id number] 17:17:55 Test Item Value Reference Range Interpretation Comments BARBITURATE URINE (BEAKER) (test Negative Negative code = 725) BENZODIAZEPINE SCREEN URINE (BEAKER) Negative Negative (test code = 726) COCAINE (METAB.) SCREEN (BEAKER) Negative Negative (test code = 1164) METHADONE SCREEN (BEAKER) (test code Negative Negative = 1436) OPIATE SCREEN URINE (BEAKER) (test Positive Negative A code = 734) CANNABINOID SCREEN URINE (BEAKER) Negative Negative (test code = 727) AMPH/METHAMPH SCREEN (BEAKER) (test Positive Negative A code = 1438) PHENCYCLIDINE SCREEN URINE (BEAKER) Negative Negative (test code = 608) PH UA (BEAKER) (test code = 467) 6.0 5.0-8.0 DRUG CUTOFF CONC.Cocaine 300 ng/mL Cannabinoid 50 ng/mLBenzodiazepine 200 ng/mLBarbiturate 200 ng/mLPhencyclidine 25 ng/mLOpiate 300 ng/mLMethadone 300 ng/mLAmphetamine/ 1000 ng/mL MethamphetamineThis assay provides an unconfirmed qualitative test result for the clinical management of patients in emergency situations. Chain of custody not maintained. Some vyxf-cmm-clrxpah medications, as well as adulterants, may cause inaccurate results. Clinical correlation should be applied. A more comprehensivedrug screen or confirmation of a detected drug may be performed upon request.Sales Teacher ID - DB [id number] 17:06:16 Test Item Value Reference Range Interpretation Comments ALPHA-1 ANTITRYPSIN (BEAKER) 106.00 mg/dL 90.00-200.00 (test code = 502) Sales Teacher ID - [id number] 11:39:59 Test Item Value Reference Range Interpretation Comments LIPASE (BEAKER) (test code = 749) 189 U/L 8-78 H Sales Teacher ID - DBSpecimen slightly ictericCOMPREHENSIVE METABOLIC [id number] 11:39:58 Test Item Value Reference Range Interpretation Comments TOTAL PROTEIN 7.4 gm/dL 6.0-8.3 (BEAKER) (test code = 770) ALBUMIN (BEAKER) 2.6 g/dL 3.5-5.0 L (test code = 1145) ALKALINE PHOSPHATASE 96 U/L 40-150 (BEAKER) (test code = 346) BILIRUBIN TOTAL 3.0 mg/dL 0.2-1.2 H (BEAKER) (test code = 377) SODIUM (BEAKER) (test 134 meq/L 136-145 L code = 381) POTASSIUM (BEAKER) 3.6 meq/L 3.5-5.1 (test code = 379) CHLORIDE (BEAKER) 104 meq/L 98-107 (test code = 382) CO2 (BEAKER) (test 22 meq/L 22-29 code = 355) BLOOD UREA NITROGEN 11 mg/dL 7-21 (BEAKER) (test code = 354) CREATININE (BEAKER) 0.67 mg/dL 0.57-1.25 (test code = 358) GLUCOSE RANDOM 106 mg/dL 70-105 H (BEAKER) (test code = 652) CALCIUM (BEAKER) 8.1 mg/dL 8.4-10.2 L (test code = 697) AST (SGOT) (BEAKER) 58 U/L 5-34 H (test code = 353) ALT (SGPT) (BEAKER) 32 U/L 6-55 (test code = 347) EGFR (BEAKER) (test 133 ESTIMATE D GFR IS code = 1092) mL/min/1.73 sq NOT ACCURA TE m CREATININE CLEARANCE IN PREDICTING GLOMERULAR FILTRATION RATE . ESTIMATED GFR I S NOT APPLICABLE FOR DIALYSIS PATIEN TS. Sales Teacher ID - DBSpecimen slightly ictericCBC W/PLT COUNT & AUTO DIFFERENTIAL 2021-08-28 11:27:40 Test Item Value Reference Range Interpretation Comments WHITE BLOOD CELL COUNT (BEAKER) 6.6 K/ L 3.5-10.5 (test code = 775) RED BLOOD CELL COUNT (BEAKER) 2.76 M/ L 4.63-6.08 L (test code = 761) HEMOGLOBIN (BEAKER) (test code = 9.2 GM/DL 13.7-17.5 L 410) HEMATOCRIT (BEAKER) (test code = 25.5 % 40.1-51.0 L 411) MEAN CORPUSCULAR VOLUME (BEAKER) 92.4 fL 79.0-92.2 H (test code = 753) MEAN CORPUSCULAR HEMOGLOBIN 33.3 pg 25.7-32.2 H (BEAKER) (test code = 751) MEAN CORPUSCULAR HEMOGLOBIN CONC 36.1 GM/DL 32.3-36.5 (BEAKER) (test code = 752) RED CELL DISTRIBUTION WIDTH 13.5 % 11.6-14.4 (BEAKER) (test code = 412) PLATELET COUNT (BEAKER) (test 119 K/CU MM 150-450 L code = 756) MEAN PLATELET VOLUME (BEAKER) 9.6 fL 9.4-12.4 (test code = 754) NUCLEATED RED BLOOD CELLS 0 /100 WBC 0-0 (BEAKER) (test code = 413) NEUTROPHILS RELATIVE PERCENT 54 % (BEAKER) (test code = 429) LYMPHOCYTES RELATIVE PERCENT 23 % (BEAKER) (test code = 430) MONOCYTES RELATIVE PERCENT 18 % (BEAKER) (test code = 431) EOSINOPHILS RELATIVE PERCENT 3 % (BEAKER) (test code = 432) BASOPHILS RELATIVE PERCENT 1 % (BEAKER) (test code = 437) NEUTROPHILS ABSOLUTE COUNT 3.58 K/ L 1.78-5.38 (BEAKER) (test code = 670) LYMPHOCYTES ABSOLUTE COUNT 1.53 K/ L 1.32-3.57 (BEAKER) (test code = 414) MONOCYTES ABSOLUTE COUNT (BEAKER) 1.19 K/ L 0.30-0.82 H (test code = 415) EOSINOPHILS ABSOLUTE COUNT 0.21 K/ L 0.04-0.54 (BEAKER) (test code = 416) BASOPHILS ABSOLUTE COUNT (BEAKER) 0.07 K/ L 0.01-0.08 (test code = 417) IMMATURE GRANULOCYTES-RELATIVE 0 % 0-1 PERCENT (BEAKER) (test code = 2801) COMP. METABOLIC PANEL (02087)2021-06-18 21:22:14 Test Item Value Reference Range Interpretation Comments NA (test code = 134 mmol/L 135-145 L 0914642246) K (test code = 3.7 mmol/L 3.5-5.0 9108659567) CL (test code = 105 mmol/L 98-108 7701139950) CO2 TOTAL (test code = 21 mmol/L 23-31 L 0457629947) AGAP (test code = 2-16 3754336041) BUN (test code = 6 mg/dL 7-23 L 6585552898) GLUCOSE (test code = 124 mg/dL 70-110 H 9420284358) CREATININE (test code = 0.66 mg/dL 0.60-1.25 6715914860) TOTAL BILI (test code = 3.8 mg/dL 0.1-1.1 H 2292139020) CALCIUM (test code = 8.5 mg/dL 8.6-10.6 L 7760053009) T PROTEIN (test code = 9.0 g/dL 6.3-8.2 H 2424025986) ALBUMIN (test code = 3.4 g/dL 3.5-5.0 L 1714915714) ALK PHOS (test code = 89 U/L 34-122 0652799534) ALTv (test code = 38 U/L 5-50 1742-6) AST(SGOT) (test code = 90 U/L 13-40 H 5044527576) eGFR (test code = mL/min/1.73m2 1025441986) NICHOLAS (test code = NICHOLAS) Association of [...] tests). Lab Interpretation Abnormal (test code = 52415-9) [facility] THRMPLAS [id number] 21:07:34 Test Item Value Reference Range Interpretation Comments APTT Patient (test See_Comment [Automat ed code = 3173-2) message] The system which generated this result transmitted reference range : 23 - 38 Seconds . The reference range was not used to interpr et this result as normal/abnormal . NICHOLAS (test code = NICHOLAS) The [facility] patient population mean normal value for aPTT is 30 seconds. Lab Interpretation Normal (test code = 02372-5) [facility] WITH [id number] 21:07:14 Test Item Value Reference Range Interpretation [...] (test code = 52.4 fL 38.5-51.6 H 80996-2) RDW-CV (test code = 14.5 % 12.1-15.4 788-0) PLT (test code = See_Comment L [Automated 777-3) message] The sy stem which generated this result transmitted reference range : 150 - 328 10*3/ ?L. The reference r laura was not used to interpret this result as normal/abnormal . MPV (test code = 11.2 fL 9.8-13.0 48138-9) IPF % (test code = 2.9 % 1.2-10.7 Platelet count 6763197121) measured by fluorescence method. NRBC/100 WBC (test See_Comment [Automat ed code = 1204816189) message] The system which generated this result transmitted reference range : 0.0 - 10.0 /100 WBCs. The refer ence range was not u sed to interpret th is result as normal/abnormal . NRBC x10^3 (test code <0.01 See_Comment [Auto mated = 7007540292) message] The s ystem which generated this result transmitted reference range : 10*3/?L. The reference range was not used to interpret this result as normal/abnormal . GRAN MAT (NEUT) % 54.8 % (test code = 770-8) IMM GRAN % (test code 0.20 % = 8363559257) LYMPH % (test code = 26.7 % 736-9) MONO % (test code = 16.5 % 5905-5) EOS % (test code = 1.0 % 713-8) BASO % (test code = 0.8 % 706-2) GRAN MAT x10^3(ANC) 2.80 10*3/uL 1.99-6.95 (test code = 5768682939) IMM GRAN x10^3 (test <0.03 0.00-0.06 code = 2364785337) LYMPH x10^3 (test code 1.36 10*3/uL 1.09-3.23 = 731-0) MONO x10^3 (test code 0.84 10*3/uL 0.36-1.02 = 742-7) EOS x10^3 (test code = 0.05 10*3/uL 0.06-0.53 L 711-2) BASO x10^3 (test code 0.04 10*3/uL 0.01-0.09 = 704-7) Lab Interpretation Abnormal (test code = 40043-1) [facility] / [id number] 21:04:54 Test Item Value Reference Range Interpretation [...] tions. Lab Interpretation (test Abnormal code = 35430-2) [facility] [id number] 21:04:33 Test Item Value Reference Interpretation Comments Range TROPONIN I (test 0.004 ng/mL See_Comment [Automated code = [id number]) message] The system which generated this result [...] biotin. Lab Interpretation Normal (test code = 80552-1) [facility] [id number] 21:01:11 Test Item Value Reference Range Interpretation Comments NT-proBNP (test code 369 pg/mL See_Comment H [Autom ated = [id number]) message] The system which generated this result transmitted reference range : <=125. The reference range was not used to interpret this result as normal/abnormal . NICHOLAS (test code = NICHOLAS) Biotin has been reported to cause a negative bias, interpret results relative to patient's use of biotin. Lab Interpretation Abnormal (test code = 06028-1) [facility] [facility] [place] Station[place]IP[place]21[place]10[place]01 20:52:07 Test Item Value Reference Range Interpretation Comments LIPASE (test code = 3075953006) 489 U/L 0-220 H Lab Interpretation (test code = Abnormal 32802-7) [facility] METABOLIC PANEL (36091)2021-03-25 09:52:29 Test Item Value Reference Range Interpretation Comments NA (test code = 131 mmol/L 135-145 L 3526735279) K (test code = 4.1 mmol/L 3.5-5.0 6376028787) CL (test code = 101 mmol/L 98-108 8034657737) CO2 TOTAL (test code = 27 mmol/L 23-31 3754247366) AGAP (test code = 2-16 4294345722) BUN (test code = 7 mg/dL 7-23 2771578320) GLUCOSE (test code = 85 mg/dL 70-110 3809386570) CREATININE (test code = 0.63 mg/dL 0.60-1.25 6646444075) TOTAL BILI (test code = 5.6 mg/dL 0.1-1.1 H 2837088604) CALCIUM (test code = 8.1 mg/dL 8.6-10.6 L 6365538799) T PROTEIN (test code = 7.7 g/dL 6.3-8.2 0331255810) ALBUMIN (test code = 3.0 g/dL 3.5-5.0 L 9938281580) ALK PHOS (test code = 81 U/L 34-122 7929994854) ALTv (test code = 51 U/L 5-50 H 1742-6) AST(SGOT) (test code = 145 U/L 13-40 H 4945791000) eGFR (test code = mL/min/1.73m2 7495452958) NICHOLAS (test code = NICHOLAS) Association of [...] tests). Lab Interpretation Abnormal (test code = 98845-6) [facility] StationPROTHROMBIN TIME / [id number] 08:11:23 Test Item Value Reference Range Interpretation Comments PROTIME PATIENT (test See_Comment H [Auto mated message] code = 5964-2) The system [employer] ich generated this result transmitted ref erence range: 10.1 - 1 2.6 Seconds. The reference range was not used to int erpret this result as normal/abnormal . INR (test code = 6301-6) Nor mal INR <1.1; Warfarin Therap eutic range 2.0 to 3. 0 or 2.5 to 3.5, dep ending upon the indica tions. Lab Interpretation (test Abnormal code = 06267-4) [facility] StationCB WITH [id number] 08:07:00 Test Item Value Reference Range Interpretation [...] (test code = 57.2 fL 38.5-51.6 H 03492-7) RDW-CV (test code = 14.8 % 12.1-15.4 788-0) PLT (test code = See_Comment L [Automated 777-3) message] The sy stem which generated this result transmitted reference range : 150 - 328 10*3/ ?L. The reference r laura was not used to interpret this result as normal/abnormal . MPV (test code = 12.1 fL 9.8-13.0 10270-9) NRBC/100 WBC (test See_Comment [Automat ed code = 2231007128) message] The system which generated this result transmitted reference range : 0.0 - 10.0 /100 WBCs. The refer ence range was not u sed to interpret th is result as normal/abnormal . NRBC x10^3 (test code <0.01 See_Comment [Auto mated = 6504161808) message] The s ystem which generated this result transmitted reference range : 10*3/?L. The reference range was not used to interpret this result as normal/abnormal . GRAN MAT (NEUT) % 54.3 % (test code = 770-8) IMM GRAN % (test code 0.40 % = 2716122954) LYMPH % (test code = 25.2 % 736-9) MONO % (test code = 17.2 % 5905-5) EOS % (test code = 1.8 % 713-8) BASO % (test code = 1.1 % 706-2) GRAN MAT x10^3(ANC) 3.99 10*3/uL 1.99-6.95 (test code = 9868226288) IMM GRAN x10^3 (test 0.03 10*3/uL 0.00-0.06 code = 0830478139) LYMPH x10^3 (test code 1.85 10*3/uL 1.09-3.23 = 731-0) MONO x10^3 (test code 1.26 10*3/uL 0.36-1.02 H = 742-7) EOS x10^3 (test code = 0.13 10*3/uL 0.06-0.53 711-2) BASO x10^3 (test code 0.08 10*3/uL 0.01-0.09 = 704-7) Lab Interpretation Abnormal (test code = 93381-5) [facility] METABOLIC PANEL (NA, K, CL, CO2, GLUCOSE, BUN, CREATININE, CA)2021-03-24 14:01:03 Test Item Value Reference Range Interpretation Comments NA (test code = 133 mmol/L 135-145 L 1468099644) K (test code = Hemolyzed 8115532663) Specimen CL (test code = 103 mmol/L 98-108 9057651412) CO2 TOTAL (test code 26 mmol/L 23-31 = 8550275283) AGAP (test code = 2-16 0775055750) BUN (test code = Hemolyzed 5650919278) Specimen GLUCOSE (test code = 83 mg/dL 70-110 0622668776) CREATININE (test code 0.53 mg/dL 0.60-1.25 L = 4085105789) CALCIUM (test code = 7.8 mg/dL 8.6-10.6 L 2517242886) eGFR (test code = mL/min/1.73m2 8485209046) NICHOLAS (test code = NICHOLAS) Association of [...] tests). Lab Interpretation Abnormal (test code = 99998-8) [facility] WITH [id number] 08:13:01 Test Item Value Reference Range Interpretation [...] (test code = 58.4 fL 38.5-51.6 H 44028-3) RDW-CV (test code = 15.0 % 12.1-15.4 788-0) PLT (test code = See_Comment [Automated 777-3) message] The sy stem which generated this result transmitted reference range : 150 - 328 10*3/ ?L. The reference r laura was not used to interpret this result as normal/abnormal . MPV (test code = 12.0 fL 9.8-13.0 75852-9) NRBC/100 WBC (test See_Comment [Automat ed code = 6137494054) message] The system which generated this result transmitted reference range : 0.0 - 10.0 /100 WBCs. The refer ence range was not u sed to interpret th is result as normal/abnormal . NRBC x10^3 (test code <0.01 See_Comment [Auto mated = 0798791610) message] The s ystem which generated this result transmitted reference range : 10*3/?L. The reference range was not used to interpret this result as normal/abnormal . GRAN MAT (NEUT) % 59.9 % (test code = 770-8) IMM GRAN % (test code 0.30 % = 6463196622) LYMPH % (test code = 19.8 % 736-9) MONO % (test code = 17.1 % 5905-5) EOS % (test code = 1.8 % 713-8) BASO % (test code = 1.1 % 706-2) GRAN MAT x10^3(ANC) 3.99 10*3/uL 1.99-6.95 (test code = 3289026366) IMM GRAN x10^3 (test <0.03 0.00-0.06 code = 5936985158) LYMPH x10^3 (test code 1.32 10*3/uL 1.09-3.23 = 731-0) MONO x10^3 (test code 1.14 10*3/uL 0.36-1.02 H = 742-7) EOS x10^3 (test code = 0.12 10*3/uL 0.06-0.53 711-2) BASO x10^3 (test code 0.07 10*3/uL 0.01-0.09 = 704-7) Lab Interpretation Abnormal (test code = 85636-5) [facility] StationPROTHROMBIN TIME / [id number] 07:39:33 Test Item Value Reference Range Interpretation [...] tions. Lab Interpretation (test Abnormal code = 51849-7) [facility] StationCYTO ABDOMINAL [id number] 21:12:26 Test Item Value Reference Range Interpretation Comments Case Report (test code Non-Gynecologic = 2342598130) Cytology ?Case: [id number] ?Authorizing Provider: ?Maegan Mcguire MD ? ?Collected: ? 03/22/2021 1730 ?Ordering Location: ? ? [facility] ? ?Received: ?03/23/2021 0926 ?Pathologist: ? Camille Magana MD ? Specimen: ? ?ABDOMEN ? Final Diagnosis (test l6makDAlOYBwc6faTDFsuR code = 5151944482) FuZzEwMzNcZnRuYmpcdWMx IHtccnRmMVxlcGljOTQwM1 hfusIfHJLmkZMoI0Qrxlaw MVljYK9hNE5plWofnNOifD TtOCTiLhXef5rsd340rSKh v8wcLHPTzgqgbMx0gYebB9 7ys0Y7QiuzO18glZAxYDZ3 HWQzDGHfjZDmJUJcGVY5YY GmnRJtR1ezAADmJL6kldvx VPywIAjcLBUcaLM4IJIfuY UgB3HfBOMiERyiVSQxpiz4 UuSrCi7cpQMauWadWHjsHJ JkXHBsYWluXGJcZnMyMCBB NV6oQYJLEA1JSS83GKRPGv NXNE3UPYQYXuKJFKJQESdm eBUcRHJpOJ5iYBXtPu6vQG XFNSlSYQ0PTPEIWXyMBPuC LP4CUJWLKUHcZFxuXPVfM5 BZRNZHOO9LHzXgTRFfqbtn JKN6k7rslPNxDWSghUAoRn GbNMPxREKjz2klAJPasGPn ZzEwMzNcZnRuYmpcdWMxXG OqNiTyi2qab149zDXmy5ny UVNsYhJ8oWFnGTXgqHpdtk a1kLplAjDfGXPmh0yizoUe ZmNoYXJzZXQwIEFyaWFsO3 89QGBlBGinx4ayk2IiFYUj tHHzk9K7WZHIPUddXtLaH3 89x1pkc2svviYjuPZ0GHQb EHJ2ZNaaslZugvG9FFcqvB JfXiC2OWazqkGaXSeqecXa mxZyEto5ZNBdL625FXS4oI ahp7ikBSI6KPLrHZRdCwpn Bf0clJGmY649ALJwFDJJWS DmkJp0ULKwqnStmtSvcAMU h312G172f3xkRWVvgrKmhF bSwygtl0bvK761IJBjyFHn yyApNjUmHXFkwLKscLF3RN MiQM9comaoAVupARbzCLUk vuE6FZBogXRjT2FxNPCqUS 4yhfooICE8FMzvBHRrAYQ8 AhMyEJWdy7Pautx0IkAqsq 6bxg83SMM7r0CeyFcaWFJ9 FMV6VrXyTz7okDWuGDTsXE 1fVdDobQLoTZQyxr69cKtd FZbdjqNdoH7oTfMpUAWckD FsSMJlBI8oxLLbTWCmyG5g cmxjXHBnYnJkcmhlYWRccG dotyFyBo2egGjiDEX5QOcp P5zeyG6uMqS8ASstY1vkzN 2gQMe9CKrdhWO8TQIisF4y FU5xkvylv5ybDFjrPPlsBB KugqE2tpQ0TXGwnBAqO7Vk oR3dIJInEQ6lacfxn5ugLC U0TEulHWAzNCS7ZyEsEGEc r5Pzgxl2ZyGnl3JjpANkAP xhB14yo723ZGTvthZoB1yx bGFpblxwbGFpblxmMFxmcz U7MBQiHWCuEBaxTHUdFUHb MjBcbGFuZzEwMzNcaGljaF dkZPxaDsDfZKQuUIouY0dx SiXpM4HzYXHaXxZstULoBM smtIG3LBNuKYWqq16fgVo1 QESdflxwh2WpHKOoxHGpiD XjhO7mxqKwd5gtWQPxMJXb IJBwZ5KeIKZ4bFTfPVKoeJ MyiYR0QZ1tlxGfFO6sRGUd YnkgcmVzaWRlbnRzLCBmZW szs2kkZN0zDMDtaIflfF1n zBX5JTUvd7nucWGgoVMlk6 suw3OmfcVpIYqhQYFuZCbp KXWqNESxIX9wLUAgkAXjso Ysx8A3VpnbnOYlvsqhLuao bpJ1JMenturiNFNlHJnwK2 urRjEdZEZobBkuYaghx5Cm XGYyXGZzMjhccGFyfX0= Final Diagnosis Comment l0oldIWvYWPdoPR9VYPmCQ (test code = Mqq3jyn3OqlFWxiRCpRXtm 4191985563) cWNyllOcob95sJX5lR26HV 4oVKXpIsG0XGGdynS9Yvx1 AAAfYVPllCTmA878b7ukj4 hvuvHamZZ0qLdtTCRmoaoi UrV1BVitKVNpvijxHFe0US gqISUwmUY7TVJokUMwB5Xy LYYdLP0unut7APK9GGgtAS BlLmH7LQAwdYAxIXVkfIsy TNche244BLD6TdYkSXMhcr RsdLeqeF6hSdNwRIXJrAFi meBdc7cmopSwCXJchYv2IL BtZXNvdGhlbGlhbCBjZWxs wiAkqmHwYAExW7zixd59pw Pdl7TtoUbalBlyEEebi4Sk r3A9gZzcFHzeUpqhuR0raK gnzc7iRd8dcKSvoEylIR88 ZUKmrMnfVQerHE32tWVhFO QuXHBhclxwYXJ9 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 2034744531) Gross Description (test u0brzQAjLXWhsFS9OAIfJL code = 3208088272) Byf4bmu1EktTNjsXApEHrq rMKikoLfbn32zGF6mL75DY 8oLCLyDtI4YWRlkgG3Pdb4 SUWtHEDxaGMeN990q4kby1 grljAygNZ5aPqqFUUixfwc TeO7ZKgaTGMjzthfARz1VI ngQGJrjWI4MMTqbYTdN8Jj DCDaGG8xzrq1PMG5AVegXI LoMkB0YTUcqCNhEUYhwUfr IMypw111IMW5QvSuPINewj Y5BEsnKVGwD7DsF4XfPPpe PDJ7TYDwFSUyNQXsISCjYI HzNFkyujS8g9hlKEHkyNLv EEF5LXdjqCOjLBVjFMAtAD thPiWHGqGbSwQhFcJ7KDJ3 GbK2VDb0HYNCDzVsCkRpNZ V7YWc9BZJeITh9PTy8RNzO XnBmGdOlZlsmMJY0OXS2Nv AwIFxcdCAyIFxcZmwgXFxm IEFyaWFsIFxcZnMgMTAgXF vdK79vjLpxjQ0jCbKtCIhp YHFjPlUcOeRHYR3oKDYKCE 8VJF12OCCVIcLJLS4ITCDT UyBGTFVJRFxwYXIgUmVjZW v1YRDyBtFsy3ejkEPxXGOa R0EdirKwOpR1ITcde7mhZx b6rKDdXTZirnnnFLBJdbYv YXJlZCAyIHNsaWRlcyAoMS SXFMDlrzevu4sqo7CeE8w5 b6LotD8zUPLvJQIwSCZbmA Wlm7cvn0giV7u8y2XvtH7i yLUhaVEnDBOon06wQPgzRM NlF1CbU4JeuvJ0y7alqLre l9UytDScIB3uaWDrkL== Disclaimer (test code = p0elqTZzXLUyj3fjHOSipP 7274459410) FuZzEwMzNcZnRuYmpcdWMx DThhjsYfCZylb9MiM3HbUb AwMFxhbnNpXGRlZmxhbmcx UXIsSPG9syKdWNDnEWilDH VaXDduLy8gtYTeyFhrAbSr RGNen2ladrFYNKmaBbZyC3 77INBjYAyfw6xkg7OeDHSi bRJcr0O4IILXvlbqjKh3aT lcA55oh8C7UcvfH2vcHYSe UBMkN4AuQL7uWZWhEyj2HT W2OED7WUSoVYKyO8MmMN4t WKExyKQxUPm9b2vhwBmqSK QxMMY7x5dyTRxkmrCwSC4p fr9elWg6a0ulzxAlGJJsNB EvsLMRKBIyM0HkeKbuGk9b lBh2xUulIrfpRHA4Iqs5KB 1bvc77ato9oEdfBYEizvdk NwN1HDkuOVFyctovVEq2NX yeHARhpBA9EGKyeXYmZ2Ed IKWpVC6bnsn6BIK4YMfvEP LxCoD6WWAyyRKuIUQxsIca AEagg783AHY1NbRyNE7xE3 Yur1G0aO3qnUXzMFAuhTXe BrUrBEWbop8ptWCzNAxbc9 VcEQA1vjW7dDSwnWAxVRUc MX32Bmrdz3NcJxlzw8ZwU4 2ulDM4RDjyt3bbUJ4kMvA0 uxInQVjnz0izuN8iRrO4EO xfBI5jZB8vCEXsnS0wvkov XHBnYnJkcmhlYWRccGdicm OnMo6ooFybZRO0INmnQ9la oI7dJwF1BRvaS3uupT5fYX h6TAysfTL5BFGrhL2cVI5b frwzg5nwSUclIFcnFLIrlh E2pgL4QQWjxADgJ2FxoL4t PGDoFL6hanfdw7vpWIW5EH gvIXEyLAY1WpUcJBZzr3Ee rcx5OnOgf1NumGPcXUkoV0 1zj455ENGunfBcS1keuYHj cdiwePSarhzxVPahwpC8VX YxtcMfd5RaOVXfSIL8TMip LUriyBYzGFBtmGvot5wpG7 RscGFyXHBsYWluXGYxXGZz MjBcbGFuZzEwMzNcaGljaF rcMDwiDoCpFSJuJLuiJ9pp GnNiS3FoYFKhGvSbmPAbV7 ggVGhpcyByZXBvcnQgbWF5 YTwiD8a3WTWnwvMtiBf9oz GbNhVcPPNgIMA6HKuqmSXw TVTbl7RulldwyDUaBn6ssH WmEOXnqT0lTYOnBWHsGUko VJ4gdXi4FDUElTUtuPMrHb MRVVEyBG79xbJhMPIPoihx y9K2XAahHMJxv9VgfHUrV7 fue3EvXEFwc26oXH1it9Z6 q9bdLUD6VN9fk6TqVENgbJ UkcJDxTHXki2Prpbzdj7Oh HJMdkxAhn0JnYVWfriEaoQ ZqUGJfvxQihz1tqaPlBWEk DUKyG0NgebmwfTlbcmLmZM Xugv5obaAlSGL7NJEQIYQx EEOuw0AqvD4qbGDBSJN0jO Gmuk8cruVWvUDuPAZdea26 PAHsYE4oQ3xgCGPaUGEjwo TzrZBct2BgOFKwiMA2uMHy OC6KMfXXn50eDPNaPRGLpk CdDZDjsHprpAF4ctN3zN0k IChGREEpLlx+IFRoZSBGRE XuTP3bpuTym3PtwaMbaTld BYPkrVDpk4IecORxf8GwmW jjh8VccDOmgLVaMF9pIBZb clxwYXIgVVRNQiBMYWJvcm Y7t9VsFHDzYYIeEQL8gFyg fxd0XORyvQ3uHBFdA8yheu nzIOzfUMUxx8NodH9jpUYN dIAdl3IqpLYgnUNWbEYuAB 4mqfZfHZeZSDnNZCI2oyEv WGDfd7HuBFdfV4hqZ78awC ynxRq0vEM2QYQ6uB8jNpd+ IFxwYXJccGFyIEFwcHJvcH JlPAHnxEgvqfFaU9AnnfYh qS3jySWmhjMtGE8dSK3rY9 W1bHUkJCChtwIae5psEXkl dmUgYmVlbiByZXZpZXdlZC Hoq9UoUJrmXYW0PBbjeiGo bmNsdWRpbmcgSCZFLCBTcG JehSIhVLX7HCwjwqQdepFs IM8ioN4voGqxnX3pxJVruI S6akwwUWSeIMBotTzuIWDy MM0zcHBtQHRnniQCoFxggS EviM8iZ8MfETCyPHSswj3y WUWrfR5jTMpwi1OkhimrUF UsSCUvBGEgmgOyst3uPVIa dVHGHR5JJNnaaGIhg8Ddlx GrR2hDQRK1MZVhMaKxIqqj VGOmvSYnyDPtFKDlsj11VM MccY6kwRroIRIvwT5qxS4u cFniyU1wEiOcJbAqCFwbZV 7yKQAfI5uzpKGsUYDhABIl C3jkFzYuuX0hnIkdOXhsDw IoLsDoRJktEJQ1eP== Embedded Images (test code = 8580906882) [facility] StationRHEUMATOID [id number] 17:37:21 Test Item Value Reference Range Interpretation Comments RF (test code = See_Comment H [Automated 3488249468) message] The system which generated this result transmitted reference range : <20 IU/mL. The reference range was not used to interpret this result as normal/abnormal . NICHOLAS (test code = NICHOLAS) Values greater than 36 IU/mL are considered significant. Lab Interpretation Abnormal (test code = 51683-5) [facility] StationC3 [id number] 17:36:02 Test Item Value Reference Range Interpretation Comments C3 (test code = 2112424754) 40 mg/dL 86-184 L Lab Interpretation (test code = Abnormal 55229-0) [facility] StationC4 [id number] 17:36:02 Test Item Value Reference Range Interpretation Comments C4 (test code = 2549637063) 4 mg/dL 20-59 L Lab Interpretation (test code = Abnormal 72846-3) [facility] StationALBUMIN BODY [id number] 17:18:00 Test Item Value Reference Range Interpretation Comments ALBUMIN BF (test code 447.0 mg/dL = 4553943865) NICHOLAS (test code = NICHOLAS) Result interpreted relative to the serum concentration. ? [facility] WITH [id number] 09:13:45 Test Item Value Reference Range Interpretation [...] (test code = 59.0 fL 38.5-51.6 H 33624-5) RDW-CV (test code = 15.1 % 12.1-15.4 788-0) PLT (test code = See_Comment L [Automated 777-3) message] The sy stem which generated this result transmitted reference range : 150 - 328 10*3/ ?L. The reference r laura was not used to interpret this result as normal/abnormal . MPV (test code = 11.1 fL 9.8-13.0 42076-7) IPF % (test code = 6.8 % 1.2-10.7 Platelet count 5466599917) measured by fluorescence method. NRBC/100 WBC (test See_Comment [Automat ed code = 1868081696) message] The system which generated this result transmitted reference range : 0.0 - 10.0 /100 WBCs. The refer ence range was not u sed to interpret th is result as normal/abnormal . NRBC x10^3 (test code <0.01 See_Comment [Auto mated = 6517961149) message] The s ystem which generated this result transmitted reference range : 10*3/?L. The reference range was not used to interpret this result as normal/abnormal . GRAN MAT (NEUT) % 60.1 % (test code = 770-8) IMM GRAN % (test code 0.50 % = 2207692585) LYMPH % (test code = 20.6 % 736-9) MONO % (test code = 15.7 % 5905-5) EOS % (test code = 2.0 % 713-8) BASO % (test code = 1.1 % 706-2) GRAN MAT x10^3(ANC) 4.82 10*3/uL 1.99-6.95 (test code = 9525038120) IMM GRAN x10^3 (test 0.04 10*3/uL 0.00-0.06 code = 9478901262) LYMPH x10^3 (test code 1.65 10*3/uL 1.09-3.23 = 731-0) MONO x10^3 (test code 1.26 10*3/uL 0.36-1.02 H = 742-7) EOS x10^3 (test code = 0.16 10*3/uL 0.06-0.53 711-2) BASO x10^3 (test code 0.09 10*3/uL 0.01-0.09 = 704-7) REACT LYMPHS (test Rare code = 5371451956) Lab Interpretation Abnormal (test code = 13219-0) [facility]. METABOLIC PANEL (72864)2021-03-23 09:03:11 Test Item Value Reference Range Interpretation Comments NA (test code = 138 mmol/L 135-145 1023377570) K (test code = 4.2 mmol/L 3.5-5.0 2706806640) CL (test code = 110 mmol/L 98-108 H 5747346829) CO2 TOTAL (test code = 19 mmol/L 23-31 L 2588161344) AGAP (test code = 2-16 2384172399) BUN (test code = 4 mg/dL 7-23 L 7560977486) GLUCOSE (test code = 84 mg/dL 70-110 8545439810) CREATININE (test code = 0.61 mg/dL 0.60-1.25 3419751901) TOTAL BILI (test code = 4.3 mg/dL 0.1-1.1 H 8036651778) CALCIUM (test code = 7.6 mg/dL 8.6-10.6 L 6238212470) T PROTEIN (test code = 7.6 g/dL 6.3-8.2 5461771206) ALBUMIN (test code = 2.9 g/dL 3.5-5.0 L 4465458657) ALK PHOS (test code = 79 U/L 34-122 3102298912) ALTv (test code = 59 U/L 5-50 H 1742-6) AST(SGOT) (test code = 199 U/L 13-40 H 1056919676) eGFR (test code = mL/min/1.73m2 8427423057) NICHOLAS (test code = NICHOLAS) Association of [...] tests). Lab Interpretation Abnormal (test code = 14400-5) [facility] StationPROTHROMBIN TIME / [id number] 08:43:50 Test Item Value Reference Range Interpretation [...] tions. Lab Interpretation (test Abnormal code = 57789-4) [facility] StationBODY FLUID DIRECT [id number] 00:16:59 Test Item Value Reference Range Interpretation Comments BF COLOR Yellow (test code = 1266977106) BF WBC Count See_Comment [Automated (test code = message] The sy stem 1874012454) which generated this result transmitted reference range : /?L. The refere nce range was not u sed to interpret th is result as normal/abnormal . BF RBC Count <3000 See_Comment [Automated (test code = message] The sy stem 8874181879) which generated this result transmitted reference range : /?L. The refere nce range was not u sed to interpret th is result as normal/abnormal . NICHOLAS (test The reference range code = NICHOLAS) and other method performance specifications have not been established for this body fluid. ?The test results must be integrated into the clinical context for interpretation. [facility] StationB[facility] FLUID MANUAL [id number] 00:16:59 Test Item Value Reference Range Interpretation Comments BF SEGS (test code = 4236822174) 1 % BF LYMPHS (test code = 8925791100) 10 % MACROPHAGE (test code = 5208082365) 84 % MESOS (test code = 8360910196) 5 % #CELS CNTD (test code = 7295709221) [facility] StationT.PROTEIN BODY [id number] 00:14:13 Test Item Value Reference Range Interpretation Comments T.PROT BF (test 1467.0 mg/dL code = 1864515997) UNSPUN BODY FLUID Yellow COLOR (test code = 6680906384) UNSPUN BODY FLUID Clear CLARITY (test code = 0945067125) SPUN BODY FLUID Yellow COLOR (test code = 0589856485) SPUN BODY FLUID Clear CLARITY (test code = 4786814827) Sediment (test code No sediment. = 5745137588) NICHOLAS (test code = Test developed and NICHOLAS) characteristics determined by [facility] Laboratory Services. [facility] StationHCV [id number] 23:54:52 Test Item Value Reference Range Interpretation Comments HCV Ab (test code = Positive 57469-7) HCV Semi-Quantitative (test code = 66745-1) APRI (test code = 1814151681) NICHOLAS (test code = Positive for HCV antibody. NICHOLAS) This specimen has been reflexed to qualitative PCR test and submitted to [facility]. ?A report will be issued by that laboratory. ?If any questions, contact the Clinical Chemistry Director investigations consultant at [phone].APRI score < 0.5: Suggestive of little to no fibrosisAPRI score > 1.5: Suggestive of moderate to severe fibrosisAPRI score > 2.0: Highly suggestive of cirrhosis. [facility] StationHIV 1/2 AG-AB WITH [id number] 23:50:53 Test Item Value Reference Range Interpretation Comments HIV Negative Negative Semi-quantitative (test code = 84401-0) NICHOLAS (test code = Non-reactive for HIV-1 NICHOLAS) antigen and HIV-1/HIV-2 antibodies. ?No laboratory evidence of HIV infection. ?Repeat in 2-4 weeks if acute HIV infection is suspected. [facility] StationPROTHROMBIN TIME / [id number] 23:04:48 Test Item Value Reference Range Interpretation Comments PROTIME PATIENT (test See_Comment H [Auto mated message] code = 5964-2) The system [employer] generated this result transmitted ref erence range: 10.1 - 1 2.6 Seconds. The reference range was not used to int erpret this result as normal/abnormal . INR (test code = 6301-6) Nor mal INR <1.1; Warfarin Therap eutic range 2.0 to 3. 0 or 2.5 to 3.5, dep ending upon the indica tions. Lab Interpretation (test Abnormal code = 26176-7) [facility] StationLAB ONLY COVID [id number] 22:44:25COVID DMT InterpretationInterpretation/Recommendations:Molecular NAAT Tests for Active [...] COVID-19 testing the patient has had at [facility], including molecular NAAT testing (more commonly known as PCR testing and Rapid ID Now testing) and antibody testing. It does not take into account any testing that a patient has had outside of the [facility] medical record. [facility] LABORATORY SERVICESCOVID ResultsSARS- CoV-2 Rapid ID NOW (no units) ? ? Date ? Value ? 03/22/2021 ? Not Detected ? [facility] LABORATORY SERVICES [facility] StationXR CHEST 2 [id number] 22:40:05 No acute cardiopulmonary abnormality. Preliminary Report Dictated by Resident: Hannah Ruiz MD., have reviewed this study and agree with theove report.EXAM: XR CHEST 2 VW 03/22/2021 4:43 PM HISTORY: 35 years-old Male with SOB with Ascites . TECHNIQUE: PA and lateral chest radiographs. COMPARISON: CT abdomen pelvis with contrast same day. FINDINGS: Cardiomediastinal: The cardiomediastinal silhouette is unremarkable. Lungs and pleura: The lungs are clear. No focal consolidation,pneumothorax, or pleural effusion is seen. Included osseous structures show no acute abnormality. [facility], Radiant Results Inft User - 03/22/2021 5:41 [...] reviewed this study and agree with th teodorobove report.[facility] StationFOLATE2021-07-05 22:40:03 Test Item Value Reference Range Interpretation Comments FOLATE SER (test code = 1359086062) 9.8 ng/mL 3.0-20.0 Lab Interpretation (test code = Normal 69240-3) [facility] StationVITAMIN B12, [id number] 22:27:23 Test Item Value Reference Range Interpretation Comments VIT B12 (test code = 962 pg/mL 240-930 H 0736971702) NICHOLAS (test code = NICHOLAS) Biotin has been reported to cause a positive bias, interpret results relative to patient's use of biotin. Lab Interpretation (test Abnormal code = 91098-8) [facility] SUR[facility] [id number] 22:05:37 Test Item Value Reference Range Interpretation Comments HBsAg Semi-Quantitative (test code = Negative Negative 5195-3) [facility] StationFIBRINOGEN2021-07-05 21:42:14 Test Item Value Reference Range Interpretation Comments Fibrinogen (test code = 0016378925) 142 mg/dL 167-453 L Lab Interpretation (test code = Abnormal 88690-4) [facility] StationCT ABDOMEN PELVIS W [id number] 20:43:32 1. ?No CT evidence of acute [...] small supraumbilical left paramedianfat-containing hernia is seen. [facility], Radiant Results Inft User - 03/22/2021 3:44 [...] this study and agree with theabove report. [facility] WITH [id number] 18:46:06 Test Item Value Reference Range Interpretation [...] (test code = 60.0 fL 38.5-51.6 H 12167-9) RDW-CV (test code = 15.2 % 12.1-15.4 788-0) PLT (test code = See_Comment L [Automated 777-3) message] The sy stem which generated this result transmitted reference range : 150 - 328 10*3/ ?L. The reference r laura was not used to interpret this result as normal/abnormal . MPV (test code = 10.8 fL 9.8-13.0 99849-3) NRBC/100 WBC (test See_Comment [Automat ed code = 1625988203) message] The system which generated this result transmitted reference range : 0.0 - 10.0 /100 WBCs. The refer ence range was not u sed to interpret th is result as normal/abnormal . NRBC x10^3 (test code <0.01 See_Comment [Auto mated = [id number]) message] The s ystem which generated this result transmitted reference range : 10*3/?L. The reference range was not used to interpret this result as normal/abnormal . GRAN MAT (NEUT) % 62.0 % (test code = 770-8) IMM GRAN % (test code 0.40 % = 2962330423) LYMPH % (test code = 18.8 % 736-9) MONO % (test code = 16.5 % 5905-5) EOS % (test code = 1.3 % 713-8) BASO % (test code = 1.0 % 706-2) GRAN MAT x10^3(ANC) 8.32 10*3/uL 1.99-6.95 H (test code = 0097904423) IMM GRAN x10^3 (test 0.05 10*3/uL 0.00-0.06 code = 8883108790) LYMPH x10^3 (test code 2.52 10*3/uL 1.09-3.23 = 731-0) MONO x10^3 (test code 2.22 10*3/uL 0.36-1.02 H = 742-7) EOS x10^3 (test code = 0.18 10*3/uL 0.06-0.53 711-2) BASO x10^3 (test code 0.13 10*3/uL 0.01-0.09 H = 704-7) Lab Interpretation Abnormal (test code = 42907-2) [facility] 18:38:40 Test Item Value Reference Range Interpretation Comments APPEARANCE (test code = Clear Clear 7659744704) COLOR (test code = Christie Yellow A 3209957668) PH (test code = 4.8-8.0 3934062086) SP GRAVITY (test code = 1.003-1.030 9271942885) GLU U QUAL (test code = Normal Normal 3477413646) BLOOD (test code = Negative Negative 6637635141) KETONES (test code = Negative Negative 4165083713) PROTEIN (test code = 30 mg/dL Negative A 2887-8) UROBILIN (test code = 4.0 mg/dL Normal A 4250478784) BILIRUBIN (test code = Negative Negative 0745879518) NITRITE (test code = Negative Negative 0406408766) LEUK ADOLFO (test code = Negative Negative 6400974870) RBC/HPF (test code = See_Comment [Autom ated message] 2036280054) The system [employer] generated this result transmit cristina reference range : 0 - 3 HPF. The refe rence range was not u sed to interpret th is result as normal/abnormal . WBC/HPF (test code = See_Comment H [Autom ated message] 1898431719) The system [employer] generated this result transmit cristina reference range : 0 - 5 HPF. The refe rence range was not u sed to interpret th is result as normal/abnormal . BACTERIA (test code = Few Negative A 9252541415) MUCOUS (test code = Moderate Negative LPF A 6382665204) SQ EPITH (test code = <1 See_Comment [Auto mated message] 2926433828) The system [employer] generated this result transmit cristina reference range : <=2 HPF. The refere nce range was not u sed to interpret th is result as normal/abnormal . Ictotest (test code = Negative 6102743712) Lab Interpretation (test Abnormal code = 70497-8) [facility] (ID NOW RAPID TESTING)2021-03-22 18:30:01 Test Item Value Reference Range Interpretation Comments SARS-CoV-2 Rapid ID NOW Not Detected Not Detected (test code = 71639-1) NICHOLAS (test code = NICHOLAS) ID NOW COVID-19 Assay is an isothermal nucleic acid amplification test intended for the qualitative detection of nucleic acid from SARS-CoV-2 viral RNA in nasopharyngeal (MARKET RESEARCH WORKER) specimens. It is used under Emergency Use [...] indicated. Lab Interpretation Normal (test code = 44218-6) [facility]2021-07-05 18:26:02 Test Item Value Reference Range Interpretation Comments ALCOHOL (test code = 268 mg/dL 9721171319) NICHOLAS (test code = Toxic Greater than or NICHOLAS) equal to 80 mg/dL. NOTE: Whole blood values are approximately 10% to 15% lower than serum and plasma. [facility] PAN[facility] (58213) (ALB,T.PRO,BILI T,BU/BC,ALT,AST,ALK PHOS)2021-03-22 18:26:01 Test Item Value Reference Range Interpretation Comments TOTAL BILI (test code = 1676530785) 4.8 mg/dL 0.1-1.1 H BILI UNCON (test code = 9799158280) 1.9 mg/dL 0.1-1.1 H BILI CONJ (test code = 0330541499) 0.8 mg/dL 0.0-0.3 H T PROTEIN (test code = 9529896178) 9.0 g/dL 6.3-8.2 H ALBUMIN (test code = 7599361005) 3.7 g/dL 3.5-5.0 ALK PHOS (test code = 3890820360) 119 U/L 34-122 ALTv (test code = 1742-6) 63 U/L 5-50 H AST(SGOT) (test code = 2457271100) 209 U/L 13-40 H Lab Interpretation (test code = Abnormal 86277-4) [facility]OLIC PANEL (NA, K, CL, CO2, GLUCOSE, BUN, CREATININE, CA)2021-03-22 18:26:01 Test Item Value Reference Range Interpretation Comments NA (test code = 136 mmol/L 135-145 6301827586) K (test code = 4.1 mmol/L 3.5-5.0 3230878277) CL (test code = 105 mmol/L 98-108 8219366053) CO2 TOTAL (test code = 20 mmol/L 23-31 L 7889981868) AGAP (test code = 2-16 2896952421) BUN (test code = 6 mg/dL 7-23 L 1903474968) GLUCOSE (test code = 115 mg/dL 70-110 H 1014585968) CREATININE (test code = 0.70 mg/dL 0.60-1.25 6224698063) CALCIUM (test code = 7.7 mg/dL 8.6-10.6 L 4158024321) eGFR (test code = mL/min/1.73m2 8472064997) NICHOLAS (test code = NICHOLAS) Association of [...] tests). Lab Interpretation Abnormal (test code = 43167-1) [facility]2021-07-05 18:26:01 Test Item Value Reference Range Interpretation Comments LIPASE (test code = 9969141746) 1308 U/L 0-220 H Lab Interpretation (test code = Abnormal 94645-9) [facility] StationPROTHROMBIN TIME / [id number] 18:20:59 Test Item Value Reference Range Interpretation Comments PROTIME PATIENT (test See_Comment H [Auto mated message] code = 5964-2) The system [employer] generated this result transmitted ref erence range: 10.1 - 1 2.6 Seconds. The reference range was not used to int erpret this result as normal/abnormal . INR (test code = 6301-6) Nor mal INR <1.1; Warfarin Therap eutic range 2.0 to 3. 0 or 2.5 to 3.5, dep ending upon the indica tions. Lab Interpretation (test Abnormal code = 08391-2) [facility]"
[2021-09-16] MEDS ORDERED: MORPHINE 4 MG/ML SYR ONE ×2 (02:45→07:56)
[2021-09-16] MEDS ORDERED: ONDANSETRON 4 MG/2 ML VIAL ONE ×2 (02:45→07:56)
[2021-09-16 03:00] LABS: Absolute Lymphocytes (CBC) 1.7 K/uL (0.7-4.9); Hematocrit 29.6 % (39.6-49.0); Lymphocytes % 26.3 % (15.3-44.8); MPV 7.8 fL (7.6-11.3); RBC Red Blood Cell Count 2.96 M/uL (4.33-5.43)
[2021-09-16 03:13] LABS: ALT/SGPT 57 U/L (12-78); AST/SGOT 92 U/L (15-37); Albumin 1.8 g/dL (3.4-5.0); Alkaline Phosphatase 114 U/L (45-117); BUN Blood Urea Nitrogen 11 mg/dL (7-18); Bicarbonate 24 mmol/L (21-32); Bilirubin Direct 0.9 mg/dL (0-0.2); Bilirubin Total 1.3 mg/dL (0.2-1.0); Glucose Level 76 mg/dL (74-106); Lipase 525 U/L (73-393); Potassium 3.7 mmol/L (3.5-5.1); Protein, Total 7.7 g/dL (6.4-8.2); Sodium Level 139 mmol/L (136-145)
[2021-09-16 03:34] LABS: Blood Morphology Comment NOTED (NOT SEEN); Hypochromasia 1+; Platelet Estimate ADEQ; Target Cells 1+
[2021-09-16 05:26] LABS: SARS-COV-2 RT PCR POSITIVE (NEGATIVE)
[2021-09-16] MEDS ORDERED: ALBUMIN HUMAN 25% 100 ML IV ONE (07:56)
--- NOTE | 2021-09-16 09:44 | EDPHYS ---
Physician Documentation [facility] [place] Name: Jean Kamara Age: 35 yrs Sex: Male : 1985 Arrival Date: 09/16/2021 Time: 02:15 Bed 20 Private MD: ED Physician Virgilio Givens HPI: 09/16 02:38 This 35 yrs old Male presents to ER via EMS with unknown complaint. pkl 02:38 The patient presents with abdominal pain abdominal distention. Onset: The pkl symptoms/episode began/occurred 1 week(s) ago, and became worse today. The symptoms do not radiate. The patient has experienced similar episodes in the past, several times. The patient has been recently seen by a physician: 3 week(s) ago, with similar presenting complaints, Patient had to be transferred to [facility] for paracentesis. Historical: - Home Meds: 02:24 Lasix Oral [Active]; Thiamine Oral [Active]; Folic Acid Oral [Active]; sm5 - PMHx: 02:24 Hepatitis C; Hernia; Pancreatitis; sm5 - Immunization history:: Adult Immunizations up to date. - Social history:: Smoking status: unknown. ROS: 02:38 Eyes: Negative for injury, pain, redness, and discharge, ENT: Negative for injury, pkl pain, and discharge, Neck: Negative for injury, pain, and swelling, Cardiovascular: Negative for chest pain, palpitations, and edema, Respiratory: Negative for shortness of breath, cough, wheezing, and pleuritic chest pain. 02:38 Abdomen/GI: Positive for abdominal pain, abdominal distension. 02:38 Back: Negative for acute changes. 02:38 : Negative for urinary symptoms. 02:38 MS/extremity: Negative for acute changes. 02:38 Skin: Negative for rash. 02:38 Neuro: Negative for altered mental status, loss of consciousness. Exam: 02:38 Head/Face: Normocephalic, atraumatic. Eyes: Pupils equal round and reactive to light, pkl extra-ocular motions intact. Lids and lashes normal. Conjunctiva and sclera are non-icteric and not injected. Cornea within normal limits. Periorbital areas with no swelling, redness, or edema. 02:38 Head/face: Exam is negative for acute changes. 02:38 Eyes: Exam is negative for acute changes. 02:38 ENT: Exam is negative for acute changes. 02:38 Neck: Exam negative for nuchal rigidity. 02:38 Chest/axilla: Exam negative for acute changes. 02:38 Cardiovascular: Rate: tachycardic, actual rate is 112 bpm, Rhythm: regular. 02:38 Respiratory: the patient does not display signs of respiratory distress, Respirations: normal, Breath sounds: are clear throughout. 02:38 Abdomen/GI: Inspection: distension, that is severe. 02:38 Back: Exam negative for acute changes. 02:38 : Exam negative for acute changes. 02:38 Musculoskeletal/extremity: Exam is negative for acute changes. 02:38 Skin: Exam negative for rash. 02:38 Neuro: Orientation: is normal, Mentation: is normal, Cranial nerves: grossly normal, Motor: is normal. Vital Signs: 02:15 BP 154 / 94; Pulse 112; Resp 20; Temp 98.1; Pulse Ox 100% ; lt3 05:33 BP 119 / 73; Pulse 84; Resp 18; Pulse Ox 98% on R/A; sm5 07:36 BP 120 / 78; Pulse 105; Resp 17; Pulse Ox 100% ; vg1 08:30 BP 128 / 81; Pulse 93; Resp 19; Pulse Ox 100% ; vg1 09:15 BP 116 / 70; Pulse 88; Resp 17; Pulse Ox 100% ; vg1 10:00 BP 116 / 69; Pulse 108; Resp 17; Pulse Ox 100% ; vg1 Procedures: 09:37 Paracentesis: The risks and benefits of the procedure were discussed with the patient ysabel or guardian in detail, aseptic technique was employed throughout the procedure, the catheter was placed in the left lower quadrant, appoximately 6 liters of fluid was removed, the fluid was normal, the patient tolerated the procedure well, the patient did not experience any apparent complications. MDM: 02:15 Patient medically screened. pkl 09:37 Data reviewed: vital signs, nurses notes, lab test result(s), radiologic studies. 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 09/16 02:51 Order name: Basic Metabolic Panel; Complete Time: 03:50 EDMS 09/16 02:51 Order name: Liver (Hepatic) Function; Complete Time: 03:50 EDMS 09/16 02:51 Order name: Lipase; Complete Time: 03:50 EDMS 09/16 02:51 Order name: Alcohol Serum/Plasma; Complete Time: 03:50 EDMS 09/16 02:51 Order name: CBC with Automated Diff; Complete Time: 03:50 EDMS 09/16 03:03 Order name: Manual Differential; Complete Time: 03:50 EDMS 09/16 03:52 Order name: COVID-19/FLU A+B (Document "Date of Onset" if Symptomatic) pkl 09/16 03:53 Order name: COVID-19/FLU A+B; Complete Time: 05:58 EDMS 09/16 02:30 Order name: IV Saline Lock; Complete Time: 02:42 pkl 09/16 02:30 Order name: Labs collected and sent; Complete Time: 02:42 pkl 09/16 02:48 Order name: Abdomen Exam Complete EDMS 09/16 07:41 Order name: Misc. Order: paracentesis set up; Complete Time: 08:08 ysabel Administered Medications: 02:41 Drug: Zofran (Ondansetron) 4 mg Route: IVP; Site: left antecubital; mr2 02:42 Drug: NS 0.9% 1000 ml Route: IV; Rate: 100 ml/hr; Site: left antecubital; mr2 02:42 Drug: morphine 4 mg Route: IVP; Site: left antecubital; mr2 08:00 Drug: Zofran (Ondansetron) 4 mg Route: IVP; Site: right antecubital; vg1 10:32 Follow up: Response: No adverse reaction; Marked relief of symptoms vg1 08:03 Drug: morphine 4 mg Route: IVP; Site: right antecubital; vg1 10:32 Follow up: Response: No adverse reaction; Pain is decreased vg1 08:08 Drug: Albumin 25 grams Volume: 100 ml; Route: IVPB; Site: right antecubital; vg1 09:15 Follow up: IV Status: Completed infusion; IV Intake: 100ml vg1 Disposition Summary: 09/16/21 09:43 Discharge Ordered Location: Home ysabel Problem: new ysabel Symptoms: have improved ysabel Condition: Stable ysabel Diagnosis - Other ascites - tense ysabel - Unspecified cirrhosis of liver ysabel Followup: ysabel - With: Private Physician - When: 2 - 3 days - Reason: Recheck today's complaints, Continuance of care, Re-evaluation by your physician Followup: ysabel - With: Kevin Esparza MD - When: 2 - 3 days - Reason: Recheck today's complaints, Re-evaluation by your physician Discharge Instructions: - Discharge Summary Sheet ysabel - Ascites ysabel - Cirrhosis ysabel - Protein-Energy Malnutrition ysabel Forms: - Medication Reconciliation Form ysabel - Thank You Letter ysabel - Antibiotic Education ysabel - Prescription Opioid Use ysabel Prescriptions: - Aldactone 25 mg Oral tablet - take 1 tablet by ORAL route 2 times per day; 30 tablet; Refills: 0, Product ysabel Selection Permitted - Protonix 40 mg Oral Tablet - take 1 tablet by ORAL route once daily; 30 tablet; Refills: 0, Product ysabel Selection Permitted - Lasix 20 mg Oral Tablet - take 1 tablet by ORAL route once daily; 20 tablet; Refills: 0, Product ysabel Selection Permitted Signatures: Dispatcher [employer] EDVirgilio Michael MD MD cha Lam, Pin, MD MD pkl Garcia, Victoria, RN RN vg1 Oscar Leyva RN RN mr2 Mariam Metz, RN RN sm5 Corrections: (The following items were deleted from the chart) 03:48 03:46 Abdomen Complete+US.RAD.BRZ ordered. EDMS EDMS 05:20 03:46 BASIC METABOLIC PANEL+C.LAB.BRZ ordered. EDMS EDMS 05:20 03:46 CBC+H.LAB.BRZ ordered. EDMS EDMS 05:20 03:46 HEPATIC FUNCTION+C.LAB.BRZ ordered. EDMS EDMS 05:20 03:46 LIPASE+C.LAB.BRZ ordered. EDMS EDMS 05:20 03:46 URINE DRUG SCREEN+CHEM UR.LAB.BRZ ordered. EDMS EDMS 05:20 03:46 ETHANOL+C.LAB.BRZ ordered. EDMS EDMS
--- NOTE | 2021-09-16 09:44 | ER ---
Nurse's Notes [facility] Name: Jean Kamara Age: 35 yrs Sex: Male : 1985 Arrival Date: 09/16/2021 Time: 02:15 Bed 20 Private MD: Diagnosis: Other ascites-tense;Unspecified cirrhosis of liver Presentation: 09/16 02:22 Chief complaint: Patient states: abd pain and retaining fluid. seen here a few weeks sm5 ago and transferred for paracentesis. Coronavirus screen: At this time, the client does not indicate any symptoms associated with coronavirus-19. Ebola Screen: No symptoms or risks identified at this time. Initial Sepsis Screen: Does the patient meet any 2 criteria? HR > 90 bpm. No. Patient's initial sepsis screen is negative. Does the patient have a suspected source of infection? No. Patient's initial sepsis screen is negative. Risk Assessment: Do you want to hurt yourself or someone else? Patient reports no desire to harm self or others. Onset of symptoms was September 11, 2021. 02:22 Method Of Arrival: EMS [facility] 02:22 Acuity: GREGORY 3 5 Triage Assessment: 02:24 General: Appears uncomfortable, Behavior is cooperative. Pain: Complains of pain in 5 abdomen. GI: Abdomen is distended, Reports lower abdominal pain, upper abdominal pain. Historical: - Home Meds: 02:24 Lasix Oral [Active]; Thiamine Oral [Active]; Folic Acid Oral [Active]; sm5 - PMHx: 02:24 Hepatitis C; Hernia; Pancreatitis; sm5 - Immunization history:: Adult Immunizations up to date. - Social history:: Smoking status: unknown. Screenin:37 Abuse screen: Denies threats or abuse. Nutritional screening: No deficits noted. vg1 Tuberculosis screening: No symptoms or risk factors identified. Fall Risk No fall in past 12 months (0 pts). No secondary diagnosis (0 pts). IV access (20 points). Ambulatory Aid- None/Bed Rest/Nurse Assist (0 pts). Gait- Normal/Bed Rest/Wheelchair (0 pts) Mental Status- Oriented to own ability (0 pts). Total Madrid Fall Scale indicates No Risk (0-24 pts). Assessment: 05:34 General: Appears in no apparent distress. Behavior is calm, cooperative. Pain: sm5 Complains of pain in abdomen. Neuro: Level of Consciousness is awake, alert, Oriented to person, place, time, situation. Cardiovascular: No deficits noted. Capillary refill < 3 seconds Patient's skin is warm and dry. Respiratory: No deficits noted. Airway is patent Trachea midline Respiratory effort is even, unlabored. GI: Abdomen is distended. 07:36 Reassessment:. General: Appears in no apparent distress. uncomfortable, Behavior is vg1 calm, cooperative. Pain: Complains of pain in abdomen Pain currently is 8 out of 10 on a pain scale. Neuro: Level of Consciousness is awake, alert, obeys commands, Oriented to person, place, time, situation. Cardiovascular: Patient's skin is warm and dry. Respiratory: Airway is patent Respiratory effort is even, unlabored. GI: Abdomen is distended. : No signs and/or symptoms were reported regarding the genitourinary system. EENT: No signs and/or symptoms were reported regarding the EENT system. Derm: Skin is pink, warm \\T\\ dry. Musculoskeletal: Circulation, motion, and sensation intact. 08:09 Reassessment: received VO from Dr Givens to administer zofran 4 mg IVP x1 and vg1 morphine 4mg IVP x1. 10:29 Reassessment: Patient appears in no apparent distress at this time. Patient and/or vg1 family updated on plan of care and expected duration. Pain level reassessed. Patient is alert/active/playful, equal unlabored respirations, skin warm/dry/pink. Dr Givens performed Paracentesis and approximately 5300 mL have been removed. Patient states feeling better. Vital Signs: 02:15 BP 154 / 94; Pulse 112; Resp 20; Temp 98.1; Pulse Ox 100% ; lt3 05:33 BP 119 / 73; Pulse 84; Resp 18; Pulse Ox 98% on R/A; sm5 07:36 BP 120 / 78; Pulse 105; Resp 17; Pulse Ox 100% ; vg1 08:30 BP 128 / 81; Pulse 93; Resp 19; Pulse Ox 100% ; vg1 09:15 BP 116 / 70; Pulse 88; Resp 17; Pulse Ox 100% ; vg1 10:00 BP 116 / 69; Pulse 108; Resp 17; Pulse Ox 100% ; vg1 ED Course: 02:15 Patient arrived in ED. cs9 02:15 Neno Murdock MD is Attending Physician. pkl 02:23 Triage completed. sm5 02:31 Mariam Metz, RN is Primary Nurse. sm5 03:47 Abdomen Exam Complete In Process Unspecified. EDMS 04:09 COVID swab sent to lab. lt3 04:10 COVID-19/FLU A+B (Document "Date of Onset" if Symptomatic) Sent. lt3 07:37 Patient has correct armband on for positive identification. Placed in gown. Bed in low vg1 position. Call light in reach. Side rails up X 1. 07:38 Primary Nurse role handed off by Mariam Metz, YENNIFER jl7 07:39 Attending Physician role handed off by Neno Murdock MD ysabel 07:39 Virgilio Givens MD is Attending Physician. ysabel 07:50 Caprice Monroy RN is Primary Nurse. vg1 09:43 Kevin Esparza MD is Referral Physician. ysabel 10:54 No provider procedures requiring assistance completed. IV discontinued, intact, vg1 bleeding controlled, No redness/swelling at site. Pressure dressing applied. 10:54 Arm band placed on. vg1 Administered Medications: 02:41 Drug: Zofran (Ondansetron) 4 mg Route: IVP; Site: left antecubital; mr2 02:42 Drug: NS 0.9% 1000 ml Route: IV; Rate: 100 ml/hr; Site: left antecubital; mr2 02:42 Drug: morphine 4 mg Route: IVP; Site: left antecubital; mr2 08:00 Drug: Zofran (Ondansetron) 4 mg Route: IVP; Site: right antecubital; vg1 10:32 Follow up: Response: No adverse reaction; Marked relief of symptoms vg1 08:03 Drug: morphine 4 mg Route: IVP; Site: right antecubital; vg1 10:32 Follow up: Response: No adverse reaction; Pain is decreased vg1 08:08 Drug: Albumin 25 grams Volume: 100 ml; Route: IVPB; Site: right antecubital; vg1 09:15 Follow up: IV Status: Completed infusion; IV Intake: 100ml vg1 Intake: 09:15 IV: 100ml; Total: 100ml. vg1 Outcome: 09:43 Discharge ordered by . ysabel 10:53 Discharged to home ambulatory. vg1 10:53 Condition: good 10:53 Discharge instructions given to patient, Instructed on discharge instructions, follow up and referral plans. medication usage, Demonstrated understanding of instructions, follow-up care, medications, Prescriptions given X 3. 10:55 Patient left the ED. vg1 Signatures: Dispatcher [employer] EDMS Virgilio Givens MD MD cha Lam, Pin, MD MD pkl Leal, Jahala, RN RN jl7 Caprice Monroy RN RN vg1 Oscar Leyva, RN RN mr2 Charito Jimenez 9 Mariam Metz, RN RN sm5 Anabela Tejeda 3
--- NOTE | 2021-09-16 09:54 | RAD REPORT ---
EXAM DESCRIPTION: US - Abdomen Exam Complete - 09/16/2021 3:47 am CLINICAL HISTORY: Abdominal pain. abdominal distention and pain COMPARISON: Abdomen Pelvis W Contrast dated 08/27/2021 FINDINGS: Significant cirrhotic liver is present. Large amount of ascites noted. Gallbladder was not well visualized. Biliary system is not as appear dilated. Common bile duct measur es 3 mm. Both kidneys are normal in size, shape and echotexture. No hydronephrosis, focal lesion of concern or perinephric fluid. The spleen is mildly prominent measuring 13 cm. The pancreas and aorta are obscured by bowel gas. The visualized aspects of the IVC are grossly normal. IMPRESSION: Large amount of ascites. Significant liver cirrhosis and mild splenomegaly.
[2021-09-16 11:12] VITALS: TEMP 98.1
[2021-09-16 11:14] VITALS: O2SAT 100
[2021-09-16 11:20] VITALS: BP 116/69
== END 2021-09-16 10:55 | disposition home or self-care (01) ==
LOC: ER 02:09
PROC: 0W9G3ZX Drainage of Peritoneal Cavity, Percutaneous Approach, Diagnostic (ICD-10-PCS; principal; 2021-09-16)
DX: K74.60 Unspecified cirrhosis of liver (principal); R18.8 Other ascites; B19.20 Unspecified viral hepatitis C without hepatic coma; U07.1 COVID-19
CPT/HCPCS: 0240U; 36415; 76700; 80048; 80076; 80320; 83690; 85025; 99284; J2405; P9047

== ENCOUNTER 2021-11-04 16:24 | Emergency (ER) | payer SELFPAY ==
--- OUTSIDE RECORDS SUMMARY | 2021-11-04 16:36 | XMS REPORT | Continuity of Care Document ---
:1985 Author Organization [facility] t Address [address] [employer] [place] [address] Care Team Providers Name Role Phone Pcp Primary Care Physician Unavailable Scott DEVRIES Attending Clinician Unavailable Scott Arboleda Attending Clinician Doctor Unassigned, Name Attending Clinician Unavailable Attending Clinician Unavailable Singer ROCHA Attending Clinician Mumtaz ARORA Attending Clinician GIULIANO Attending Clinician Unavailable Sharif THOMPSON Attending Clinician Giuliano LORD Attending Clinician Brie Mcguire MD Attending Clinician ARTURO ARMANDO Attending Clinician Unavailable Nicole Fay MD Attending Clinician Fausto Maguire MD Attending Clinician Arturo Armando MD Attending Clinician [phone] Jered LORD Attending Clinician Darci DE OLIVEIRA, E Attending Clinician Fidelina LORD, O Attending Clinician Loni THOMPSON, Gretel Attending Clinician Gretel HARPER Attending Clinician Unavailable GIULIANO Admitting Clinician Unavailable Giuliano LORD Admitting Clinician Fausto MAGUIRE Admitting Clinician Unavailable Brie Mcguire MD Admitting Clinician Payers Payer Name Policy Type Policy Number Effective Date Expiration Date S lissy MEDICAID SSI PENDING 2021 PENDING 00:00:00 Problems Condition Condition Condition Status Onset Resolution Last Treating Co mments Source Name Details Category Date Date Treatment Clinician Date Cirrhosis Cirrhosis Disease Active Uni vers of liver of liver 10-03 ity of 00:00: [address] Chronic Chronic Disease Active 2020-[address] [facility] hepatitis hepatitis 2-11 [facility] - C without C without 00:00: [facility] hepatic hepatic 00 Center coma coma Cirrhosis Cirrhosis Disease Active 2020-[address] [facility] 2[facility]11 [facility]: [address] Abdominal Abdominal Disease Active 2020-[address] [facility] [address] pain pain 2-11 [facility] - [facility]: [address] Ascites Ascites Disease Active [facility] due to due to 7[facility]05 [facility] - alcoholic alcoholic 00:00: [facility] cirrhosis cirrhosis 00 Cent er Allergies, Adverse Reactions, Alerts Allergy Allergy Status Severity Reaction(s) Onset Inactive Treating Comm ents Source Name Type Date Date Clinician NO KNOWN Drug Active Univers ALLERGIE Class ity of S [facility] NO KNOWN Allergy Active [facility] ALL[facility]GIE [facility] Social History Social Habit Start Date Stop Date Quantity Comments Source History of tobacco 1999-09-18 Cigarette Smoker University of use 00:00:00 [facility] History [facility]DAK University o f Alcohol Frequency [facility] edical Branch History [facility] University o f Alcohol Std Drinks [facility] History [facility] University o f Alcohol Binge [facility] Exposure to Not sure University of SARS-CoV-2 (event) [facility] Education 2021-10-03 2021-10-03 14 University of 00:00:00 00:00:00 [facility] Cigarettes smoked 2021-08-28 2021-08-[address] [facility] - current (pack per 00:00:00 00:00:00 [facility] Center day) - Reported Cigarette 2021-08-28 2021-08-28 JEMAL Medeiros - pack-years 00:00:00 00:00:00 [facility] Tobacco use and 2021-08-28 2021-08-28 Never used JEMAL Moncada - exposure 00:00:00 00:00:[address] [facility] Alcohol intake 2021-08-28 2021-08-28 2 /d JEMAL Chapman es - 00:00:00 00:00:[address] [facility] Alcohol Comment 2021-03-22 2021-03-22 24 oz beers Universi ty of 00:00:00 00:00:00 [facility] Sex Ass[birth year] At [birth year] M JEMAL Moncada - 00:00:00 00:00:00 [facility] Smoking Status Start Date Stop Date Source Unknown if ever smoked Universit y [facility] Current every day smoker 2021-03-22 00:00:00 Uni versity of [facility] Medications Ordered Filled Start Stop Current Ordering Indication Dosage Frequency Signature Comments Components Source Medication Medication Date Date Medication? Clinician (SIG) Name Name FENTanyl PF 2021- No 50ug 50 mcg, Un esa (SUBLIMAZE 11-01 Intramuscu it y of (PF)) 23:30: 22:34 lar, ONCE, [place] injection 00 :00 1 dose, On Medi birgit 50 mcg Mon Branch 11/01/21 at 1730, STAT LORazepam 2021- No 1mg 1 mg, Slow U nivers (ATIVAN) 10-29 IV Push, ity of injection 1 01:30: 01:16 ONCE, 1 [place] 00 :00 dose, On Medical [place] Branch 10/28/21 at 1930, STAT phytonadion 2021- Yes [id number] 5mg Take 1 Univers e, vitamin 10-06 tablet by ity of K1, 5 mg 00:00: 05:59 mouth [place] tablet 00 :00 daily for Medical 30 days. Branch spironolact 2021- Yes [id number] 50mg Take 1 Univers one 50 mg 10-06 tablet by ity of tablet 00:00: 05:59 mouth [place] 00 :00 daily for Medical 30 days. Vanesa phytonadion 2021- Yes [id number] 5mg Take 1 Univers e, vitamin 1-19 02-19 tablet by ity of K1, 5 mg 00:00: 05:59 mouth [place] tablet 00 :00 daily for Medical 30 days. Vanesa spironolact 2021- Yes [id number] 50mg Take 1 Univers one 50 mg 1-19 02-19 tablet by ity of tablet 00:00: 05:59 mouth [place] 00 :00 daily for Medical 30 days. Vanesa phytonadion 2021- Yes [id number] 5mg Take 1 Univers e, vitamin 1-19 02-19 tablet by ity of K1, 5 mg 00:00: 05:59 mouth [place] tablet 00 :00 daily for Medical 30 days. [place] spironolact 2021- Yes [id number] 50mg Take 1 Univers one 50 mg 1-19 -19 tablet by ity of tablet 00:00: 05:59 mouth [place] 00 :00 daily for Medical 30 days. Vanesa phytonadion 2021- Yes [id number] 5mg Take 1 Univers e, vitamin 1-19 02-19 tablet by ity of K1, 5 mg 00:00: 05:59 mouth [place] tablet 00 :00 daily for Medical 30 days. Vanesa spironolact 2021- Yes [id number] 50mg Take 1 Univers one 50 mg 1-19 -19 tablet by ity of tablet 00:00: 05:59 mouth [place] 00 :00 daily for Medical 30 days. Vanesa phytonadion 2021- Yes [id number] 5mg Take 1 Univers e, vitamin 1-19 -19 tablet by ity of K1, 5 mg 00:00: 05:59 mouth [place] tablet 00 :00 daily for Medical 30 days. Vanesa spironolact 2021- Yes [id number] 50mg Take 1 Univers one 50 mg 1-19 -19 tablet by ity of tablet 00:00: 05:59 mouth [place] 00 :00 daily for Medical 30 days. Vanesa phytonadion 2021- Yes [id number] 5mg Take 1 Univers e, vitamin 1-19 02-19 tablet by ity of K1, 5 mg 00:00: 05:59 mouth [place] tablet 00 :00 daily for Medical 30 days. Branch spironolact 2021- Yes [id number] 50mg Take 1 Univers one 50 mg -19 -19 tablet by ity of tablet 00:00: 05:59 mouth [place] 00 :00 daily for Medical 30 days. Branch hydrOXYzine 0 Yes [id number] 25mg Take 1 Univers 25 mg 1-18 tablet by ity of tablet 00:00: mouth [place] 00 every 6 Medical (six) Branch hours as needed for Itching. hydrOXYzine 0 Yes [id number] 25mg Take 1 Univers 25 mg 1-18 tablet by ity of tablet 00:00: mouth [place] 00 every 6 Medical (six) Branch hours as needed for Itching. hydrOXYzine Yes [id number] 25mg Take 1 Univers 25 mg 1-18 tablet by ity of tablet 00:00: mouth [place] 00 every 6 Medical (six) Branch hours as needed for Itching. hydrOXYzine 0 Yes [id number] 25mg Take 1 Univers 25 mg 1-18 tablet by ity of tablet 00:00: mouth [place] 00 every 6 Medical (six) Branch hours as needed for Itching. hydrOXYzine 0 Yes [id number] 25mg Take 1 Univers 25 mg 1-18 tablet by ity of tablet 00:00: mouth [place] 00 every 6 Medical (six) Branch hours as needed for Itching. hydrOXYzine 0 Yes [id number] 25mg Take 1 Univers 25 mg 1-18 tablet by ity of tablet 00:00: mouth [place] 00 every 6 Medical (six) Branch hours as needed for Itching. famotidine 2021- Yes [id number] 20mg Take 1 Univers 20 mg 1-18 -18 tablet by ity of tablet 00:00: 05:59 mouth 2 [place] 00 :00 (two) Medical times Branch daily for 30 days. foLIC acid 2021- Yes [id number] 1mg Take 1 Univers 1 mg tablet 1-18 -18 tablet by it y of 00:00: 05:59 mouth [place] 00 :00 daily for Medical 30 days. Branch furosemide 2021- Yes [id number] 40mg Take 1 Univers 40 mg -18 -18 tablet by ity of tablet 00:00: 05:59 mouth [place] 00 :00 daily for Medical 30 days. Branch nicotine 21 2021- Yes [id number] 1{patch Apply 1 Univers mg/24 hr 1-18 -18 } Patch to ity of patch 00:00: 05:59 area(s) [place] 00 :00 every 24 Medical (twenty-fo Branch ur) hours for 30 days. thiamine 2021- Yes [id number] 100mg Take 1 Univers 100 mg -18 -18 tablet by ity of tablet 00:00: 05:59 mouth [place] 00 :00 daily for Medical 30 days. Branch lactulose 2021- Yes [id number] 15mL Take 15 mL Univers 10 gram/15 10-0518 by mouth ity of mL solution 00:00: 05:59 daily for [place] 00 :00 30 days. Medical Branch famotidine 2021- Yes [id number] 20mg Take 1 Univers 20 mg 10-05-18 tablet by ity of tablet 00:00: 05:59 mouth 2 [place] 00 :00 (two) Medical times Branch daily for 30 days. foLIC acid 2021- Yes [id number] 1mg Take 1 Univers 1 mg tablet 10-05-18 tablet by it y of 00:00: 05:59 mouth [place] 00 :00 daily for Medical 30 days. Branch furosemide 2021- Yes [id number] 40mg Take 1 Univers 40 mg -18 -18 tablet by ity of tablet 00:00: 05:59 mouth [place] 00 :00 daily for Medical 30 days. Branch nicotine 2021- Yes [id number] 1{patch Apply 1 Univers mg/24 hr -18 -18 } Patch to ity of patch 00:00: 05:59 area(s) [place] 00 :00 every 24 Medical (twenty-fo Branch ur) hours for 30 days. thiamine 2021- Yes [id number] 100mg Take 1 Univers 100 mg -18 -18 tablet by ity of tablet 00:00: 05:59 mouth [place] 00 :00 daily for Medical 30 days. Branch lactulose 2021- Yes [id number] 15mL Take 15 mL Univers 10 gram/15 10-05-18 by mouth ity of mL solution 00:00: 05:59 daily for [place] 00 :00 30 days. Medical Branch famotidine 2021- Yes [id number] 20mg Take 1 Univers 20 mg 10-05-18 tablet by ity of tablet 00:00: 05:59 mouth 2 [place] 00 :00 (two) Medical times [place] daily for 30 days. foLIC acid 2021- Yes [id number] 1mg Take 1 Univers 1 mg tablet 10-0518 tablet by it y of 00:00: 05:59 mouth [place] 00 :00 daily for Medical 30 days. Branch furosemide 2021- Yes [id number] 40mg Take 1 Univers 40 mg 10-05- tablet by ity of tablet 00:00: 05:59 mouth [place] 00 :00 daily for Medical 30 days. Branch nicotine 21 2021- Yes [id number] 1{patch Apply 1 Univers mg/24 hr 10-05 } Patch to ity of patch 00:00: 05:59 area(s) [place] 00 :00 every 24 Medical (twenty-fo Branch ur) hours for 30 days. thiamine 2021- Yes [id number] 100mg Take 1 Univers 100 mg 10-05 tablet by ity of tablet 00:00: 05:59 mouth [place] 00 :00 daily for Medical 30 days. Branch lactulose 2021- Yes [id number] 15mL Take 15 mL Univers 10 gram/15 10-0518 by mouth ity of mL solution 00:00: 05:59 daily for [place] 00 :00 30 days. Medical Branch famotidine 2021- Yes [id number] 20mg Take 1 Univers 20 mg 10-05-18 tablet by ity of tablet 00:00: 05:59 mouth 2 [place] 00 :00 (two) Medical [facility] daily for 30 days. foLIC acid 2021- Yes [id number] 1mg Take 1 Univers 1 mg tablet 10-0518 tablet by it y of 00:00: 05:59 mouth [place] 00 :00 daily for Medical 30 days. Branch furosemide 2021- Yes [id number] 40mg Take 1 Univers 40 mg 18 -18 tablet by ity of tablet 00:00: 05:59 mouth [place] 00 :00 daily for Medical 30 days. Branch nicotine 21 2021- Yes [id number] 1{patch Apply 1 Univers mg/24 hr -18 -18 } Patch to ity of patch 00:00: 05:59 area(s) [place] 00 :00 every 24 Medical (twenty-fo Branch ur) hours for 30 days. thiamine 2021- Yes [id number] 100mg Take 1 Univers 100 mg 10-05-18 tablet by ity of tablet 00:00: 05:59 mouth [place] 00 :00 daily for Medical 30 days. Branch lactulose 2021- Yes [id number] 15mL Take 15 mL Univers 10 gram/15 10-05 by mouth ity of mL solution 00:00: 05:59 daily for [place] 00 :00 30 days. Medical Branch famotidine 2021- Yes [id number] 20mg Take 1 Univers 20 mg 10-05 tablet by ity of tablet 00:00: 05:59 mouth 2 [place] 00 :00 (two) Medical times Branch daily for 30 days. foLIC acid 2021- Yes [id number] 1mg Take 1 Univers 1 mg tablet 10-05-18 tablet by it y of 00:00: 05:59 mouth [place] 00 :00 daily for Medical 30 days. Branch furosemide 2021- Yes [id number] 40mg Take 1 Univers 40 mg 10-05-18 tablet by ity of tablet 00:00: 05:59 mouth [place] 00 :00 daily for Medical 30 days. Branch nicotine 2021- Yes [id number] 1{patch Apply 1 Univers mg/24 hr 18 -18 } Patch to ity of patch 00:00: 05:59 area(s) [place] 00 :00 every 24 Medical (twenty-fo Branch ur) hours for 30 days. thiamine 2021- Yes [id number] 100mg Take 1 Univers 100 mg 18 -18 tablet by ity of tablet 00:00: 05:59 mouth [place] 00 :00 daily for Medical 30 days. Branch lactulose 2021- Yes [id number] 15mL Take 15 mL Univers 10 gram/15 10-0518 by mouth ity of mL solution 00:00: 05:59 daily for [place] 00 :00 30 days. Medical Branch famotidine 2021- Yes [id number] 20mg Take 1 Univers 20 mg 10-05 tablet by ity of tablet 00:00: 05:59 mouth 2 [place] 00 :00 (two) Medical times [place] daily for 30 days. foLIC acid 2021- Yes [id number] 1mg Take 1 Univers 1 mg tablet 10-05 tablet by it y of 00:00: 05:59 mouth [place] 00 :00 daily for Medical 30 days. Branch furosemide 2021- Yes [id number] 40mg Take 1 Univers 40 mg 10-05 tablet by ity of tablet 00:00: 05:59 mouth [place] 00 :00 daily for Medical 30 days. Branch nicotine 21 2021- Yes [id number] 1{patch Apply 1 Univers mg/24 hr 10-05 } Patch to ity of patch 00:00: 05:59 area(s) [place] 00 :00 every 24 Medical (twenty-fo Branch ur) hours for 30 days. thiamine 2021- Yes [id number] 100mg Take 1 Univers 100 mg 10-05 tablet by ity of tablet 00:00: 05:59 mouth [place] 00 :00 daily for Medical 30 days. Branch lactulose 2021- Yes [id number] 15mL Take 15 mL Univers 10 gram/15 10-05 by mouth ity of mL solution 00:00: 05:59 daily for [place] 00 :00 30 days. Medical Branch hydrOXYzine Yes 25mg 25 mg, Univ ers (ATARAX) 1-17 Oral, ity of tablet 25 16:49: Q6HPRN, [place] mg 08 Starting Medical on Mon Branch 10/04/21 at 1049, Until Discontinu ed, Routine, Itching NaCl 0.9% 2021- No 1000mL at 100 Uni vers (NS) IV 10-04 01-18 mL/hr, IV ity of infusion 16:15: 00:31 Infusion, [place] as 1,000 mL 00 :30 CONTINUOUS Medic al , Starting Branch on Mon10/04/21 at 1030, Until Mon10/04/21 at 1831, Routine KCL 2022-0 202- No 40meq 40 mEq, Univers (KLOR-CON 10-0417 Oral, ity of M20) tablet 15:30: 14:52 ONCE, 1 [place] 40 mEq 00 :00 dose, On Medical [facility] 10/04/21 at 0930, Routine famotidine 0 Yes 20mg 20 mg, Unive rs (PEPCID AC) 17 Oral, BID, it y of tablet 20 15:15: First dose [place] mg 00 on [facility] 10/04/21 at Branch 0915, Until Discontinu ed, Routine spironolact 0 Yes 50mg 50 mg, Univ ers one 10-04 Oral, ity of (ALDACTONE) 15:00: DAILY, [place] tablet 50 00 First dose Medi birgit mg on [facility] 10/04/21 at 0900, Until Discontinu ed, Routine thiamine 0 Yes 100mg 100 mg, Unive rs (VITAMIN 10-04 Oral, ity of B1) tablet 15:00: DAILY, [place] 100 mg 00 First dose Medical on [facility] 10/04/21 at 0900, Until Discontinu ed, Routine foLIC acid 0 Yes 1mg 1 mg, Univer s (FOLATE) 10-04 Oral, ity of tablet 1 mg 15:00: DAILY, [place] 00 First dose Medical on [facility] 10/04/21 at 0900, Until Discontinu ed, Routine furosemide 0 Yes 40mg 40 mg, Unive rs (LASIX) 17 Slow IV ity of injection 02:00: Push, [place] 40 mg 00 Q12H, Medical First dose Branch on [place] 10/03/21 at 2000, Until Discontinu ed, Routine docusate 2021-0 Yes 100mg 100 mg, Unive rs (COLACE) 17 Oral, BID, ity o f capsule 100 02:00: First dose [place] mg 00 on [facility] 10/03/21 at Branch 2000, Until Discontinu ed, Routine nicotine 2021-0 Yes 1{patch 1 Patch, Un esa (NICODERM) 16 } Topical, ity o f 21 mg/24 hr 23:45: Administer [place] patch 1 00 over 24 Medical Patch Hours, Branch Q24H, First dose on [place] 10/03/21 at 1745, Until Discontinu ed, Routine phytonadion 2021- Yes 5mg 5 mg, Univ ers e (vitamin 10-03 Oral, ity of K1) 23:45: 14:59 DAILY, 3 [place] (MEPHYTON) 00 :00 doses, Medical tablet 5 mg First dose Br anch on [place] 10/03/21 at 1745, Last dose on Mon10/05/21 at 0900, Routine ondansetron Yes 4mg 4 mg, Slow Univers (ZOFRAN 10-03 IV Push, ity of (PF)) 23:38: Q6HPRN, [place] injection 4 37 Starting Medi birgit mg on [place] Branch 10/03/21 at 1738, Until Discontinu ed, Routine, Nausea and Vomiting (N/V) morpHINE 2021- No 4mg 4 mg, Slow Un esa injection 4 10-03 IV Push, ity of mg 23:38: 23:37 Q4HPRN, [place] 25 :25 Starting Medical on [place] Branch 10/03/21 at 1738, Until Mon10/04/21 at 1737, Routine, Pain (scale 7-10) traMADoL 2021- Yes 50mg 50 mg, Univer s (ULTRAM) 10-03 Oral, ity of tablet 50 23:38: 23:37 Q8HPRN, [place] mg 21 :21 Starting Medical on [place] Branch 10/03/21 at 1738, Until Mon10/05/21 at 1737, Routine, Pain (scale 4-6) acetaminoph Yes 650mg 650 mg, Un esa en 10-03 Oral, ity of (TYLENOL) 23:38: Q6HPRN, [place] tablet 650 15 Starting Medic al mg on [place] Branch 10/03/21 at 1738, Until Discontinu ed, Routine, Pain (scale 1-3), Temp > 38.5 C ondansetron 2021-0 2021- No 4mg 4 mg, Slow Univers (ZOFRAN 1-16 01-16 IV Push, ity of (PF)) 22:30: 21:23 ONCE, 1 [place] injection 4 00 :00 dose, On Medi birgit mg [place] Branch 10/03/21 at 1630, JAMEL morpHINE 2021- No 4mg 4 mg, Slow Un esa injection 4 10-03 IV Push, ity of mg 22:30: 21:24 ONCE, 1 [place] 00 :00 dose, On Medical [place] 10/03/21 at 1630, STAT iopamidol 2021- No [id number] 100mL 100 mL, Univers (ISOVUE 10-03 Intravenou ity o f 370-500 mL) 21:35: 21:35 s, ONCE, 1 [place] injection 00 :00 dose, On Medica l 100 mL [place] Branch 10/03/21 at 1600, Routine furosemide 2020-09 Yes edema due 20mg QD Take [address] [facility] (LASIX) 20 2-13 to hepatic by mouth [facility] - MG tablet 17:45: cirrhosis daily. edical 02 [place] lactulose 2020-09 Yes hepatic 20g QD Take [address] [facility] (CHRONULAC) 2-13 encephalopa by mouth [facility] - 10 gram/15 17:45: thy daily. Medic al mL (15 mL) 02 [place] solution spironolact 2020-09 Yes edema due 50mg QD Take [address] [facility] one 2-13 to hepatic by mouth [facility] - (ALDACTONE) 17:45: cirrhosis daily. Medical 50 MG 02 Center tablet thiamine 2020-09 Yes thiamine 100mg QD Take [address] [facility] (vitamin 2-13 deficiency mg by Luke s - B-1) 100 MG 17:45: mouth Medic al tablet 02 daily. Center hydrOXYzine 2020-09 Yes 10mg Take [address] [facility] (ATARAX) 10 2-13 by mouth Luke s - MG tablet 17:45: every 6 Medic al 02 (six) Center hours as needed for Itching. folic acid 2020-09 Yes folate 1mg QD Take [address] [facility] (FOLVITE) 1 2-13 deficiency by mouth [facility] - MG tablet 17:45: daily. Medica l 02 Center furosemide 2020-09 Yes edema due 20mg QD Take [address] [facility] (LASIX) 20 2-13 to hepatic by mouth [facility] - MG tablet 17:45: cirrhosis daily. M edical 02 Center lactulose 2020-09 Yes hepatic 20g QD Take [address] [facility] (CHRONULAC) 2-13 encephalopa by mouth [facility] - 10 gram/15 17:45: thy daily. Medic al mL (15 mL) 02 [place] solution spironolact 2020-09 Yes edema due 50mg QD Take [address] [facility] one 2-13 to hepatic by mouth [facility] - (ALDACTONE) 17:45: cirrhosis daily. Medical 50 MG 02 Center tablet thiamine 2020-09 Yes thiamine 100mg QD Take [address] [facility] (vitamin 2-13 deficiency mg by Luke s - B-1) 100 MG 17:45: mouth Medic al tablet 02 daily. Center hydrOXYzine 2020-09 Yes 10mg Take [address] [facility] (ATARAX) 10 2-13 by mouth Luke s - MG tablet 17:45: every 6 Medic al 02 (six) Center hours as needed for Itching. folic acid 2020-09 Yes folate 1mg QD Take [address] [facility] (FOLVITE) 1 2-13 deficiency by mouth [facility] - MG tablet 17:45: daily. Medica l 02 [place] iopamidol 2020-09- No [id number] 100mL 100 mL, Univers (ISOVUE 06-18 Intravenou ity o f 370-500 mL) 21:44: 21:44 s, ONCE, 1 [place] injection 00 :00 dose, On Medica l 100 mL Mon Branch 06/18/21 at 1700, Routine FENTanyl PF [...] 00 :00 dose, On Medi birgit mg Mon Branch 06/18/21 at 1600, JAMEL ciprofloxac 2020-09 Yes [id number] 500mg Take 1 Univers in HCl 500 0-01 tablet by ity of mg tablet 00:00: mouth 2 [place] 00 (two) Medical times Branch daily. metroNIDAZO 2020-09 Yes [id number] 500mg Take 1 Univers LE 500 mg 0-01 tablet by ity o f tablet 00:00: mouth [place] 00 every 8 Medical (eight) Branch hours. ondansetron 2020-09 Yes [id number] 4mg Take 1 Univers 4 mg 0-01 tablet by ity of disintegrat 00:00: mouth [place] ing tablet 00 every 4 Medica l (four) Branch hours as needed for Nausea and Vomiting (N/V). ciprofloxac 2020-09 Yes [id number] 500mg Take 1 Univers in HCl 500 0-01 tablet by ity of mg tablet 00:00: mouth 2 [place] 00 (two) Medical times Branch daily. metroNIDAZO 2020-09 Yes [id number] 500mg Take 1 Univers LE 500 mg 0-01 tablet by ity o f tablet 00:00: mouth [place] 00 every 8 Medical (eight) Branch hours. ondansetron 2020-09 Yes [id number] 4mg Take 1 Univers 4 mg 0-01 tablet by ity of disintegrat 00:00: mouth [place] ing tablet 00 every 4 Medica l (four) Branch hours as needed for Nausea and Vomiting (N/V). ciprofloxac 2020-09- No [id number] 500mg Take 1 Univers in HCl 500 0-01 01-18 tablet by ity of mg tablet 00:00: 00:00 mouth 2 [place] 00 :00 (two) Medical times Branch daily. metroNIDAZO 2020-09- No [id number] 500mg Take 1 Univers LE 500 mg 0-01 01-18 tablet by ity of tablet 00:00: 00:00 mouth [place] 00 :00 every 8 Medical (eight) Branch hours. ondansetron 2020-09- No [id number] 4mg Take 1 Univers 4 mg 0-01 01-18 tablet by ity of disintegrat 00:00: 00:00 mouth [place] tablet 00 :00 every 4 Medica l (four) Branch hours as needed for Nausea and Vomiting (N/V). HYDROcodone 2020-09- No [id number] 1{tbl} Take 1 U nivers -acetaminop 0-01 10-09 tablet by it y of hen 5-325 00:00: 04:59 mouth [place] mg tablet 00 :00 every 4 Medical (four) Branch hours as needed for Pain (scale 4-6) for up to 7 days. Indication s: acute pain foLIC acid 0 Yes [id number] 1mg Take 1 Univers 1 mg tablet 7-09 tablet by ity of 00:00: mouth [place] 00 daily. Medical Branch spironolact 0 Yes [id number] 50mg Take 1 Univers one 50 mg 7-09 tablet by ity o f tablet 00:00: mouth [place] 00 daily. Medical Branch thiamine 2020-0 Yes [id number] 100mg Take 1 U nivers 100 mg 7-09 tablet by ity of tablet 00:00: mouth [place] 00 daily. Medical Branch furosemide 0 Yes [id number] 20mg Take 1 Univers 20 mg 7-09 tablet by ity of tablet 00:00: mouth [place] 00 daily. Medical Branch foLIC acid 0 Yes [id number] 1mg Take 1 Univers 1 mg tablet 7-09 tablet by ity of 00:00: mouth [place] 00 daily. Medical Branch spironolact 0 Yes [id number] 50mg Take 1 Univers one 50 mg 7-09 tablet by ity o f tablet 00:00: mouth [place] 00 daily. Medical Branch thiamine 2020-0 Yes [id number] 100mg Take 1 U nivers 100 mg 7-09 tablet by ity of tablet 00:00: mouth [place] 00 daily. Medical Branch furosemide 2020-0 Yes [id number] 20mg Take 1 Univers 20 mg 7-09 tablet by ity of tablet 00:00: mouth [place] 00 daily. Medical Branch foLIC acid 0 Yes [id number] 1mg Take 1 Univers 1 mg tablet 7-09 tablet by ity of 00:00: mouth [place] 00 daily. Medical Branch spironolact 2020-0 Yes [id number] 50mg Take 1 Univers one 50 mg 7-09 tablet by ity o f tablet 00:00: mouth [place] 00 daily. Medical Branch thiamine 2020-0 Yes [id number] 100mg Take 1 U nivers 100 mg 7-09 tablet by ity of tablet 00:00: mouth [place] 00 daily. Medical Branch furosemide 2020-0 Yes [id number] 20mg Take 1 Univers 20 mg 7-09 tablet by ity of tablet 00:00: mouth [place] 00 daily. Medical Branch foLIC acid 2020-0 Yes [id number] 1mg Take 1 Univers 1 mg tablet 7-09 tablet by ity of 00:00: mouth [place] 00 daily. Medical Branch spironolact 2020-0 Yes [id number] 50mg Take 1 Univers one 50 mg 7-09 tablet by ity o f tablet 00:00: mouth [place] 00 daily. Medical Branch thiamine 2020-0 Yes [id number] 100mg Take 1 U nivers 100 mg 7-09 tablet by ity of tablet 00:00: mouth [place] 00 daily. Medical Branch furosemide 2020-0 Yes [id number] 20mg Take 1 Univers 20 mg 7-09 tablet by ity of tablet 00:00: mouth [place] 00 daily. Medical Branch foLIC acid 0 Yes [id number] 1mg Take 1 Univers 1 mg tablet 7-09 tablet by ity of 00:00: mouth [place] 00 daily. Medical Branch spironolact 2020-0 Yes [id number] 50mg Take 1 Univers one 50 mg 7-09 tablet by ity o f tablet 00:00: mouth [place] 00 daily. Medical Branch thiamine 2020-0 Yes [id number] 100mg Take 1 U nivers 100 mg 7-09 tablet by ity of tablet 00:00: mouth [place] 00 daily. Medical Branch furosemide 2020-0 Yes [id number] 20mg Take 1 Univers 20 mg 7-09 tablet by ity of tablet 00:00: mouth [place] 00 daily. Medical Branch foLIC acid 2020-0 Yes [id number] 1mg Take 1 Univers 1 mg tablet 7-09 tablet by ity of 00:00: mouth [place] 00 daily. Medical Branch spironolact 2020-0 Yes [id number] 50mg Take 1 Univers one 50 mg 7-09 tablet by ity o f tablet 00:00: mouth [place] 00 daily. Medical Branch thiamine 2020-0 Yes [id number] 100mg Take 1 U nivers 100 mg 7-09 tablet by ity of tablet 00:00: mouth [place] 00 daily. Medical Branch furosemide 2020-0 Yes [id number] 20mg Take 1 Univers 20 mg 7-09 tablet by ity of tablet 00:00: mouth [place] 00 daily. Medical Branch foLIC acid 2021-0 Yes [id number] 1mg Take 1 Univers 1 mg tablet 7-09 tablet by ity of 00:00: mouth [place] 00 daily. Medical Branch spironolact 0 Yes [id number] 50mg Take 1 Univers one 50 mg 7-09 tablet by ity o f tablet 00:00: mouth [place] 00 daily. Medical Branch thiamine 2020-0 Yes [id number] 100mg Take 1 U nivers 100 mg 7-09 tablet by ity of tablet 00:00: mouth [place] 00 daily. Medical Branch furosemide 2020-0 Yes [id number] 20mg Take 1 Univers 20 mg 7-09 tablet by ity of tablet 00:00: mouth [place] 00 daily. Medical Branch foLIC acid 0 Yes [id number] 1mg Take 1 Univers 1 mg tablet 7-09 tablet by ity of 00:00: mouth [place] 00 daily. Medical Branch spironolact Yes [id number] 50mg Take 1 Univers one 50 mg 7-09 tablet by ity o f tablet 00:00: mouth [place] 00 daily. Medical Branch thiamine 0 Yes [id number] 100mg Take 1 U nivers 100 mg 7-09 tablet by ity of tablet 00:00: mouth [place] 00 daily. Medical Branch furosemide 0 Yes [id number] 20mg Take 1 Univers 20 mg 7-09 tablet by ity of tablet 00:00: mouth [place] 00 daily. Medical Branch foLIC acid 2021- No [id number] 1mg Take 1 Univers 1 mg tablet 718 tablet by it y of 00:00: 00:00 mouth [place] 00 :00 daily. Medical Branch spironolact 0 2021- No [id number] 50mg Take 1 Univers one 50 mg 7-18 tablet by ity of tablet 00:00: 00:00 mouth [place] 00 :00 daily. Medical Branch thiamine 2020-0 2- No [id number] 100mg Take 1 [facility] 100 mg 7-18 tablet by ity of tablet 00:00: 00:00 mouth [place] 00 :00 daily. Medical Branch furosemide 2020-0 2021- No [id number] 20mg Take 1 Univers 20 mg 7-18 tablet by ity of tablet 00:00: 00:00 mouth [place] 00 :00 daily. Medical Branch lactulose 2020- No [id number] 15mL Take 15 mL Univers 10 gram/15 03-26 by mouth ity of mL solution 00:00: 04:59 daily for [place] 00 :00 30 days. Medical Branch lactulose 2020- No [id number] 15mL Take 15 mL Univers 10 gram/15 03-26 by mouth ity of mL solution 00:00: 04:59 daily for [place] 00 :00 30 days. Medical Branch lactulose 2020- No [id number] 15mL Take 15 mL Univers 10 gram/15 03-26 by mouth ity of mL solution 00:00: 04:59 daily for [place] 00 :00 30 days. Medical Branch lactulose 2020- No [id number] 15mL Take 15 mL Univers 10 gram/15 03-26 by mouth ity of mL solution 00:00: 04:59 daily for [place] 00 :00 30 days. Medical Branch lactulose 2020- No [id number] 15mL Take 15 mL Univers 10 gram/15 03-26 by mouth ity of mL solution 00:00: 04:59 daily for [place] 00 :00 30 days. Medical Branch lactulose 2020- No [id number] 15mL Take 15 mL Univers 10 gram/15 03-26 by mouth ity of mL solution 00:00: 04:59 daily for [place] 00 :00 30 days. Medical Branch ondansetron 2020- No 4mg Take 4 mg Univers 4 mg tablet 03-25 by mouth ity of 16:44: 00:00 every 8 [place] 01 :00 (eight) Medical hours as Branch needed. Melatonin 5 2020- No Take by U nivers mg tablet 03-25 mouth. ity of 16:44: 00:00 [place] 01 :00 Medical Branch lactulose 2020-0 Yes 15mL 15 mL, Univer s (CEPHULAC) 03-25 Oral, ity of solution 15 14:00: [place]ILY, [place] 00 First dose Medical on Y[place] Branch 03/25/21 at 0900, Until Discontinu ed, Routine morpHINE 2020- No 2mg 2 mg, Slow Un esa injection 2 03-25 IV Push, ity of mg 09:00: 08:06 ONCE, 1 [place] 00 :00 dose, Y[facility] Medical 03/25/21 at Branch 0400, Routine hydrOXYzine 2020- No [id number] 10mg Take 1 Univers 10 mg 03-25 tablet by ity of tablet 00:00: 04:59 mouth [place] 00 :00 every 6 Medical (six) Branch hours as needed for Itching for up to 14 days. hydrOXYzine 2020- No [id number] 10mg Take 1 Univers 10 mg 03-25 tablet by ity of tablet 00:00: 04:59 mouth [place] 00 :00 every 6 Medical (six) Branch hours as needed for Itching for up to 14 days. hydrOXYzine 2020- No [id number] 10mg Take 1 Univers 10 mg 03-25 tablet by ity of tablet 00:00: 04:59 mouth [place] 00 :00 every 6 Medical (six) Branch hours as needed for Itching for up to 14 days. hydrOXYzine 2020- No [id number] 10mg Take 1 Univers 10 mg 03-25 [...] 01:00 Q6HPRN, [place] 00 :00 Starting Medical Tu03/23/21 Branch at 2000, Until Mon03/24/21 at 2000, Routine, breakthrou gh pain lidocaine 2020- No 10mL 10 mL, Unive rs 1% (PF) 03-23 Infiltrati ity o f (XYLOCAINE) 16:45: 19:12 on, ONCE, [place] injection 00 :00 1 dose, Medical 10 mL [facility] 03/23/21 Branch at 1145, Routine spironolact 0 Yes 50mg 50 mg, Univ ers one 03-23 Oral, ity of (ALDACTONE) 14:00: DAILY, [place] tablet 50 00 First dose Medi birgit mg on [facility] 03/23/21 at 0900, Until Discontinu ed, Routine furosemide 0 Yes 20mg 20 mg, Unive rs (LASIX) 03-23 Oral, ity of tablet 20 14:00: DAILY, [place] mg 00 First dose Medical on [facility] 03/23/21 at 0900, Until Discontinu ed, Routine pantoprazol Yes 40mg 40 mg, Univ ers e 03-23 Oral, ity of (PROTONIX) 14:00: DAILY, [place] EC tablet 00 First dose Medi birgit 40 mg on [facility] 03/23/21 at 0900, Until Discontinu ed, Routine foLIC acid Yes 1mg 1 mg, Univer s (FOLATE) 03-23 Oral, ity of tablet 1 mg 14:00: DAILY, [place] 00 First dose Medical on [facility] 03/23/21 at 0900, Until Discontinu ed, Routine thiamine 0 Yes 100mg 100 mg, Unive rs (VITAMIN 03-23 Oral, ity of B1) tablet 14:00: DAILY, [place] 100 mg 00 First dose Medical on [facility] 03/23/21 at 0900, Until Discontinu ed, Routine nicotine 0 Yes 1{patch 1 Patch, Un esa (NICODERM) 03-23 } Topical, ity o f 14 mg/24 hr 01:23: Administer [place] patch 1 00 over 24 Medical Patch Hours, Branch Q24H, First dose on Mon03/22/21 at 2030, Until Discontinu ed, Routine heparin 2020-0 Yes 5000U 5,000 Univers (porcine) 03-23 Units, [place]y of injection 01:00[place] 5,000 Units 00 us, Q12H, Med ical First dose Branch on Mon03/22/21 at 2000, Until Discontinu ed, Routine lidocaine 2020-0 202- No 30mL 30 mL, Unive rs 2% 03-22 Infiltrati ity of (XYLOCAINE) 22:15: 22:15 on, ONCE, [place] 20 mg/mL (2 00 :00 1 dose, Medic al %) Mon03/22/21 Branch injection at 1715, 30 mL Routine oxazepam Yes 15mg 15 mg, Univers (SERAX) 03-22 Oral, ity of capsule 15 21:01: Q4HPRN, [place] mg 27 Starting Medical 03/22/21 Branch at 1601, Until Discontinu ed, Routine, Only while awake for DBP equal to or greater than 100, HR equal to or greater than 100. ondansetron Yes 4mg 4 mg, Slow Univers (ZOFRAN 03-22 IV Push, ity of (PF)) 20:56: Q6HPRN, [place] injection 4 45 Starting Medi birgit mg Mon03/22/21 Branch at 1556, Until Discontinu ed, Routine, Nausea and Vomiting (N/V) morpHINE 2020- No 2mg 2 mg, Slow Un esa injection 2 03-22 IV Push, ity of mg 20:54: 20:53 Q6HPN, [place] 55 :55 Starting Medical 03/22/21 Branch at 1554, Until Mon03/23/21 at 1553, Routine, Pain (scale 7-10) acetaminoph 2020- No 1{tbl} 1 tablet, Univers en-codeine 03-22 Oral, ity of (TYLENOL 20:54: 20:53 [facility] [place] #[facility]) 300-30 49 :49 Starting Medic al mg tablet 1 Mon03/22/21 Br anch tablet at 1554, Until Mon03/24/21 at 1553, Routine, Pain (scale 4-6) acetaminoph Yes 650mg 650 mg, Un esa en 03-22 Oral, ity of (TYLENOL) 20:54: [place] tablet 650 40 Starting Medic al mg Mon03/22/21 Branch at 1554, Until Discontinu ed, Routine, Pain (scale 1-3) iopamidol 202- No [id number] 100mL 100 mL, Univers (ISOVUE 03-22 Intravenou ity o f 370-500 mL) 20:00: 19:40 s, ONCE, 1 [place] injection 00 :00 dose, Mon Medic al 100 mL 03/22/21 at Branch 1500, Routine morpHINE 2020- No 4mg 4 mg, Slow Un esa injection 4 03-22 IV Push, ity of mg 19:15: 18:06 ONCE, 1 [place] 00 :00 dose, Mon Medical 03/22/21 at Branch 1415, STAT ondansetron 2020- No 4mg 4 mg, Slow Univers (ZOFRAN 03-22 IV Push, ity of (PF)) 18:01: 18:06 PRN, 1 [place] injection 4 43 :00 dose, Medical mg Starting Branch 03/22/21 at 1301, Until 03/22/21 at 1306, JAMEL, Nausea and Vomiting (N/V) Immunizations Ordered Filled Immunization Date Status Comments [facility] Immunization Name Name Influenza Virus 2021-10-05 Completed Universit y of Vaccine [facility] IM, 00:00:00 [place] Me dical Preserv and ABX Branch Free 6 MO-64 YRS Influenza Virus 2021-10-05 Completed Universit y of Vaccine [facility] IM, 00:00:00 [place] Me dical Preserv and ABX Branch Free 6 MO-64 YRS Influenza Virus 2021-10-05 Completed Universit y of Vaccine [facility] IM, 00:00:00 [place] Me dical Preserv and ABX Branch Free 6 MO-64 YRS Influenza Virus 2021-10-05 Completed Universit y of Vaccine [facility] IM, 00:00:00 [place] Me dical Preserv and ABX Branch Free 6 MO-64 YRS Influenza Virus 2021-10-05 Completed Universit y of Vaccine [facility] IM, 00:00:00 [place] Me dical Preserv and ABX Branch Free 6 MO-64 YRS Influenza Virus 2021-10-05 Completed Universit y of Vaccine [facility] IM, 00:00:00 [place] Me dical Preserv and ABX Branch Free 6 MO-64 YRS Pneumococcal 2021-03-25 Completed University o f Polysaccharide, 00:00:00 [place] Med ical PPSV23 (PNEUMOVAX) [place] Pneumococcal 2021-03-25 Completed University o f Polysaccharide, [...] Time Observation Value Comments Source Systolic blood 2021-11-01 22:36:31 131 mm[Hg] Univer sity of pressure [facility] Diastolic blood 2021-11-01 22:36:31 87 mm[Hg] Unive rsity of pressure [facility] Heart rate 2021-11-01 22:36:31 102 /min [facility] Respiratory rate 2021-11-01 22:36:31 16 /min [facility] [place] [facility] saturation in 2021-11-01 22:36:31 100 /min University of Arterial blood by [facility] Pulse oximetry Branch Body temperature 2021-11-01 21:00:00 36.94 Sabi Univ ersity of [place] [facility] Systolic blood 2021-10-29 01:30:00 140 mm[Hg] Univer sity of pressure [place] [facility] Diastolic blood 2021-10-29 01:30:00 74 mm[Hg] Unive rsity of pressure [place] [facility] Heart rate 2021-10-29 01:30:00 112 /min Universi ty of [place] [facility] Respiratory rate 2021-10-29 01:30:00 20 /min Univ ersity of [place] [facility] Oxygen saturation in 2021-10-29 01:30:00 100 /min University of Arterial blood by [facility] Pulse oximetry Branch Body temperature 2021-10-28 23:49:00 36.44 Sabi Univ ersity of [place] [facility] Body weight 2021-10-28 23:49:00 86.183 kg Universi ty of [place] [facility] BMI 2021-10-28 23:49:00 28.89 kg/m2 Universi ty of [place] [facility] Systolic blood 2021-10-05 18:11:00 122 mm[Hg] Univer sity of pressure [place] [facility] Diastolic blood 2021-10-05 18:11:00 75 mm[Hg] Unive rsity of pressure [place] [facility] Heart rate 2021-10-05 18:11:00 105 /min Universi ty of [place] [facility] Body temperature 2021-10-05 18:11:00 37 Sabi Univ ersity of [place] [facility] Respiratory rate 2021-10-05 18:11:00 18 /min Univ ersity of [place] [facility] Oxygen saturation in 2021-10-05 18:11:00 92 /min University of Arterial blood by [facility] Pulse oximetry Branch Body height 2021-10-04 03:45:00 172.7 cm Universi ty of [place] [facility] Body weight 2021-10-04 03:45:00 80.967 kg Universi ty of [place] [facility] BMI 2021-10-04 03:45:00 27.14 kg/m2 Universi ty [facility] [place] [facility] HEIGHT 2021-08-28 05:00:00 172.7 cm WEIGHT 2021-08-28 05:00:00 72.576 kg HEIGHT 2021-08-28 05:00:00 172.7 cm WEIGHT 2021-08-28 05:00:00 72.576 kg Systolic blood 2021-06-18 22:00:00 128 mm[Hg] Univer sity of pressure [place] [facility] Diastolic blood 2021-06-18 22:00:00 75 mm[Hg] Unive rsity of pressure [place] [facility] Heart rate 2021-06-18 22:00:00 75 /min Universi ty of [place] [facility] Respiratory rate 2021-06-18 22:00:00 19 /min Univ ersity of [place] [facility] Oxygen saturation in 2021-06-18 22:00:00 100 /min University of Arterial blood by [place] [employer] Pulse oximetry Branch Body temperature 2021-06-18 19:17:00 37.56 Sabi Univ ersity of [place] [facility] Body height 2021-06-18 19:17:00 172.7 cm Universi ty of [place] [facility] Body weight 2021-06-18 19:17:00 70.308 kg Universi ty of [place] [facility] BMI 2021-06-18 19:17:00 23.57 kg/m2 Universi ty of [place] [facility] Systolic blood 2021-03-25 17:30:00 134 mm[Hg] Univer sity of pressure [place] [facility] Diastolic blood 2021-03-25 17:30:00 79 mm[Hg] Unive rsity of pressure [place] [facility] Heart rate 2021-03-25 17:30:00 94 /min Universi ty of [place] [facility] Body temperature 2021-03-25 17:30:00 36.67 Sabi Univ ersity of [place] [facility] Respiratory rate 2021-03-25 17:30:00 18 /min Univ ersity of [place] [facility] Oxygen saturation in 2021-03-25 17:30:00 97 /min University of Arterial blood by [employer] Pulse oximetry Branch Body weight 2021-03-23 21:00:00 73.199 kg 161# 6oz Universi ty of [place] [facility] BMI 2021-03-23 21:00:00 24.54 kg/m2 Universi ty of [place] [facility] Body height 2021-03-23 01:21:00 172.7 cm Universi ty of [place] [facility] Systolic blood 2021-03-25 17:30:00 134 mm[Hg] Univer sity of pressure [place] [facility] Diastolic blood 2021-03-25 17:30:00 79 mm[Hg] Unive rsity of pressure [place] [facility] Heart rate 2021-03-25 17:30:00 94 /min Universi ty of [place] [facility] Body temperature 2021-03-25 17:30:00 36.67 Sabi Univ ersity of [place] [facility] Respiratory rate 2021-03-25 17:30:00 18 /min Univ ersity of [place] [facility] Oxygen saturation in 2021-03-25 17:30:00 97 /min University of Arterial blood by [place] [employer] Pulse oximetry Branch Body weight 2021-03-23 21:00:00 73.199 kg 161# 6oz Universi ty of [place] [facility] BMI 2021-03-23 21:00:00 24.54 kg/m2 Universi ty of [place] [facility] Body height 2021-03-23 01:21:00 172.7 cm Universi ty of [place] [facility] Systolic blood 2021-03-14 04:07:00 150 mm[Hg] Univer sity of pressure [place] [facility] Diastolic blood 2021-03-14 04:07:00 79 mm[Hg] Unive rsity of pressure [place] [facility] Heart rate 2021-03-14 04:07:00 122 /min Universi ty of [place] [facility] Body temperature 2021-03-14 04:07:00 36.72 Sabi Univ ersity of [place] [facility] Respiratory rate 2021-03-14 04:07:00 18 /min Univ ersity of [place] [facility] Body height 2021-03-14 04:07:00 172.7 cm Universi ty [facility] [place] [facility] Body weight 2021-03-14 04:07:00 68.04 kg Universi ty [facility] [place] [facility] BMI 2021-03-14 04:07:00 22.81 kg/m2 [facility]i ty [facility] [place] [facility] Oxygen saturation in 2021-03-14 04:07:00 95 /min University of Arterial blood by [place] [employer] Pulse oximetry Branch Systolic blood 2021-03-14 04:07:00 150 mm[Hg] Univer sity of pressure [place] [facility] Diastolic blood 2021-03-14 04:07:00 79 mm[Hg] [facility] Heart rate 2021-03-14 04:07:00 122 /min [facility] Body temperature 2021-03-14 04:07:00 36.72 Sabi [facility] Respiratory rate 2021-03-14 04:07:00 18 /min [facility] Body height 2021-03-14 04:07:00 172.7 cm [facility] Body weight 2021-03-14 04:07:00 68.04 kg [facility] BMI 2021-03-14 04:07:00 22.81 kg/m2 [facility] Oxygen saturation in 2021-03-14 04:07:00 95 /min [facility] Arterial blood by [facility] Pulse oximetry [place] Systolic blood 2021-08-29 11:00:00 126 mm[Hg] [facility] Diastolic blood 2021-08-29 11:00:00 64 mm[Hg] [facility] Heart rate 2021-08-29 11:00:00 96 /min [facility] Body temperature 2021-08-29 11:00:00 35.94 Sabi [facility] Respiratory rate 2021-08-29 11:00:00 18 /min [facility] Oxygen saturation in 2021-08-29 11:00:00 99 /min [facility] Arterial blood by [facility] Pulse oximetry Body height 2021-08-28 05:00:00 172.7 cm [facility] Body weight 2021-08-28 05:00:00 72.576 kg [facility] BMI 2021-08-28 05:00:00 24.33 kg/m2 [facility] Procedures Procedure Date / Time Performing Clinician Source Performed CONSENT/REFUSAL FOR 2021-11-01 21:47:43 Doctor Unassigned, [facility] DIAGNOSIS AND TREATMENT [place] [facility] BASIC METABOLIC PANEL 2021-10-28 23:57:00 Maurice Rivera [facility] (NA, K, CL, CO2, GLUCOSE, Medica l Branch BUN, CREATININE, CA) CBC WITHOUT DIFF 2021-10-28 23:57:00 Maurice Rivera [facility] PROTHROMBIN TIME / INR 2021-10-28 23:57:00 Maurice Rivera [facility] CONSENT/REFUSAL FOR 2021-10-28 23:43:46 Doctor Unasskrupa [facility] DIAGNOSIS AND TREATMENT [place] [facility] [place] NOTICE OF PRIVACY 2021-10-28 23:43:32 Doctor Unassigned, [facility] PRACTICES [place] [facility] [place] LIPASE 2021-10-05 [facility]:39[facility]IC PAN[facility] 2021-10-05 10:39:00 [facility] ([id number]) Medical Branch CBC WITH DIFF 2021-10-05 10:39:00 [facility] 2021-10-04 10:04:00 [facility] 2021-10-04 10:04:[address] [facility] 2021-10-04 10:04[id number] T,BU/BC,ALT,AST,ALK PHOS) BASIC METABOLIC PANEL 2021-10-04 10:04:[facility] ([facility], K, CL, CO2, GLUCOSE, Medica l Branch BUN, CREATININE, CA) CBC WITH DIFF 2021-10-04 10:04:00 Giuliano [facility] PROTHROMBIN TIME / INR 2021-10-04 10:04:00 Giuliano [facility] LACTIC ACID WHOLE BLOOD 2021-10-04 03:37:00 [facility] 2021-10-03 22:06[facility]EL[facility] W 2021-10-03 21:44:53 Radha Olguin [facility] CONTRAST [facility] Branch XR CHEST 2 VW 2021-10-03 21:33:56 Radha Olguin [facility] LACTIC ACID WHOLE BLOOD 2021-10-03 21:26:00 [facility] 2021-10-03 21:25:[address] [facility] AMMONIA, PLASMA 2021-10-03 21:25:[address] [facility] COMP. METABOLIC PANEL 2021-10-03 21:25:00 Radha Olguin [facility] ([id number]) Medical Branch ETHANOL 2021-10-03 21:25:[address] [facility] CBC WITH DIFF 2021-10-03 21:25:[address] [facility] PROTHROMBIN TIME / INR 2021-10-03 21:25:00 Sharif [facility] TROPONIN I 2021-10-03 21:24:[address] [facility] N-TERMINAL PRO-BNP 2021-10-03 21:24:00 Radha Olguin [facility] COVID-19 (ID NOW RAPID 2021-10-03 21:24:00 [facility] TESTING) [facility] CONSENT/REFUSAL FOR 2021-10-03 20:41:15 Doctor Unassigned, [facility] DIAGNOSIS AND TREATMENT [place] [facility] EXTERNAL CORONAVIRUS 2021-09-16 11:26:00 [facility] [place] [facility] US PARACENTESIS 2021-08-29 10:34:00 Vira Prajapati [facility] BODY FLUID CULTURE + GRAM 2021-08-29 10:15:[address] [facility] - STAIN [facility] BODY FLUID CELL COUNT 2021-08-29 10:15:00 Vira Prajapati [facility] - WITH DIFFERENTIAL [facility] BASIC METABOLIC PANEL (7) 2021-08-29 04:18:00 Adio, Titilola R. [facility] HEPATIC FUNCTION PANEL 2021-08-29 04:18:00 Adio, Bob Lambert [facility] MAGNESIUM 2021-08-29 04:18:00 Adio, Bob Lambert [facility] PHOSPHORUS 2021-08-29 04:18:00 Adio, Bob Lambert [facility] CBC W/PLT COUNT & AUTO 2021-08-29 04:18:00 Adio, Bob Lambert [facility] PROTHROMBIN TIME/INR 2021-08-29 04:18:00 Adio, Teresasdbeverly Lambert [facility] HEPATITIS C PCR, 2021-08-29 04:18:00 Adio, Bob Lambert [facility] HEPATITIS C GENOTYPE 2021-08-29 04:18:00 [facility] IRON, TIBC, % SAT. 2021-08-29 04:18:00 Adio, Bob Lambert [facility] (WITHOUT FERRITIN) Medical Cente r FERRITIN 2021-08-29 04:18:00 Adio, Bob Lambert [facility] CBC W/PLT COUNT & AUTO 2021-08-29 04:18:00 Adio, Bob Lambert [facility] (CELLAVISION MANUAL DIFF) 2021-08-29 04:18:00 Adio, Bob Lambert [facility] RAPID DRUG SCREEN, URINE 2021-08-28 14:57:00 Tamra Raman [facility] ANTI-MITOCHONDRIAL AB, 2021-08-28 14:54:00 Tamra Raman [facility] REFLEX TO TITER [facility] ANTI-NUCLEAR ANTIBODY 2021-08-28 14:54:00 Tamra Raman [facility] (NATALIE) [facility] ALPHA FETOPROTEIN (AFP), 2021-08-28 14:54:00 Tamra Raman [facility] TUMOR MARKER [facility] [id number], 2021-08-28 14:54:00 Tamra Raman [facility] HEPATITIS B SURFACE 2021-08-28 14:54:00 Tamra Raman [facility] HEPATITIS B SURFACE 2021-08-28 14:54:00 Tamra Raman [facility] LIVER-KIDNEY MICROSOME AB 2021-08-28 14:54:00 Tamra Raman [facility] CERULOPLASMIN 2021-08-28 14:54:00 Tamra Raman [facility] HEPATITIS A ANTIBODY, IGG 2021-08-28 14:54:00 Tamra Raman [facility] HEPATITIS B CORE 2021-08-28 14:54:[address] [facility], TOTAL [facility] HC LAB HIV-1 AG W/HIV-1&2 2021-08-28 14:54:00 Tamra Raman [facility] ACTIN (SMOOTH MUSCLE) 2021-08-28 14:54:00 Tamra Raman [facility], IGG [facility] MITOCHONDRIAL AB SCREEN 2021-08-28 14:54:00 Tamra Raman [facility] MITOCHONDRIAL AB TITER 2021-08-28 14:54:00 Tamra Raman [facility] ALBUMIN, BODY FLUID 2021-08-28 14:38:00 Bob Maguire [facility] CBC W/PLT COUNT & AUTO 2021-08-28 11:09:00 oBb Maguire [facility] COMPREHENSIVE METABOLIC 2021-08-28 11:09:[address] [facility] LIPASE 2021-08-28 11:09:00 Bob Maguire [facility] CBC W/PLT COUNT & AUTO 2021-08-28 11:09:00 Bob Maguire [facility] CT ABDOMEN PELVIS W 2021-06-18 21:48:55 Rasheed [place] [facility] CONTRAST [facility] LACTIC ACID WHOLE BLOOD 2021-06-18 20:08:00 Rasheed [place] [facility] LIPASE 2021-06-18 20:06:00 Rasheed [place] [facility] TROPONIN I 2021-06-18 20:06:00 Rasheed [place] [facility] COMP. METABOLIC PANEL 2021-06-18 20:06:00 Rasheed [place] [facility] ([id number]) [facility] CBC WITH DIFF 2021-06-18 20:06:00 Jered Rasheed [facility] PROTHROMBIN TIME / INR 2021-06-18 20:06:00 Rasheed [place] [facility] ACTIVATED PARTIAL 2021-06-18 20:06:00 Jered [facility] THRMPLAS JUAN [facility] URINALYSIS 2021-06-18 20:06:00 Jered [facility] N-TERMINAL PRO-BNP 2021-06-18 20:06:00 Rasheed [place] [facility] COVID-19 (ID NOW RAPID 2021-06-18 20:06:00 Rasheed [place]ton [facility] TESTING) [facility] Branch CONSENT/REFUSAL FOR 2021-06-18 19:11:17 Doctor Unassigned, [facility] DIAGNOSIS AND TREATMENT [place] [facility] COMP. METABOLIC PANEL 2021-03-25 09:12:00 Slim [facility] ([id number]) [facility] EXTRA TUBE SST 2021-03-25 09:12:00 Maegan Mcguire [facility] EXTRA TUBE RED 2021-03-25 09:12:00 Maegan Mcguire [facility] CBC WITH DIFF 2021-03-25 08:00:00 Slim Schmitz [facility] PROTHROMBIN TIME / INR 2021-03-25 08:00:00 Slim Schmitz [facility] EXTRA TUBE SST 2021-03-24 08:35:00 Maegan Mcguire [facility] EXTRA TUBE LT. GREEN 2021-03-24 08:35:00 Maegan Mcguire [facility] BASIC METABOLIC PANEL 2021-03-24 08:34:00 [facility] (NA, K, CL, CO2, GLUCOSE, Medica l Branch BUN, CREATININE, CA) CBC WITH DIFF 2021-03-24 06:51:00 [facility] PROTHROMBIN TIME / INR 2021-03-24 06:51:00 Ainsley Slim [facility] RHEUMATOID FACTOR 2021-03-23 08:25:00 Becky [facility] C4 COMPLEMENT 2021-03-23 08:25:00 Becky [facility] COMP. METABOLIC PANEL 2021-03-23 08:25:00 Becky Alejandro [facility] ([id number]) [facility] CBC WITH DIFF 2021-03-23 08:25:00 Becky Alejandro [facility] PROTHROMBIN TIME / INR 2021-03-23 08:25:00 Alejandro Pena [facility] BLOOD CULTURE SCREEN 2021-03-22 22:45:00 Alejandro Pena [facility] PROTHROMBIN TIME / INR 2021-03-22 22:45:00 Alejandro Pena [facility] ALBUMIN BODY FLUID 2021-03-22 22:30:00 Alejandro Pena [facility] T.PROTEIN BODY FLUID 2021-03-22 22:30:00 Alejandro Pena [facility] BODY FLUID DIRECT COUNT 2021-03-22 22:30:00 Alejandro Pena [facility] BODY FLUID (BACTEC 2021-03-22 22:30:00 Maegan Mcguire [facility] CYTO ABDOMINAL FLUID 2021-03-22 22:30:00 Alejandro Pena [facility] XR CHEST 2 VW 2021-03-22 21:47:40 Alejandro Pnea [facility] CT ABDOMEN PELVIS W 2021-03-22 19:44:31 [facility] Branch LIPASE 2021-03-22 18:03:00 Endy Kitchen [facility] VITAMIN B12, LEVEL 2021-03-22 18:03:00 [facility] FOLATE 2021-03-22 18:03:00 Becky Alejandro [facility] HEPATIC FUNCTION PANEL 2021-03-22 18:03:00 Endy Kitchen [facility] ([id number]) (ALB,T.PRO,BILI Medical [place] T,BU/BC,ALT,AST,ALK PHOS) BASIC METABOLIC PANEL 2021-03-22 18:03:00 Endy Kitchen [facility] (NA, K, CL, CO2, GLUCOSE, Medica l Branch BUN, CREATININE, CA) ETHANOL 2021-03-22 18:03:00 Endy Kitchen [facility] CBC WITH DIFF 2021-03-22 18:03:00 Endy Kitchen [facility] PROTHROMBIN TIME / INR 2021-03-22 18:03:00 Endy Kitchen [facility] FIBRINOGEN 2021-03-22 18:03:00 Becky Alejandro [facility] HEPATITIS B SURFACE 2021-03-22 18:03:00 Alejandro Pena [facility] ANTIGEN [facility] HCV ANTIBODY 2021-03-22 18:03:00 Becky Alejandro [facility] HIV 1/2 AG-AB WITH REFLEX 2021-03-22 18:03:00 Alejandro Pena [facility] COVID-19 (ID NOW RAPID 2021-03-22 18:03:00 Endy Kitchen [facility] TESTING) [facility] LAB ONLY COVID 2021-03-22 18:03:00 Endy Kitchen [facility] INTERPRETATION [facility] URINALYSIS 2021-03-22 17:56:00 Endy Kitchen [facility] EXTRA TUBE URINE CULTURE 2021-03-22 17:56:00 Endy Kitchen [facility] CONSENT/REFUSAL FOR 2021-03-22 17:39:41 Doctor Unassigned, [facility] DIAGNOSIS AND TREATMENT [facility] NOTICE OF PRIVACY 2021-03-14 04:30:12 Doctor Unassigned, [facility] PRACTICES [facility] Plan of Care Planned Activity Planned Date Details Comments Source Future Scheduled [address] [facility] - Test 00:00:00 0-64 YRS (2 of 2 - Medical C enter PPSV23) [code = PNEUMOCOCCAL VACCINE 0-64 YRS (2 of 2 - PPSV23)] Future Scheduled [address] [facility] - Test 00:00:00 0-64 YRS (2 of 2 - Medical C enter PPSV23) [code = PNEUMOCOCCAL VACCINE 0-64 YRS (2 of 2 - PPSV23)] Future Scheduled 2021-09-[address] [facility] - Test 00:00:00 (12+) [code = [facility] DEPRESSION SCREENING (12+)] Future Scheduled 2021-09-[address] [facility] - Test 00:00:00 (12+) [code = [facility] DEPRESSION SCREENING (12+)] Future Scheduled 2021-05-19 INFLUENZA VACCINE (#1) [facility]:00 [code = INFLUENZA Medical Ce nter VACCINE (#1)] Future Scheduled 2021-05-19 INFLUENZA VACCINE (#1) [facility] 00:00:00 [code = INFLUENZA Medical Ce nter VACCINE (#1)] Future Scheduled [address] [facility] Test 00:00:00 (procedure) [code = [facility] [id number]] Future Scheduled [address] [facility] Test 00:00:00 (procedure) [code = [facility] [id number]] Future Scheduled 2002 DTAP/TDAP/TD VACCINES [facility] Test 00:00:00 (1 - Tdap) [code = Medical C enter DTAP/TDAP/TD VACCINES (1 - Tdap)] Future Scheduled 2002 DTAP/TDAP/TD VACCINES [facility] Test 00:00:00 (1 - Tdap) [code = Medical C enter DTAP/TDAP/TD VACCINES (1 - Tdap)] Future Scheduled 1988 COVID-19 VACCINE (1) [facility] - Test 00:00:00 [code = COVID-[address] VACCINE (1)] Future Scheduled 1988 COVID-19 VACCINE (1) [facility] - Test 00:00:00 [code = COVID-[address] VACCINE (1)] Encounters Start End Encounter Admission Attending Care Care Encounter Source Date/Time Date/Time Type Type Clinicians Facility Department ID 2021-11-01 2021-11-01 Emergency X MODESTO, [facility] ERT [id number] Univers 16:01:00 17:07:00 YAQUELIN mathewsnickolas [facility] 2021-11-01 2021-11-01 Emergency [facility] [id number] Univers 16:01:00 17:07:00 Yaquelin HALL [id number] ity of [place] 4.2.7.2.686 [id number] [address] 2021-11-01 2021-11-01 Orders Doctor MANN 1.2.840.114 [id number] Univers 00:00:00 00:00:00 Only Unassigned, JAMEL [id number] ity of [place] [facility] 4.2.7.2.686 Mayito as [id number] [address] 2021-10-28 2021-10-28 Emergency X , [facility] ERT [id number] Univers 17:47:00 20:00:00 MAURICE ash [facility] 2021-10-28 2021-10-28 Emergency [facility] [id number] Univers 17:47:00 20:00:00 Maurice HALL [id number] i [place] [id number] [address] 2021-10-28 2021-10-28 Orders Doctor MANN 1.2.840.114 [id number] Univers 00:00:00 00:00:00 Only Unassigned, JAMEL [id number] ity of [place] [facility] 4.2.7.2.686 [place] as [id number] [address] 2021-10-06 2021-10-06 Transition GUSTAVO Pandya 1.2.840.114 [id number] Univers 00:00:00 00:00:00 of Care Inna SOTOMAYOR [id number] [place] [phone] [facility] 403 Branch 2021-10-03 2021-10-05 Inpatient X GIULIANO [facility] STU [id number] Univers 15:00:00 14:10:00 ALEX ity of [facility] 2021-10-03 2021-10-05 [facility] Radha Olguin [facility] 1.2.840.11 [id number] Univers 15:00:00 14:10:00 Encounter Alex Nobles [id number] [facility] [place] [phone] [facility] 081 Branch 2021-08-31 2021-08-31 Patient [facility] [id number] Univers 00:00:00 00:00:00 Secure Msg Maegan Baird PRIMARY [id number] [place] [id number] Or dical 388 Branch 2021-08-28 2021-08-29 Inpatient ER KRISTEN ARMANDO Gastro [id number] [facility] 04:30:00 17:45:00 [facility] 2021-08-28 2021-08-29 Hospital ER Shelby Fay [facility] [id number] 04:30:00 17:45:00 Encounter Bob Maguire [facility] 2021-08-28 2021-08-28 Travel [facility] [id number] [facility] 00:00:00 [facility] 2021-06-18 2021-06-18 Emergency [facility] [id number] Univers 14:19:00 17:31:00 Rasheed Hall [id number] i [place] [phone] [facility] 084 Branch 2021-06-18 2021-06-18 Emergency X [facility] ERT [id number] Univers 14:12:00 14:12:00 ity of [facility] 2021-04-23 2021-04-23 Patient Jasmin Bejaranoblair 1.2.840.114 [id number] Univers 00:00:00 00:00:00 Outreach E Sotomayor 350.1.13.10 i ty [place] [id number] [facility] 403 Branch 2021-04-20 2021-04-20 Patient Jasmin Bejarano 1.2.840.114 [id number] 00:00:00 00:00:00 Outreach E Sotom[place] 350.1.13.10 [place] 4.2.7.2.686 [id number] [facility] 2021-04-20 2021-04-20 Patient Jasmin Bejaranoblair 1.2.840.114 [id number] Univers 00:00:00 00:00:00 Outreach E Sotomayor 350.1.13.10 i ty [place] [id number] [place] [address] Branch 2021-03-30 2021-03-30 Patient Jasmin Bejarano 1.2.840.114 [id number] 00:00:00 00:00:00 Outreach E Sotom[place] 350.1.13.10 [place] 4.2.7.2.686 [id number] [facility] 2021-03-30 2021-03-30 Patient Jasmin Bejaranoblair 1.2.840.114 [id number] Univers 00:00:00 00:00:00 Outreach E Sotomayor 350.1.13.10 i [place] [id number] [facility] 403 Branch 2021-03-26 2021-03-26 Transition Gustavo Pandya 1.2.840.114 [id number] 00:00:00 00:00:00 of Care Inna Sotom[place] 350.1.13.10 [place] 4.2.7.2.686 [id number] 403 2021-03-26 2021-03-26 Transition Gustavo Pandya 1.2.840.114 [id number] 00:00:00 00:00:00 of Care Inna Sotomayor 350.1.13.10 [place] 4.2.7.2.686 [id number] 403 2021-03-26 2021-03-26 Transition Gustavo Pandya 1.2.840.114 [id number] Univers 00:00:00 00:00:00 of Care Inna Sotomayor 350.1.13.10 it[place] of [place] [id number] [place] [address] Branch 2021-03-26 2021-03-26 Transition Gustavo Pandya 1.2.840.114 [id number] Univers 00:00:00 00:00:00 of Care Inna Sotomayor 350.1.13.10 [place] [id number] [facility] 403 Branch 2021-03-22 2021-03-25 Hospital Endy Kitchen 1.2.8 40.114 [id number] 12:39:00 16:09:00 Encounter Maegan Mcguire 350.1.13 .10 Hospital 4.2.7.2.686 [id number] [facility] 2021-03-22 2021-03-25 [facility] Endy Kitchen 1.2.8 40.114 [id number] [facility] 12:39:00 16:09:00 Encounter Maegan Mcguire 350.1.13 .10 ity of [facility] 4.2.7.2.686 [place] as [id number] [facility] 095 Branch 2021-03-22 2021-03-22 Emergency X [facility] ERT [id number] Univers 12:35:00 12:35:00 ity of [facility] 2021-03-13 2021-03-14 Emergency Loni [facility] 1.2.840.114 [id number] 23:10:00 00:39:00 Jam [place] 350.1.13.10 [place] 4.2.7.2.686 [place] [id number] 084 2021-03-13 2021-03-14 Emergency [facility] 1.2.840.114 [id number] Univers 23:10:00 00:39:00 Jam [place] 350.1.13.10 i ty of [place] 4.2.7.2.686 [facility] [id number] [place] [address] Branch 2021-03-13 2021-03-13 Emergency X [facility] ERT [id number] [facility] 23:10:00 23:10:00 JAM ity [facility] Results Test Description Test Time Test Comments Results Result Comments Source PROTHROMBIN TIME / INR 2021-10-29 00:17:14 Test Item Value Reference Range Interpretation Comme nts PROTIME PATIENT (test code = See_Comment H [Automated message] The system 5964-2) which generated this result transmitted ref erence range: 12.0 - 14.7 Sec onds. The reference range was not used to interpret this result as normal/abnormal . INR (test code = 6301-6) Nor mal INR <1.1; Warfarin Therapeutic ran ge 2.0 to 3.0 or 2.5 to 3.5, dep ending upon the indications. Lab Interpretation (test code Abnormal = 13379-5) [facility] (NA, K, CL, CO2, GLUCOSE, BUN, CREATININE, CA)2021-10-29 00:15:33 Test Item Value Reference Range Interpretation Comments NA (test code = 137 mmol/L 135-145 6932620248) K (test code = 3.5 mmol/L 3.5-5.0 5146402263) CL (test code = 108 mmol/L 98-108 9545741297) CO2 TOTAL (test code = 25 mmol/L 23-31 3878708259) AGAP (test code = 2-16 2382823326) BUN (test code = 21 mg/dL 7-23 2202107823) GLUCOSE (test code = 115 mg/dL 70-110 H 5399131616) CREATININE (test code = 1.48 mg/dL 0.60-1.25 H 0115264492) CALCIUM (test code = 7.8 mg/dL 8.6-10.6 L 2702225421) eGFR (test code = mL/min/1.73m2 2267231627) NICHOLAS (test code = NICHOLAS) Association of [...] tests). Lab Interpretation Abnormal (test code = 14765-9) [facility] WITHOUT [id number] 00:03:32 Test Item Value Reference Range Interpretation Comments WBC (test code = 6690-2) See_Comment [A utomated message] The system [employer] generated this result transmit cristina reference range : 4.20 - 10.70 10*3/?L. The reference range was not used to interpret this result as normal/abnormal . RBC (test code = 789-8) See_Comment L [Au tomated message] The system [employer] generated this result transmit cristina reference range : 4.26 - 5.52 10* 6/?L. The reference r laura was not used to interpret this result as normal/abnormal . HGB (test code = 718-7) 8.1 g/dL 12.2-16.4 L HCT (test code = 4544-3) 23.7 % 38.4-49.3 L MCH (test code = 785-6) 30.6 pg 26.1-32.7 MCV (test code = 787-2) 89.4 fL 81.7-95.6 MCHC (test code = 786-4) 34.2 g/dL 31.2-35.0 PLT (test code = 777-3) See_Comment [Au tomated message] The system [employer] generated this result transmit cristina reference range : 150 - 328 10*3/?L. The reference range was not used to interpret this result as normal/abnormal . MPV (test code = 8.5 fL 9.8-13.0 L 16826-2) RDW-CV (test code = 14.7 % 12.1-15.4 788-0) RDW-SD (test code = 48.0 fL 38.5-51.6 38765-0) NRBC x10^3 (test code = <0.01 See_Comment [Au tomated message] 6993459943) The system [employer] generated this result transmit cristina reference range : 10*3/?L. The reference range was not used to interpret this result as normal/abnormal . NRBC/100 WBC (test code See_Comment [Au tomated message] = 5004216237) The system [facility] generated this result transmit cristina reference range : 0.0 - 10.0 /100 WBC s. The reference r laura was not used to interpret this result as normal/abnormal . IPF % (test code = 0326241646) Lab Interpretation (test Abnormal code = 80378-6) [facility]. METABOLIC PANEL ([id number])2021-10-05 14:46:02 Test Item Value Reference Range Interpretation Comments NA (test code = 133 mmol/L 135-145 L 8814736857) K (test code = 3.8 mmol/L 3.5-5.0 6569907716) CL (test code = 104 mmol/L 98-108 3105154180) CO2 TOTAL (test code = 28 mmol/L 23-31 2106890549) AGAP (test code = 2-16 L 0876663568) BUN (test code = 12 mg/dL 7-23 6408613195) GLUCOSE (test code = 88 mg/dL 70-110 7733647021) CREATININE (test code = 0.92 mg/dL 0.60-1.25 7950359874) TOTAL BILI (test code = 1.2 mg/dL 0.1-1.1 H 1554282982) CALCIUM (test code = 7.1 mg/dL 8.6-10.6 L 1240983684) T PROTEIN (test code = 6.7 g/dL 6.3-8.2 9850754325) ALBUMIN (test code = 2.4 g/dL 3.5-5.0 L 1105818361) ALK PHOS (test code = 110 U/L 34-122 0863717841) ALTv (test code = 33 U/L 5-50 1742-6) AST(SGOT) (test code = 70 U/L 13-40 H 4823356634) eGFR (test code = mL/min/1.73m2 0271544952) NICHOLAS (test code = NICHOLAS) Association of [...] tests). Lab Interpretation Abnormal (test code = 71138-7) [facility] WITH [id number] 14:01:19 Test Item Value Reference Range Interpretation Comments [...] as normal/abnormal . HGB (test code = 8.1 g/dL 12.2-16.4 L 718-7) HCT (test code = 24.3 % 38.4-49.3 L 4544-3) MCV (test code = 94.9 fL 81.7-95.6 787-2) MCH (test code = 31.6 pg 26.1-32.7 785-6) MCHC (test code = 33.3 g/dL 31.2-35.0 786-4) RDW-SD (test code = 47.9 fL 38.5-51.6 70004-9) RDW-CV (test code = 13.8 % 12.1-15.4 788-0) PLT (test code = See_Comment L [Automated 777-3) message] The sy stem which generated this result transmitted reference range : 150 - 328 10*3/ ?L. The reference r laura was not used to interpret this result as normal/abnormal . MPV (test code = 9.4 fL 9.8-13.0 L 87070-6) NRBC/100 WBC (test See_Comment [Automat ed code = 6906296174) message] The system which generated this result transmitted reference range : 0.0 - 10.0 /100 WBCs. The refer ence range was not u sed to interpret th is result as normal/abnormal . NRBC x10^3 (test code <0.01 See_Comment [Auto mated = 8651821734) message] The s ystem which generated this result transmitted reference range : 10*3/?L. The reference range was not used to interpret this result as normal/abnormal . GRAN MAT (NEUT) % 56.5 % (test code = 770-8) IMM GRAN % (test code 0.20 % = 9282764237) LYMPH % (test code = 18.7 % 736-9) MONO % (test code = 18.9 % 5905-5) EOS % (test code = 4.9 % 713-8) BASO % (test code = 0.8 % 706-2) GRAN MAT x10^3(ANC) 4.91 10*3/uL 1.99-6.95 (test code = 4964067350) IMM GRAN x10^3 (test <0.03 0.00-0.06 code = 9310849642) LYMPH x10^3 (test code 1.63 10*3/uL 1.09-3.23 = 731-0) MONO x10^3 (test code 1.64 10*3/uL 0.36-1.02 H = 742-7) EOS x10^3 (test code = 0.43 10*3/uL 0.06-0.53 711-2) BASO x10^3 (test code 0.07 10*3/uL 0.01-0.09 = 704-7) Lab Interpretation Abnormal (test code = 55834-3) [facility] 12[facility]53:56 Test Item Value Reference Range Interpretation Comments LIPASE (test code = 0018549975) 539 U/L 0-220 H Lab Interpretation (test code = Abnormal 73197-9) [facility] Center[facility] [id number] 11:51:50 Test Item Value Reference Range Interpretation Comments MAGNESIUM (test code = 1444674316) 1.8 mg/dL 1.7-2.4 Lab Interpretation (test code = Normal 68538-3) [facility] Met[facility] (NA, K, CL, CO2, GLUCOSE, BUN, CREATININE, CA)2021-10-04 11:35:30 Test Item Value Reference Range Interpretation Comments NA (test code = 134 mmol/L 135-145 L 2958904743) K (test code = 3.3 mmol/L 3.5-5.0 L 6064046802) CL (test code = 101 mmol/L 98-108 0600485477) CO2 TOTAL (test code = 28 mmol/L 23-31 0742595750) AGAP (test code = 2-16 4631913109) BUN (test code = 12 mg/dL 7-23 5020282138) GLUCOSE (test code = 82 mg/dL 70-110 8637681123) CREATININE (test code = 0.96 mg/dL 0.60-1.25 3833572047) CALCIUM (test code = 7.3 mg/dL 8.6-10.6 L 2150135276) eGFR (test code = mL/min/1.73m2 0032467250) NICHLOAS (test code = NICHOLAS) Association of Glomerular [...] tests). Lab Interpretation Abnormal (test code = 89662-7) [facility] (92931) (ALB,T.PRO,BILI T,BU/BC,ALT,AST,ALK PHOS)2021-10-04 11:35:30 Test Item Value Reference Range Interpretation Comments TOTAL BILI (test code = 3424152841) 1.8 mg/dL 0.1-1.1 H BILI UNCON (test code = 9819285815) 1.0 mg/dL 0.1-1.1 BILI CONJ (test code = 5533014762) 0.0 mg/dL 0.0-0.3 T PROTEIN (test code = 0468284822) 7.0 g/dL 6.3-8.2 ALBUMIN (test code = 4785352035) 2.6 g/dL 3.5-5.0 L ALK PHOS (test code = 4177770246) 118 U/L 34-122 ALTv (test code = 1742-6) 36 U/L 5-50 AST(SGOT) (test code = 7314343589) 74 U/L 13-40 H Lab Interpretation (test code = Abnormal 30391-5) [facility] 11:35:30 Test Item Value Reference Range Interpretation Comments LIPASE (test code = 2529148456) 481 U/L 0-220 H Lab Interpretation (test code = Abnormal 68765-6) [facility] Center[facility] Time / [id number] 11:07:47 Test Item Value Reference Range Interpretation Comments PROTIME PATIENT (test See_Comment H [Auto mated message] code = 5964-2) The system [employer] generated this result transmitted ref erence range: 12.0 - 1 4.7 Seconds. The reference range was not used to int erpret this result as normal/abnormal . INR (test code = 6301-6) Nor mal INR <1.1; Warfarin Therap eutic range 2.0 to 3. 0 or 2.5 to 3.5, dep ending upon the indica tions. Lab Interpretation (test Abnormal code = 52322-7) [facility] with [id number] 10:57:08 Test Item Value Reference Range Interpretation Comments [...] as normal/abnormal . HGB (test code = 8.2 g/dL 12.2-16.4 L 718-7) HCT (test code = 24.0 % 38.4-49.3 L 4544-3) MCV (test code = 93.4 fL 81.7-95.6 787-2) MCH (test code = 31.9 pg 26.1-32.7 785-6) MCHC (test code = 34.2 g/dL 31.2-35.0 786-4) RDW-SD (test code = 47.3 fL 38.5-51.6 65917-8) RDW-CV (test code = 14.0 % 12.1-15.4 788-0) PLT (test code = See_Comment L [Automated 777-3) message] The sy stem which generated this result transmitted reference range : 150 - 328 10*3/ ?L. The reference r laura was not used to interpret this result as normal/abnormal . MPV (test code = 9.3 fL 9.8-13.0 L 33270-9) NRBC/100 WBC (test See_Comment [Automat ed code = 6819654389) message] The system which generated this result transmitted reference range : 0.0 - 10.0 /100 WBCs. The refer ence range was not u sed to interpret th is result as normal/abnormal . NRBC x10^3 (test code <0.01 See_Comment [Auto mated = 0127215724) message] The s ystem which generated this result transmitted reference range : 10*3/?L. The reference range was not used to interpret this result as normal/abnormal . GRAN MAT (NEUT) % 55.8 % (test code = 770-8) IMM GRAN % (test code 0.20 % = 2650466145) LYMPH % (test code = 19.6 % 736-9) MONO % (test code = 17.0 % 5905-5) EOS % (test code = 6.5 % 713-8) BASO % (test code = 0.9 % 706-2) GRAN MAT x10^3(ANC) 4.81 10*3/uL 1.99-6.95 (test code = 0032463719) IMM GRAN x10^3 (test <0.03 0.00-0.06 code = 2527053203) LYMPH x10^3 (test code 1.69 10*3/uL 1.09-3.23 = 731-0) MONO x10^3 (test code 1.47 10*3/uL 0.36-1.02 H = 742-7) EOS x10^3 (test code = 0.56 10*3/uL 0.06-0.53 H 711-2) BASO x10^3 (test code 0.08 10*3/uL 0.01-0.09 = 704-7) Lab Interpretation Abnormal (test code = 72055-3) [facility] [id number] 22:06:04 Test Item Value Reference Interpretation Comments Range TROPONIN I (test 0.005 ng/mL See_Comment [Automated code = 4467320616) message] The system which generated this result [...] biotin. Lab Interpretation Normal (test code = 89328-8) [id number] 22:02:44 Test Item Value Reference Range Interpretation Comments NT-proBNP (test code 260 pg/mL See_Comment H [Autom ated = [id number]) message] The system which generated this result transmitted reference range : <=125. The reference range was not used to interpret this result as normal/abnormal . NICHOLAS (test code = NICHOLAS) Biotin has been reported to cause a negative bias, interpret results relative to patient's use of biotin. Lab Interpretation Abnormal (test code = 98405-8) [facility], [id number] 21:59:42 Test Item Value Reference Range Interpretation Comments AMMONIA (test code = 8994739546) 31 umol/L 9-33 Lab Interpretation (test code = Normal 56486-5) [facility] 21:56:32 Test Item Value Reference Range Interpretation Comments ALCOHOL (test code = <10 mg/dL [id number]) NICHOLAS (test code = NICHOLAS) <10 Iimtzrtl77-296 Toxic>100 Depression of CAGE TENDER>400 Fatal[facility] Reported [facility]PROT[facility] / [id number] 21:54:41 Test Item Value Reference Range Interpretation Comments [...] tions. Lab Interpretation (test Abnormal code = 34120-4) [facility] 21:54:01 Test Item Value Reference Range Interpretation Comments LIPASE (test code = 2314604182) 618 U/L 0-220 H Lab Interpretation (test code = Abnormal 53767-5) [facility] ([id number])2021-10-03 21:54:01 Test Item Value Reference Range Interpretation Comments NA (test code = 136 mmol/L 135-145 1722955210) K (test code = 3.3 mmol/L 3.5-5.0 L 7979081914) CL (test code = 103 mmol/L 98-108 1422488794) CO2 TOTAL (test code = 27 mmol/L 23-31 6416712404) AGAP (test code = 2-16 2485727993) BUN (test code = 12 mg/dL 7-23 7529064841) GLUCOSE (test code = 113 mg/dL 70-110 H 6413747563) CREATININE (test code = 0.89 mg/dL 0.60-1.25 1822873342) TOTAL BILI (test code = 2.7 mg/dL 0.1-1.1 H 4085557164) CALCIUM (test code = 7.9 mg/dL 8.6-10.6 L 4731025718) T PROTEIN (test code = 8.4 g/dL 6.3-8.2 H 6946364501) ALBUMIN (test code = 3.0 g/dL 3.5-5.0 L 0879997010) ALK PHOS (test code = 127 U/L 34-122 H 5832410436) ALTv (test code = 41 U/L 5-50 1742-6) AST(SGOT) (test code = 83 U/L 13-40 H 5288724110) eGFR (test code = mL/min/1.73m2 6608709319) NICHOLAS (test code = NICHOLAS) Association of [...] tests). Lab Interpretation Abnormal (test code = 75653-2) [facility] WITH [id number] 21:48:25 Test Item Value Reference Range Interpretation Comments WBC (test code = See_Comment [Automated 3890-2) message] The sy stem which generated this [...] as normal/abnormal . HGB (test code = 10.0 g/dL 12.2-16.4 L 718-7) HCT (test code = 29.5 % 38.4-49.3 L 4544-3) MCV (test code = 94.2 fL 81.7-95.6 787-2) MCH (test code = 31.9 pg 26.1-32.7 785-6) MCHC (test code = 33.9 g/dL 31.2-35.0 786-4) RDW-SD (test code = 48.4 fL 38.5-51.6 31144-7) RDW-CV (test code = 13.9 % 12.1-15.4 788-0) PLT (test code = See_Comment [Automated 777-3) message] The sy stem which generated this result transmitted reference range : 150 - 328 10*3/ ?L. The reference r laura was not used to interpret this result as normal/abnormal . MPV (test code = 9.2 fL 9.8-13.0 L 71672-8) NRBC/100 WBC (test See_Comment [Automat ed code = 0276422679) message] The system which generated this result transmitted reference range : 0.0 - 10.0 /100 WBCs. The refer ence range was not u sed to interpret th is result as normal/abnormal . NRBC x10^3 (test code <0.01 See_Comment [Auto mated = 9728473858) message] The s ystem which generated this result transmitted reference range : 10*3/?L. The reference range was not used to interpret this result as normal/abnormal . GRAN MAT (NEUT) % 59.1 % (test code = 770-8) IMM GRAN % (test code 0.30 % = 7421942484) LYMPH % (test code = 21.1 % 736-9) MONO % (test code = 13.6 % 5905-5) EOS % (test code = 5.1 % 713-8) BASO % (test code = 0.8 % 706-2) GRAN MAT x10^3(ANC) 4.25 10*3/uL 1.99-6.95 (test code = 7769548240) IMM GRAN x10^3 (test <0.03 0.00-0.06 code = 9227090008) LYMPH x10^3 (test code 1.52 10*3/uL 1.09-3.23 = 731-0) MONO x10^3 (test code 0.98 10*3/uL 0.36-1.02 = 742-7) EOS x10^3 (test code = 0.37 10*3/uL 0.06-0.53 711-2) BASO x10^3 (test code 0.06 10*3/uL 0.01-0.09 = 704-7) Lab Interpretation Abnormal (test code = 92223-7) [facility] [id number] 00:00:00 Test Item Value Reference Range Interpretation Comments External CORONAVIRUS Positive Not Detected A [facility] COVID-19 (test code = Daniel port - PCR [id number]) Lab Interpretation (test Abnormal code = 77402-1) [facility] CenterANTI-MITOCHONDRIAL AB, REFLEX TO TITER 2021-09-06 08:30:47 Test Item Value Reference Range Interpretation Comments SCAN RESULT (test code = 0497911) Anti-Mitochondrial Ab, reflex to [id number] 08:30:47Scan ResultQUEST DIAGNOSTIC [facility] HospitalAnti-Mitochondrial Ab, reflex to [id number] 08:30:47Scan ResultQUEST DIAGNOSTIC [facility]He[facility] C [id number] 00:07:44 Test Item Value Reference Range Interpretation Comments HCV NOT DETECTED Genotype not de tected due Genotype, to low or no vi ral LiPA (test load,mutations in viral code = genome at assay priming ) sites,presence of inhibitory subs tance, or other assayrela cristina factors. Viral load of >=300 IU/mL isr equired for testing. If thi s patient has a knownconc urrent viral load >=30 0 IU/mL contact clients ervices for verification. T he method used in this te st is RT-PCR and reversehybridiz ation (Line Probe) of the 5 ' UTR and coreregion of t he HCV genome. The natalie lytical performance characteristics of thisassay have been determined by [employer]. Themodification s have not been cleared or approved bythe FDA. This assay has been validated pursuant totbrian SALAZAR regu latmaryam and is used for cli nical purposes. For a dditional information, pl ease refer tohttp://educat ion.[employer] /faq/HCVGenotyp ing(This link id being p rovided for informational/e ducational purposes only.) NICHOLAS (test Performing Lab code = NICHOLAS) *QDID [employer] [facility] [address] [place] [address] Jennifer Barraza MD [facility] C [id number] 00:07:44 Test Item Value Reference Range Interpretation Comments HCV NOT DETECTED Genotype not de tected due Genotype, to low or no vi ral LiPA (test load,mutations in viral code = genome at assay priming ) sites,presence of inhibitory subs tance, or other assayrela cristina factors. Viral load of >=300 IU/mL isr equired for testing. If thi s patient has a knownconc urrent viral load >=30 0 IU/mL contact clients ervices for verification. T he method used in this te st is RT-PCR and reversehybridiz ation (Line Probe) of the 5 ' UTR and coreregion of t he HCV genome. The natalie lytical performance characteristics of thisassay have been determined by [employer]. Themodification s have not been cleared or approved bythe FDA. This assay has been validated pursuant tothe CLIA regu lations and is used for cli nical purposes. For a dditional information, pl ease refer tohttp://educat ion.[employer] /faq/HCVGenotyp ing(This link id being p rovided for informational/e ducational purposes only.) NICHOLAS (test Performing Lab code = NICHOLAS) *[facility] [address] [place] [address] Jennifer Barraza MD [facility] HospitalL[facility]ID[facility]CR[facility] [id number] 04:30:40 Test Item Value Reference Range Interpretation Comments LKM-1 Antibody <20.0 See Note: U Reference Ran ge:<=20.0 (IgG) (test KTUHHFGY69.1- 24.9 code = EQUIVOCAL>=25.0 ) POSITIVE Anti-liver/kidn ey microsomal anti bodies (Anti-LKM-1) we re previously test edby indirect immunofluoresce nce (IF) using rodent liver/kidney substrate.Ident ification of a specific a ntibody target as cytoc hrome P450 IID6 has l edto the current recombi nant based HELEN. An tibodies to this cytochr ome arepresent in approximately 7 0% of patients with a utoimmune hepatitis type 2.This antibody is als o present in approximatel y 10% of patients with h epatitisC infection. NICHOLAS (test code Performing Lab = NICHOLAS) EZ [employer] [facility] [address] [place] [address] Scott Matthews MD, PhD, COOPER [facility] HospitalLIVER-KIDNEY MICROSOME [id number] 04:30:40 Test Item Value Reference Range Interpretation Comments LKM-1 Antibody <20.0 See Note: U Reference Ran ge:<=20.0 (IgG) (test EUPUHDXO51.1- 24.9 code = EQUIVOCAL>=25.0 6945790) POSITIVE Anti-liver/kidn ey microsomal anti bodies (Anti-LKM-1) we re previously test edby indirect immunofluoresce nce (IF) using rodent liver/kidney substrate.Ident ification of a specific a ntibody target as cytoc hrome P450 IID6 has l edto the current recombi nant based HELEN. An tibodies to this cytochr ome arepresent in approximately 7 0% of patients with a utoimmune hepatitis type 2.This antibody is als o present in approximatel y 10% of patients with h epatitisC infection. NICHOLAS (test code Performing Lab = NICHOLAS) EZ [employer] [facility] [address] [place] [address] Scott Matthews MD, PhD, COOPERGardner SanitariumMitochondrial Ab [id number] 12:21:52 Test Item Value Reference Range Interpretation Comments Anti-Mitochond Abs NEGATIVE NEGATIVE (test code = 4823849) NICHOLAS (test code = Performing Lab EZ NICHOLAS) [employer] [address] [place] [address] Scott Matthews MD, PhD, COOPERGardner SanitariumMitochondrial Ab [id number] 12:21:52 Test Item Value Reference Range Interpretation Comments Mitochondrial Ab TNP See_Comment Test Not Titer (test code = Performed . 9924551) Screening test Negative or Not Detected. Titer notperformed. [Automated message] The system which generated this result transmitted reference range : <1:20. The reference range was not used to interpret this result as normal/abnormal . NICHOLAS (test code = Performing Lab NICHOLAS) E[facility] [address] [place] [address] Scott Matthews MD, PhD, COOPER [facility] HospitalMitochondrial Ab [id number] 12:21:52 Test Item Value Reference Range Interpretation Comments Anti-Mitochond Abs NEGATIVE NEGATIVE (test code = 9449707) NICHOLAS (test code = Performing Lab EZ NICHOLAS) [facility] [facility] [address] [place] [address] Scott Matthews MD, PhD, COOPERGardner SanitariumMitochondrial Ab [id number] 12:21:52 Test Item Value Reference Range Interpretation Comments Mitochondrial Ab TNP See_Comment Test Not Titer (test code = Performed . 6309219) Screening test Negative or Not Detected. Titer notperformed. [Automated message] The system which generated this result transmitted reference range : <1:20. The reference range was not used to interpret this result as normal/abnormal . NICHOLAS (test code = Performing Lab NICHOLAS) EZ [facility] [facility] [address] [place] [address] Scott Matthews MD, PhD, COOPERGardner SanitariumActin (Smooth Muscle) Antibody, [id number] 01:49:26 Test Item Value Reference Range Interpretation Comments Anti-Smooth <20 See Note: U Reference Range :<20 Muscle Ab NEGATIVE> O R = 20 (test code = POSITIVE Antibo dies ) recognizing act in are the main compon entof smooth muscle antibodies asso ciated withautoimmune liver disease. Actin antibodies aref ound in approximatel y 75% of patients withautoimmune hepatitis (AIH) type 1, approximatel y65% of patients wit h autoimmune cholangitis,frieda roxima tely 30% of pat ients with primary biliarycirrhosi s, and approximately 2 % of healthy people. High values are clos andrey correlated with AIH type 1. NICHOLAS (test code Performing Lab = NICHOLAS) E[facility] [facility] [address] [place] [address] Scott Matthews MD, PhD, COOPERGardner SanitariumActin (Smooth Muscle) Antibody, [id number] 01:49:26 Test Item Value Reference Range Interpretation Comments Anti-Smooth <20 See Note: U Reference Range :<20 Muscle Ab NEGATIVE> O R = 20 (test code = POSITIVE Antibo dies 7518049) recognizing act in are the main compon entof smooth muscle antibodies asso ciated withautoimmune liver disease. Actin antibodies aref ound in approximatel y 75% of patients withautoimmune hepatitis (AIH) type 1, approximatel y65% of patients wit h autoimmune cholangitis,frieda roxima tely 30% of pat ients with primary biliarycirrhosi s, and approximately 2 % of healthy people. High values are clos andrey correlated with AIH type 1. NICHOLAS (test code Performing Lab = NICHOLAS) [facility] [address] [place] [address] Scott Matthews MD, PhD, COOPER [facility] HospitalCeruloplasmin2021-12-15 14:39:53 Test Item Value Reference Range Interpretation Comments Ceruloplasmin (test code 19 mg/dL 18-36 = 20191109) NICHOLAS (test code = NICHOLAS) Performing Lab *AYANA [employer] [facility], [address] [place] [phone] Arleen Natarajan MD [facility] HospitalCeruloplasmin2021-12-15 14:39:53 Test Item Value Reference Range Interpretation Comments Ceruloplasmin (test code 19 mg/dL 18-36 = 20191109) NICHOLAS (test code = NICHOLAS) Performing Lab *AYANA [facility], [address] [place] [address] Arleen Natarajan MD [facility] HospitalBody fluid culture + gram [id number] 11:41:09 Test Item Value Reference Range Interpretation Comments Result (test code = 6463-4) No growth [facility] HospitalBody fluid culture + gram [id number] 11:41:09 Test Item Value Reference Range Interpretation Comments Result (test code = 6463-4) No growth [facility] HospitalBODY FLUID CULTURE + GRAM [id number] 11:41:09 Test Item Value Reference Range Interpretation Comments CULTURE (BEAKER) (test code = 1095) No growth Albumin, body [id number] 15:43:05 Test Item Value Reference Range Interpretation Comments Albumin, Fluid (test 0.5 gm/dL code = 1747-5) NICHOLAS (test code = Reference Range: No NICHOLAS) Normals Assay performance has not been validated for this type of specimen.Online Affiliate Marketing Manager ID - [id number] [facility] HospitalAlbumin, body [id number] 15:43:05 Test Item Value Reference Range Interpretation Comments Albumin, Fluid (test 0.5 gm/dL code = 1747-5) NICHOLAS (test code = Reference Range: No NICHOLAS) Normals Assay performance has not been validated for this type of specimen.Online Affiliate Marketing Manager ID - [id number] [facility] HospitalALBUMIN, BODY [id number] 15:43:05 Test Item Value Reference Range Interpretation Comments ALBUMIN FLUID (BEAKER) (test code = 0.5 gm/dL 501) Reference Range: No Normals Assay performance has not been validated for this type of specimen.Online Affiliate Marketing Manager ID - [id number] C PCR, [id number] 13:24:39 Test Item Value Reference Range Interpretation Comments HCV PCR, Quantitative 215 See_Comment H [Auto mated (test code = 06948-7) messag e] The system which generated this result transmitted reference range : <15 IU/mL. The reference range was not used to interpret this result as normal/abnormal . NICHOLAS (test code = NICHOLAS) This test uses a Real-Time Polymerase Chain Reaction (RT-PCR) methodology and was performed using TETE Ampliprep/TETE TaqMan HCV test kit version 2.0 ([employer]). Reportable range for this assay is 15 - 100,000,000 IU per mL (1.18 - 8.00 Log IU/mL). Lab Interpretation Abnormal (test code = 31638-5) [facility] HospitalHepatitis C PCR, [id number] 13:24:39 Test Item Value Reference Range Interpretation Comments HCV PCR, Quantitative 215 See_Comment H [Auto mated (test code = 82728-2) messag e] The system which generated this result transmitted reference range : <15 IU/mL. The reference range was not used to interpret this result as normal/abnormal . NICHOLAS (test code = NICHOLAS) This test uses a Real-Time Polymerase Chain Reaction (RT-PCR) methodology and was performed using TETE Ampliprep/TETE TaqMan HCV test kit version 2.0 ([employer]). Reportable range for this assay is 15 - 100,000,000 IU per mL (1.18 - 8.00 Log IU/mL). Lab Interpretation Abnormal (test code = 57319-1) [facility] HospitalHEPATITIS C PCR, [id number] 13:24:39 Test Item Value Reference Range Interpretation Comments HCV NUMERIC RESULT (BEAKER) (test 215 IU/mL <15 H code = 2700) This test uses a Real-Time Polymerase Chain Reaction (RT-PCR) methodology and was performed using TETE Ampliprep/TETE TaqMan HCV test kit version 2.0 ([employer]).Reportable range for this assay is 15 - 100,000,000 IU per mL (1.18 - 8.00 Log IU/mL).Anti-Nuclear Antibody (NATALIE) 2021-08-30 11:13:56 Test Item Value Reference Range Interpretation Comments NATALIE (test code = 85133-0) Negative Negative NICHOLAS (test code = NICHOLAS) Test performed by IFA method.Test performed by IFA method. Lab Interpretation (test Normal code = 71269-0) [facility] HospitalAnti-Nuclear Antibody (NATALIE)2021-08-30 11:13:56 Test Item Value Reference Range Interpretation Comments NATALIE (test code = 94616-2) Negative Negative NICHOLAS (test code = NICHOLAS) Test performed by IFA method.Test performed by IFA method. Lab Interpretation (test Normal code = 79989-5) [facility] HospitalANTI-NUCLEAR ANTIBODY (NATALIE)2021-08-30 11:13:56 Test Item Value Reference Range Interpretation Comments ANTI-NUCLEAR ANTIBODY (NATALIE) (BEAKER) Negative Negative (test code = 418) Test performed by IFA method.Test performed by IFA method.Body fluid cell count with syrmnqitxvgd8347-16-28 14:45:14 Test Item Value Reference Range Interpretation Comments Appearance (test code = Clear Clear 9335-1) Color (test code = Yellow Colorless, Straw A 6824-7) RBCs (test code = 200 See_Comment H [Automate d message] 02397-4) The system [employer] generated this result transmit cristina reference range : <=1 /cu mm. The reference range was not used to interpret this result as normal/abnormal . Adjusted WBC Count 372 See_Comment H [Automat ed message] (test code = 82531-1) The sy stem which generated this result transmit cristina reference range : <=5 /cu mm. The reference range was not used to interpret this result as normal/abnormal . Lining Cells (test code 11 See_Comment H [Au tomated message] = 66356-9) The system [employer] generated this result transmit cristina reference range : <=1 /cu mm. The reference range was not used to interpret this result as normal/abnormal . % Segs (test code = 3 % 78323-8) % Lymphs (test code = 20 % 31210-8) % Monos (test code = 77 % 54312-0) % Eos (test code = 0 % 15195-8) % Baso (test code = 0 % 23272-9) Container Body Fluid EDTA Tube (test code = 2873) Lab Interpretation Abnormal (test code = 94896-7) [facility] HospitalBody fluid cell count with aibflkjmophd1474-41-12 14:45:14 Test Item Value Reference Range Interpretation Comments Appearance (test code = Clear Clear 9335-1) Color (test code = Yellow Colorless, Straw A 6824-7) RBCs (test code = 200 See_Comment H [Automate d message] 10934-0) The system [employer] generated this result transmit cristina reference range : <=1 /cu mm. The reference range was not used to interpret this result as normal/abnormal . Adjusted WBC Count 372 See_Comment H [Automat ed message] (test code = 39503-3) The sy stem which generated this result transmit cristina reference range : <=5 /cu mm. The reference range was not used to interpret this result as normal/abnormal . Lining Cells (test code 11 See_Comment H [Au tomated message] = 46044-7) The system [employer] generated this result transmit cristina reference range : <=1 /cu mm. The reference range was not used to interpret this result as normal/abnormal . % Segs (test code = 3 % 15553-3) % Lymphs (test code = 20 % 17699-2) % Monos (test code = 77 % 12691-3) % Eos (test code = 0 % 09645-3) % Baso (test code = 0 % 55478-4) Container Body Fluid EDTA Tube (test code = 2873) Lab Interpretation Abnormal (test code = 85584-6) [facility] HospitalBODY FLUID CELL COUNT WITH [id number] 14:45:14 Test Item Value Reference Range Interpretation [...] (test code = The sy stem which 1691) generated this result transmitted ref erence range: [...] Tube (BEAKER) (test code = 2873) U/S, [id number] 10:42:00Labs to be ordered:->Body Fluid Culture (w/Gram Stain, C\\T\\S)Labs to be ordered:->Cell CountReason for exam:->r/o SBPJEMAL [facility] : 1985 Sex: MFINAL REPORT HISTORY : Symptomatic ascites. Technique/findings:Dede med written consent was obtained. Discussion of [...] catheter, an image was saved. A 5 Uzbek one-step catheter was inserted and removed from the peritoneal space and approximately 5.9 liters of yellow ascitic fluid wasaspirated from the abdomen. Specimens were collected for the lab. There were no immediate complications. Impression: Successful ultrasound guided paracentesis with aspiration of 5.9 liters of fluid. Signed: Augustin Glover MDReport Verified Date/Time: 08/29/2021 10:42:46 Reading Location: [address] Transitional Reading Room Manual Differential 2021-08-29 05:27:26 Test Item Value Reference Range Interpretation Comments % Neutros (test code = 67 % 2816) % Lymphs (test code = 13 % 2817) % Monos (test code = 18 % 2818) % Eos (test code = 2819) 2 % # Neutros (test code = 4.76 K/ul 1.78-5.38 2830) # Lymphs (test code = 0.92 K/ul 1.32-3.57 L 283) # Monos (test code = 1.28 K/uL 0.30-0.82 H 2832) # Eos (test code = 2834) 0.14 K/uL 0.04-0.54 Total Counted (test code 100 = 1351) WBC Morphology (test code Normal = 487) Platelet Morphology (test Normal code = 486) Anisocytosis (test code = 1+ few 961) Macrocytes (test code = 1+ few 964) Target Cells (test code = 1+ few 480) Artifact (test code = Present 3432) Platelet Conc (test code Decreased = 3438) NICHOLAS (test code = NICHOLAS) Online Affiliate Marketing Manager ID - lydia Castellano comments: Slide comments: Lab Interpretation (test Abnormal code = 97536-0) [facility] HospitalManual Mjeqwhnlmaxz9242-77-70 05:27:26 Test Item Value Reference Range Interpretation Comments % Neutros (test code = 67 % 2816) % Lymphs (test code = 13 % 2817) % Monos (test code = 18 % 2818) % Eos (test code = 2819) 2 % # Neutros (test code = 4.76 K/ul 1.78-5.38 2830) # Lymphs (test code = 0.92 K/ul 1.32-3.57 L 2831) # Monos (test code = 1.28 K/uL 0.30-0.82 H 2832) # Eos (test code = 2834) 0.14 K/uL 0.04-0.54 Total Counted (test code 100 = 1351) WBC Morphology (test code Normal = 487) Platelet Morphology (test Normal code = 486) Anisocytosis (test code = 1+ few 961) Macrocytes (test code = 1+ few 964) Target Cells (test code = 1+ few 480) Artifact (test code = Present 3432) Platelet Conc (test code Decreased = 3438) NICHOLAS (test code = NICHOLAS) Online Affiliate Marketing Manager ID - lydia Castellano comments: Slide comments: Lab Interpretation (test Abnormal code = 26328-6) [facility](CELLAVISION MANUAL DIFF)2021-08-29 05:27:26 Test Item Value Reference Range Interpretation [...] CONCENTRATION Decreased (CELLAVISION)(BEAKER) (test code = 3438) Online Affiliate Marketing Manager ID - lydia Castellano comments: Slide comments:CBC with platelet count + automated [id number] 05:27:25 Test Item Value Reference Range Interpretation Comments WBC (test code = 6690-2) 7.1 See_Comment [A utomated message] The system [employer] generated this result transmitted ref erence range: 3.5 - 10 .5 K/L. The refe rence range was not u sed to interpret this result as normal/abnor mal. RBC (test code = 789-8) 2.86 See_Comment L [Au tomated message] The system [employer] generated this result transmitted ref erence range: 4.63 - 6 .08 M/L. The refe rence range was not u sed to interpret this result as normal/abnor mal. MCHC (test code = 786-4) 34.3 See_Comment L [A utomated message] The system [employer] generated this result transmitted ref erence range: 32.3 - 3 6.5 GM/DL. The refe rence range was not u sed to interpret this result as normal/abnor mal. Hematocrit (test code = 28.0 % 40.1-51.0 L 4544-3) MCV (test code = 787-2) 97.9 fL 79.0-92.2 H MCH (test code = 785-6) 33.6 pg 25.7-32.2 H RDW (test code = 788-0) 13.9 % 11.6-14.4 Platelets (test code = 120 See_Comment L [Aut omated message] 777-3) The system [employer] generated this result transmitted ref erence range: 150 - 45 0 K/CU MM. The referen ce range was not u sed to interpret this result as normal/abnor mal. MPV (test code = 9.5 fL 9.4-12.4 62204-5) nRBC (test code = 413) 0 See_Comment [Aut omated message] The system [employer] generated this result transmitted ref erence range: 0 - 0 /1 00 WBC. The refere nce range was not u sed to interpret this result as normal/abnor mal. Lab Interpretation (test Abnormal code = 19898-0) [facility] with platelet count + automated stov3372-04-19 05:27:25 Test Item Value Reference Range Interpretation Comments WBC (test code = 6690-2) 7.1 See_Comment [A utomated message] The system [employer] generated this result transmitted ref erence range: 3.5 - 10 .5 K/L. The refe rence range was not u sed to interpret this result as normal/abnor mal. RBC (test code = 789-8) 2.86 See_Comment L [Au tomated message] The system [employer] generated this result transmitted ref erence range: 4.63 - 6 .08 M/L. The refe rence range was not u sed to interpret this result as normal/abnor mal. MCHC (test code = 786-4) 34.3 See_Comment L [A utomated message] The system [employer] generated this result transmitted ref erence range: 32.3 - 3 6.5 GM/DL. The refe rence range was not u sed to interpret this result as normal/abnor mal. Hematocrit (test code = 28.0 % 40.1-51.0 L 4544-3) MCV (test code = 787-2) 97.9 fL 79.0-92.2 H MCH (test code = 785-6) 33.6 pg 25.7-32.2 H RDW (test code = 788-0) 13.9 % 11.6-14.4 Platelets (test code = 120 See_Comment L [Aut omated message] 777-3) The system [employer] generated this result transmitted ref erence range: 150 - 45 0 K/CU MM. The referen ce range was not u sed to interpret this result as normal/abnor mal. MPV (test code = 9.5 fL 9.4-12.4 56945-5) nRBC (test code = 413) 0 See_Comment [Aut omated message] The system [employer] generated this result transmitted ref erence range: 0 - 0 /1 00 WBC. The refere nce range was not u sed to interpret this result as normal/abnor mal. Lab Interpretation (test Abnormal code = 87010-3) [facility] W/PLT COUNT & AUTO GAVYYVXSMXDV6067-09-30 05:27:25 Test Item Value Reference Range Interpretation [...] WBC 0-0 (BEAKER) (test code = 413) Lckltsnx1428-64-52 05:10:22 Test Item Value Reference Range Interpretation Comments Ferritin (test code = 178.12 ng/mL 5.00-275.00 2276-4) NICHOLAS (test code = NICHOLAS) [employer] Affiliate Marketing Manager ID - SHANNON W Lab Interpretation (test Normal code = 01884-4) [facility] 05:10[facility]22 Test Item Value Reference Range Interpretation Comments Ferritin (test code = 178.12 ng/mL 5.00-275.00 2276-4) NICHOLAS (test code = NICHOLAS) Online Affiliate Marketing Manager ID - SHANNON W Lab Interpretation (test Normal code = 70049-9) [facility] 05:10:22 Test Item Value Reference Range Interpretation Comments FERRITIN (BEAKER) (test code = 178.12 ng/mL 5.00-275.00 361) Online Affiliate Marketing Manager ID Bernice ORTEGA WProthrombin time/[id number] 05:03:56 Test Item Value Reference Interpretation Comments Range Protime (test code = 19.6 See_Comment H [Autom ated 5902-2) message] The system which generated this result transmitted reference range : 11.9 - 14.2 seconds. The reference range was not used to interpret this result as normal/abnormal . INR (test code = 1.68 See_Comment [Automated 6301-6) message] The system which generated this result transmitted reference range : <=5.90. The reference range was not used to interpret this result as normal/abnormal . NICHOLAS (test code = RECOMMENDED NICHOLAS) COUMADIN/WARFARIN INR THERAPY RANGESSTANDARD DOSE: 2.0 - 3.0 Includes: PROPHYLAXIS for venous thrombosis, systemic embolization; TREATMENT for venous thrombosis and/or pulmonary embolus.HIGH RISK: Target INR is 2.5-3.5 for patients with mechanical heart valves. Lab Interpretation Abnormal (test code = 38730-5) [facility] time/[id number] 05:03:56 Test Item Value Reference Interpretation Comments Range Protime (test code = 19.6 See_Comment H [Autom ated 5902-2) message] The system which generated this result transmitted reference range : 11.9 - 14.2 seconds. The reference range was not used to interpret this result as normal/abnormal . INR (test code = 1.68 See_Comment [Automated 6301-6) message] The system which generated this result transmitted reference range : <=5.90. The reference range was not used to interpret this result as normal/abnormal . NICHOLAS (test code = RECOMMENDED NICHOLAS) COUMADIN/WARFARIN INR THERAPY RANGESSTANDARD DOSE: 2.0 - 3.0 Includes: PROPHYLAXIS for venous thrombosis, systemic embolization; TREATMENT for venous thrombosis and/or pulmonary embolus.HIGH RISK: Target INR is 2.5-3.5 for patients with mechanical heart valves. Lab Interpretation Abnormal (test code = 72377-7) [facility] HospitalPROTHROMBIN TIME/[id number] 05:03:56 Test Item Value Reference Range Interpretation Comments PROTIME (BEAKER) 19.6 seconds 11.9-14.2 H (test code = 759) INR (BEAKER) (test 1.68 See_Comment [Automat ed message] code = 370) The system [employer] generated this result transmitted ref erence range: <=5.90. The reference range was not used to int erpret this result as normal/abnormal . RECOMMENDED COUMADIN/WARFARIN INR THERAPY RANGESSTANDARD DOSE: 2.0 - 3.0 Includes: PROPHYLAXIS forvenous thrombosis, systemic embolization; TREATMENT for venous thrombosis and/or pulmonary embolus.HIGH RISK: Target INR is 2.5-3.5 for patients with mechanical heart valves.Basic metabolic artet3456-11-82 04:55:55 Test Item Value Reference Range Interpretation Comments Sodium (test code = 134 meq/L 136-145 L 2951-2) Potassium (test code 3.7 meq/L 3.5-5.1 = 2823-3) Chloride (test code = 105 meq/L 98-107 2075-0) CO2 (test code = 24 meq/L 22-29 8-9) BUN (test code = 10 mg/dL 7- 3094-0) Creatinine (test code 0.63 mg/dL 0.57-1.25 = 2160-0) Glucose (test code = 83 mg/dL 70-105 2345-7) Calcium (test code = 7.8 mg/dL 8.4-10.2 L 37119-7) EGFR (test code = 143 mL/min/1.73 [place] [address]-4) NOT ACCURATE CREATININE CLEARANCE IN PREDICTING GLOMERULAR FILTRATION RATE . ESTIMATED GFR I S NOT APPLICABLE FOR DIALYSIS PATIENTS. NICHOLAS (test code = NICHOLAS) Online Affiliate Marketing Manager ID - SHANNON Zelayablair slightly icteric Lab Interpretation Abnormal (test code = 32393-5) [facility] [place] metabolic [id number] 04:55:55 Test Item Value Reference Range Interpretation Comments Sodium (test code = 134 meq/L 136-145 L 2951-2) Potassium (test code 3.7 meq/L 3.5-5.1 = 2823-3) Chloride (test code = 105 meq/L 98-107 2075-0) CO2 (test code = 24 meq/L 22-29 8-9) BUN (test code = 10 mg/dL 7-21 3094-0) Creatinine (test code 0.63 mg/dL 0.57-1.25 = 2160-0) Glucose (test code = 83 mg/dL 70-105 2345-7) Calcium (test code = 7.8 mg/dL 8.4-10.2 L 18417-4) EGFR (test code = 143 mL/min/1.73 [place] [address]-9) NOT ACCURATE CREATININE CLEARANCE IN PREDICTING GLOMERULAR FILTRATION RATE . ESTIMATED GFR I S NOT APPLICABLE FOR DIALYSIS PATIENTS. NICHOLAS (test code = NICHOLAS) Online Affiliate Marketing Manager ID - SHANNON WSpecimen slightly icteric Lab Interpretation Abnormal (test code = 54617-3) [facility] METABOLIC [id number] 04:55:55 Test Item Value Reference Range Interpretation [...] S NOT APPLICABLE FOR DIALYSIS PATIEN TS. Online Affiliate Marketing Manager ID - SHANNON Campos slightly ictericHepatic function orbcj0768-71-40 04:55:38 Test Item Value Reference Range Interpretation Comments Protein, Total (test 7.4 See_Comment [Autom ated code = 2885-2) message] The system which generated this result transmitted reference range : 6.0 - 8.3 gm/dL . The reference range was not used to interpr et this result as normal/abnormal . Albumin (test code = 2.5 g/dL 3.5-5.0 L 55857-6) Total Bilirubin (test 2.6 mg/dL 0.2-1.2 H code = 1974-2) Bilirubin, Direct 1.5 mg/dL 0.1-0.5 H (test code = 1968-7) Alkaline Phosphatase 102 U/L 40-150 (test code = 6768-6) AST (test code = 61 U/L 5-34 H 1920-8) ALT (test code = 36 U/L 6-55 1742-6) NICHOLAS (test code = NICHOLAS) Online Affiliate Marketing Manager ID - SHANNON Campos slightly icteric Lab Interpretation Abnormal (test code = 36075-9) [facility] HospitalHepatic function [id number] 04:55:38 Test Item Value Reference Range Interpretation Comments Protein, Total (test 7.4 See_Comment [Autom ated code = 2885-2) message] The system which generated this result transmitted reference range : 6.0 - 8.3 gm/dL . The reference range was not used to interpr et this result as normal/abnormal . Albumin (test code = 2.5 g/dL 3.5-5.0 L 33922-9) Total Bilirubin (test 2.6 mg/dL 0.2-1.2 H code = 1975-2) Bilirubin, Direct 1.5 mg/dL 0.1-0.5 H (test code = 1968-7) Alkaline Phosphatase 102 U/L 40-150 (test code = 6768-6) AST (test code = 61 U/L 5-34 H 1920-8) ALT (test code = 36 U/L 6-55 1742-6) NICHOLAS (test code = NICHOLAS) Online Affiliate Marketing Manager ID Bernice Campos slightly icteric Lab Interpretation Abnormal (test code = 53086-5) [facility] HospitalHEPATIC FUNCTION [id number] 04:55:38 Test Item Value Reference Range Interpretation [...] (test code = 36 U/L 6-55 347) Online Affiliate Marketing Manager STEWART Campos slightly wnpseyrWnydyzxdq8505-56-08 04:55:37 Test Item Value Reference Range Interpretation Comments Magnesium (test code = 1.7 mg/dL 1.6-2.6 55581-2) NICHOLAS (test code = NICHOLAS) Online Affiliate Marketing Manager ID Bernice ORTEGA W Lab Interpretation (test Normal code = 30429-8) [facility]Phosphorus2021-[facility]-12 04:55:37 Test Item Value Reference Range Interpretation Comments Phosphorus (test code = 3.4 mg/dL 2.3-4.7 2777-1) NICHOLAS (test code = NICHOLAS) Online Affiliate Marketing Manager ID Bernice ORTEGA W Lab Interpretation (test Normal code = 79005-1) [facility] Test Item Value Reference Range Interpretation Comments Magnesium (test code = 1.7 mg/dL 1.6-2.6 67493-6) NICHOLAS (test code = NICHOLAS) Online Affiliate Marketing Manager ID - SHANNON W Lab Interpretation (test Normal code = 95988-9) [facility]osphorus2021-[facility]-12 04:55:37 Test Item Value Reference Range Interpretation Comments Phosphorus (test code = 3.4 mg/dL 2.3-4.7 2777-1) NICHOLAS (test code = NICHOLAS) Online Affiliate Marketing Manager ID - SHANNON W Lab Interpretation (test Normal code = 01762-7) [facility] Test Item Value Reference Range Interpretation Comments MAGNESIUM (BEAKER) (test code = 1.7 mg/dL 1.6-2.6 627) Online Affiliate Marketing Manager ID - SHANNON YGXDTHPSMGT0418-15-96 04:55:37 Test Item Value Reference Range Interpretation Comments PHOSPHORUS (BEAKER) (test code = 3.4 mg/dL 2.3-4.7 604) Online Affiliate Marketing Manager ID - SHANNON Ting, TIBC, % sat. (without ferritin)2021-08-29 04:50:39 Test Item Value Reference Range Interpretation Comments Iron (test code = 2498-4) 36.0 ug/dL 40.0-160.0 L TIBC (test code = 2500-7) 191 ug/dL 250-450 L Iron % Saturation (test 19 % 20-55 L code = 2502-3) NICHOLAS (test code = NICHOLAS) Online Affiliate Marketing Manager ID - SHANNON W Lab Interpretation (test Abnormal code = 49142-0) [facility] HospitalIron, TIBC, % sat. (without ferritin)2021-08-29 04:50:39 Test Item Value Reference Range Interpretation Comments Iron (test code = 2498-4) 36.0 ug/dL 40.0-160.0 L TIBC (test code = 2500-7) 191 ug/dL 250-450 L Iron % Saturation (test 19 % 20-55 L code = 2502-3) NICHOLAS (test code = NICHOLAS) Online Affiliate Marketing Manager ID - SHANNON W Lab Interpretation (test Abnormal code = 49631-7) [facility] HospitalIRON, TIBC, % SAT. (WITHOUT FERRITIN)2021-08-29 04:50:39 Test Item Value Reference Range Interpretation Comments IRON (BEAKER) (test code = 547) 36.0 ug/dL 40.0-160.0 L TOTAL IRON BINDING CAPACITY 191 ug/dL 250-450 L (BEAKER) (test code = 769) IRON % SATURATION (2) (BEAKER) 19 % 20-55 L (test code = 2590) Online Affiliate Marketing Manager ID - SHANNON WHepatitis B surface okfnvlow8046-67-20 17:36:09 Test Item Value Reference Range Interpretation Comments Hep B S Ab (test code <8.0 See_Comment [Auto mated = 48005-5) message] The system which generated this result transmit cristina reference range : <8.0 mIU/mL. Th e reference range was not used to interpret this result as normal/abnormal . NICHOLAS (test code = NICHOLAS) Online Affiliate Marketing Manager ID - DB Lab Interpretation Normal (test code = 53771-4) [facility] HospitalHepatitis B surface xrrugbtj8484-90-95 17:36:09 Test Item Value Reference Range Interpretation Comments Hep B S Ab (test code <8.0 See_Comment [Auto mated = 99156-7) message] The system which generated this result transmit cristina reference range : <8.0 mIU/mL. Th e reference range was not used to interpret this result as normal/abnormal . NICHOLAS (test code = NICHOLAS) Online Affiliate Marketing Manager ID - DB Lab Interpretation Normal (test code = 86730-1) [facility] HospitalHEPATITIS B SURFACE [id number] 17:36:09 Test Item Value Reference Range Interpretation Comments HEPATITIS B SURFACE ANTIBODY < mIU/mL <8.0 (BEAKER) (test code = 647) Online Affiliate Marketing Manager ID - DBHepatitis A antibody, [id number] 17:35:58 Test Item Value Reference Range Interpretation Comments Hep A IgG (test code = Reactive Nonreactive A 97466-0) NICHOLAS (test code = NICHOLAS) Online Affiliate Marketing Manager ID - DB Lab Interpretation (test Abnormal code = 82389-3) [facility] HospitalHepatitis A antibody, [id number] 17:35:58 Test Item Value Reference Range Interpretation Comments Hep A IgG (test code = Reactive Nonreactive A 83619-9) NICHOLAS (test code = NICHOLAS) Online Affiliate Marketing Manager ID - DB Lab Interpretation (test Abnormal code = 67432-1) [facility] HospitalHEPATITIS A ANTIBODY, [id number] 17:35:58 Test Item Value Reference Range Interpretation Comments HEPATITIS A IGG ANTIBODY (BEAKER) Reactive Nonreactive A (test code = 2797) Online Affiliate Marketing Manager ID - DBAlpha fetoprotein (AFP), tumor almxbm8382-03-86 17:32:37 Test Item Value Reference Range Interpretation Comments Alpha-Fetoprotein (test code 8.0 ng/mL <10.0 = 1834-1) NICHOLAS (test code = NICHOLAS) Online Affiliate Marketing Manager ID - DB Lab Interpretation (test Normal code = 11986-6) [facility] HospitalHepatitis B core antibody, igrru1591-65-14 17:32:37 Test Item Value Reference Range Interpretation Comments Hep B Core Total Ab (test Nonreactive Nonreactive code = 16325-8) NICHOLAS (test code = NICHOLAS) Online Affiliate Marketing Manager ID - DB Lab Interpretation (test Normal code = 71033-8) [facility] HospitalAlpha fetoprotein (AFP), tumor djdjdh1393-75-84 17:32:37 Test Item Value Reference Range Interpretation Comments Alpha-Fetoprotein (test code 8.0 ng/mL <10.0 = 1834-1) NICHOLAS (test code = NICHOLAS) Online Affiliate Marketing Manager ID - DB Lab Interpretation (test Normal code = 32929-1) [facility] HospitalHepatitis B core antibody, [id number] 17:32:37 Test Item Value Reference Range Interpretation Comments Hep B Core Total Ab (test Nonreactive Nonreactive code = 73602-1) NICHOLAS (test code = NICHOLAS) Online Affiliate Marketing Manager ID - DB Lab Interpretation (test Normal code = 17603-5) [facility] HospitalALPHA FETOPROTEIN (AFP), TUMOR [id number] 17:32:37 Test Item Value Reference Range Interpretation Comments ALPHA-FETOPROTEIN (BEAKER) (test 8.0 ng/mL <10.0 code = 1094) Online Affiliate Marketing Manager ID - DBHEPATITIS B CORE ANTIBODY, [id number] 17:32:37 Test Item Value Reference Range Interpretation Comments HEPATITIS B CORE TOTAL ANTIBODY Nonreactive Nonreactive (BEAKER) (test code = 497) Online Affiliate Marketing Manager ID - DBHepatitis B surface djrrfxr3706-37-52 17:32:36 Test Item Value Reference Range Interpretation Comments HBsAg Screen (test code Nonreactive Nonreactive = 5195-3) NICHOLAS (test code = NICHOLAS) Specimen is considered negative for HBsAg. Lab Interpretation (test Normal code = 97070-3) [facility] HospitalHepatitis B surface pwcqwfp8163-73-02 17:32:36 Test Item Value Reference Range Interpretation Comments HBsAg Screen (test code Nonreactive Nonreactive = 5195-3) NICHOLAS (test code = NICHOLAS) Specimen is considered negative for HBsAg. Lab Interpretation (test Normal code = 68819-9) [facility] HospitalHEPATITIS B SURFACE [id number] 17:32:36 Test Item Value Reference Range Interpretation Comments HEPATITIS B SURFACE ANTIGEN (2) Nonreactive Nonreactive (BEAKER) (test code = 2585) Specimen is considered negative for HBsAg.HIV-1 Antigen with HIV-1/2 Antibody 2021-08-28 17:30:17 Test Item Value Reference Range Interpretation Comments HIV-1 Antigen with HIV 1&2 Nonreactive Nonreactive Antibody (test code = 55591-5) NICHOLAS (test code = NICHOLAS) Online Affiliate Marketing Manager ID - DB Lab Interpretation (test Normal code = 22970-2) [facility]HIV-[facility] Antigen with HIV-1/2 Zemwklpr0717-93-68 17:30:17 Test Item Value Reference Range Interpretation Comments HIV-1 Antigen with HIV 1&2 Nonreactive Nonreactive Antibody (test code = 60913-2) NICHOLAS (test code = NICHOLAS) Online Affiliate Marketing Manager ID - DB Lab Interpretation (test Normal code = 55018-1) [facility] HospitalHIV-1 ANTIGEN WITH HIV-1/2 [id number] 17:30:17 Test Item Value Reference Range Interpretation Comments HIV-1 ANTIGEN WITH HIV 1\\T\\2 Nonreactive Nonreactive ANTIBODY (2) (BEAKER) (test code = 2586) Online Affiliate Marketing Manager ID - DBRapid drug screen, [id number] 17:17:55 Test Item Value Reference Range Interpretation Comments Barbiturate Screen Negative Negative (test code = 64365-6) Benzodiazepine Screen Negative Negative (test code = 50426-7) Cocaine (Metab.) Negative Negative Screen (test code = 3397-7) Methadone Screen (test Negative Negative code = 10855-9) Opiate Screen (test Positive Negative A code = 78703-1) Cannabinoid Screen Negative Negative (test code = 96793-2) Amph/Methamph Screen Positive Negative A (test code = 17878-6) Phencyclidine Screen Negative Negative (test code = 76285-9) pH, UA (test code = 6.0 5.0-8.0 5803-2) NICHOLAS (test code = NICHOLAS) DRUG CUTOFF CONC.Cocaine 300 ng/mL Cannabinoid 50 ng/mLBenzodiazepine 200 ng/mLBarbiturate 200 ng/mLPhencyclidine 25 ng/mLOpiate 300 ng/mLMethadone 300 ng/mLAmphetamine/ 1000 ng/mL Methamphetamine This assay provides an unconfirmed qualitative test result for the clinical management of patients in emergency situations. Chain of custody not maintained. Some hvbx-ney-cnwlxic medications, as well as adulterants, may cause inaccurate results. Clinical correlation should be applied. A more comprehensive drug screen or confirmation of a detected drug may be performed upon request.Online Affiliate Marketing Manager ID - DB Lab Interpretation Abnormal (test code = 48627-4) [facility] HospitalRapid drug screen, [id number] 17:17:55 Test Item Value Reference Range Interpretation Comments Barbiturate Screen Negative Negative (test code = 67674-6) Benzodiazepine Screen Negative Negative (test code = 70405-9) Cocaine (Metab.) Negative Negative Screen (test code = 3397-7) Methadone Screen (test Negative Negative code = 46029-7) Opiate Screen (test Positive Negative A code = 05798-1) Cannabinoid Screen Negative Negative (test code = 78826-2) Amph/Methamph Screen Positive Negative A (test code = 78384-3) Phencyclidine Screen Negative Negative (test code = 71523-5) pH, UA (test code = 6.0 5.0-8.0 5803-2) NICHOLAS (test code = NICHOLAS) DRUG CUTOFF CONC.Cocaine 300 ng/mL Cannabinoid 50 ng/mLBenzodiazepine 200 ng/mLBarbiturate 200 ng/mLPhencyclidine 25 ng/mLOpiate 300 ng/mLMethadone 300 ng/mLAmphetamine/ 1000 ng/mL Methamphetamine This assay provides an unconfirmed qualitative test result for the clinical management of patients in emergency situations. Chain of custody not maintained. Some thpt-dkt-zrfpwkw medications, as well as adulterants, may cause inaccurate results. Clinical correlation should be applied. A more comprehensive drug screen or confirmation of a detected drug may be performed upon request.Online Affiliate Marketing Manager ID - DB Lab Interpretation Abnormal (test code = 31989-6) [facility] HospitalR[facility]ID DRUG SCREEN, [id number] 17:17:55 Test Item Value Reference Range Interpretation [...] situations. Chain of custody not maintained. Some nqqj-ble-vxblrli medications, as well as adulterants, may cause inaccurate results. Clinical correlation should be applied. A more comprehensivedrug screen or confirmation of a detected drug may be performed upon request.Online Affiliate Marketing Manager ID - DB Yfyqf-9-yeigqvjatms8915-12-11 17:06:16 Test Item Value Reference Range Interpretation Comments A-1 Antitrypsin (test code = 106.00 mg/dL 90.00-200.00 1825-9) NICHOLAS (test code = NICHOLAS) Online Affiliate Marketing Manager ID - DB Lab Interpretation (test Normal code = 72440-6) [facility] HospitalAlpha-1-ewswuuvhtgd8900-65-98 17:06:16 Test Item Value Reference Range Interpretation Comments A-1 Antitrypsin (test code = 106.00 mg/dL 90.00-200.00 1825-9) NICHOLAS (test code = NICHOLAS) Online Affiliate Marketing Manager ID - DB Lab Interpretation (test Normal code = 25273-7) [facility] HospitalALPHA-1-RNQAEBDAYPH7797-02-40 17:06:16 Test Item Value Reference Range Interpretation Comments ALPHA-1 ANTITRYPSIN (BEAKER) 106.00 mg/dL 90.00-200.00 (test code = 502) Online Affiliate Marketing Manager ID - JVIuqglj8740-82-22 11:39:59 Test Item Value Reference Range Interpretation Comments Lipase (test code = 189 U/L 8-78 H 3040-3) NICHOLAS (test code = NICHOLAS) Online Affiliate Marketing Manager ID - DBSpecimen slightly icteric Lab Interpretation (test Abnormal code = 35448-0) [facility] HospitalLipase2021-12-11 11:39:59 Test Item Value Reference Range Interpretation Comments Lipase (test code = 189 U/L 8-78 H 3040-3) NICHOLAS (test code = NICHOLAS) Online Affiliate Marketing Manager ID - DBSpecimen slightly icteric Lab Interpretation (test Abnormal code = 85859-0) [facility] HospitalLIPASE2021-12-11 11:39:59 Test Item Value Reference Range Interpretation Comments LIPASE (BEAKER) (test code = 749) 189 U/L 8-78 H Online Affiliate Marketing Manager ID - DBSpecimen slightly ictericComprehensive metabolic uqgbg8791-05-47 11:39:58 Test Item Value Reference Range Interpretation Comments Protein, Total (test 7.4 See_Comment [Autom ated code = 2885-2) message] The system which generated this result transmitted reference range : 6.0 - 8.3 gm/dL . The reference range was not used to interpr et this result as normal/abnormal . Albumin (test code = 2.6 g/dL 3.5-5.0 L 08074-6) Alkaline Phosphatase 96 U/L 40-150 (test code = 6768-6) Total Bilirubin (test 3.0 mg/dL 0.2-1.2 H code = 1975-2) Sodium (test code = 134 meq/L 136-145 L 2951-2) Potassium (test code 3.6 meq/L 3.5-5.1 = 2823-3) Chloride (test code = 104 meq/L 98-107 2074-0) CO2 (test code = 22 meq/L 2028-05) BUN (test code = 11 mg/dL 04-07 309-0) Creatinine (test code 0.67 mg/dL 0.57-1.25 = 2160-0) Glucose (test code = 106 mg/dL 70-105 H 2345-7) Calcium (test code = 8.1 mg/dL 8.4-10.2 L 47392-9) AST (test code = 58 U/L 5-34 H 192-8) ALT (test code = 32 U/L 6-55 1742-6) EGFR (test code = 133 mL/min/1[place] [address]-8) m NOT ACCURATE CREATININE CLEARANCE IN PREDICTING GLOMERULAR FILTRATION RATE . ESTIMATED GFR I S NOT APPLICABLE FOR DIALYSIS PATIENTS. NICHOLAS (test code = NICHOLAS) Online Affiliate Marketing Manager ID - DBSpecimen slightly icteric Lab Interpretation Abnormal (test code = 40784-5) [facility] HospitalComprehensive metabolic [id number] 11:39:58 Test Item Value Reference Range Interpretation Comments Protein, Total (test 7.4 See_Comment [Autom ated code = 2885-2) message] The system which generated this result transmitted reference range : 6.0 - 8.3 gm/dL . The reference range was not used to interpr et this result as normal/abnormal . Albumin (test code = 2.6 g/dL 3.5-5.0 L 14940-9) Alkaline Phosphatase 96 U/L 40-150 (test code = 6768-6) Total Bilirubin (test 3.0 mg/dL 0.2-1.2 H code = 1974-2) Sodium (test code = 134 meq/L 136-145 L 2951-2) Potassium (test code 3.6 meq/L 3.5-5.1 = 2823-3) Chloride (test code = 104 meq/L 98-107 2074-0) CO2 (test code = 22 meq/L 2028-05) BUN (test code = 11 mg/dL 04-07 3094-0) Creatinine (test code 0.67 mg/dL 0.57-1.25 = 2160-0) Glucose (test code = 106 mg/dL 70-105 H 2345-7) Calcium (test code = 8.1 mg/dL 8.4-10.2 L 39996-6) AST (test code = 58 U/L 5-34 H 1920-8) ALT (test code = 32 U/L 6-55 1742-6) EGFR (test code = 133 mL/min/1.[place] [address]-5) m NOT ACCURATE CREATININE CLEARANCE IN PREDICTING GLOMERULAR FILTRATION RATE . ESTIMATED GFR I S NOT APPLICABLE FOR DIALYSIS PATIENTS. NICHOLAS (test code = NICHOLAS) [employer] Manager ID - DBSpecimen slightly icteric Lab Interpretation Abnormal (test code = 47245-4) [facility] [id number] 11:39:58 Test Item Value Reference Range Interpretation [...] S NOT APPLICABLE FOR DIALYSIS PATIEN TS. [employer]iliate Marketing Manager ID - DBSpecimen slightly ictericCBC W/PLT COUNT [...] (test code = 2801) COMP. METABOLIC PANEL (10172)2021-06-18 21:22:14 Test Item Value Reference Range Interpretation Comments NA (test code = 134 mmol/L 135-145 L 2830458589) K (test code = 3.7 mmol/L 3.5-5.0 0431953161) CL (test code = 105 mmol/L 98-108 0653312665) CO2 TOTAL (test code = 21 mmol/L 23-31 L 4987673481) AGAP (test code = 2-16 5876922188) BUN (test code = 6 mg/dL 7-23 L 5238432805) GLUCOSE (test code = 124 mg/dL 70-110 H 6965961658) CREATININE (test code = 0.66 mg/dL 0.60-1.25 4774895640) TOTAL BILI (test code = 3.8 mg/dL 0.1-1.1 H 3297494073) CALCIUM (test code = 8.5 mg/dL 8.6-10.6 L 6770554701) T PROTEIN (test code = 9.0 g/dL 6.3-8.2 H 2340303312) ALBUMIN (test code = 3.4 g/dL 3.5-5.0 L 1578234931) ALK PHOS (test code = 89 U/L 34-122 1916641852) ALTv (test code = 38 U/L 5-50 1742-6) AST(SGOT) (test code = 90 U/L 13-40 H 8990623241) eGFR (test code = mL/min/1.73m2 3436633400) NICHOLAS (test code = NICHOLAS) Association of [...] tests). Lab Interpretation Abnormal (test code = 72999-1) [facility] [id number] 21:07:34 Test Item Value Reference Range Interpretation Comments APTT Patient (test See_Comment [Automat ed code = 3173-2) message] The system which generated this result transmitted reference range : 23 - 38 Seconds . The reference range was not used to interpr et this result as normal/abnormal . NICHOLAS (test code = NICHOLAS) The [facility] patient population mean normal value for aPTT is 30 seconds. Lab Interpretation Normal (test code = 79141-3) [facility] WITH [id number] 21:07:14 Test Item Value Reference Range Interpretation Comments WBC (test code = See_Comment [Automated 5590-2) message] The sy stem which generated this [...] (test code = 52.4 fL 38.5-51.6 H 65594-1) RDW-CV (test code = 14.5 % 12.1-15.4 788-0) PLT (test code = See_Comment L [Automated 777-3) message] The sy stem which generated this result transmitted reference range : 150 - 328 10*3/ ?L. The reference r laura was not used to interpret this result as normal/abnormal . MPV (test code = 11.2 fL 9.8-13.0 81647-1) IPF % (test code = 2.9 % 1.2-10.7 Platelet count 8676901906) measured by fluorescence method. NRBC/100 WBC (test See_Comment [Automat ed code = 0354313402) message] The system which generated this result transmitted reference range : 0.0 - 10.0 /100 WBCs. The refer ence range was not u sed to interpret th is result as normal/abnormal . NRBC x10^3 (test code <0.01 See_Comment [Auto mated = 0886872088) message] The s ystem which generated this result transmitted reference range : 10*3/?L. The reference range was not used to interpret this result as normal/abnormal . GRAN MAT (NEUT) % 54.8 % (test code = 770-8) IMM GRAN % (test code 0.20 % = 8015990104) LYMPH % (test code = 26.7 % 736-9) MONO % (test code = 16.5 % 5905-5) EOS % (test code = 1.0 % 713-8) BASO % (test code = 0.8 % 706-2) GRAN MAT x10^3(ANC) 2.80 10*3/uL 1.99-6.95 (test code = 4541505407) IMM GRAN x10^3 (test <0.03 0.00-0.06 code = 4918302461) LYMPH x10^3 (test code 1.36 10*3/uL 1.09-3.23 = 731-0) MONO x10^3 (test code 0.84 10*3/uL 0.36-1.02 = 742-7) EOS x10^3 (test code = 0.05 10*3/uL 0.06-0.53 L 711-2) BASO x10^3 (test code 0.04 10*3/uL 0.01-0.09 = 704-7) Lab Interpretation Abnormal (test code = 52248-8) [facility]PROT[facility] / [id number] 21:04:54 Test Item Value Reference Range Interpretation [...] tions. Lab Interpretation (test Abnormal code = 52217-7) [facility] CenterTROPONIN [id number] 21:04:33 Test Item Value Reference Interpretation Comments Range TROPONIN I (test 0.004 ng/mL See_Comment [Automated code = 5233555645) message] The system which generated this result [...] biotin. Lab Interpretation Normal (test code = 71251-2) [facility] CenterN-TERMINAL [id number] 21:01:11 Test Item Value Reference Range Interpretation Comments NT-proBNP (test code 369 pg/mL See_Comment H [Autom ated = 6823040296) message] The system which generated this result transmitted reference range : <=125. The reference range was not used to interpret this result as normal/abnormal . NICHOLAS (test code = NICHOLAS) Biotin has been reported to cause a negative bias, interpret results relative to patient's use of biotin. Lab Interpretation Abnormal (test code = 74019-9) [facility] CenterLIPASE2021-[facility] 20:52:07 Test Item Value Reference Range Interpretation Comments LIPASE (test code = 0220052291) 489 U/L 0-220 H Lab Interpretation (test code = Abnormal 54657-9) [facility] CenterCOM. METABOLIC PANEL (35004)2021-03-25 09:52:29 Test Item Value Reference Range Interpretation Comments NA (test code = 131 mmol/L 135-145 L 2882070161) K (test code = 4.1 mmol/L 3.5-5.0 6652561418) CL (test code = 101 mmol/L 98-108 7016991151) CO2 TOTAL (test code = 27 mmol/L 23-31 3167246654) AGAP (test code = 2-16 5531598429) BUN (test code = 7 mg/dL 7-23 6179784917) GLUCOSE (test code = 85 mg/dL 70-110 9617428531) CREATININE (test code = 0.63 mg/dL 0.60-1.25 8770726128) TOTAL BILI (test code = 5.6 mg/dL 0.1-1.1 H 6024468972) CALCIUM (test code = 8.1 mg/dL 8.6-10.6 L 5756199480) T PROTEIN (test code = 7.7 g/dL 6.3-8.2 6887816737) ALBUMIN (test code = 3.0 g/dL 3.5-5.0 L 5637450602) ALK PHOS (test code = 81 U/L 34-122 2758420790) ALTv (test code = 51 U/L 5-50 H 1742-6) AST(SGOT) (test code = 145 U/L 13-40 H 8759216401) eGFR (test code = mL/min/1.73m2 1795460873) NICHOLAS (test code = NICHOLAS) Association of [...] tests). Lab Interpretation Abnormal (test code = 62268-2) [facility] CenterPROTHR[facility] / [id number] 08:11:23 Test Item Value Reference Range Interpretation [...] tions. Lab Interpretation (test Abnormal code = 12019-5) [facility] WITH [id number] 08:07:00 Test Item Value Reference Range Interpretation [...] (test code = 57.2 fL 38.5-51.6 H 01194-2) RDW-CV (test code = 14.8 % 12.1-15.4 788-0) PLT (test code = See_Comment L [Automated 777-3) message] The sy stem which generated this result transmitted reference range : 150 - 328 10*3/ ?L. The reference r laura was not used to interpret this result as normal/abnormal . MPV (test code = 12.1 fL 9.8-13.0 46892-2) NRBC/100 WBC (test See_Comment [Automat ed code = 2150374492) message] The system which generated this result transmitted reference range : 0.0 - 10.0 /100 WBCs. The refer ence range was not u sed to interpret th is result as normal/abnormal . NRBC x10^3 (test code <0.01 See_Comment [Auto mated = 8857071529) message] The s ystem which generated this result transmitted reference range : 10*3/?L. The reference range was not used to interpret this result as normal/abnormal . GRAN MAT (NEUT) % 54.3 % (test code = 770-8) IMM GRAN % (test code 0.40 % = 9106080634) LYMPH % (test code = 25.2 % 736-9) MONO % (test code = 17.2 % 5905-5) EOS % (test code = 1.8 % 713-8) BASO % (test code = 1.1 % 706-2) GRAN MAT x10^3(ANC) 3.99 10*3/uL 1.99-6.95 (test code = 3833114273) IMM GRAN x10^3 (test 0.03 10*3/uL 0.00-0.06 code = 7380611907) LYMPH x10^3 (test code 1.85 10*3/uL 1.09-3.23 = 731-0) MONO x10^3 (test code 1.26 10*3/uL 0.36-1.02 H = 742-7) EOS x10^3 (test code = 0.13 10*3/uL 0.06-0.53 711-2) BASO x10^3 (test code 0.08 10*3/uL 0.01-0.09 = 704-7) Lab Interpretation Abnormal (test code = 51638-5) [facility]OL[facility] (NA, K, CL, CO2, GLUCOSE, BUN, CREATININE, CA)2021-03-24 14:01:03 Test Item Value Reference Range Interpretation Comments NA (test code = 133 mmol/L 135-145 L 8809025389) K (test code = Hemolyzed 6223739723) Specimen CL (test code = 103 mmol/L 98-108 4141727251) CO2 TOTAL (test code 26 mmol/L 23-31 = 4279351649) AGAP (test code = 2-16 0722809109) BUN (test code = Hemolyzed 3957231819) Specimen GLUCOSE (test code = 83 mg/dL 70-110 5506761765) CREATININE (test code 0.53 mg/dL 0.60-1.25 L = 7141228782) CALCIUM (test code = 7.8 mg/dL 8.6-10.6 L 2716643597) eGFR (test code = mL/min/1.73m2 8400714716) NICHOLAS (test code = NICHOLAS) Association of [...] tests). Lab Interpretation Abnormal (test code = 08859-8) [facility] WITH [id number] 08:13:01 Test Item Value Reference Range Interpretation Comments WBC (test code = See_Comment [Automated 5690-2) message] The sy stem which generated this [...] (test code = 58.4 fL 38.5-51.6 H 31151-0) RDW-CV (test code = 15.0 % 12.1-15.4 788-0) PLT (test code = See_Comment [Automated 777-3) message] The sy stem which generated this result transmitted reference range : 150 - 328 10*3/ ?L. The reference r laura was not used to interpret this result as normal/abnormal . MPV (test code = 12.0 fL 9.8-13.0 62700-4) NRBC/100 WBC (test See_Comment [Automat ed code = 6650344674) message] The system which generated this result transmitted reference range : 0.0 - 10.0 /100 WBCs. The refer ence range was not u sed to interpret th is result as normal/abnormal . NRBC x10^3 (test code <0.01 See_Comment [Auto mated = 3127880159) message] The s ystem which generated this result transmitted reference range : 10*3/?L. The reference range was not used to interpret this result as normal/abnormal . GRAN MAT (NEUT) % 59.9 % (test code = 770-8) IMM GRAN % (test code 0.30 % = 0948785391) LYMPH % (test code = 19.8 % 736-9) MONO % (test code = 17.1 % 5905-5) EOS % (test code = 1.8 % 713-8) BASO % (test code = 1.1 % 706-2) GRAN MAT x10^3(ANC) 3.99 10*3/uL 1.99-6.95 (test code = 5744134970) IMM GRAN x10^3 (test <0.03 0.00-0.06 code = 2938022063) LYMPH x10^3 (test code 1.32 10*3/uL 1.09-3.23 = 731-0) MONO x10^3 (test code 1.14 10*3/uL 0.36-1.02 H = 742-7) EOS x10^3 (test code = 0.12 10*3/uL 0.06-0.53 711-2) BASO x10^3 (test code 0.07 10*3/uL 0.01-0.09 = 704-7) Lab Interpretation Abnormal (test code = 43569-4) [facility] CenterPROT[facility] / [id number] 07:39:33 Test Item Value Reference Range Interpretation Comments PROTIME PATIENT (test See_Comment H [Auto mated message] code = 5964-2) The system [employer] generated this result transmitted ref erence range: 10.1 - 1 2.6 Seconds. The reference range was not used to int erpret this result as normal/abnormal . INR (test code = 6301-6) Nor mal INR <1.1; Warfarin Therap eutic range 2.0 to 3. 0 or 2.5 to 3.5, dep ending upon the indica tions. Lab Interpretation (test Abnormal code = 06886-9) [facility] CenterCYTO ABDOMINAL [id number] 21:12:26 Test Item Value Reference Range Interpretation Comments Case Report (test code Non-Gynecologic = 1901013289) Cytology ?Case: [id number] ?Authorizing Provider: ?Maegan Mcguire MD ? ?Collected: ? 03/22/2021 1730 ?Ordering Location: ? ? [facility] ? ?Received: ?03/23/2021 0926 ?Pathologist: ? Camille Magana MD ? Specimen: ? ?ABDOMEN ? Final Diagnosis (test m8ztcXRxRCCga9ryAENszY code = 1956728194) FuZzEwMzNcZnRuYmpcdWMx IHtccnRmMVxlcGljOTQwM1 euxvZrKXZsfPGcR0Eywdvf EHrjQM0fPW6cfBmrfGZjpW IeSHVlTvEij2sgm665oVCw v6cnJLLOfsqbgTu7fWbhJ4 8ow1K3VvrqQ07tdEBaTHM7 NCWfHRYcpXCwCTEsJFC5DO HfzVVpD5cwERSqLQ2jjace EQipOCeiOUBvkBU3IKAvuB ZqT6YkDKNqDTccXBEyxdf9 ChUxGu0etNZpjDigJLifEY JkXHBsYWluXGJcZnMyMCBB VF2xEXZNIL1KTG81RSWTFv HEGR0ZWKCXMgMHBOJZSEpn rOSiNVFxPZ0pXXCiFg0jBA VYCWqPYS8AJFVOAJmREBwY VG5IWZMDEHJpFBbbXZDpK8 MUUGVUSD0DBrNvBPRjomsm UUB1d3hctMHgWZAbbKBrHc XcQNWwHPAdz7jpIAAmwQBc ZzEwMzNcZnRuYmpcdWMxXG ZwTuSnf0zdn697fIYmg8cd LTOuXnK2aQHsKFHygLlwxu x7rPllSaRnVSFyp5ovkdSm ZmNoYXJzZXQwIEFyaWFsO3 37ILQqIOzyx3nfl5YxCVEv vSZmn6G9PQSOGCcdJiImE5 35p2drp0lwxiUvvXE0JYYz KIQ3WJsbznNxywO7YVppmQ TvCtV2CMqnbsVtJFmrhyXk poIdCfs0YBTwV760KSY9oK len0uiQQU4SHDrDYTvQnmv Fn7ljWJwI941ZYSvWUINSB ZkwJd3PRYlzxGnqjMqaVOH n103J730b5heCVWpgcMcyH qQsckyg9mzY814UPDkiNZi haNqMyXxJNRvsMWpjPJ5KK WvVW6dmikkWUweWBgmIQXh atC5DFFwrZTaJ2SmSRTpGT 7mjlqxYKH9GIjaDINuJQQ5 JgXvIPNek2Cungm1KnRvlf 3nua85THB0v7CvfCbgQOQ7 VWU7JrBsGz1esWQlLSHoVN 3kZqZgbGIkWITfec65xIff JGdnpbLuoU0dObOdMHUokE KrOCVzAW1joTKaWTNzwZ7r cmxjXHBnYnJkcmhlYWRccG slhkDbHj3hbYnnYTP6NWrc L5uteH0rFeE9WOqqN7rqfG 3gKKr5STtkoWB6ZGBaiG6h JF4vrcsyq9ntJNlyIZopJQ ZlhsU4fdY1IXZqnUDiS8Ml lE1hREWrTA4jclfbz7fvTU V6KIasKIJzYRU2XmQyFVIh v4Mejzb2IqOqs8IadUSmED klH94sm350HNAwjaPdP8gy bGFpblxwbGFpblxmMFxmcz N1MDRvWVCjAXmnKJHaOEEc MjBcbGFuZzEwMzNcaGljaF wjAUeoWgBdRNCqSLtsL0ll WjRwX2LjOCLfLgDewHHeKC fshRF7VLAlLTLyf91jzLs5 KHQqxuszk3DkDIQjzLAqmD CmcP6folLmv7zlFUHbUORp YUZvV8DaBIE8lMTuDIJgtA RwaJJ0QF3ocpBwNV9qQMKk YnkgcmVzaWRlbnRzLCBmZW tch6tbHY5lXPQeiZndaU9w yQP3FYOcq7pedOPoxWXln7 awc6StxkQoYAqbPAKxHRxw VQWrXNPuTQ1dUHFgyPSriw Ytm8L4UodfcANuhvhpHwfq xuL8ICegtvauIVXpFYrwD1 zaHtTzINPruJeyYebgi4Fg XGYyXGZzMjhccGFyfX0= Final Diagnosis Comment e9sskCNbCULcrQH1JMQwNA (test code = Mai0qry2UzdIQmkTHcZXqp 6972539410) hRBpgyYmqx01lLM2zQ75LZ 5sJKFyWzY2DGQmfcT2Toi8 QSWyCBUhnRCzZ104y7vvj4 vcskSedDC8xWseRDBptvkk ZkN5DTdkFVBqmipuCWu3IX hbSYXfiTD2VZZabOThA9Rj AQSmAV3kldk5HMU9PTffGO HrGtV4BIUnpOMqZRBtiUge TQazu278KHE0ZlWvCANvuk TpgAdooP5xZvUkSWKEtGIa jgOen8gsntUsVQWitRm5ZG BtZXNvdGhlbGlhbCBjZWxs buNtboHnIGFjR2feml47ni Evq5EzqXonsXmgIKnkl4Tj w1Y0oVhcPHyvTvsuxB4vkW cloj3mHj2qwUUpgUedJT59 TIUlgQcdDMjgWH43aYOwXY QuXHBhclxwYXJ9 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 8781973705) Gross Description (test n8pjxMLzYCUxsEI1FWSqCW code = 4310147864) Sri4ztn6GyeUHxkRGoQKjp sLZiqqNeoi80gLF7kH21WX 9cLPLmDaG2XQAtnkR8Uvc5 VZEnBMJdwHYtQ668y8cyg4 czirDfrBA4mEexWIUjpqpe KaI1YVzxXEQgjdbcNSw5IM cmHYOlpNG3AWOmhVGuX5Zk AKJrMU5paoi9JQB9EZgaKM JdNvE5BDQjvRNuDMBzsGbm LOmnh935NAK2AnQrNFGypa D1ZZmbDDVkO8RzF3PwXBbf OWG9UJYkWAIoWCAsMRKkPU MhMDmisgJ2d1rrFMIidYXb XXQ3QDpdxDPtZTUgPWVtQF uxXkXQUaDoRlDqTjQ5KLN4 DpA7HLv3BZZYGbElZtMsQN Y9TMp3KZClLYn1EXf6AMjI UzSfBlQmFxpeSWM0NZH2Ej AwIFxcdCAyIFxcZmwgXFxm IEFyaWFsIFxcZnMgMTAgXF ahP86kxAdjdA1dKeWwKTks CLQnVwAaNnTQHT1zRIVICM 4CTV72HRUXIhZEOQ7UHKIY UyBGTFVJRFxwYXIgUmVjZW t7EDSnMkXiy5ohyUPpLUIx X2PpioHuLrP6LIzki3keRf a4yMCzILHlanelEGUUnnZv YXJlZCAyIHNsaWRlcyAoMS IEFBLrzthqv7aqu0QgX4w2 g4UnfM8fXMAwOZMySFEamV Tzg3kov6wwU1a9b6QwxH8m gSShtGQyZSLnc82qFDmvMW MiE3CyY7CpjrI4d0nleJfg q9RhqADvBP4clELcsI== Disclaimer (test code = q1megGBdAJCyd4jnZURelY 5202688063) FuZzEwMzNcZnRuYmpcdWMx NVrmqcNaOHiam0LdZ5DeJg AwMFxhbnNpXGRlZmxhbmcx FASxLBK3cxEaDMOwWQpeCX UnQKzxJm3naWKbfGoyObCb ZOKvx2mtdpIDYQqmOeUoL3 41MCCcVTmoh6ewl3HnZYOp hHRjd7L0AIPHwcvvaIj6tK yxE19kv4L6OqpqB7jlJOVs QLXvB4WmVB4jEIZkIqr0XL I4UGL9DSIaUFRjD0CgRK0h ZZGnwQYwAEf0e9bndNmoST ZsXJC9f1dwWKhfbyOkUR0v wh2zlWq8j5prfrMcMDDcFI MqrVGFKTRzY2AtrXzlEb8s iCk8iOaoHecnEOE6Kgb6EQ 3wli68llw7fAziTVDoasab GxJ4KZagAGIgxgnbSUc0MR maDLOwsZW4QFIlrPAhL1Zr VSXnNA6mrtw2YJJ4JKeaRH ApQkS4JYXmcKCqFMWilQpe WVmmr101DTP6HvDeEX6dG2 Ifm3X6aD0xaXIwGQOxlBBl EyCrRWNcle0gzJBmQRtay4 QrQOX0bmY2yTEarBIyYIVf LO41Jovpg4DsKlmgb9SqU3 8awXP8FTpcv9bvMK3iHoS1 ryOyMKnxx5bgyV3zEsB8XP epKY7cWU3aVANwlD2pbbha XHBnYnJkcmhlYWRccGdicm NeYl9leNbjAIX9UMleF7qj bE1xMlD7BIneD9lmxE3cDY r8HNytoUB4MAMkxW0qFS8y runzf6lpTKqlPAjtXJAfdu B2tsM8RXRwpMXfA6VezS2e JDPySI8msndps6ecOMT8UO mbUZMyRPL5XcRbLQMah2Lu zth9NdHdo5ZiaRHkYUkeG8 5wr444HRMpgeNfL9fgoXIz jlkkbSMopmtmYOwijsC9AM DoubZzx6GdPIDrSLN7TEuy RTrksQOyRACusUnth1aeN5 RscGFyXHBsYWluXGYxXGZz MjBcbGFuZzEwMzNcaGljaF ujMYawKhLyVFEbHHxeY9td KtTxE9GvLZBvZrNljJIkO9 ggVGhpcyByZXBvcnQgbWF5 LDmhN8y0HZCqrsCmvIz6hw YhSoAcMYYwJWY6ATcpfEKd VRWtc0MbyoqoyBMyMl9yqT HuRPTrpA8fLZZkFDGtTAhx ZF8gpIx8QQEJeMAuxNTkVg XJZVHdIA37weTlHEXWselt f5S9CRsoXMKer2KthLTxI4 eva9LyYFDpz40xXK1rc5E8 q2bvGXT0LY5yv3QmKLGomQ KgbHUlPHOdv5Jgxfvgu8Th VALflmIpj8HtSQWxzjUtkM BwAAGybjOhna7mylZsEDHy EADcU5VwputrdTvyytJyNB Elat1ybvRsNGT3TRXQIVUk RRNse4CwqW1wvDRTGCD3jO Dgdm1yjuKQcVNnKOHdnc19 GYNqXM6pS7wlUXCkFCZhtr CzrWAma1MzGGYnqET3gFXz ZU1NFsADl60wKTVzIWRDkl WqYNIndUbgvFO3ywI7oQ7w IChGREEpLlx+IFRoZSBGRE SkFO4uisWkl3LwlaYcxEke DDIqrMAfo6CdiDGai0DchH hzc2OooGIfwLUbGD0aFYKy clxwYXIgVVRNQiBMYWJvcm O6g9BiXPWnMLVjCAS3jYrv boz4NYCdaE5gYJDfR2cpjy eyVBdeMIWfv0SjeJ9lmDGV kHRwp2GekQBgrZDOaWUcWP 0yhlFtLMqHJFeGQWL8ayAu LCJms2BtAEhpV3jmW73eqW msmJu1jUK0FOO2hT7fJdz+ IFxwYXJccGFyIEFwcHJvcH VeUKFpdWouznQxD1TkjlTl sU2axSWvyhKnXG9gRO0xY6 M3qVWsGMXjvzYwc1yaJEjd dmUgYmVlbiByZXZpZXdlZC Ycs8HsGFmgFQV9HOqyaeOj bmNsdWRpbmcgSCZFLCBTcG BjpXOeNEF7TTufksHhxgPq IR0xwT3zgJrtrZ8kvCKvsK W7vglhAQVmZVYbbGvpIRNs AA8tkTTxOEUwwhWVvZipgM BdbZ7hQ5TdLNBpCTJutg5s JGDkdW1oBDmur1IkkzkfCT EyAGHmPTWhweUzlw9iEFQi zETWGZ3PJItgaFTls6Sgst OvQ7wCGNH3ZYDqXdIhNcku KOPbjTKpwWExWNKrsa42XZ VbgV1miOaiLFQyxK8niX9g zZflwP9rVaLaGyUtYWbnCE 2hMESrN5icxGWmFXThVUYu P3biKpQcxZ1foCgcPWbcFp WwKdVrLRsuBTT0lO== Embedded Images (test code = 9702017216) [facility] CenterRHEUMATOID [id number] 17:37:21 Test Item Value Reference Range Interpretation Comments RF (test code = See_Comment H [Automated 3389872412) message] The system which generated this result transmitted reference range : <20 IU/mL. The reference range was not used to interpret this result as normal/abnormal . NICHOLAS (test code = NICHOLAS) Values greater than 36 IU/mL are considered significant. Lab Interpretation Abnormal (test code = 62454-0) [facility] CenterC3 [id number] 17:36:02 Test Item Value Reference Range Interpretation Comments C3 (test code = 1961800490) 40 mg/dL 86-184 L Lab Interpretation (test code = Abnormal 35453-3) [facility] CenterC4 [id number] 17:36:02 Test Item Value Reference Range Interpretation Comments C4 (test code = 0041661133) 4 mg/dL 20-59 L Lab Interpretation (test code = Abnormal 90421-6) [facility] CenterALBUMIN BODY [id number] 17:18:00 Test Item Value Reference Range Interpretation Comments ALBUMIN BF (test code 447.0 mg/dL = 0029970426) NICHOLAS (test code = NICHOLAS) Result interpreted relative to the serum concentration. ? [facility]CBC WITH [id number] 09:13:45 Test Item Value Reference Range Interpretation Comments WBC (test code = See_Comment [Automated 5790-2) message] The sy stem which generated this result transmitted reference range : 4.20 - 10.70 10*3/?L. The reference range was not used to interpret this result as normal/abnormal . RBC (test code = See_Comment L [Automated 639-8) message] The sy stem which generated this [...] (test code = 59.0 fL 38.5-51.6 H 07084-6) RDW-CV (test code = 15.1 % 12.1-15.4 788-0) PLT (test code = See_Comment L [Automated 777-3) message] The sy stem which generated this result transmitted reference range : 150 - 328 10*3/ ?L. The reference r laura was not used to interpret this result as normal/abnormal . MPV (test code = 11.1 fL 9.8-13.0 11008-9) IPF % (test code = 6.8 % 1.2-10.7 Platelet count 2020019603) measured by fluorescence method. NRBC/100 WBC (test See_Comment [Automat ed code = 1394914081) message] The system which generated this result transmitted reference range : 0.0 - 10.0 /100 WBCs. The refer ence range was not u sed to interpret th is result as normal/abnormal . NRBC x10^3 (test code <0.01 See_Comment [Auto mated = 5356040403) message] The s ystem which generated this result transmitted reference range : 10*3/?L. The reference range was not used to interpret this result as normal/abnormal . GRAN MAT (NEUT) % 60.1 % (test code = 770-8) IMM GRAN % (test code 0.50 % = 6320162623) LYMPH % (test code = 20.6 % 736-9) MONO % (test code = 15.7 % 5905-5) EOS % (test code = 2.0 % 713-8) BASO % (test code = 1.1 % 706-2) GRAN MAT x10^3(ANC) 4.82 10*3/uL 1.99-6.95 (test code = 2558704551) IMM GRAN x10^3 (test 0.04 10*3/uL 0.00-0.06 code = 7190697619) LYMPH x10^3 (test code 1.65 10*3/uL 1.09-3.23 = 731-0) MONO x10^3 (test code 1.26 10*3/uL 0.36-1.02 H = 742-7) EOS x10^3 (test code = 0.16 10*3/uL 0.06-0.53 711-2) BASO x10^3 (test code 0.09 10*3/uL 0.01-0.09 = 704-7) REACT LYMPHS (test Rare code = 0292898075) Lab Interpretation Abnormal (test code = 93441-5) [facility]. METABOLIC PANEL (39038)2021-03-23 09:03:11 Test Item Value Reference Range Interpretation Comments NA (test code = 138 mmol/L 135-145 2338134281) K (test code = 4.2 mmol/L 3.5-5.0 4571263451) CL (test code = 110 mmol/L 98-108 H 9236270481) CO2 TOTAL (test code = 19 mmol/L 23-31 L 7534000368) AGAP (test code = 2-16 0887062378) BUN (test code = 4 mg/dL 7-23 L 7235879891) GLUCOSE (test code = 84 mg/dL 70-110 7263225795) CREATININE (test code = 0.61 mg/dL 0.60-1.25 5167296194) TOTAL BILI (test code = 4.3 mg/dL 0.1-1.1 H 0858810822) CALCIUM (test code = 7.6 mg/dL 8.6-10.6 L 5064127791) T PROTEIN (test code = 7.6 g/dL 6.3-8.2 3582935308) ALBUMIN (test code = 2.9 g/dL 3.5-5.0 L 1504863730) ALK PHOS (test code = 79 U/L 34-122 7120905226) ALTv (test code = 59 U/L 5-50 H 1742-6) AST(SGOT) (test code = 199 U/L 13-40 H 8243262714) eGFR (test code = mL/min/1.73m2 1369245618) NICHOLAS (test code = NICHOLAS) Association of [...] tests). Lab Interpretation Abnormal (test code = 93160-8) [facility] CenterPROTHROMBIN [facility] / [id number] 08:43:50 Test Item Value Reference Range Interpretation Comments PROTIME PATIENT (test See_Comment H [Auto mated message] code = 5964-2) The system [employer] generated this result transmitted ref erence range: 10.1 - 1 2.6 Seconds. The reference range was not used to int erpret this result as normal/abnormal . INR (test code = 6301-6) Nor mal INR <1.1; Warfarin Therap eutic range 2.0 to 3. 0 or 2.5 to 3.5, dep ending upon the indica tions. Lab Interpretation (test Abnormal code = 15605-3) [facility] CenterBODY FLUID DIRECT [id number] 00:16:59 Test Item Value Reference Range Interpretation Comments BF COLOR Yellow (test code = 0384887985) BF WBC Count See_Comment [Automated (test code = message] The sy stem 6459331439) which generated this result transmitted reference range : /?L. The refere nce range was not u sed to interpret th is result as normal/abnormal . BF RBC Count <3000 See_Comment [Automated (test code = message] The sy stem 2526658911) which generated this result transmitted reference range : /?L. The refere nce range was not u sed to interpret th is result as normal/abnormal . NICHOLAS (test The reference range code = NICHOLAS) and other method performance specifications have not been established for this body fluid. ?The test results must be integrated into the clinical context for interpretation. [facility] CenterBODY FLUID MANUAL [id number] 00:16:59 Test Item Value Reference Range Interpretation Comments BF SEGS (test code = 6043979831) 1 % BF LYMPHS (test code = 1410093926) 10 % MACROPHAGE (test code = 4853185850) 84 % MESOS (test code = 1270022789) 5 % #CELS CNTD (test code = 0076951961) [facility] CenterT.PROTEIN BODY [id number] 00:14:13 Test Item Value Reference Range Interpretation Comments T.PROT BF (test 1467.0 mg/dL code = 9055344897) UNSPUN BODY FLUID Yellow COLOR (test code = 3980355577) UNSPUN BODY FLUID Clear CLARITY (test code = 8260946687) SPUN BODY FLUID Yellow COLOR (test code = 7241175707) SPUN BODY FLUID Clear CLARITY (test code = 3609978871) Sediment (test code No sediment. = 6253478972) NICHOLAS (test code = Test developed and NICHOLAS) characteristics determined by [facility] Services. [facility] CenterHCV [id number] 23:54:52 Test Item Value Reference Range Interpretation Comments HCV Ab (test code = Positive 86209-0) HCV Semi-Quantitative (test code = 37344-1) APRI (test code = 8151173246) NICHOLAS (test code = Positive for HCV antibody. NICHOLAS) This specimen has been reflexed to qualitative PCR test and submitted to [facility]. ?A report will be issued by that laboratory. ?If any questions, contact the Clinical Chemistry Director lead injection mold technician at [phone].APRI score < 0.5: Suggestive of little to no fibrosisAPRI score > 1.5: Suggestive of moderate to severe fibrosisAPRI score > 2.0: Highly suggestive of cirrhosis. [facility]-AB WITH [id number] 23:50:53 Test Item Value Reference Range Interpretation Comments HIV Negative Negative Semi-quantitative (test code = 71495-9) NICHOLAS (test code = Non-reactive for HIV-1 NICHOLAS) antigen and HIV-1/HIV-2 antibodies. ?No laboratory evidence of HIV infection. ?Repeat in 2-4 weeks if acute HIV infection is suspected. [facility] CenterPROTHROMBIN TIME / [id number] 23:04:48 Test Item Value Reference Range Interpretation Comments PROTIME PATIENT (test See_Comment H [Auto mated message] code = 5964-2) The system [employer] generated this result transmitted ref erence range: 10.1 - 1 2.6 Seconds. The reference range was not used to int erpret this result as normal/abnormal . INR (test code = 6301-6) Nor mal INR <1.1; Warfarin Therap eutic range 2.0 to 3. 0 or 2.5 to 3.5, dep ending upon the indica tions. Lab Interpretation (test Abnormal code = 06008-6) [facility] ONLY COVID [id number] 22:44:25COVID DMT InterpretationInterpretation/Recommendations:Molecular NAAT Tests for Active [...] COVID-19 testing the patient has had at [facility], including molecular NAAT testing (more commonly known as PCR testing and Rapid ID Now testing) and antibody testing. It does not take into account any testing that a patient has had outside of the [facility] medical record. [facility] LABORATORY SERVICESCOVID ResultsSARS- CoV-2 Rapid ID NOW (no units) ? ? Date ? Value ? 03/22/2021 ? Not Detected ? [facility] LABORATORY SERVICES [facility] CenterXR CHEST 2 [id number] 22:40:05 No acute cardiopulmonary abnormality. Preliminary Report [...] have reviewed this study and agree with bony report.[facility] CenterFOLATE2021-07-05 22:40:03 Test Item Value Reference Range Interpretation Comments FOLATE SER (test code = 9239233099) 9.8 ng/mL 3.0-20.0 Lab Interpretation (test code = Normal 96988-1) [facility] CenterVITAMIN B12, [id number] 22:27:23 Test Item Value Reference Range Interpretation Comments VIT B12 (test code = 962 pg/mL 240-930 H 8367962624) NICHOLAS (test code = NICHOLAS) Biotin has been reported to cause a positive bias, interpret results relative to patient's use of biotin. Lab Interpretation (test Abnormal code = 75367-1) [facility] CenterHEPATITIS B SURFACE [id number] 22:05:37 Test Item Value Reference Range Interpretation Comments HBsAg Semi-Quantitative (test code = Negative Negative 5195-3) [facility] CenterFIBRINOGEN2021-07-05 21:42:14 Test Item Value Reference Range Interpretation Comments Fibrinogen (test code = 4301812033) 142 mg/dL 167-453 L Lab Interpretation (test code = Abnormal 56925-4) [facility] CenterCT ABDOMEN PELVIS W [id number] 20:43:32 1. ?No CT evidence of acute [...] Preliminary Report Dictated by Resident: Hannah Ruiz ?MD. Blake, have reviewed this study and agree with [...] this study and agree with theabove report. [facility] WITH [id number] 18:46:06 Test Item Value Reference Range Interpretation [...] (test code = 60.0 fL 38.5-51.6 H 11223-5) RDW-CV (test code = 15.2 % 12.1-15.4 788-0) PLT (test code = See_Comment L [Automated 777-3) message] The sy stem which generated this result transmitted reference range : 150 - 328 10*3/ ?L. The reference r laura was not used to interpret this result as normal/abnormal . MPV (test code = 10.8 fL 9.8-13.0 05454-9) NRBC/100 WBC (test See_Comment [Automat ed code = 2463936933) message] The system which generated this result transmitted reference range : 0.0 - 10.0 /100 WBCs. The refer ence range was not u sed to interpret th is result as normal/abnormal . NRBC x10^3 (test code <0.01 See_Comment [Auto mated = 8391684322) message] The s ystem which generated this result transmitted reference range : 10*3/?L. The reference range was not used to interpret this result as normal/abnormal . GRAN MAT (NEUT) % 62.0 % (test code = 770-8) IMM GRAN % (test code 0.40 % = 6365024191) LYMPH % (test code = 18.8 % 736-9) MONO % (test code = 16.5 % 5905-5) EOS % (test code = 1.3 % 713-8) BASO % (test code = 1.0 % 706-2) GRAN MAT x10^3(ANC) 8.32 10*3/uL 1.99-6.95 H (test code = 9976276332) IMM GRAN x10^3 (test 0.05 10*3/uL 0.00-0.06 code = 8977869870) LYMPH x10^3 (test code 2.52 10*3/uL 1.09-3.23 = 731-0) MONO x10^3 (test code 2.22 10*3/uL 0.36-1.02 H = 742-7) EOS x10^3 (test code = 0.18 10*3/uL 0.06-0.53 711-2) BASO x10^3 (test code 0.13 10*3/uL 0.01-0.09 H = 704-7) Lab Interpretation Abnormal (test code = 33765-2) [facility] CenterURINALYSIS2021-07-05 18:38:40 Test Item Value Reference Range Interpretation Comments APPEARANCE (test code = Clear Clear 0869987512) COLOR (test code = Christie Yellow A 6730745024) PH (test code = 4.8-8.0 9124008080) SP GRAVITY (test code = 1.003-1.030 1761169875) GLU U QUAL (test code = Normal Normal 3960231961) BLOOD (test code = Negative Negative 4995112437) KETONES (test code = Negative Negative 1870939056) PROTEIN (test code = 30 mg/dL Negative A 2887-8) UROBILIN (test code = 4.0 mg/dL Normal A 9746180109) BILIRUBIN (test code = Negative Negative 7936336295) NITRITE (test code = Negative Negative 6565352246) LEUK ADOLFO (test code = Negative Negative 5632446142) RBC/HPF (test code = See_Comment [Autom ated message] 6835192489) The system [employer] generated this result transmit cristina reference range : 0 - 3 HPF. The refe rence range was not u sed to interpret th is result as normal/abnormal . WBC/HPF (test code = See_Comment H [Autom ated message] 2452815880) The system [employer] generated this result transmit cristina reference range : 0 - 5 HPF. The refe rence range was not u sed to interpret th is result as normal/abnormal . BACTERIA (test code = Few Negative A 9708428393) MUCOUS (test code = Moderate Negative LPF A 5107937711) SQ EPITH (test code = <1 See_Comment [Auto mated message] 8374277394) The system [employer] generated this result transmit cristina reference range : <=2 HPF. The refere nce range was not u sed to interpret th is result as normal/abnormal . Ictotest (test code = Negative 8424324740) Lab Interpretation (test Abnormal code = 12270-2) [facility] CenterCOVID-19 (ID NOW RAPID TESTING)2021-03-22 18:30:01 Test Item Value Reference Range Interpretation Comments SARS-CoV-2 Rapid ID NOW Not Detected Not Detected (test code = 36999-4) NICHOLAS (test code = NICHOLAS) ID NOW COVID-19 Assay is an isothermal nucleic acid amplification test intended for the qualitative detection of nucleic acid from SARS-CoV-2 viral RNA in nasopharyngeal (BOOK PACKER) specimens. It is used under Emergency Use [...] indicated. Lab Interpretation Normal (test code = 21964-4) [facility] CenterETHANOL2021-07-05 18:26:02 Test Item Value Reference Range Interpretation Comments ALCOHOL (test code = 268 mg/dL 5403346279) NICHOLAS (test code = Toxic Greater than or NICHOLAS) equal to 80 mg/dL. NOTE: Whole blood values are approximately 10% to 15% lower than serum and plasma. [facility] CenterHEPATIC FUNCTION PANEL (85344) (ALB,T.PRO,BILI T,BU/BC,ALT,AST,ALK PHOS)2021-03-22 18:26:01 Test Item Value Reference Range Interpretation Comments TOTAL BILI (test code = 2000886234) 4.8 mg/dL 0.1-1.1 H BILI UNCON (test code = 0287152941) 1.9 mg/dL 0.1-1.1 H BILI CONJ (test code = 3587154832) 0.8 mg/dL 0.0-0.3 H T PROTEIN (test code = 8077580947) 9.0 g/dL 6.3-8.2 H ALBUMIN (test code = 0312176258) 3.7 g/dL 3.5-5.0 ALK PHOS (test code = 5375314539) 119 U/L 34-122 ALTv (test code = 1742-6) 63 U/L 5-50 H AST(SGOT) (test code = 4604581699) 209 U/L 13-40 H Lab Interpretation (test code = Abnormal 67205-0) [facility] CenterBASIC METABOLIC PANEL (NA, K, CL, CO2, GLUCOSE, BUN, CREATININE, CA)2021-03-22 18:26:01 Test Item Value Reference Range Interpretation Comments NA (test code = 136 mmol/L 135-145 8935318792) K (test code = 4.1 mmol/L 3.5-5.0 1624841143) CL (test code = 105 mmol/L 98-108 8284044464) CO2 TOTAL (test code = 20 mmol/L 23-31 L 3604789386) AGAP (test code = 2-16 2133791572) BUN (test code = 6 mg/dL 7-23 L 9292318819) GLUCOSE (test code = 115 mg/dL 70-110 H 8947222342) CREATININE (test code = 0.70 mg/dL 0.60-1.25 5033076365) CALCIUM (test code = 7.7 mg/dL 8.6-10.6 L 6616630692) eGFR (test code = mL/min/1.73m2 8792222458) NICHOLAS (test code = NICHOLAS) Association of [...] tests). Lab Interpretation Abnormal (test code = 67273-8) [facility] CenterLIPASE2021-07-05 18:26:01 Test Item Value Reference Range Interpretation Comments LIPASE (test code = 8273169348) 1308 U/L 0-220 H Lab Interpretation (test code = Abnormal 73585-0) [facility] CenterPROTHROMBIN TIME / [id number] 18:20:59 Test Item Value Reference Range Interpretation Comments PROTIME PATIENT (test See_Comment H [Auto mated message] code = 5964-2) The system [employer] generated this result transmitted ref erence range: 10.1 - 1 2.6 Seconds. The reference range was not used to int erpret this result as normal/abnormal . INR (test code = 6301-6) Nor mal INR <1.1; Warfarin Therap eutic range 2.0 to 3. 0 or 2.5 to 3.5, dep ending upon the indica tions. Lab Interpretation (test Abnormal code = 55867-5) [facility]"
[2021-11-04] MEDS ORDERED: NA CHLORIDE 0.9% 1,000 ML ONE (17:44)
[2021-11-04 17:46] LABS: Absolute Lymphocytes (CBC) 3.5 K/uL (0.7-4.9); Hematocrit 9.5 % (39.6-49.0); Lymphocytes % 13.4 % (15.3-44.8); MPV 7.5 fL (7.6-11.3); RBC Red Blood Cell Count 1.01 M/uL (4.33-5.43)
[2021-11-04 17:51] LABS: Protime INR 1.7
--- NOTE | 2021-11-04 18:16 | RAD REPORT ---
EXAM DESCRIPTION: RAD - Chest Single View - 11/04/2021 5:50 pm CLINICAL HISTORY: CHEST PAIN COMPARISON: Portable 08/27/2021 TECHNIQUE: AP portable chest image was obtained 11/04/2021 5:50 pm . FINDINGS: Lung volumes are low but clear. No failure or volume overload. Hazy left base opacificatio n is most likely pericardial fat. Findings are less prominent than seen previously. Heart and vascula ture are normal. No measurable pleural effusion and no pneumothorax. No acute bony abnormality seen. No acute aortic findings suspected. IMPRESSION: No acute cardiopulmonary process. No significant change from comparison study.
[2021-11-04 18:18] LABS: Albumin 1.2 g/dL (3.4-5.0); Bilirubin Direct 1.2 mg/dL (0-0.2); Bilirubin Total 2.4 mg/dL (0.2-1.0); CKMB Creatine Kinase MB 2.3 ng/mL (1.0-3.6); Potassium 4.4 mmol/L (3.5-5.1); Protein, Total 6.3 g/dL (6.4-8.2)
[2021-11-04 18:20] LABS: Troponin High Sensitivity 204.5 pg/mL (<58.9)
[2021-11-04 18:54] LABS: Blood Morphology Comment NOT SEEN (NOT SEEN); Platelet Estimate ADEQ; Platelets, Giant PRESENT
[2021-11-04] MEDS ORDERED: LORazepam 2 MG/ML VIAL ONE ×2 (19:09→20:18)
--- NOTE | 2021-11-04 19:34 | ER ---
Nurse's Notes [facility] Name: Jean Kamara Age: 36 yrs Sex: Male : 1985 Arrival Date: 11/04/2021 Time: 16:33 Bed 2 Private MD: Diagnosis: Alcoholic cirrhosis of liver;Anemia, unspecified;Epistaxis;Hypotension, unspecified Presentation: 11/04 16:30 Chief complaint: EMS states: EMS stated they were called to patients house twice today cb5 due to a nose bleed. Pt elected hospice, was informed by hospice to go to the ER that patient has 14 days before he is revoked from hospice. 16:30 Coronavirus screen: Client denies travel out of the [place] in the last 14 days. Ebola cb5 Screen: Patient negative for fever greater than or equal to 101.5 degrees Fahrenheit, and additional compatible Ebola Virus Disease symptoms Patient denies exposure to infectious person. Initial Sepsis Screen: Does the patient meet any 2 criteria? Systolic BP < 90 mmHg. Altered Mental Status. HR > 90 bpm. Does the patient have a suspected source of infection? Yes: Other: ascites. Risk Assessment: Do you want to hurt yourself or someone else? Patient reports no desire to harm self or others. 16:30 Method Of Arrival: EMS: [facility] cb5 16:30 Acuity: GREGORY 1 ss 20:38 Onset of symptoms was November 04, 2021. 5 20:38 Onset of symptoms was November 04, 2021. [facility] Triage Assessment: 16:30 General: Appears comfortable, Behavior is cooperative, appropriate for age. Pain: cb5 Denies pain. GI: ascities. : No deficits noted. Derm: No deficits noted. Derm: No deficits noted. Skin is fragile, is thin, with poor turgor Skin is jaundiced, pale. Musculoskeletal: Reports generalized weakness. Historical: - Home Meds: 20:36 Folic Acid Oral [Active]; Lasix Oral [Active]; Thiamine Oral [Active]; sm5 - PMHx: 18:07 Hepatitis C; Hernia; Pancreatitis; cb5 - Immunization history:: Adult Immunizations not up to date. - Social history:: Smoking status: unknown. Screenin:35 Abuse screen: Denies threats or abuse. Denies injuries from another. Nutritional cb5 screening: No deficits noted. Tuberculosis screening: No symptoms or risk factors identified. Fall Risk None identified. Assessment: 16:30 General: Appears comfortable, Behavior is calm, cooperative, appropriate for age. Pain: cb5 Denies pain. Neuro: Level of Consciousness is awake, alert, obeys commands, Oriented to person, place, time, situation, Appropriate for age. Cardiovascular: Denies chest pain, Capillary refill < 3 seconds Rhythm is sinus tachycardia. Respiratory: Airway is patent Trachea midline Respiratory effort is even, unlabored, Respiratory pattern is regular, pt stated his nose was bleeding twice today at home. Visual dried red blood in left nare. GI: pt has ascites. : No deficits noted. Derm: Skin is fragile, is thin, with poor turgor Skin is jaundiced. Musculoskeletal: Reports pt reports increased weakness. 16:30 General: pt arrived with a 20g P.I.V in left arm, I.V. was no longer patent. Second cb5 nurse attempted P.i.V placement without sucess.. 16:50 General: Primary nurse placed 20 P.I.V. in right AC, patent however unable to draw back cb5 blood.. 17:31 General:. cb5 17:33 General: Third person placed 20g P.I.V in left hand patent sie, however unable to cb5 obtain blood return. Third P.i.V was placed by same person in left forearm, patent site sent blood specimens to lab. . 19:30 Reassessment: All information FAXED to Hospice Care Team, Carli. Levi RN house ss quilting supervisor spoke with Carli who stated that papers were signed, but patient had not been admitted officially to hospice, but will do her best to expedite the process. 19:35 Reassessment: spoke to pt's mother who agrees for comfort measures only. sm5 Vital Signs: 16:30 BP 86 / 50; Pulse 116; Resp 16; Temp 98.6; Pulse Ox 99% ; Weight 68.04 kg; Height 5 ft. cb5 7 in. (170.18 cm); Pain 0/10; 20:39 BP 89 / 18; Pulse 103; Resp 24; Pulse Ox 91% on R/A; sm5 16:30 Body Mass Index 23.49 (68.04 kg, 170.18 cm) cb5 ED Course: 16:33 Patient arrived in ED. vg1 16:35 Madi Suero MD is Attending Physician. kdr 16:56 Rajni Koch, RN is Primary Nurse. cb5 17:05 Arm band placed on. cb5 17:19 No provider procedures requiring assistance completed. cb5 17:20 Bed in low position. Call light in reach. Side rails up X 1. cb5 17:37 Triage completed. cb5 17:39 Amylase, Serum Sent. cb5 17:39 Basic Metabolic Panel Sent. cb5 17:39 Blood Culture Adult (2) Sent. cb5 17:39 CBC with Diff Sent. cb5 17:40 CPK Sent. cb5 17:40 Ckmb Sent. cb5 17:40 LFT's Sent. cb5 17:40 Lactate Sent. cb5 17:40 Lipase Sent. cb5 17:40 Procalcitonin Sent. cb5 17:40 Protime (+inr) Sent. cb5 17:40 Ptt, Activated Sent. cb5 17:40 Troponin HS Sent. cb5 17:50 Chest Single View XRAY In Process Unspecified. EDMS 18:02 Type And Screen Sent. cb5 19:15 Report given to Dinora Becerra cb5 19:21 Primary Nurse role handed off by Rajni Koch, YENNIFER mw2 19:30 Lorrie Blanchard, YENNIFER is Primary Nurse. mk 20:[address] in [address] for EMS to discharge upon arrival to pt's home. sm5 Administered Medications: 17:42 Drug: NS 0.9% (30 ml/kg) 30 ml/kg Route: IV; Rate: bolus; Site: right antecubital; cb5 19:09 Drug: Ativan (LORazepam) 0.5 mg Route: IVP; Site: left antecubital; cb5 Outcome: 19:34 Discharge ordered by . kdr 20:35 Patient left the ED. mw2 20:37 Discharged to home via ambulance. sm5 20:37 Condition: unchanged 20:37 Discharge instructions given to family, EMS, Instructed on discharge instructions, Demonstrated understanding of instructions. Signatures: Dispatcher [employer] EDMS Maid Suero MD MD [facility] Ariella Fry, YENNIFER RN Sydney Titus mw2 Caprice Monroy, YENNIFER RN vg1 Mariam Metz RN RN sm5 Lorrie Blanchard, RN RN Rajni Koch RN RN cb5 Corrections: (The following items were deleted from the chart) 18: 16:30 Acuity: GREGORY 3 cb5 ss 19:36 19:35 Reassessment: spoke to pt's mother who agrees for comfort measures only/DNR sm5 status. sm5
--- NOTE | 2021-11-04 19:34 | EDPHYS ---
Physician Documentation [facility] Name: Jean Kamara Age: 36 yrs Sex: Male : 1985 Arrival Date: 11/04/2021 Time: 16:33 Bed 2 Private MD: ED Physician Madi Suero HPI: 11/04 16:50 This 36 yrs old Male presents to ER via Unassigned with complaints of epistaxis. kdr 16:50 Patient was sent to the ED for control of his nose bleeding. On initial evaluation, the kdr patient is not bleeding at this time. There is some fresh blood at the opening of his left nare but otherwise there is no active bleeding at this time. Patient also informed us that he has completed the paperwork for hospice care to be put on hospice but not as he had is on hospice. Nonetheless at this time he asked that we only keep him comfortable and not do further intervention. I spoke with the charge nurse to consult with case management to determine the best way to proceed forward. We are currently awaiting case management to respond. Onset: The symptoms/episode began/occurred just prior to arrival. Severity of symptoms: At their worst the symptoms were mild moderate just prior to arrival, in the emergency department the symptoms are unchanged. The patient has not experienced similar symptoms in the past. Patient has multiple contacts with healthcare system here, and [place] had at [place] for cirrhosis related issues.. 16:52 Patient states that his last abdominal paracentesis was about 4 days ago at [place]. kdr Historical: - Home Meds: 20:36 Folic Acid Oral [Active]; Lasix Oral [Active]; Thiamine Oral [Active]; sm5 - PMHx: 18:07 Hepatitis C; Hernia; Pancreatitis; cb5 - Immunization history:: Adult Immunizations not up to date. - Social history:: Smoking status: unknown. ROS: 16:52 Constitutional: Negative for fever, chills, and weight loss, Eyes: Negative for injury, kdr pain, redness, and discharge, Neck: Negative for injury, pain, and swelling, Cardiovascular: Negative for chest pain, palpitations, and edema, Respiratory: Negative for shortness of breath, cough, wheezing, and pleuritic chest pain, MS/Extremity: Negative for injury and deformity, Skin: Negative for injury, rash, and discoloration. 16:52 ENT: Positive for nose bleed. 16:52 Respiratory: Positive for shortness of breath. 16:52 Abdomen/GI: Positive for Distended abdomen consistent with a cirrhotic. 16:52 Neuro: Positive for altered mental status, weakness, Patient is generally somnolent but responds to questions appropriate. Exam: 16:52 Constitutional: This is a well developed, poorly nourished patient who is somnolent kdr but in no acute distress. Head/Face: Normocephalic, atraumatic. There is clearly fresh blood in both nares and dried blood around his lips Neck: Trachea midline, no thyromegaly or masses palpated, and no cervical lymphadenopathy. Supple, full range of motion without nuchal rigidity, or vertebral point tenderness. No Meningismus. Chest/axilla: Normal chest wall appearance and motion. Nontender with no deformity. No lesions are appreciated. Cardiovascular: Regular rate and rhythm with a normal S1 and S2. No gallops, murmurs, or rubs. Normal PMI, no JVD. No pulse deficits. 16:52 Respiratory: the patient does not display signs of respiratory distress, Respirations: normal, shallow respirations, that is mild, Breath sounds: rales, that are mild, are heard diffusely. 16:52 Abdomen/GI: Inspection: distension, that is moderate, that is severe. 16:52 Neuro: Orientation: to person, time, situation. Vital Signs: 16:30 BP 86 / 50; Pulse 116; Resp 16; Temp 98.6; Pulse Ox 99% ; Weight 68.04 kg; Height 5 ft. cb5 7 in. (170.18 cm); Pain 0/10; 20:39 BP 89 / 18; Pulse 103; Resp 24; Pulse Ox 91% on R/A; sm5 16:30 Body Mass Index 23.49 (68.04 kg, 170.18 cm) cb5 MDM: 19:34 Patient medically screened. kdr 19:34 Data reviewed: vital signs, nurses notes, lab test result(s). Counseling: I had a kdr detailed discussion with the patient and/or guardian regarding: the historical points, exam findings, and any diagnostic results supporting the discharge/admit diagnosis, lab results, radiology results, After discussion with the patient who on initial presentation stated that he did not want any further interventions done. He indicated that he had made peace with his family and friends. He indicated that he knew that he was in terminal condition. He indicated that he wanted no further interventions other than to be made comfortable. Somewhat later, I discussed the situation with the mother who was present at bedside. She indicated that she was aware of her son's wishes. She was in agreement with those wishes. Hospice had been contacted and was helping to make arrangements for the patient to be taken home. The patient continued to deteriorate during his stay in the ED. I executed a DO NOT RESUSCITATE order in the hospital. These efforts and route documents were witnessed by the nursing staff present. Patient was discharged to home in serious and terminal condition. 19:59 ED course: Patient continues to deteriorate in the ED. Mother is here. Nursing staff kdr has worked with hospice care to arrange for home care. Hospice care agreed to meet the mother and the patient at home to get them settled. We informed EMS that the patient was deteriorating and that his demise was eminent. We acknowledged that should the patient between the hospital and is received at home by hospice care, that they may in fact bring the patient back to the ED. The mother was happy with the arranges that have been made and departed the hospital prior to the patient's departure to arrive home and engage with hospice care staff. 11/04 16:37 Order name: Amylase, Serum kdr 11/04 16:37 Order name: Basic Metabolic Panel kdr 11/04 16:37 Order name: Blood Culture Adult (2) kdr 11/04 16:37 Order name: CBC with Diff kdr 11/04 16:37 Order name: CPK kdr 11/04 16:37 Order name: Ckmb kdr 11/04 16:37 Order name: LFT's kdr 11/04 16:37 Order name: Lactate kdr 11/04 16:37 Order name: Lipase kdr 11/04 16:37 Order name: Procalcitonin kdr 11/04 16:37 Order name: Protime (+inr) kdr 11/04 16:37 Order name: Ptt, Activated kdr 11/04 16:37 Order name: Troponin HS kdr 11/04 16:37 Order name: Chest Single View XRAY kdr 11/04 16:37 Order name: Accucheck; Complete Time: 18:02 kdr 11/04 16:37 Order name: Cardiac monitoring; Complete Time: 16:57 kdr 11/04 16:37 Order name: EKG - Nurse/Tech; Complete Time: 18:02 kdr 11/04 16:37 Order name: IV Saline Lock - Large Bore; Complete Time: 16:57 kdr 11/04 16:37 Order name: Labs collected and sent; Complete Time: 17:39 kdr 11/04 16:37 Order name: O2 Per Protocol; Complete Time: 16:56 kdr 11/04 16:37 Order name: O2 Sat Monitoring; Complete Time: 16:56 kdr 11/04 16:37 Order name: Type And Screen kdr 11/04 16:47 Order name: Labs - recollect needed: recollect all labs; Complete Time: 17:59 bd 11/04 18:54 Order name: Manual Differential EDMS 11/04 19:22 Order name: ABO/RH no charge EDMS 11/04 19:55 Order name: Social Service Consult EDMS Administered Medications: 17:42 Drug: NS 0.9% (30 ml/kg) 30 ml/kg Route: IV; Rate: bolus; Site: right antecubital; cb5 19:09 Drug: Ativan (LORazepam) 0.5 mg Route: IVP; Site: left antecubital; cb5 Disposition Summary: 11/04/21 19:34 Discharge Ordered Location: Other kdr Condition: Serious kdr Diagnosis - Alcoholic cirrhosis of liver kdr - Anemia, unspecified kdr - Epistaxis kdr - Hypotension, unspecified kdr Followup: kdr - With: Private Physician - When: As needed - Reason: Continuance of care Discharge Instructions: - Discharge Summary Sheet kdr - Anemia kdr - Hypotension kdr - Hospice kdr - Nosebleed, Adult, [id number] kdr Forms: - Medication Reconciliation Form kdr - Thank You Letter kdr Signatures: Dispatcher [employer] EDMS Arin Arvizu Kevin, MD MD kdr Mariam Metz, RN RN 5 Rajni Koch, RN RN cb5
[2021-11-04 22:28] VITALS: BP 86/50; TEMP 98.6; O2SAT 99
--- NOTE | 2021-11-05 13:06 | EKG ---
Test Date: 2021-11-04 Test Time: 17:41:48 Bag Bundler: LAURA MEASUREMENT RESULTS: Intervals: Rate: 109 NC: 116 QRSD: 102 QT: 362 QTc: 487 [place]: P: 66 NC: 116 QRS: 41 T: 72 INTERPRETIVE STATEMENTS: Sinus tachycardia Otherwise normal ECG Compared to ECG 08/27/2021 18:09:30 Sinus rhythm no longer present Prolonged QT interval no longer present Electronically Signed On 11-05-21 13:03:02 [employer] by Vaughn Baird
== END 2021-11-04 20:35 | disposition home or self-care (01) ==
LOC: ER 16:24
DX: R04.0 Epistaxis (principal); K70.30 Alcoholic cirrhosis of liver without ascites; D64.9 Anemia, unspecified; I95.9 Hypotension, unspecified; B19.20 Unspecified viral hepatitis C without hepatic coma
CPT/HCPCS: 36415; 71045; 80048; 80076; 82150; 82550; 82553; 83605; 83690; 84145; 84484; 85025; 85610; 85730; 86850; 86900; 86901; 87040; 93005; 99291; 99292; J7030